=== PATIENT | male | born 1950 | race African-American/Black ===

== ENCOUNTER → 2017-12-24 06:36 | Outpatient (CLI) | payer OTHER, MEDICARE, SELFPAY ==
--- NOTE | 2017-12-24 16:43 | STRESSREP_ITS ---
Stress Test Report Pharmacologic myocardial perfusion stress test. 67-year-old man with a history of coronary artery disease status post coronary bypass surgery 2012. Stress protocol: Resting EKG demonstrates normal sinus rhythm with rate of 62 bpm. Resting blood pressure is 150/100 mmHg. 0.4 mg regadenoson was infused per usual protocol followed by rapid intravenous saline flush injection. Continuous EKG monitoring was performed. The maximum heart rate attained was 115 bpm which was 76% maximum predicted heart rate maximum workload attained was 1 metabolic equivalent. Patient maintained sinus rhythm throughout the recording with occasional premature ventricular complexes. The resting blood pressure is 150/ 100 mmHg with a final blood pressure 140/80 mmHg. There were no ST or T-wave changes noted suggest abnormal flow reserve. Myocardial perfusion protocol. 11.7 mCi of technetium 99m sestamibi was injected at rest. 0.4 mg regadenoson was infused per usual protocol peak infusion 33.6 mCi technetium 99 sestamibi was injected stress images were obtained. Stress and rest images were reconstructed and compared in the short axis vertical long horizontal long axis. Gated images were also obtained. Perfusion SPECT analysis. Review of the stress images demonstrate a medium sized defect noted in the mid anterior wall. Sting images demonstrate near complete reversibility noted in the same area suggesting evidence of mid anterior ischemia. The rest of the mijares appear to be well perfused. Gated SPECT analysis. Gated ejection fraction is noted to be 43% with mid anterior and apical hypokinesis present. Conclusion: Abnormal pharmacologic myocardial perfusion stress test with evidence of mid anterior ischemia in a medium-sized zone. Mild ischemic cardiomyopathy present.
== END ==
PROVIDERS: Visit Provider Internal Medicine Cardiovascular Disease
DX: I25.10 Atherosclerotic heart disease of native coronary artery without angina pectoris (principal); I10 Essential (primary) hypertension
CPT/HCPCS: 78452; 93017; A9500; A4216; J2785

== ENCOUNTER → 2019-08-20 12:49 | Outpatient (CLI) | payer MEDICARE, SELFPAY ==
[2019-07-24 11:10] VITALS: BMI 27.8
[2019-08-18 15:41] VITALS: BMI 27.8
--- NOTE | 2019-08-20 12:54 | ECHOCS_ITS ---
Reason For Study: CAD/ASHD Procedure This was a 2D Doppler, Color Flow transthoracic echocardiogram. The study was technically difficult. Exam performed in department. Left Ventricle Normal LV size. Sigmoid septum. Segmental dysfunction with preserved ejection fraction (see wall motion). The estimated ejection fraction is 55 %. No evidence for diastolic dysfunction. Infero- Basal: Hypokinetic. Basal inferoseptal: Hypokinetic. Mid-Inferior: Hypokinetic. Mid-inferoseptal : Hypokinetic. Mid-anteroseptal : Hypokinetic. Inferior [place] : Hypokinetic. Septal [place] : Hypokinetic. Right Ventricle Normal RV size. Normal systolic function. Atria Borderline to mildly enlarged left atrium. Normal right atrium. No doppler evidence for ASD. Mitral Valve There is no mitral annular calcification. Normal mitral valve. Trivial mitral valve insufficiency. Tricuspid Valve Normal tricuspid valve. Trivial tricuspid valve insufficiency. Right ventricular systolic pressure estimated to be 25 mmHg. Aortic Valve Trisinus/trileaflet aortic valve. Mild focal aortic valve thickening. Pulmonic Valve The pulmonic valve is not well visualized. Trivial pulmonic valve insufficiency. Great Vessels Normal sized aortic root. Pericardium/Pleural No pericardial effusion. Medication 22 gauge I.V. with prn adaptor inserted into right arm. Diluted definity 3ml given slow IV push to enhance endocardial definition. MMode/2D Measurements & Calculations LVIDd: 4.7 cm IVSd: 0.95 cm Ao root diam: 2.9 cm LVIDs: 3.1 cm LVPWd: 0.95 cm RVDd: 3.3 cm FS: 33.4 % LAV(MOD-bp): 30.0 ml LVAd ap4: 23.2 cm2 SV(MOD-sp4): 38.8 ml LAV(MOD-bp) Indexed: 16.4 ml/m2 EDV(MOD-sp4): 60.5 ml LAV(MOD-sp2): 31.7 ml EDV(sp4-el): 60.8 ml LAV(MOD-sp4): 25.5 ml LVAs ap4: 12.5 cm2 ESV(MOD-sp4): 21.7 ml ESV(sp4-el): 21.4 ml EF(MOD-sp4): 64.2 % EF(sp4-el): 64.8 % SV(sp4-el): 39.4 ml LA A4 area: 12.1 cm2 LA dimension(2D): 4.1 cm RA A4 area: 13.5 cm2 Time Measurements MV dec time: 0.25 sec Doppler Measurements & Calculations MV E max dal[place]: 75.8 cm/sec Lat Peak E' [place]: 10.7 cm/sec Med Peak E' [place]: 5.8 cm/sec MV A max [place]: 94.5 cm/sec E/E' lat: 7.1 E/E' med: 13.0 MV E/A: 0.80 Ao V2 max: 141.6 cm/sec LV V1 max: 72.3 cm/sec PA V2 max: 129.6 cm/sec Ao max P.0 mmHg LV V1 max P.1 mmHg TR max dal[place]: 234.0 cm/sec TR max P.9 mmHg Interpretation Summary The study was technically difficult. Segmental dysfunction with preserved ejection fraction (see wall motion). The estimated ejection fraction is 55 %. Sigmoid septum. Borderline to mildly enlarged left atrium. Trivial mitral valve insufficiency. Trivial tricuspid valve insufficiency. Mild focal aortic valve thickening. Trivial pulmonic valve insufficiency. Right ventricular systolic pressure estimated to be 25 mmHg. No evidence for diastolic dysfunction. Ordering Physician: Yon Decker Referring Physician: BERTHA RODRIGUEZ Performed By: Pepper Reeves RDCS
== END ==
PROVIDERS: Family Provider Internal Medicine; PCP Internal Medicine; Referring Provider Internal Medicine Cardiovascular Disease; Visit Provider Internal Medicine Cardiovascular Disease
DX: I25.5 Ischemic cardiomyopathy (principal)
CPT/HCPCS: 93306; Q9957; A4216; C8929

== ENCOUNTER → 2020-01-02 06:06 | Outpatient (CLI) | payer MEDICARE, SELFPAY ==
[2019-11-12 16:35] VITALS: BMI 27.8
[2020-01-02 07:17] LABS: Absolute Lymphocyte Count 3.68 X10^3/uL (0.83-4.51); Absolute Neutrophil Count 2.8 X10^3/uL (2.0-7.7); Basophil# 0.07 X10^3/uL; Basophil% 0.9 % (0-1); Eosinophil# 0.38 X10^3/uL; Eosinophils% 4.9 % (0-5); Hematocrit 45.4 % (40-54); Hemoglobin 14.1 g/dL (13.0-16.5); Lymphocyte # 3.68 X10^3/ul (4.0); Lymphocyte % 47.4 % (19-41); Mean Corp Hgb Conc 31.1 g/dL (32-36); Mean Corpuscular Hgb 24.9 pg (27.0-32.0); Mean Corpuscular Volume 80.1 fL (80-94); Mean Platelet Vol. 12.5 fl (6.2-12.0); Monocyte% 10.3 % (0-10); NRBC Flagged by Analyzer 0 % (0-5); Neutrophil # 2.82 X10^3/uL (2.7-7.7); Neutrophil % 36.2 % (47-70); Platelet Count 197 K/mm3 (150-450); RBC Distribution Width CV 14.6 % (11.6-14.6); Red Blood Count 5.67 M/mm3 (4.6-6.2); White Blood Count 7.8 K/mm3 (4.4-11.0)
[2020-01-02 07:44] LABS: Microalbumin:Creatinine Ratio 158.9 mg/g CRE (<30 mg/g CRE)
[2020-01-02 07:45] LABS: ALB/GLOB Ratio 0.9 RATIO (0.9-2.4); AST(SGOT) 22 U/L (15-37); Alanine Aminotransfer ALT/SGPT 31 U/L (16-61); Albumin, Serum 3.3 g/dL (3.2-5.0); Alkaline Phosphatase 79 U/L (45-117); Anion Gap 6 (5-15); BUN 14 mg/dL (7-18); Calcium,Total 8.7 mg/dL (8.5-10.1); Chloride 109 mmol/L (98-107); Cholesterol 168 mg/dL (200); Creatinine, Serum 0.87 mg/dL (0.70-1.30); EST Glomerular Filtration Rate 91 mL/min (>60); Est Glom Filt Rate - Afr Amer 110 mL/min (>60); Globulin 3.7 g/dL (2.2-4.2); Glucose 109 mg/dL (74-106); High Density Lipoprotein 49 mg/dL; Potassium 3.9 mmol/L (3.5-5.1); Sodium Level 141 mmol/L (136-145); Triglycerides 147 mg/dL; Very Low Density Lipoprotein 29 mg/dL (5-40)
== END ==
PROVIDERS: PCP Internal Medicine; Referring Provider Internal Medicine; Visit Provider Internal Medicine
DX: I25.5 Ischemic cardiomyopathy (principal); E11.9 Type 2 diabetes mellitus without complications
CPT/HCPCS: 36415; 80053; 80061; 82043; 82570; 85025

== ENCOUNTER → 2020-01-23 | Outpatient (CLI) | payer MEDICARE, SELFPAY ==
[2019-11-12 16:35] VITALS: BMI 27.8
[2020-01-23 15:54] LABS: Anion Gap 3 (5-15); BUN 14 mg/dL (7-18); BUN/Creat Ratio 15.3 RATIO (10-20); Calcium,Total 9.1 mg/dL (8.5-10.1); Chloride 108 mmol/L (98-107); Creatinine, Serum 0.92 mg/dL (0.70-1.30); EST Glomerular Filtration Rate 87 mL/min (>60); Est Glom Filt Rate - Afr Amer 105 mL/min (>60); Glucose 102 mg/dL (74-106); Sodium Level 142 mmol/L (136-145)
== END | disposition home or self-care (01) ==
LOC: LABSPEC 15:20
PROVIDERS: PCP Internal Medicine; Referring Provider Internal Medicine; Visit Provider Internal Medicine
DX: E11.9 Type 2 diabetes mellitus without complications (principal); I10 Essential (primary) hypertension
CPT/HCPCS: 80048

== ENCOUNTER → 2020-03-18 14:57 | Outpatient (CLI) | payer MEDICARE, SELFPAY ==
[2020-03-18 14:39] VITALS: BMI 27.8
[2020-03-18 15:51] LABS: Bacteria 0 SEEN /hpf (None Seen); Mucous, Urine 0 SEEN /hpf (<or=2+); Red Blood Cells-Urine 0 SEEN /hpf (0-5); Squamous Epithelial Cells - UA 0 SEEN /hpf (0-5); White Blood Cells 0 SEEN /hpf (0-5)
[2020-03-18 16:48] LABS: Anion Gap 6 (5-15); BUN 20 mg/dL (7-18); BUN/Creat Ratio 21.8 RATIO (10-20); Calcium,Total 8.9 mg/dL (8.5-10.1); Chloride 106 mmol/L (98-107); Creatinine, Serum 0.92 mg/dL (0.70-1.30); EST Glomerular Filtration Rate 86 mL/min (>60); Est Glom Filt Rate - Afr Amer 104 mL/min (>60); Glucose 102 mg/dL (74-106); Potassium 4.1 mmol/L (3.5-5.1); Sodium Level 139 mmol/L (136-145)
[2020-03-18 16:52] LABS: Color, Urine Yellow (Yellow); Glucose, Dipstick Normal (Normal); Ketone-Dipstick Negative (Negative); Leukocyte Esterase-Dipstick Negative /ul (Negative); Nitrite-Dipstick Negative (Negative); Occult Blood-Urine 10 /ul (Negative); Protein-Dipstick 30 mg/dl (Negative); Urine Bilirubin Dipstick Negative (Negative); Urine Clarity Clear (Clear); Urine Urobilinogen Normal (Normal)
== END ==
PROVIDERS: PCP Internal Medicine; Referring Provider Internal Medicine; Visit Provider Internal Medicine
DX: R60.0 Localized edema (principal)
CPT/HCPCS: 36415; 80048; 81001

== ENCOUNTER 2021-01-07 16:35 | Outpatient (RCR) | payer MEDICARE, SELFPAY ==
[2021-01-07] MEDS: COVID-19 VACC, MRNA(PFIZER)/PF 30 MCG/0.3 ML SYRINGE IM (17:25)
[2021-01-10 16:31] VITALS: BMI 28.4
[2021-01-28] MEDS: COVID-19 VACC, MRNA(PFIZER)/PF 30 MCG/0.3 ML SYRINGE IM (11:02)
== END 2021-01-07 23:59 ==
LOC: IMMUN 16:35
PROVIDERS: PCP Internal Medicine; Referring Provider Family Medicine; Visit Provider Family Medicine
DX: Z23 Encounter for immunization (principal)
CPT/HCPCS: 0001A; 0002A; 91300

== ENCOUNTER → 2023-04-13 | Outpatient (CLI) | payer MEDICARE, SELFPAY | END | disposition home or self-care (01) | LOC: SL 20:12 | PROVIDERS: PCP Family Medicine; Referring Provider Nurse Practitioner Family; Visit Provider Nurse Practitioner Family | DX: G47.10 Hypersomnia, unspecified (principal) | CPT/HCPCS: 95810 ==

== ENCOUNTER → 2023-06-01 | Outpatient (CLI) | payer MEDICARE, SELFPAY | END | disposition home or self-care (01) | LOC: SL 20:14 | PROVIDERS: PCP Family Medicine; Referring Provider Nurse Practitioner Acute Care; Visit Provider Nurse Practitioner Acute Care | DX: G47.33 Obstructive sleep apnea (adult) (pediatric) (principal) | CPT/HCPCS: 95811 ==

== ENCOUNTER → 2023-08-02 | Outpatient (CLI) | payer MEDICARE, MEDICAID, SELFPAY | END | disposition home or self-care (01) | LOC: SL 13:51 | PROVIDERS: PCP Family Medicine; Visit Provider Nurse Practitioner Acute Care | DX: G47.33 Obstructive sleep apnea (adult) (pediatric) (principal); Z99.89 Dependence on other enabling machines and devices ==

== ENCOUNTER → 2025-07-06 | Outpatient (CLI) | payer MEDICARE, MEDICAID, SELFPAY ==
--- OUTSIDE RECORDS SUMMARY | 2025-07-06 06:33 | XMS RPT_ITS | CCD ---
Author Organization [facility] CliniSypr Care Team Providers Care Health Information Managers Name Role Phone MYLES SANONNETH Unavailable Unavailable FAB MARCUS Unavailable Unavailable UMESH NGUYEN Unavailable Unavailable FAB, MARCUS Unavailable Unavailable FAB, MARCUS Unavailable Unavailable UMESH NGUYEN Unavailable Unavailable A, Hvi Clinical Cardiology Unavailable Diego Sanchez MD Primary Care Provider [facility], [place] Unavailable A, [facility] Clinical Cardiology Unavailable Diego Sanchez MD Primary Care Provider [facility], [place]eti Unavailable A, [facility] Clinical Cardiology Unavailable Diego Sanchez MD Primary Care Provider [facility], [place]eti Unavailable Dr. Diego Patricio Primary Care Provider Dr. Diego Patricio Referring Provider Nara VALENTINE, JELENA Manning Attending Provider [facility], [place] Unavailable Diego Patricio MD Primary Care Provider Diego Patricio MD Primary Care Provider [facility], [place] Unavailable Eron PROJECT DRILLING ENGINEER.PRAVIN Mary Unavailable Kelly Walton PA-C Unavailable Mary Littlejohn APRN.CNP Unavailable Kelly Walton PA-C Unavailable Dr. Diego Patricio MD Primary Care Provider [phone] Dr. Diego Patricio MD Referring Provider Roof C++ PROFESSOR-C, Bakari Post Attending Provider DIEGO PATRICIO Attending Unavailable SHENG, DIEGO A Primary Care Unavailable GILBERT GARZA Attending Unavailable KELLY WALTON Referring Unavailable SHENG, DIEGO A Primary Care Unavailable SHENG, DIEGO A Primary Care Unavailable SHENG, DIEGO A Primary Care Unavailable SHENG, DIEGO A Attending Unavailable SHENG, DIEGO A Primary Care Unavailable SHENG, DIEGO A Referring Unavailable SHENG, DIEGO A Primary Care Unavailable KELLY WALTON Attending Unavailable SHENG, DIEGO A Primary Care Unavailable CHERI RICHEY Attending Unavailable KELLY WALTON Referring Unavailable SHENG, DIEGO A Primary Care Unavailable PODLOGARAKILAH Attending Unavailable SHENG, DIEGO A Primary Care Unavailable PODLOGARAKILAH Referring Unavailable SHENG, DIEGO A Primary Care Unavailable KELLY WALTON Attending Unavailable SHENG, DIEGO A Primary Care Unavailable SHENG, DIEGO A Referring Unavailable SHENG, DIEGO A Primary Care Unavailable KELLY WALTON Attending Unavailable SHENG, DIEGO A Primary Care Unavailable KELLY WALTON Referring Unavailable SHENG, DIEGO A Primary Care Unavailable Velma C++ PROFESSOR, Bakari Post Attending Unavailable Sheng, Diego Primary Care Unavailable Bakari Carreon NP Referring Unavailable Diego Patricio Referring Unavailable Sheng, Diego Primary Care Unavailable Velma C++ PROFESSOR, Bakari Post Attending Unavailable Allergies Allergy Classification Reported Allergen(s) Allergy Type Date of Onset Reaction(s) Facility Acetaminophen (2 sources) Acetaminophen Drug Allergy 9 Other: See Comments, Mental Status Change [facility] Acetaminophen / oxyCODONE (2 sources) Acetaminophen / oxyCODONE Drug Allergy 3 Mental Status Change [facility] Angiotensin Converting Enzyme (WHITNEY) Inhibitors (2 sources) Lisinopril Drug Allergy 3 Rash [facility] Work Phone: Opioid Agonists (2 sources) oxyCODONE Drug Allergy 1 Other: See Comments [facility] (20 sources) acetaminophen / oxyCODONE; Translations: [OXYCODONE-ACETAM INOPHEN] Drug Allergy 3 Mental Status Change [facility] (20 sources) lisinopril; Translations: [LISINOPRIL] Drug Allergy 3 Rash [facility] Rep[facility] (20 sources) oxyCODONE; Translations: [OXYCODONE] Drug Allergy 1 Other: See Comments [facility] Work Phone: (20 sources) Acetaminophen; Translations: [ACETAMINOPHEN] Drug Allergy 9 Other: See Comments, Mental Status Change [facility] (1 source) oxyCODONE Drug Allergy 5 [facility] Repository Medications Current Medications Medication Drug Class(es) Dates Sig (Normalized) Sig (Original) [id number] 200 actuat albuterol 0.09 mg/actuat metered dose inhaler (17 sources) beta2-Adrenergic Agonist Start: 11-27-2024 take 2 puff(s) by inhalation every six hours as needed for wheezing albuterol HFA (PROVENTIL HFA) 90 mcg/actuation inhaler Inhale 2 Puffs as instructed every 6 hours as needed for wheezing/shortne ss of breath. 1 Each 5 11/27/2024 Active amLODIPine 5 mg oral tablet (20 sources) Dihydropyridine Calcium Channel Rama Start: 09-02-2021 End: 04-25-2024 take 1 mg by mouth once daily Amlodipine 5 mg tablet Active mg PO DAILY December 11, 2023 1:00am Comment on above: Take 1 tablet by candelaria th once daily. aspirin 81 mg delayed release oral tablet (20 sources) Platelet Aggregation Inhibitor, Nonsteroidal Anti-inflammatory Drug Start: 06-03-2025 Aspirin (Adult Low Dose Aspirin) 81 mg tablet,delayed release (DR/EC) Active 81 mg PO TWICE A DAY June 03, 2025 11:11am alternates 1-2 tabs every other week Start: 07-24-2019 End: 06-03-2025 Aspirin (Adult Low Dose Aspi rin) 81 mg tablet,delayed release (DR/EC) Discontinued 81 mg PO DAILY July 24, 2019 11:10am June 03, 2025 11:13am alternates 1-2 tabs every other week Start: 07-04-2019 End: 07-24-2019 Aspirin (Adult Low Dose Aspi rin) 81 mg tablet,delayed release (DR/EC) Discontinued 162 mg PO DAILY July 04, 2019 12:00am July 24, 2019 11:12am Start: 11-21-2012 take 2 tablets by mo [facility] once daily aspirin 81 mg chewable tablet Take 2 tablets by mouth once daily. 0 11/21/2012 Active Comment on above: Take 2 tablets by mo [facility] once daily. atorvastatin 40 mg oral tablet (20 sources) HMG-CoA Reductase Inhibitor Start: 9 End: 5 take 1 tablet by mouth once daily at bedtime atorvastatin (LIPITOR) 40 mg tablet Indications: Hyperlipidemia, unspecified hyperlipidemia type Take 1 tablet by mouth daily at bedtime. 90 tablet 3 11/07/2024 Active Comment on above: Take 1 tablet by [facility] daily at bedtime. Blood Glucose Control, High (TRUE METRIX LEVEL 3) (20 sources) Start: 1 Blood Glucose Control, High (TRUE METRIX LEVEL 3) Use as directed to set up machine 1 Each 1 03/17/2021 Active Comment on above: Use as directed to s et up machine Blood Glucose Control, Low (TRUE METRIX LEVEL 1) (20 sources) Start: 1 Blood Glucose Control, Low (TRUE METRIX LEVEL 1) Use as directed to set up machine 1 Each 1 03/17/2021 Active Comment on above: Use as directed to s et up machine Blood Glucose Control, Normal (TRUE METRIX LEVEL 2) soln (20 sources) Start: 1 Blood Glucose Control, Normal (TRUE METRIX LEVEL 2) soln Use as directed to set up machine 1 Each 1 03/17/2021 Active Comment on above: Use as directed to s et up machine Blood Pressure Test Kit-Large (20 sources) Start: 1 Blood Pressure Test Kit-Large Indications: Essential hypertension , Ischemic cardiomyopathy , Coronary artery disease due to lipid rich plaque Check BP once a day or as needed. Dx: I10, I25.5 and I25.10 1 Each 03/07/2021 Active Start: 03-07-2021 Blood Pressure Test Kit-Large Indications: Essential hypertension , Ischemic cardiomyopathy , Coronary artery disease due to lipid rich plaque Check BP once a day or as needed. Dx: I10, I25.5 and I25.10 1 Each 0 03/07/2021 Active Comment on above: Check BP once a day or as needed. Dx: I10, I25.5 and I25.10 Blood-Glucose Meter (20 sources) Start: 02-03-2025 Blood-Glucose Meter Test blood sugar once a day DX E11. Insulin: No 1 each 02/03/2025 Active Start: 02-15-2021 End: 02-03-2025 Blood-Glucose Meter Indicati ons: Essential hypertension Test blood sugar once a day DX Insulin: No 1 Each 02/15/2021 02/03/2025 Discontinued Start: 02-15-2021 Blood-Glucose Meter Indications: Essential hypertension Test blood sugar once a day DX Insulin: No 1 Each 02/15/2021 Active Start: 02-15-2021 Blood-Glucose Meter Indications: Essential hypertension Test blood sugar once a day DX Insulin: No 1 Each 0 02/15/2021 Active Comment on above: Test blood sugar onc e a day DX Insulin: No Blood-Glucose Meter (TRUE METRIX GLUCOSE METER) (20 sources) Start: 03-17-2021 Blood-Glucose Meter (TRUE METRIX GLUCOSE METER) Use to check blood sugar once a day. Dx: E11., no insulin 1 Each 1 03/17/2021 Active Comment on above: Use to check blood s ugar once a day. Dx: E11.29, no insulin Blood-Glucose Meter monitoring kit (1 source) Start: 08-28-2022 End: 08-29-2022 Blood-Glucose Meter monitoring kit Indications: Type 2 diabetes mellitus with other circulatory complication, without long-term current use of insulin ([facility]) Glucose Meter of Choice - Kit - Dx: Type 2 DM - Controlled E11.9 Check Blood Sugar Once a day 1 Each 0 08/28/2022 08/29/2022 Active Comment on above: Glucose Meter of Cho ice - Kit - Dx: Type 2 DM - Controlled E11.9 Check Blood Sugar Once a day 120 actuat budesonide 0.16 mg/actuat / formoterol fumarate 0.0045 mg/actuat metered dose inhaler (18 sources) Corticosteroid, beta2-Adrenergic Agonist Start: 06-03-2025 Budesonide-Formoterol (Symbicort) 160-4.5 mcg/actuation HFA aerosol inhaler Active 2 NMA INHALATION daily as needed June 03, 2025 12:00am Start: 03-30-2025 take 2 puff(s) by in halation twice daily budesonide-formoterol (SYMBICORT) 160-4.5 mcg/actuation inhaler Inhale 2 puffs as instructed two times a day. 1 each 03/30/2025 Active Start: 02-03-2025 End: 03-30-2025 take 2 puff(s) by inhalation twice daily budesonide-formoterol (SYMBICORT) 160-4.5 mcg/actuation inhaler Inhale 2 puffs as instructed two times a day. 1 each 02/03/2025 03/30/2025 Discontinued Start: 02-03-2025 take 2 puff(s) by in halation twice daily budesonide-formoterol (SYMBICORT) 160-4.5 mcg/actuation inhaler Inhale 2 puffs as instructed two times a day. 1 each 02/03/2025 Active carbamide peroxide 65 mg/ml otic solution (4 sources) Start: 05-12-2025 take 4-5 drop(s) auricular (otic) route every hour as needed carbamide peroxide (DEBROX) 6.5 % otic solution Use 4-5 drops in the ears every hour as needed. 15 mL 05/12/2025 Active carvedilol 25 mg oral tablet (20 sources) alpha-Adrenergic Rama, beta-Adrenergic Rama Start: 04-03-2019 End: 05-05-2025 take 1 tablet by mouth twice daily at mealtime carvedilol (COREG) 25 mg tablet Indications: Heart failure, acute systolic (HCC) Take 1 tablet by mouth two times a day with meals. 180 tablet 3 05/05/2025 Active Comment on above: Take 1 tablet by candelaria th twice daily with meals. Take 1 tablet by candelaria th two times a day with meals. clotrimazole 10 mg/ml topical cream (4 sources) Azole Antifungal Start: 06-16-2024 End: 06-30-2024 clotrimazole (LOTRIMIN) 1 % cream Indications: Tinea cruris Apply to affected area two times a day for 14 days. 113 g 06/16/2024 06/30/2024 Active 24 hr dilTIAZem hydrochloride 120 mg extended release oral capsule (20 sources) Calcium Channel Rama Start: 10-17-2024 take 1 capsule by mouth once daily dilTIAZem CD (CARDIZEM CD) 120 mg 24 hr capsule Indications: Essential hypertension Take 1 capsule by mouth once daily. 90 capsule 3 10/17/2024 Active Start: 04-25-2024 End: 09-22-2024 take 1 capsule by mouth once daily dilTIAZem CD (CARDIZEM CD) 120 mg 24 hr capsule Take 1 capsule by mouth once daily. 30 capsule 5 09/22/2024 Active doxycycline monohydrate 100 mg oral tablet (3 sources) Tetracycline-class Drug Start: 08-04-2024 End: 08-14-2024 take 1 tablet by mouth twice daily doxycycline monohydrate 100 mg tablet Indications: Cutaneous abscess of back excluding buttocks Take 1 tablet by mouth two times a day for 10 days. 20 tablet 08/04/2024 08/14/2024 Active Start: 01-02-2023 End: 01-09-2023 take 1 tablet by mouth twice daily doxycycline monohydrate 100 mg tablet Indications: Lower resp. tract infection Take 1 tablet by mouth twice daily for 7 days. 14 tablet 0 01/02/2023 01/09/2023 Active Comment on above: Take 1 tablet by candelaria th twice daily for 7 days. fluconazole 200 mg oral tablet (5 sources) Azole Antifungal Start: End: 4 take 1 tablet by mouth every week fluconazole (DIFLUCAN) 200 mg tablet Indications: Tinea cruris Take 1 tablet by mouth one time a week for 28 days. 4 tablet 06/16/2024 07/14/2024 Active ibuprofen 600 mg oral tablet (1 source) Nonsteroidal Anti-inflammatory Drug Start: 4 take 1 mg by mouth every eight hours as needed Ibuprofen 600 mg tablet Active mg PO Q8H as needed December 11, 2023 1:00am isopropyl alcohol 0.7 ml/ml medicated pad (20 sources) Start: 1 alcohol swabs Apply 1 application to affected area once daily. 1 Box 3 03/17/2021 Active Comment on above: Apply 1 application to affected area once daily. losartan potassium 100 mg oral tablet (20 sources) Angiotensin 2 Receptor Rama Start: End: take 1 tablet by mouth once daily losartan (COZAAR) 100 mg tablet Indications: Essential hypertension Take 1 tablet by mouth once daily. 90 tablet 3 10/17/2024 Active Start: 01-13-2021 End: 04-01-2021 take 1 tablet by mouth once daily Losartan 50 mg tablet Discontinued 50 mg PO DAILY 90 February 03, 2021 12:00pm April 01, 2021 8:31am Start: 01-02-2020 End: 01-13-2021 take 1 tablet by mouth once daily Losartan 25 mg tablet Discontinued 25 mg PO DAILY 90 November 08, 2020 6:40pm January 13, 2021 3:44pm Comment on above: Take 1 tablet by candelaria th once daily. metFORMIN hydrochloride 500 mg oral tablet (20 sources) Biguanide Start: 4 take 1 tablet by mouth once daily at breakfast metFORMIN (GLUCOPHAGE) 500 mg tablet Indications: Type 2 diabetes mellitus with other circulatory complication, without long-term current use of insulin (HCC) Take 1 tablet by mouth daily with breakfast. 90 tablet 3 10/17/2024 Active Start: 03-31-2021 End: 09-22-2024 take 1 tablet by mouth once daily at breakfast metFORMIN (GLUCOPHAGE) 500 mg tablet Indications: Type 2 diabetes mellitus with other circulatory complication, without long-term current use of insulin (HCC) Take 1 tablet by mouth daily with breakfast. 90 tablet 3 10/17/2024 Active Comment on above: Take 1 tablet by candelaria th daily with breakfast. nitroglycerin 0.4 mg sublingual tablet (20 sources) Nitrate Vasodilator Start: 10-03-2021 End: 08-09-2022 nitroglycerin sublingual (NITROQUICK) 0.4 mg SL tablet Dissolve 1 tablet under the tongue as needed. for chest pain,every 5 min x3 25 tablet 1 08/09/2022 Active Comment on above: Dissolve 1 tablet un nata the tongue as needed. for chest pain,every 5 min x3 Completed/Discontinued Medications Medication Drug Class(es) Dates Sig (Normalized) Sig (Original) amoxicillin 875 mg / clavulanate 125 mg oral tablet (1 source) Penicillin-class Antibacterial Start: 12-11-2023 End: 12-31-2023 Amoxicillin-Pot Clavulanate 875-125 mg tablet Discontinued 1 {tbl} PO TWICE A DAY 10 December 11, 2023 1:00am December 31, 2023 2:53pm diclofenac sodium 0.01 mg/mg topical gel (2 sources) Nonsteroidal Anti-inflammatory Drug Start: 07-04-2019 End: 07-24-2019 apply 1 g topically four times daily as needed Diclofenac Sodium (Voltaren) 1 % gel Discontinued 1 g TOPICAL .QID as needed July 04, 2019 12:00am July 24, 2019 11:11am diphenhydrAMINE hydrochloride 25 mg oral tablet (20 sources) Histamine-1 Receptor Antagonist Start: 06-27-2024 End: 06-18-2025 take 1 tablet by mouth every six hours as needed diphenhydrAMINE (BENADRYL ALLERGY) 25 mg tablet Take 1 tablet by mouth every 6 hours as needed. 30 tablet 06/27/2024 06/18/2025 Discontinued (Course of therapy completed) fluticasone propionate 0.05 mg/actuat metered dose nasal spray (20 sources) Corticosteroid Start: 10-20-2022 End: 05-12-2025 take 2 spray(s) by mouth once daily fluticasone (FLONASE) 50 mcg/actuation nasal spray Indications: Nasal congestion Use 2 Sprays in each nostril once daily. Rinse mouth after use. 1 Each 5 04/25/2024 05/12/2025 Discontinued Start: 07-04-2019 End: 07-24-2019 Fluticasone Propionate (Benjamin rgy Relief (Fluticasone)) 50 mcg/actuation spray,suspension Discontinued 2 NMA INTRANASAL DAILY July 04, 2019 12:00am July 24, 2019 11:12am Start: 07-04-2019 End: 07-24-2019 Fluticasone Propionate (Benjamin rgy Relief (Fluticasone)) 50 mcg/actuation spray,suspension Discontinued 2 SPRAY INTRANASAL DAILY July 04, 2019 12:00am July 24, 2019 11:12am Comment on above: Use 2 Sprays in each nostril once daily. Rinse mouth after use. furosemide 20 mg oral tablet (20 sources) Loop Diuretic Start: 03-18-2024 End: 11-11-2024 take 1 tablet by mouth every other day furosemide (LASIX) 20 mg tablet Take 1 tablet by mouth every other day. 45 tablet 1 03/18/2024 11/11/2024 Discontinued (Discontinued by Patient) Start: 03-18-2020 End: 09-29-2020 take 1 tablet by mouth every other day Furosemide (Lasix) 20 mg tablet Discontinued 20 mg PO every other day 7 March 18, 2020 12:00am September 29, 2020 12:18pm 12 hr guaiFENesin 1200 mg extended release oral tablet (2 sources) Start: 08-18-2020 End: 04-04-2023 take 1 tablet by mouth twice daily as needed for congestion, then take 1 tablet by mouth every twelve hours as needed for congestion Guaifenesin (Mucinex) 1,200 mg tablet extended release 12hr Discontinued 1200 mg PO TWICE A DAY as needed for congestion 90 August 18, 2020 12:00am April 04, 2023 9:03am hydrocortisone 25 mg/ml topical cream (2 sources) Corticosteroid Start: 08-18-2019 End: 11-12-2019 Hydrocortisone 2.5 % cream with perineal applicator Discontinued 1 NMA RC 2 to 4 times per day 30 August 18, 2019 12:00am November 12, 2019 5:33pm ketoconazole 20 mg/ml topical cream (5 sources) Azole Antifungal Start: 06-03-2024 End: 06-16-2024 ketoconazole (NIZORAL) 2 % cream Apply to affected area once daily. Continue to use until 1 week after clinical resolution 60 g 06/03/2024 06/16/2024 Discontinued (Course of therapy completed) latanoprost 0.05 mg/ml ophthalmic solution (1 source) Prostaglandin Analog Start: 12-11-2023 End: 06-03-2025 Latanoprost 0.005 % drops Discontinued NMA OPHTHALMIC DAILY December 11, 2023 1:00am June 03, 2025 11:12am oxymetazoline hydrochloride 0.5 mg/ml nasal spray (2 sources) Start: 12-15-2020 End: 12-18-2020 Oxymetazoline (Afrin (Oxymetazoline)) 0.05 % mist Discontinued 2 NMA INTRANASAL Q12H as needed for nasal congestion 15 3 0 December 15, 2020 1:00am December 17, 2020 1:00am December 18, 2020 1:03am Use for 3 days only predniSONE 20 mg oral tablet (8 sources) Start: 03-30-2025 End: 04-13-2025 take 2 tablets by mouth once daily predniSONE (DELTASONE) 20 mg tablet Indications: SOB (shortness of breath) Take 2 tablets by mouth once daily. 10 tablet 03/30/2025 04/13/2025 Discontinued Start: 02-05-2024 End: 02-10-2024 take 3 tablets by mouth once daily predniSONE (DELTASONE) 10 mg tablet Take 3 tablets by mouth once daily for 5 days. 15 tablet 0 02/05/2024 02/10/2024 Active Start: 12-11-2023 End: 12-31-2023 take 3 tablets by mouth once daily at mealtime Prednisone 20 mg tablet Discontinued 60 mg PO daily 15 0 December 11, 2023 1:00am December 31, 2023 2:53pm administer with food or milk Start: 01-02-2023 End: 01-07-2023 take 2 tablets by mouth once daily predniSONE (DELTASONE) 20 mg tablet Indications: Acute cough , Wheezing Take 2 tablets by mouth once daily for 5 days. 10 tablet 0 01/02/2023 01/07/2023 Active Comment on above: Take 2 tablets by mo uth once daily for 5 days. Take 3 tablets by mo ut[facility] once daily for 5 days. tiotropium 0.018 mg inhalation powder (2 sources) Anticholinergic Start: 11-27-19 End: 02-04-20 take 1 capsule by inhalation once daily tiotropium (SPIRIVA WITH HANDIHALER) 18 mcg inhalation capsule Inhale 1 capsule as instructed once daily. 1 capsule 5 11/27/2024 02/03/2025 Discontinued Problems Active Problems Problem Classification Problem Date Documented Date Episodic/Chronic Administrative/social admission (20 sources) Advance directive discussed with patient; Translations: [Other specified counseling] Onset: 02-23-2023 Episodic Chronic obstructive pulmonary disease and bronchiectasis (20 sources) Chronic bronchitis; Translations: [Unspecified chronic bronchitis] Onset: 11-14-2024 11-14-2024 Chronic Congestive heart failure; nonhypertensive (20 sources) Chronic systolic heart failure; Translations: [Chronic systolic (congestive) heart failure] Onset: 11-13-2012 Chronic Coronary atherosclerosis and other heart disease (20 sources) Atherosclerotic heart disease of [place] coronary artery without angina pectoris; Translations: [Coronary atherosclerosis] Onset: 11-06-2012 Chronic Comment on above: CABG x5- KAY to LAD ,SVG to PDA, SVG to DX, SVG to OM1, SVG to OM2 11/13/12; Coronary atherosclerosis and other heart disease (1 source) Presence of aortocoronary bypass graft; Translations: [Presence of aortocoronary bypass graft] Onset: 07-01-2025 Episodic Diabetes mellitus with complications (20 sources) Type 2 diabetes mellitus; Translations: [Type 2 diabetes mellitus with other circulatory complications] Onset: 02-03-2021 Chronic Diabetes mellitus without complication (4 sources) Type 2 diabetes mellitus without complication; Translations: [Type 2 diabetes mellitus without complications] Chronic Disorders of lipid metabolism (20 sources) Mixed hyperlipidemia; Translations: [Mixed hyperlipidemia] Onset: 11-18-2012 Chronic Essential hypertension (20 sources) Essential hypertension; Translations: [Essential (primary) hypertension] Onset: 02-10-2021 Chronic Fluid and electrolyte disorders (20 sources) Hypervolemia; Translations: [Fluid overload, unspecified] Onset: 11-14-2012 Resolved: 11-18-2012 05-12-2025 Episodic Mycoses (3 sources) Onychomycosis; Translations: [Tinea unguium] 07-06-2023 Episodic Other aftercare (20 sources) Patient encounter status; Translations: [Other fci (current) drug therapy] Onset: 02-03-2021 02-03-2021 Episodic Other connective tissue disease (1 source) Pain of toe of left foot; Translations: [Pain in left toe(s)] 07-06-2023 Episodic Other connective tissue disease (1 source) Pain of toe of right foot; Translations: [Pain in right toe(s)] 07-06-2023 Episodic Other ear and sense organ disorders (3 sources) Impacted cerumen of bilateral ears; Translations: [Impacted cerumen, bilateral] Episodic Other ear and sense organ disorders (1 source) Impacted cerumen, bilateral; Translations: [Bilateral impacted cerumen] Onset: 06-18-2025 Episodic Other inflammatory condition of skin (1 source) Pruritus, unspecified; Translations: [Unspecified pruritic disorder] 06-27-2024 Episodic Other lower respiratory disease (1 source) Cough; Translations: [Acute cough] Episodic Other lower respiratory disease (1 source) Lower respiratory tract infection; Translations: [Unspecified acute lower respiratory infection] Episodic Other lower respiratory disease (8 sources) Wheezing; Translations: [Wheezing] Episodic Other lower respiratory disease (2 sources) Dyspnea; Translations: [Shortness of breath] 03-30-2025 Episodic Other lower respiratory disease (1 source) Shortness of breath; Translations: [SOB (shortness of breath)] Onset: 03-30-2025 Episodic Other nervous system disorders (4 sources) Entrapment of left ulnar nerve; Translations: [Lesion of ulnar nerve, left upper limb] 02-03-2025 Chronic Other nervous system disorders (1 source) Lesion of ulnar nerve, left upper limb; Translations: [Ulnar nerve compression, left] Onset: 02-23-2025 Chronic Other nervous system disorders (3 sources) Numbness of hand; Translations: [Anesthesia of skin] 02-03-2025 Episodic Other nutritional; endocrine; and metabolic disorders (20 sources) Body mass index 25-29 - overweight; Translations: [Overweight] Onset: 08-08-2017 Episodic Other skin disorders (3 sources) Foot callus; Translations: [Corns and callosities] Onset: 06-18-2025 07-06-2023 Episodic Other skin disorders (1 source) Eruption; Translations: [Rash and other nonspecific skin eruption] 06-27-2024 Episodic Other skin disorders (1 source) Corns and callosities; Translations: [Foot callus] Onset: 06-18-2025 Episodic Other upper respiratory disease (20 sources) Allergic rhinitis; Translations: [Allergic rhinitis, unspecified] Onset: 02-01-2021 Chronic Other upper respiratory disease (4 sources) Nasal congestion; Translations: [Nasal congestion] Episodic Residual codes; unclassified (20 sources) Obstructive sleep apnea syndrome; Translations: [Obstructive sleep apnea (adult) (pediatric)] Onset: 12-12-2023 05-01-2023 Chronic Comment on above: AHI 28.4 Residual codes; unclassified (2 sources) Obstructive sleep apnea (adult) (pediatric); Translations: [Obstructive sleep apnea (adult)(pediatric)] Onset: 11-11-2024 3 Chronic Residual codes; unclassified (20 sources) Bilateral lower limb edema; Translations: [Localized edema] Onset: 03-18-2024 03-18-2024 Episodic Screening and history of mental health and substance abuse codes (20 sources) Ex-smoker; Translations: [Personal history of nicotine dependence] Onset: 02-03-2021 02-07-2021 Episodic Skin and subcutaneous tissue infections (1 source) Abscess of back, except buttock; Translations: [Cutaneous abscess of back [any part, except buttock]] 08-04-2024 Episodic Unclassified (1 source) Unknown / UNK(Unknown) Onset: 12-28-2017 Past or Other Problems Problem Classification Problem Date Documented Da te Episodic/Chronic Diabetes mellitus without complication (20 sources) Metabolic stress hyperglycemia; Translations: [Hyperglycemia, unspecified] Onset: 11-13-2012 Resolved: 08-12-2018 10-17-2021 Episodic Genitourinary symptoms and ill-defined conditions (20 sources) Proteinuria; Translations: [Other proteinuria] Onset: 02-04-2021 Resolved: 04-25-2024 02-04-2021 Episodic Immunizations and screening for infectious disease (4 sources) Vaccination needed; Translations: [Encounter for immunization] Onset: 11-11-2024 Episodic Other aftercare (1 source) Other manager intermediate (current) drug therapy; Translations: [Medication management] Onset: 02-03-2021 Episodic Other circulatory disease (20 sources) H/O: atrial fibrillation; Translations: [Personal history of other diseases of the circulatory system] Onset: 11-16-2012 02-03-2021 Episodic Other circulatory disease (20 sources) Low blood pressure; Translations: [Hypotension, unspecified] Onset: 11-13-2012 Resolved: 11-15-2012 Episodic Other lower respiratory disease (1 source) Wheezing; Translations: [Wheezing] Onset: 11-11-2024 Episodic Other male genital disorders (20 sources) Disorder of prostate; Translations: [Disorder of prostate, unspecified] Onset: 02-03-2021 02-03-2021 Episodic Other nervous system disorders (1 source) Anesthesia of skin; Translations: [Hand numbness] Onset: 02-23-2025 Episodic Other nutritional; endocrine; and metabolic disorders (1 source) Overweight; Translations: [Overweight (BMI 25.0-29.9)] Onset: 02-03-2021 Episodic Other screening for suspected conditions (not mental disorders or infectious disease) (20 sources) Raised prostate specific antigen; Translations: [Elevated prostate specific antigen [PSA]] Onset: 04-02-2023 04-02-2023 Episodic Residual codes; unclassified (20 sources) Edema; Translations: [Edema, unspecified] Onset: 12-09-2012 Resolved: 06-18-2025 Episodic Residual codes; unclassified (1 source) Localized edema; Translations: [Bilateral leg edema] Onset: 03-18-2024 Episodic Residual codes; unclassified (1 source) Edema, unspecified; Translations: [Edema, unspecified type] Onset: 02-01-2021 Episodic Results Test Name Value Interpretation Reference Range Facility [facility] 06-25-2025 CNCO Letter Text Normal [facility] CNOVon 06-18-2025 CNOV Office Visit (FAMPWS ) JESSICAAURELIANO TREJO ([id number]) 1950 M Date Time Provider Department 06/18/25 9:20 AM DIEGO PATRICIOSHELLY During your visit today, we recorded the following information about you: Pulse Respiration Blood pressure Weight 52/minute 18/minute 104/62 75.1 kg Height 1.632 m Diego Patricio MD 06/18/2025 8:50 PM Signed Aureliano Dang is a 75 year old male here for a Medicare wellness visit. Medicare Health Risk Assessment General Health Very good Exercise: Minutes/Day 10 min Exercise: Days/Week 7 days Alcohol: Daily Use Never Alcohol: Drinks/Day Patient does not drink Alcohol: 6 or more drinks Never Feel off balance Yes Concerns: Teeth/Dentures No Concerns: Sexual function No Troubled by feelings None of the above Frequency: Eating healthy diet More than half the days ADLs requiring help None of the above Safety precautions in home/vehicle No (Rugs in home. Following all other safety precautions.) Smoke, vape, chews tobacco No Difficulty hearing Yes Difficulty seeing No Current Providers Specialists: I have reviewed specialist-related care of the patient in the medical record. Medical/Family history review Reviewed and updated problem list, medical/surgical/family/soc ial history, medications, and allergies. Opioid use review Opioid Medications (last 90 days) No data to display Anxiety/Depression screening PHQ-2 Score: 0 (Lower risk for depression) BILLIE-2 Score: 0 (Lower risk for anxiety) Recommendation: no further intervention at this time Cognitive screening Mini Cog Score: 5 Cognitive screening reviewed and No further action needed (score 3-5). Mini-Cog Patient asked to remember the following three words: Banana, [place] and Chair Visuospatial/Executive Functioning: Clock drawin/2 (Normal clock with all number in correct sequence and position, hands are correct = 2 points, inability or refusal to draw a clock = 0) Three word recall: 3/3 Total score: 5/5 (Total score = word recall score + clock draw score) Functional Observation Was the patient's Timed Up AND Go test unsteady or >= 12 seconds? No Advance Care Planning Surrogate decision maker and/or advance care plan documented Measurements BP 104/62 (BP Site: Right Arm, BP Position: Sitting, BP Cuff Size: Regular Adult) Pulse (!) 52 Resp 18 Ht 163.2 cm (5' 4.25") Wt 75.1 kg (165 lb 9.6 oz) BMI 28.20 kg/m? Vision Screening: Follows with optometry/ophthalmology Assessment/Plan Medicare annual wellness visit, subsequent (Z00.00) - Counseled on healthy diet and regular exercise - Fall avoidance information provided - Personalized prevention plan provided See below Chief Complaint Patient presents with: Medicare Wellness Exam HPI Aureliano Dang is a 75 year old male who presents here today for a routine follow up. Patient with hx of diabetes, CAD, CHF, ischemic cardiomyopathy, MADELIN, COPD, hyperlipidemia, ex smoker, overweight, a.fib after an [place] that resolved as well as those as below. Aureliano reports significant improvement in dyspnea since starting Symbicort, prescribed by a nurse practitioner. He denies the need for albuterol use and is not experiencing nocturnal dyspnea. He has a history of multiple consultations with pulmonologists and otolaryngologists, including allergy testing and various treatments, which provided only temporary relief. He discontinued pulmonary follow-up due to discomfort with sleep studies and CPAP therapy, citing a phobia of the equipment. He also reports a history of using Vicks VapoRub intranasally, which led to epistaxis, but he has since discontinued this practice. Aureliano reports a history of pruritus auris, for which he was prescribed ear drops by a nurse practitioner. He now reports decreased hearing, suspecting cerumen impaction. He denies any recent fevers, cephalalgia, hemoptysis, or production of colored sputum. He also denies any recent changes in vision or hearing, cervical lymphadenopathy, or palpitations. He reports chronic lower extremity edema, which has improved over time and is managed with compression socks. He denies any recent changes in heat or cold tolerance, easy bruising, or bleeding. Aureliano reports polyuria, including nocturia, but denies dysuria, hematochezia, hematuria, or heartburn. He also denies any recent nausea, emesis, or diarrhea. He reports symptms possibly related to a new-onset bilateral ulnar neuropathy, which he manages with cushioning but is not interested in further diagnostic studies at this time. He denies any arthralgia or myalgia. Aureliano reports occasional orthostatic dizziness when rising quickly from a seated position, but denies syncope, seizures, or tremors. He denies any symptoms of hypoglycemia. He reports no recent changes in his medication regimen. Past medical history, appointments, medi (more content not included)... Normal [facility] Cardiology Visit Reporton Cardiology Visit Report [facility] [place] [address] OFFICE VISIT Date of Service: 06/03/25 MR#: [id number] Acct: [id number] Name: AURELIANO DANG Rep #: [id number] : 1950 Provider: JELENA pelayo Age/Sex: 75/M Location: [facility] Status: Signed HPI HPI History of Present Illness Details: This is a 75-year-old male who presents today for outpatient cardiovascular follow-up based upon his history of CAD, CABG, ischemic mediated cardiomyopathy, and hyperlipidemia. He underwent sleep study in March 2023 that showed moderate to severe obstructive sleep apnea. He has since been followed with pulmonology team. He denies chest, arm, jaw, or neck discomfort. He denies palpitations. He states mild, bilateral lower extremity edema. He denies claudication. He denies shortness of breath with activity, shortness of breath at rest, orthopnea, or PND. He denies chronic cough. He denies significant, sudden weight gain. He denies current lightheadedness, dizziness, near-syncope, or syncope. He denies blood in urine, blood in stool, or epistaxis. He denies fever with chills. He denies myalgia. He denies fatigue. His exercise level has remained stable. He uses his treadmill twice a day. He has been increasing his speed and duration. Intake Vital Signs 06/03/24 10:34 06/03/25 11:17 Height 5 ft 5 in 5 ft 5 in Weight: 169 lb 164 lb BMI 28.1 27.3 BP 127/72 H 110/64 Blood Pressure Location Lt brachial Lt brachial Position Sitting Sitting Respiration 16 16 Pulse 53 L 56 L Pulse Source Monitor NIBP Intake Visit Reasons: 1 Y FU Frame Stylist Required: No Is patient in pain?: No Allergies lisinopril Allergy (Severe, Verified 06/03/25 11:08) Rash oxycodone (From Percocet) Adverse Reaction (Severe, Verified 06/03/25 11:08) Hallucination Medications ???Medication ???Instructions ???Recorded ???Confirmed ???Type metformin 500 mg tablet 500 mg PO DAILY 03/31/21 06/03/25 History losartan 100 mg tablet 100 mg PO DAILY 04/01/21 06/03/25 History carvedilol 25 mg tablet 25 mg PO BID #180 tabs 04/21/22 Rx atorvastatin 40 mg tablet 40 mg PO QHS #90 tabs 09/06/22 Rx amlodipine 5 mg tablet mg PO DAILY 12/11/23 06/03/25 Hist ory ibuprofen 600 mg tablet mg PO Q8H PRN 12/11/23 06/03/25 Hi story aspirin 81 mg tablet,delayed 81 mg PO BID 06/03/25 06/03/25 His tory release (Adult Low Dose Aspirin) budesonide-formoterol HFA 160 2 puff inhalation QDAY PRN 5 06/03/25 History mcg-4.5 mcg/actuation aerosol inhaler (Symbicort) Ejection fraction %: 46 Have you fallen in the past year?: No PFSH Medical History Hx of fracture Ischemic cardiomyopathy Type 2 diabetes mellitus Pure hypercholesterolemia Essential hypertension Atherosclerotic heart disease of [place] coronary artery without angina pectoris History of non-ST elevation myocardial infarction (NSTEMI) Surgical History H/O tooth extraction History of bilateral cataract extraction History of coronary artery bypass surgery ( 11/13/12) Family History Mother Hypertension Social History Smoking Status: Former smoker quit date: 10/22/89 alcohol intake: never substance use type: does not use caffeine: No what type of physical activity do you participate in: walking frequency: 1-2 times per week ROS Const Const: Negative for fatigue or weakness Eyes Eyes: Negative for change in vision ENT ENT: Negative for dizziness or balance problems Cardio Chest Pain: No Palpitations: No Edema: Bilateral (Mild) Muscle aches with walking: None Resp Respiratory: Negative for SOB with activity, SOB at rest or SOB orthopnea SOB lying down GI GI: Negative nausea or heartburn : Negative for hematuria or frequent nighttime urination/ nocturia Musc Musc: Negative for balance problems Skin Skin: Negative non-healing lesions or rash Neuro Neuro: Positive for lightheadedness (Fell due to lightheadedness 4 years ago. None since); Negative for dizziness, near syncope, syncope or weakness Endo Endo: Negative for fatigue Allergy Allergy/Immunology: Negative for rash Cardiology Exam Const Appearance: cooperative, healthy appearing, comfortable and no acute distress Nutritional Appearance: well nourished and overweight Orientation: alert, awake and oriented x3 Head Head: normal to inspection Ears: hearing grossly normal bilaterally Nose: external nose normal Face and Sinus: face symmetric Mouth: moist mucous membranes Eyes General: appearance normal, both eyes and all related structures Eyelids: eyelids no (more content not included)... Normal [facility] CNOVon 05-12-2025 CNOV Office Visit (FAMPWS ) AURELIANO DANG ([id number]) 1950 M Date Time Provider Department 05/12/25 8:40 AM KELLY WALTON FAMPWS During your visit today, we recorded the following information about you: Temperature Pulse Respiration Blood pressure 97 degrees 64/minute 18/minute 96/66 Weight 75.8 kg Kelly Walton PA-C 05/12/2025 10:28 AM Signed Chief Complaint No chief complaint on file. HPI Aureliano Dang is a 75 year old male who presents here today for Office visit. Patient was scheduled for wellness exam however was late for visit and wanted to discuss COPD treatment and ear concerns COPD: - Symbicort providing significant relief. - Previously used Vicks VapoRub intranasally, which caused nasal irritation and epistaxis. - Denies chest pain or neck swelling. Ear Itching: - Persistent pruritus in both ears. - Attempts to alleviate with matchsticks; denies using ear drops. Diabetes Mellitus: - Recent A1c: 6.7%. - Previous A1c values: 6.9%, 6.3%, 6.8%. Lifestyle: - Former smoker; denies current tobacco use. Past medical history, appointments, medications, allergies reviewed. Previous Medical History PAST MEDICAL HISTORY Diagnosis Date Allergic rhinitis 02/01/2021 Bilateral leg edema 03/18/2024 Calculus of kidney 03/08/2010 Chronic obstructive pulmonary disease (HCC) 02/03/2025 Chronic systolic CHF (congestive heart failure) (HCC) 11/13/2012 Preop EF 27+/-5%. NSTEMI mod LV mild RV required epinephrine infusion intraop. Post op EF 30+/-5%. - Pulmonary congestion and B effusions on CXR--improving. Lasix 40mg po daily, continue coreg, ACEI Coronary artery disease due to lipid rich plaque 08/08/[address] Decker: 5 vessel CABG 2012 Edema 12/09/2012 Elevated PSA 04/02/2023 Essential hypertension 02/10/2021 Ex-smoker 02/03/2021 Smoked 1/4 pck for about 45 yrs quit 2014 Ex-smoker 02/03/2021 Smoked 1/4 pck for about 45 yrs quit 2014, US 01/2021 Neg for AAA History of atrial fibrillation 11/16/2012 Secondary to [place] but resolved. Sees: Dr. Decker: New onset AF RVR 11/16. Converted to NSR after 30 mins w/ BB/Mg++. 11/18-11/21 Remains in NSR, continue coreg. History of non-ST elevation myocardial infarction (NSTEMI) 11/06/2012 Preop NSTEMI by his history and EKG findings. Mildly Elevated Troponin T. ECHO LVEF 27%. - On ASA/BB/statin and ACEI. ECHO showed improved EF 39%, no pericardial effusion. Ischemic cardiomyopathy 02/10/2021 Seeing Cardio Lung nodule 11/21/[address] scan on 11/09/2012 showed 3-mm noncalcified at the base of the lateral right lower lobe segment (slice 73). Repeat CT 2013 showed no nodules. Medicare annual wellness visit, subsequent 02/07/2022 Medicare Part B: Last done: 02/07/2022 Mixed hyperlipidemia 11/18/2012 Preop lipids: Tri-86, chol-219, HDL-52, LDL-150. Lipitor 40mg started, consider increase to 80mg d/t NSTEMI--can be increased after discharge to assure pt is tolerating dose (d/w Dr. Beasley). Pt to follow up w/ local MD for repeat cholesterol levels in 6 weeks. MADELIN (obstructive sleep apnea) 12/12/2023 Sees [facility] (Sant[facility]/Estefan[facility]) Other proteinuria 02/04/2021 diabetes related. 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 Previous Surgical History PAST SURGICAL HISTORY Procedure Laterality Date CABG (5) VENOUS GRAFTS AND ARTERIAL GRAFT(S) 11/13/2012 [facility] COLONOSCOPY FLX DX W/COLLJ SPEC WHEN PFRMD 10/24/2013 Colonoscopy,repeat 10 yrs ESOPHAGOGASTRODUODENOSCOPY TRANSORAL DIAGNOSTIC 10/24/2013 EGD REMV CATARACT EXTRACAP,INSERT LENS one 03/2022 and the other 04/2022 Family History FAMILY HISTORY Problem Relation Age of Onset Hypertension Mother Stroke Mother Patient Allergies ALLERGIES Allergen Reactions Acetaminophen Other: See Comments, Mental Status Change Lisinopril Rash Oxycodone Other: See Comments hallucination Percocet [Oxycodone* Mental Status Change Hallucination Current Medications Current Outpatient Medications on File Prior to Visit Medication Sig carvedilol (COREG) 25 mg tablet Take 1 tablet by mouth two times a day with meals. budesonide-formoterol (SYMBICORT) 160-4.5 mcg/actuation inhaler Inhale 2 puffs as instructed two times a day. Lancets Test blood sugar(s) one times daily. Dx: Other DM Code E11.29 Insulin: No blood sugar diagnostic (BLOOD GLUCOSE TEST) test strip Test blood sugar(s) one times daily. Dx: Other DM Code E11.29 Insulin: No Blood-Glucose Meter Test blood sugar once a day DX E11.29 Insulin: No albuterol HFA (PROVENTIL HFA) 90 mcg/actuation inhaler Inhale 2 Puffs as instructed every 6 hours as needed for wheezing/shortness of breath. atorvastatin (LIPITOR) 40 mg tablet Take 1 tablet by mouth daily at bedtime. dilTIAZem (more content not included)... Normal [facility] POTASSIUMOrdered By: Akilah pitts on 05-12-2025 Interpretation and review of laboratory results Normal [facility] Potassium [Moles/Vol] 4.7 mmol/L 3.7 - 5.1 mmol/L [facility] POTASSIUMon 05-12-2025 Potassium [Moles/Vol] 4.7 mmol/L Normal 3.7-5.1 [facility] Comment on above: Order Comment: Speci men Type: BLOOD SPECIMENOrdering Facility: [facility] Address: [address] [place] [address] Performed By: #### K 1 ####[facility] [id number] [place] [address] [place] ALBUMIN/CREATININE RATIO, UR INEon 05-01-2025 Albumin DL <= 20 mg/L (U) [Mass/Vol] 303.7 mg/L Normal [facility] Comment on above: Order Comment: Speci men Type: URINE SPECIMEN Ordering Facility: [facility] Address: [address] [place] [address] Performed By: #### U ACR #### [facility] CLIA [id number] [address] [place] [address] [place] Albumin/Creatinine (U) [Mass ratio] 129 mg/g High <30 [facility] Comment on above: Order Comment: Speci men Type: URINE SPECIMEN Ordering Facility: [facility] Address: [address] [place] [address] Result Comment: Adul t Male and Female Nephrotic Criteria: <30 mg/g is considered normal to mildly increased 30-300 mg/g is considered moderately increased >300 mg/g is considered severely increased KDIGO. (2013). KDIGO 2012 Clinical Practice Guideline for the Evaluation and Management of Chronic Kidney Disease. Official Journal of the International Society of Nephrology, 3(1), 1-150. Performed By: #### U ACR #### [facility] CLIA [id number] [address] [place] [address] [place] Creatinine (U) [Mass/Vol] 235.9 mg/dL Normal 20.0-300.0 [facility] Comment on above: Order Comment: Speci men Type: URINE SPECIMEN Ordering Facility: [facility] Address: [address] [place] [address] Performed By: #### U ACR #### [facility] CLIA [id number] [address] [place] [address] [place] CBC W Auto Differential pane l (Bld)on 05-01-2025 Basophils (Bld) [#/Vol] 0.07 10*3/uL Normal <0.11 [facility] Comment on above: Order Comment: Speci men Type: BLOOD SPECIMEN Ordering Facility: [facility] Address: [address] [place] [address] Performed By: #### 5 7021-8 #### [facility] CLIA [id number] [address] [place] [address] [place] Basophils/100 WBC (Bld) 0.9 % Normal [facility] Comment on above: Order Comment: Speci men Type: BLOOD SPECIMEN Ordering Facility: [facility] Address: [address] [place] [address] Performed By: #### 5 7021-8 #### [facility] CLIA [id number] [address] [place] [address] [place] Differential cell count method Nom (Bld) Auto Normal [facility] Comment on above: Order Comment: Speci men Type: BLOOD SPECIMEN [facility]ing [facility]: [facility] Address: [address] [place] [address] Performed By: #### 5 7021-8 #### [facility] CLIA [id number] [address] [place] [address] [place] Eosinophils (Bld) [#/Vol] 0.32 10*3/uL Normal <0.46 [facility] Comment on above: Order Comment: Speci men Type: BLOOD SPECIMEN Ordering Facility: [facility] Address: [address] [place] [address] Performed By: #### 5 7021-8 #### [facility] CLIA [id number] [address] [place] [address] [place] Eosinophils/100 WBC (Bld) 4.0 % Normal [facility] Comment on above: Order Comment: Speci men Type: BLOOD SPECIMEN [facility] Address: [address] [place] [address] Performed By: #### 5 7021-8 #### [facility] CLIA [id number] [address] [place] [address] [place] Erythrocyte distribution width (RBC) [Ratio] 16.0 % High 11.5-15.0 [facility] Comment on above: Order Comment: Speci men Type: BLOOD SPECIMEN [facility]ing [facility]: [facility] Address: [address] [place] [address] Performed By: #### 5 7021-8 #### [facility] CLIA [id number] [address] [place] [address] [place] Hematocrit (Bld) [Volume fraction] 43.9 % Normal 39.0-51.0 [facility] Comment on above: Order Comment: Speci men Type: BLOOD SPECIMEN Ordering Facility: [facility] Address: [address] [place] [address] Performed By: #### 5 7021-8 #### [facility] CLIA [id number] [address] [place] [address] [place] Hemoglobin (Bld) [Mass/Vol] 13.4 g/dL Normal 13.0-17.0 [facility] Comment on above: Order Comment: Speci men Type: BLOOD SPECIMEN Ordering Facility: [facility] Address: [address] [place] [address] Performed By: #### 5 7021-8 #### [facility] CLIA [id number] [address] [place] [address] [place] Immature granulocytes (Bld) [#/Vol] 10*3/uL Normal <0.10 [facility] Comment on above: Order Comment: Speci men Type: BLOOD SPECIMEN Ordering Facility: [facility] Address: [address] [place] [address] Performed By: #### 5 7021-8 #### [facility] CLIA [id number] [address] [place] [address] [place] Immature granulocytes/100 WBC (Bld) 0.3 % Normal [facility] Comment on above: Order Comment: Speci men Type: BLOOD SPECIMEN Ordering Facility: [facility] Address: [address] [place] [address] Performed By: #### 5 7021-8 #### [facility] CLIA [id number] [address] [place] [address] [place] Lymphocytes (Bld) [#/Vol] 2.12 10*3/uL Normal 1.00-4.00 [facility] Comment on above: Order Comment: Speci men Type: BLOOD SPECIMEN [facility] Address: [address] [place] [address] Performed By: #### 5 7021-8 #### [facility] CLIA [id number] [address] [place] [address] [place] Lymphocytes/100 WBC (Bld) 26.7 % Normal [facility] Comment on above: Order Comment: Speci men Type: BLOOD SPECIMEN Ordering Facility: [facility] Address: [address] [place] [address] Performed By: #### 5 7021-8 #### [facility] CLIA [id number] [address] [place] [address] [place] MCH (RBC) [Entitic mass] 24.6 pg Low 26.0-34.0 [facility] Comment on above: Order Comment: Speci men Type: BLOOD SPECIMEN Ordering Facility: [facility] Address: [address] [place] [address] Performed By: #### 5 7021-8 #### [facility] CLIA [id number] [address] [place] [address] [place] MCHC (RBC) [Mass/Vol] 30.5 g/dL Normal 30.5-36.0 [facility] Comment on above: Order Comment: Speci men Type: BLOOD SPECIMEN Ordering Facility: [facility] Address: [address] [place] [address] Performed By: #### 5 7021-8 #### [facility] CLIA [id number] [address] [place] [address] [place] MCV (RBC) [Entitic vol] 80.6 fL Normal 80.0-100.0 [facility] Comment on above: Order Comment: Speci men Type: BLOOD SPECIMEN Ordering Facility: [facility] Address: [address] [place] [address] Performed By: #### 5 7021-8 #### [facility] CLIA [id number] [address] [place] [address] [place] Monocytes (Bld) [#/Vol] 0.91 10*3/uL High <0.87 [facility] Comment on above: Order Comment: Speci men Type: BLOOD SPECIMEN Ordering Facility: [facility] Address: [address] [place] [address] Performed By: #### 5 7021-8 #### [facility] CLIA [id number] [address] [place] [address] [place] Monocytes/100 WBC (Bld) 11.4 % Normal [facility] Comment on above: Order Comment: Speci men Type: BLOOD SPECIMEN Ordering Facility: [facility] Address: [address] [place] [address] Performed By: #### 5 7021-8 #### [facility] CLIA [id number] [address] [place] [address] [place] Neutrophils (Bld) [#/Vol] 4.51 10*3/uL Normal 1.45-7.50 [facility] Comment on above: Order Comment: Speci men Type: BLOOD SPECIMEN Ordering Facility: [facility] Address: [address] [place] [address] Performed By: #### 5 7021-8 #### [facility] CLIA [id number] [address] [place] [address] [place] Neutrophils/100 WBC (Bld) 56.7 % Normal [facility] Comment on above: Order Comment: Speci men Type: BLOOD SPECIMEN Ordering Facility: [facility] Address: [address] [place] [address] Performed By: #### 5 7021-8 #### [facility] CLIA [id number] [address] [place] [address] [place] Nucleated RBC (Bld) [#/Vol] 10*3/uL Normal <0.01 [facility] Comment on above: Order Comment: Speci men Type: BLOOD SPECIMEN Ordering Facility: [facility] Address: [address] [place] [address] Performed By: #### 5 7021-8 #### [facility] CLIA [id number] [address] [place] [address] [place] Nucleated RBC/100 WBC (Bld) [Ratio] 0.0 /100 WBC Normal [facility] Comment on above: Order Comment: Speci men Type: BLOOD SPECIMEN Ordering Facility: [facility] Address: [address] [place] [address] Performed By: #### 5 7021-8 #### [facility] CLIA [id number] [address] [place] [address] [place] Platelet mean volume (Bld) [Entitic vol] 14.0 fL High 9.0-12.7 [facility] Comment on above: Order Comment: Speci men Type: BLOOD SPECIMEN Ordering Facility: [facility] Address: [address] [place] [address] Performed By: #### 5 7021-8 #### [facility] CLIA [id number] [address] [place] [address] [place] Platelets (Bld) [#/Vol] 200 10*3/uL Normal 150-400 [facility] Comment on above: Order Comment: Speci men Type: BLOOD SPECIMEN Ordering Facility: [facility] Address: [address] [place] [address] Performed By: #### 5 7021-8 #### [facility] CLIA [id number] [address] [place] [address] [place] RBC (Bld) [#/Vol] 5.45 10*6/uL Normal 4.20-6.00 [facility] Comment on above: Order Comment: Speci men Type: BLOOD SPECIMEN Ordering Facility: [facility] Address: [address] [place] [address] Performed By: #### 5 7021-8 #### [facility] CLIA [id number] [address] [place] [address] [place] WBC (Bld) [#/Vol] 7.95 10*3/uL Normal 3.70-11.00 [facility] Comment on above: Order Comment: Speci men Type: BLOOD SPECIMEN Ordering Facility: [facility] Address: [address] [place] [address] Performed By: #### 5 7021-8 #### [facility] CLIA [id number] [address] [place] [address] [place] Comprehensive metabolic 2000 panelon 05-01-2025 Albumin [Mass/Vol] 3.9 g/dL Normal 3.9-4.9 [facility] Comment on above: Order Comment: Speci men Type: BLOOD SPECIMENOrdering Facility: [facility] Address: [address] [place] [address] Performed By: #### 1 0886-0, 61892-5, LIPNF ####[facility] [id number] [place] [address] [place] ALP [Catalytic activity/Vol] 81 U/L Normal 38-113 [facility] Comment on above: Order Comment: Speci men Type: BLOOD SPECIMENOrdering Facility: [facility] Address: [address] [place] [address] Performed By: #### 1 0886-0, 70583-6, LIPNF ####[facility] [id number] [place] [id number] [place] ALT [Catalytic activity/Vol] 15 U/L Normal 10-54 [facility] Comment on above: Order Comment: Speci men Type: BLOOD SPECIMENOrdering Facility: [facility] Address: [address] [place] [address] Performed By: #### 1 0886-0, 38383-8, LIPNF ####[facility] [id number] [place] [id number] [place] Anion gap [Moles/Vol] 11 mmol/L Normal 8-15 [facility] Comment on above: Order Comment: Speci men Type: BLOOD SPECIMENOrdering Facility: [facility] Address: [address] [place] [address] Performed By: #### 1 0886-0, 96202-3, LIPNF ####[facility] [id number] [place] [address] [place] AST [Catalytic activity/Vol] 17 U/L Normal 14-40 [facility] Comment on above: Order Comment: Speci men Type: BLOOD SPECIMENOrdering Facility: [facility] Address: [address] [place] [address] Performed By: #### 1 0886-0, 37590-1, LIPNF ####[facility] [id number] [place] [address] [place] Bilirubin [Mass/Vol] 0.4 mg/dL Normal 0.2-1.3 [facility] Comment on above: Order Comment: Speci men Type: BLOOD SPECIMENOrdering Facility: [facility] Address: [address] [place] [address] Performed By: #### 1 0886-0, 38639-5, LIPNF ####[facility] [id number] [place] [address] [place] Calcium [Mass/Vol] 10.0 mg/dL Normal 8.5-10.2 [facility] Comment on above: Order Comment: Speci men Type: BLOOD SPECIMENOrdering Facility: [facility] Address: [address] [place] [address] Performed By: #### 1 0886-0, 53664-6, LIPNF ####[facility] [id number] [place] [address] [place] Chloride [Moles/Vol] 107 mmol/L Normal 98-107 [facility] Comment on above: Order Comment: Speci men Type: BLOOD SPECIMENOrdering Facility: [facility] Address: [address] [place] [address] Performed By: #### 1 0886-0, 26496-7, LIPNF ####[facility] [id number] [place] [address] [place] CO2 [Moles/Vol] 25 mmol/L Normal 22-30 [facility] Comment on above: Order Comment: Speci men Type: BLOOD SPECIMENOrdering Facility: [facility] Address: [address] [place] [address] Performed By: #### 1 0886-0, 99736-7, LIPNF ####[facility] [id number] [place] [address] [place] Creatinine [Mass/Vol] 1.16 mg/dL Normal 0.73-1.22 [facility] Comment on above: Order Comment: Speci men Type: BLOOD SPECIMENOrdering Facility: [facility] Address: [address] [place] [address] Performed By: #### 1 0886-0, 17734-3, LIPNF ####[facility] [id number] [place] [address] [place] Creatinine and Glomerular filtration rate.predicted panel (S/P/Bld) 65 mL/min/1.73m??? Normal >=60 [facility] Comment on above: Order Comment: Speci men Type: BLOOD SPECIMENOrdering Facility: [facility] Address: [address] [place] [address] Result Comment: Carrie mated Glomerular Filtration Rate (eGFR) is calculated using the 2020 CKD-EPI creatinine equation. This equation utilizes serum creatinine, sex, and age as parameters. The creatinine assay has traceable calibration to isotope dilution-mass spectrometry. Refer to KDIGO guidelines for clinical interpretation. In patients with unstable renal function, e.g. those with acute kidney injury, the eGFR may not accurately reflect actual GFR. Performed By: #### 1 0886-0, 20554-0, LIPNF ####[facility] [id number] [place] [address] [place] Glucose [Mass/Vol] 101 mg/dL High 74-99 [facility] Comment on above: Order Comment: La Nena trivedi Type: BLOOD SPECIMENOrdering Facility: [facility] Address: [address] [place] [address] Result Comment: The [place] Diabetes Association (ADA) provides guidance for cutoff values for fasting glucose and random glucose. The ADA defines fasting as no caloric intake for at least 8 hours. Fasting plasma glucose results between 100 to 125 mg/dL indicate increased risk for diabetes (prediabetes). Fasting plasma glucose results greater than or equal to 126 mg/dL meet the criteria for diagnosis of diabetes. In the absence of unequivocal hyperglycemia, results should be confirmed by repeat testing. In a patient with classic symptoms of hyperglycemia or hyperglycemic crisis, random plasma glucose results greater than or equal to 200 mg/dL meet the criteria for diagnosis of diabetes. Reference: Standards of Medical Care in Diabetes 2016, [place] Diabetes Association. Diabetes Care. 2016.39(Suppl 1). Performed By: #### 1 0886-0, 26121-0, LIPNF ####[facility] [id number] [place] [address] [place] Potassium [Moles/Vol] 5.2 mmol/L High 3.7-5.1 [facility] Comment on above: Order Comment: La Nena trivedi Type: BLOOD SPECIMENOrdering Facility: [facility] Address: [address] [place] [address] Performed By: #### 1 0886-0, 99490-8, LIPNF ####[facility]IA [id number] [address] [address] [place] Protein [Mass/Vol] 7.0 g/dL Normal 6.3-8.0 [facility] Comment on above: Order Comment: Speci men Type: BLOOD SPECIMENOrdering Facility: [facility] Address: [address] [place] [address] Performed By: #### 1 0886-0, 15542-4, LIPNF ####[facility]IA [id number] [place] [id number] [place] Sodium [Moles/Vol] 143 mmol/L Normal 136-144 [facility] Comment on above: Order Comment: Speci men Type: BLOOD SPECIMENOrdering Facility: [facility] Address: [address] [place] [address] Performed By: #### 1 0886-0, 61000-8, LIPNF ####[id number] [place] [address] [place] Urea nitrogen [Mass/Vol] 18 mg/dL Normal 9-24 [facility] Comment on above: Order Comment: Speci men Type: BLOOD SPECIMENOrdering Facility: [facility] Address: [address] [place] [address] Performed By: #### 1 0886-0, 80642-2, LIPNF ####[facility] [id number] [place] [id number] [place] Free PSA [Mass/Vol]on 2024 Free PSA/Total PSA [Mass fraction] 31 % Normal [facility] Comment on above: Order Comment: Speci men Type: BLOOD SPECIMENOrdering Facility: [facility] Address: [address] [place] [address] Result Comment: Tota l and free PSA test methodology used is the Electrochemiluminescence Immunoassay by [employer]. Total or free PSA values by differing methodologies cannot be interchanged. The below table lists the probability of finding prostate cancer upon needle biopsy, for men 50 years or older and total PSA concentrations from 4.0-10.0 ng/mL. Results should be interpreted within the broader clinical context. Free PSA(%) 50-59 years 60-69 years >69 years <11 49.2% 57.5% 64.5% 11-18 26.9% 33.9% 40.8% 19-25 18.3% 23.9% 29.7% >25 9.1% 12.2% 15.8% Performed By: #### 1 0886-0, 76688-2, LIPNF ####[facility] [id number] [address] [address] [place] Prostate specific Ag [Mass/Vol] 2.52 ng/mL Normal <2.60 [facility] Comment on above: Order Comment: Speci men Type: BLOOD SPECIMENOrdering Facility: [facility] Address: [address] [place] [address] Result Comment: Tota l PSA test methodology used is the Electrochemiluminescence Immunoassay by [employer]. Total PSA values by differing methodologies cannot be interchanged. Performed By: #### 1 0886-0, 43191-9, LIPNF ####[facility]IA [id number] [address] [place] HbA1c (Bld)on 05-01-2025 Average glucose Estimated from glycated hemoglobin (Bld) [Mass/Vol] 146 mg/dL Normal [facility] Comment on above: Order Comment: Speci men Type: BLOOD SPECIMENOrdering Facility: [facility] Address: [address] [place] [address] Result Comment: eAG: (Estimated average glucose) is a calculated value from HgbA1c and is technology sales representative of the average blood glucose level in the last 2-3 month period. Performed By: #### 5 5454-3 ####[facility] [id number] [place] [address] [place] HbA1c (Bld) [Mass fraction] 6.7 % High 4.3-5.6 [facility] Comment on above: Order Comment: Speci men Type: BLOOD SPECIMENOrdering Facility: [facility] Address: [address] [place] [address] Result Comment: Amer ican Diabetes Association guidelines indicate that patients with HgbA1c in the range 5.7-6.4% are at increased risk for development of diabetes, and intervention by lifestyle modification may be beneficial. HgbA1c greater or equal to 6.5% is considered diagnostic of diabetes. Performed By: #### 5 5454-3 ####[facility]CLIA [id number] [address] OF [place] LIPID PANEL, NONFASTINGon Cholesterol [Mass/Vol] 144 mg/dL Normal <200 [facility] Comment on above: Order Comment: Minniecaro trivedi Type: BLOOD SPECIMENOrdering Facility: [facility] Address: [address] [place] [address] Result Comment: <200 mg/dL, Desirable 200-239 mg/dL, Borderline high >239 mg/dL, High Performed By: #### 1 0886-0, 06599-6, LIPNF ####[facility]CLIA [id number] [address] [place] HDL CHOLESTEROL, NF 51 mg/dL Normal >39 [facility] Comment on above: Order Comment: La Nena trivedi Type: BLOOD SPECIMENOrdering Facility: [facility] Address: [address] [place] [address] Result Comment: 40-5 9 mg/dL, Acceptable >59 mg/dL, High: Negative risk factor for coronary heart disease <40 mg/dL, Low: Positive risk factor for coronary heart disease Performed By: #### 1 0886-0, 71022-8, LIPNF ####[facility]CLIA [id number] [address] OF [place] LDL CHOLESTEROL CALCULATED, NF 79 mg/dL Normal <100 [facility] Comment on above: Order Comment: Speci men Type: BLOOD SPECIMENOrdering Facility: [facility] Address: [address] [place], [place] [address] Result Comment: <100 mg/dL, Optimal 100-129 mg/dL, Near optimal/above optimal 130-159 mg/dL, Borderline high 160-189 mg/dL, High >189 mg/dL, Very high Secondary prevention optimal LDL Cholesterol levels are recommended to be <70 mg/dL LDL cholesterol is calculated using the Rushing-NIH equation. Performed By: #### 1 0886-0, 95911-2, LIPNF ####[facility]CLIA [id number] [address] [place] LDL/HDL RATIO, NF 1.55 mg/dL Normal <2.54 [facility] Comment on above: Order Comment: La Nena trivedi Type: BLOOD SPECIMENOrdering Facility: [facility] Address: [address] [place] [address] Result Comment: Refe rence: 1. National Cholesterol Education Program ATP III Guideline At-A-Glance Quick Desk Reference: National Heart, Lung, and Blood Wilson. National Institutes of Health. 2001: NIH Publication No. 01-3305. 2. An International Atherosclerosis Society position paper: global recommendations for the management of dyslipidemia: executive summary, Atherosclerosis. 2014: 232(2):410-413. Performed By: #### 1 0886-0, 02856-1, LIPNF ####[facility]CLIA [id number] [address] [place] NON HDL CHOL, NF 93 mg/dL Normal <130 [facility] Comment on above: Order Comment: La Nena trivedi Type: BLOOD SPECIMENOrdering Facility: [facility] Address: [address] [place] [address] Result Comment: <130 mg/dL, Optimal 130-159 mg/dL, Near optimal/above optimal 160-189 mg/dL, Borderline high 190-219 mg/dL, High >219 mg/dL, Very high Secondary prevention optimal non HDL Cholesterol levels are recommended to be <100 mg/dL Performed By: #### 1 0886-0, 93715-1, LIPNF ####[facility]CLIA [id number] [place] [address] [place] T CHOL/HDL RATIO NF 2.82 mg/dL Normal <5.10 [facility] Comment on above: Order Comment: Speci men Type: BLOOD SPECIMENOrdering Facility: [facility] Address: [address] [place] [address] Performed By: #### 1 0886-0, 82457-2, LIPNF ####[facility]CLIA [id number] [place] [address] [place] TRIGLYCERIDES, NF 70 mg/dL Normal <150 [facility] Comment on above: Order Comment: Speci men Type: BLOOD SPECIMENOrdering Facility: [facility] Address: [address] [place] [address] Result Comment: <150 mg/dL, Normal 150-199 mg/dL, Borderline high 200-499 mg/dL, High >499 mg/dL, Very high Performed By: #### 1 0886-0, 12194-0, LIPNF ####[facility]CLIA [id number] [place] [address] [place] VLDL CHOLESTEROL, NF 11 mg/dL Normal <30 [facility] Comment on above: Order Comment: Speci men Type: BLOOD SPECIMENOrdering Facility: [facility] Address: [address] [place] [address] Performed By: #### 1 0886-0, 59293-4, LIPNF ####[facility]CLIA [id number] [place] [address] [place] Urinalysis complete panel (U )on 05-01-2025 Bacteria LM.HPF (Urine sed) [#/Area] Negative Normal Negative [facility] Comment on above: Order Comment: Speci men Type: URINE SPECIMENOrdering Facility: [facility] Address: [address] [place] [address] Performed By: #### 2 4356-8 ####[facility]CLIA [id number] [address] [place] [address] [place] Bilirubin Ql (U) Negative Normal Negative [facility] Comment on above: Order Comment: Speci men Type: URINE SPECIMENOrdering Facility: [facility] Address: [address] [place] [address] Performed By: #### 2 4356-8 ####[facility]CLIA [id number] [address] [place] [address] [place] Clarity (Unsp spec) Clear Normal Clear [facility] Comment on above: Order Comment: Speci men Type: URINE SPECIMENOrdering Facility: [facility] Address: [address] [place] [address] Performed By: #### 2 4356-8 ####[facility] LABCLIA [id number] [place] [id number] [place] [facility] Color (U) Yellow Normal Yellow [facility] Comment on above: Order Comment: Speci men Type: URINE SPECIMENOrdering Facility: [facility] Address: [address] [place] [address] Performed By: #### 2 4356-8 ####[facility]CLIA [id number] [address] [place] [address] [place] Epithelial cells LM.HPF (Urine sed) [#/Area] None Seen Normal [facility] Comment on above: Order Comment: Speci men Type: URINE SPECIMENOrdering Facility: [facility] Address: [address] [place] [address] Performed By: #### 2 4356-8 ####[facility]CLIA [id number] [place] [id number] [place] Glucose Test strip (U) [Mass/Vol] Negative Normal Negative [facility] Comment on above: Order Comment: Speci men Type: URINE SPECIMENOrdering Facility: [facility] Address: [address] [place] [address] Performed By: #### 2 4356-8 ####[facility]CLIA [id number] [address] [place] [address] [place] Hemoglobin Ql (U) Negative Normal Negative [facility] Comment on above: Order Comment: Speci men Type: URINE SPECIMENOrdering Facility: [facility] Address: [address] [place] [address] Performed By: #### 2 4356-8 ####[facility]CLIA [id number] [address], [facility] [place] Hyaline casts (Urine sed) [#/Area] 1-3 /LPF Abnormal 0 /LPF [facility] Comment on above: Order Comment: Speci men Type: URINE SPECIMENOrdering Facility: [facility] Address: [address] [place] [address] Performed By: #### 2 4356-8 ####[facility]CLIA [id number] [address], [place] [address] [place] Ketones Ql (U) Trace Abnormal Negative [facility] Comment on above: Order Comment: Speci men Type: URINE SPECIMENOrdering Facility: [facility] Address: [address] [place] [address] Performed By: #### 2 4356-8 ####[facility]CLIA [id number] [address], [place] [address] [place] Leukocyte esterase Test strip Ql (U) Negative Normal Negative [facility] Comment on above: Order Comment: Speci men Type: URINE SPECIMENOrdering Facility: [facility] Address: [address] [place] [address] Performed By: #### 2 4356-8 ####[facility]CLIA [id number] [address], [facility] [place] Nitrite Ql (U) Negative Normal Negative [facility] Comment on above: Order Comment: Speci men Type: URINE SPECIMENOrdering Facility: [facility] Address: [address] [place] [address] Performed By: #### 2 4356-8 ####[facility]CLIA [id number] [place] [address] [place] pH (U) 5.5 [pH] Normal <8.5 [facility] Comment on above: Order Comment: Speci men Type: URINE SPECIMENOrdering Facility: [facility] Address: [address] [place] [address] Performed By: #### 2 4356-8 ####[facility] [facility] [id number] [place] [address] [place] Protein (U) [Mass/Vol] 2+ Abnormal Negative [facility] Comment on above: Order Comment: Speci men Type: URINE SPECIMENOrdering Facility: [facility] Address: [address] [place] [address] Performed By: #### 2 4356-8 ####[facility] [id number] [place] [address] [place] RBC LM.HPF (Urine sed) [#/Area] 0-2 /HPF Normal 0-2 /HPF [facility] Comment on above: Order Comment: Speci men Type: URINE SPECIMENOrdering Facility: [facility] Address: [address] [place] [address] Performed By: #### 2 4356-8 ####[facility] [id number] [place] [id number] [place] Specific gravity (U) [Rel density] 1.020 Normal 1.005-1.030 [facility] Comment on above: Order Comment: Speci men Type: URINE SPECIMENOrdering Facility: [facility] Address: [address] [place] [address] Performed By: #### 2 4356-8 ####[facility] [id number] [place] [id number] [place] Urobilinogen Ql (U) 1.0 EU/dL Normal 0.2-1.0 EU/dL [facility] Comment on above: Order Comment: Speci men Type: URINE SPECIMENOrdering Facility: [facility] Address: [address] [place] [address] Performed By: #### 2 4356-8 ####[facility] [id number] [place] [address] [place] WBC LM.HPF (Urine sed) [#/Area] 0-5 /HPF Normal 0-5 /HPF [facility] Comment on above: Order Comment: Speci men Type: URINE SPECIMENOrdering Facility: [facility] Address: [address] [place] [address] Performed By: #### 2 4356-8 ####[facility] [id number] [address] [place] 04-29-20[facility] AURELIANO DANG ([id number]) 1950 M Date Time Provider Department 04/29/25 KELLY WALTON [facility] During your visit today, we recorded the following information about you: Kelly Walton PA-C 04/29/2025 2:36 PM Signed Please find out why he wants the ingredients to Breo? Breo and symbicort is in same class of medication. Symbicort is brand name for the combo of Budesonide-formoterol Breo is brand name for combo of the generic fluticasone-vilanterol. I'm not sure why he is asking for the ingredient list and therefore don't know how to better answer this question. I won't be able to spend a lot of time on this during his medicare wellness as we do a comprehensive exam/review and any acute concerns should be scheduled separately. I would be happy to have him see Pulmonology to discuss these meds in more detail if he has questions more advanced than my knowledge base. Thanks, CATIE Amin Sherill A, LPN 04/30/2025 9:17 AM Signed Spoke with pt and reviewed Kelly's message. Pt states "it's like when you eat a hamburger with sauce on it, it's good something you like but if you add pepper it wouldn't be good" he advises that the Symbicort suited his body chemistry and worked well for him. He wasn't sure about the Breo. He advises that it helps to know that the medications are in the same class of medications. Pt advises that this answers his question enough. Does not want pulm consult. Advised pt that if Breo doesn't work as well for him he can always switch back but this may cost him more. Pt verbalizes understanding. Advised pt if he changes his mind about pulm consult to contact office. Pt advises again that all of his questions have been answered. LEANNE Sheldon Rayanne, PA-C 04/30/2025 11:10 AM Signed Noted. Kelly Walton PA-C Allergies As of Date: 04/29/2025 Noted Allergy Reaction ACETAMINOPHEN 07/24/2019 14 - Other: See Comments 1 - Mental Status Change LISINOPRIL 06/24/2013 2 - Rash OXYCODONE 02/10/2021 14 - Other: See Comments Comments: hallucination PERCOCET (OXYCODONE-ACETAMINOPHEN) 1 - Mental Status Change Comments: Hallucination Date Reviewed: 04/13/2025 Reviewed by: Erika Chacon LPN - Fully Assessed Prescriptions as of 04/30/2025 - budesonide-formoterol (SYMBICORT) 160-4.5 mcg/actuation inhaler Inhale 2 puffs as instructed two times a day. - Lancets Test blood sugar(s) one times daily. Dx: Other DM Code E11.29 Insulin: No - blood sugar diagnostic (BLOOD GLUCOSE TEST) test strip Test blood sugar(s) one times daily. Dx: Other DM Code E11.29 Insulin: No - Blood-Glucose Meter Test blood sugar once a day DX E11.29 Insulin: No - albuterol HFA (PROVENTIL HFA) 90 mcg/actuation inhaler Inhale 2 Puffs as instructed every 6 hours as needed for wheezing/shortness of breath. - atorvastatin (LIPITOR) 40 mg tablet Take 1 tablet by mouth daily at bedtime. - dilTIAZem CD (CARDIZEM CD) 120 mg 24 hr capsule Take 1 capsule by mouth once daily. - losartan (COZAAR) 100 mg tablet Take 1 tablet by mouth once daily. - metFORMIN (GLUCOPHAGE) 500 mg tablet Take 1 tablet by mouth daily with breakfast. - diphenhydrAMINE (BENADRYL ALLERGY) 25 mg tablet Take 1 tablet by mouth every 6 hours as needed. - fluticasone (FLONASE) 50 mcg/actuation nasal spray Use 2 Sprays in each nostril once daily. Rinse mouth after use. - carvedilol (COREG) 25 mg tablet Take 1 tablet by mouth two times a day with meals. - nitroglycerin sublingual (NITROQUICK) 0.4 mg SL tablet Dissolve 1 tablet under the tongue as needed. for chest pain,every 5 min x3 - Blood-Glucose Meter (TRUE METRIX GLUCOSE METER) Use to check blood sugar once a day. Dx: E11.29, no insulin - Blood Glucose Control, Low (TRUE METRIX LEVEL 1) Use as directed to set up machine - Blood Glucose Control, Normal (TRUE METRIX LEVEL 2) soln Use as directed to set up machine - Blood Glucose Control, High (TRUE METRIX LEVEL 3) Use as directed to set up machine - alcohol swabs Apply 1 application to affected area once daily. - Blood Pressure Test Kit-Large Check BP once a day or as needed. Dx: I10, I25.5 and I25.10 - aspirin 81 mg chewable tablet Take 2 tablets by mouth once daily. Problem List As Of Date 04/29/2025 Noted Resolved History of non-ST elevation myocardial infarcti*11/06/2012 Chronic systolic CHF (congestive heart failure)*11/13/2012 Hypotension [I95.9] 11/13/2012 11/15/2012 Stress hyperglycemia [R73.9] 11/13/2012 08/12/2018 Fluid overload [E87.70] 11/14/2012 11/18/2012 History of atrial fibrillation [Z86.79] 11/16/2012 Mixed hyperlipidemia [E78.2] 11/18/2012 Edema [R60.9] 12/09/2012 Coronary artery disease due to lipid rich plaqu*08/08/2017 Overweight (BMI 25.0-29.9) [E66.3] 08/08/2017 Allergic rhinitis [J30.9] 02/01/2021 Type 2 diabet (more content not included)... Normal [facility] CNOVon 04-13-2025 CNOV Office Visit (FAMPWS ) JESSICAGENET TREJOY ([id number]) 1950 M Date Time Provider Department 04/13/25 8:00 AM [facility] During your visit today, we recorded the following information about you: Temperature Pulse Respiration Blood pressure 98.1 degrees 68/minute 16/minute 110/70 Weight 74.8 kg Kelly Walton PA-C 04/13/2025 10:05 AM Signed Chief Complaint Patient presents with: Follow Up: Breathing issues HPI Aurelinao Dang is a 75 year old male who presents here today for Above Complaints.. COPD: - Recent exacerbation; treated with prednisone and Symbicort. - Previously used albuterol inhaler with minimal relief. - Reports improvement in dyspnea with Symbicort. - Experiencing financial difficulty affording Symbicort; cost is $200 per inhaler. - Insurance requires meeting a $5,000 deductible before full coverage. - Denies current wheezing; previously noted significant wheezing bilaterally. - History of sinus issues; denies previous dyspnea before COPD exacerbation. Past medical history, appointments, medications, allergies reviewed. Previous Medical History PAST MEDICAL HISTORY Diagnosis Date Allergic rhinitis 02/01/2021 Bilateral leg edema 03/18/2024 Calculus of kidney 03/08/2010 Chronic obstructive pulmonary disease (HCC) 02/03/2025 Chronic systolic CHF (congestive heart failure) (HCC) 11/13/2012 Preop EF 27+/-5%. NSTEMI mod LV mild RV required epinephrine infusion intraop. Post op EF 30+/-5%. - Pulmonary congestion and B effusions on CXR--improving. Lasix 40mg po daily, continue coreg, ACEI Coronary artery disease due to lipid rich plaque 08/08/[address] Decker: 5 vessel CABG 2012 Edema 12/09/2012 Elevated PSA 04/02/2023 Essential hypertension 02/10/2021 Ex-smoker 02/03/2021 Smoked 1/4 pck for about 45 yrs quit 2014 Ex-smoker 02/03/2021 Smoked 1/4 pck for about 45 yrs quit 2014, US 01/2021 Neg for AAA History of atrial fibrillation 11/16/2012 Secondary to [place] but resolved. Sees: Dr. Decker: New onset AF RVR 11/16. Converted to NSR after 30 mins w/ BB/Mg++. 11/18-11/21 Remains in NSR, continue coreg. History of non-ST elevation myocardial infarction (NSTEMI) 11/06/2012 Preop NSTEMI by his history and EKG findings. Mildly Elevated Troponin T. ECHO LVEF 27%. - On ASA/BB/statin and ACEI. ECHO showed improved EF 39%, no pericardial effusion. Ischemic cardiomyopathy 02/10/2021 Seeing Cardio Lung nodule 11/21/[address] scan on 11/09/2012 showed 3-mm noncalcified at the base of the lateral right lower lobe segment (slice 73). Repeat CT 2013 showed no nodules. Medicare annual wellness visit, subsequent 02/07/2022 Medicare Part B: Last done: 02/07/2022 Mixed hyperlipidemia 11/18/2012 Preop lipids: Tri-86, chol-219, HDL-52, LDL-150. Lipitor 40mg started, consider increase to 80mg d/t NSTEMI--can be increased after discharge to assure pt is tolerating dose (d/w Dr. Beasley). Pt to follow up w/ local MD for repeat cholesterol levels in 6 weeks. MADELIN (obstructive sleep apnea) 12/12/2023 Sees [facility] (Santino/Estefanía) Other proteinuria 02/04/2021 diabetes related. 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 Previous Surgical History PAST SURGICAL HISTORY Procedure Laterality Date CABG (5) VENOUS GRAFTS AND ARTERIAL GRAFT(S) 11/13/2012 [facility] COLONOSCOPY FLX DX W/COLLJ SPEC WHEN PFRMD 10/24/2013 Colonoscopy,repeat 10 yrs ESOPHAGOGASTRODUODENOSCOPY TRANSORAL DIAGNOSTIC 10/24/2013 EGD REMV CATARACT EXTRACAP,INSERT LENS one 03/2022 and the other 04/2022 Family History FAMILY HISTORY Problem Relation Age of Onset Hypertension Mother Stroke Mother Patient Allergies ALLERGIES Allergen Reactions Acetaminophen Other: See Comments, Mental Status Change Lisinopril Rash Oxycodone Other: See Comments hallucination Percocet [Oxycodone* Mental Status Change Hallucination Current Medications Current Outpatient Medications on File Prior to Visit Medication Sig budesonide-formoterol (SYMBICORT) 160-4.5 mcg/actuation inhaler Inhale 2 puffs as instructed two times a day. Lancets Test blood sugar(s) one times daily. Dx: Other DM Code E11.29 Insulin: No blood sugar diagnostic (BLOOD GLUCOSE TEST) test strip Test blood sugar(s) one times daily. Dx: Other DM Code E11.29 Insulin: No Blood-Glucose Meter Test blood sugar once a day DX E11.29 Insulin: No albuterol HFA (PROVENTIL HFA) 90 mcg/actuation inhaler Inhale 2 Puffs as instructed every 6 hours as needed for wheezing/shortness of breath. atorvastatin (LIPITOR) 40 mg tablet Take 1 tablet by mouth daily at bedtime. dilTIAZem CD (CARDIZEM CD) 120 mg 24 hr capsule Take 1 capsule by mouth once daily. losartan (COZAAR) 100 mg tablet Take 1 tablet by mo (more content not included)... Normal [facility] German 04-13-2025 TRA Telephone ([place]) AURELIANO DANG ([id number]) 1950 M Date Time Provider Department 04/13/25 MIRANDA CLAY During your visit today, we recorded the following information about you: Chelseyalex Miranda, BALL WARPER TENDER 04/13/2025 12:14 PM Signed Symbicort inhaler does not have a patient assistance program available. Is there an alternative inhaler you would like SW to look at for assistance? ChelseywhitneyMiranda ku, BALL WARPER TENDER 04/14/2025 11:10 AM Signed Breo and Advair are both inhalers that are through [employer] There is an out of pocket spend out at pharmacy of $600 and income guideline to meet. Sw can work on reaching out to patient to discuss [employer] PAP info. Chelseyalex Miranda, BALL WARPER TENDER 04/14/2025 3:24 PM Signed Advair is no longer available through [employer] PAP. Sw just spoke with company and this inhaler has been removed from their assistance. Okay for Breo? It is still on the [employer] assistance program. SalmaRoyer manleyin, BALL WARPER TENDER 04/14/2025 3:52 PM Signed Sw left message for patient to call Sw back to see what patient learned from insurance per symbicort cost issue. SAMAN Mendoza noted patient was checking with insurance on this. Sw also verifying with SAMAN Mendoza that Breo would be good alternative. SAMAN Mendoza mentioned she preferred Advair, but after checking with [employer] it is no longer available on their program. Sw will be out of the office tomorrow, 04/15, but will return on , 04/16 and will hopefully speak with patient at that time. Miranda Clay, BALL WARPER TENDER 04/16/2025 1:48 PM Signed Sw spoke with patient and he reports that he has to go and mushroom picker his spouse at 2pm. Will give SW call at 2:30 to discuss inhaler patient assistance. Miranda Clay, BALL WARPER TENDER 04/16/2025 3:31 PM Addendum Patient and Sw spoke and set up office visit for 04/27/25 to discuss inhaler patient assistance options. Allergies As of Date: 04/13/2025 Noted Allergy Reaction ACETAMINOPHEN 07/24/2019 14 - Other: See Comments 1 - Mental Status Change LISINOPRIL 06/24/2013 2 - Rash OXYCODONE 02/10/2021 14 - Other: See Comments Comments: hallucination PERCOCET (OXYCODONE-ACETAMINOPHEN) 1 - Mental Status Change Comments: Hallucination Date Reviewed: 04/13/2025 Reviewed by: Erika Chacon LPN - Fully Assessed Prescriptions as of 04/16/2025 - budesonide-formoterol (SYMBICORT) 160-4.5 mcg/actuation inhaler Inhale 2 puffs as instructed two times a day. - Lancets Test blood sugar(s) one times daily. Dx: Other DM Code E11.29 Insulin: No - blood sugar diagnostic (BLOOD GLUCOSE TEST) test strip Test blood sugar(s) one times daily. Dx: Other DM Code E11.29 Insulin: No - Blood-Glucose Meter Test blood sugar once a day DX E11.29 Insulin: No - albuterol HFA (PROVENTIL HFA) 90 mcg/actuation inhaler Inhale 2 Puffs as instructed every 6 hours as needed for wheezing/shortness of breath. - atorvastatin (LIPITOR) 40 mg tablet Take 1 tablet by mouth daily at bedtime. - dilTIAZem CD (CARDIZEM CD) 120 mg 24 hr capsule Take 1 capsule by mouth once daily. - losartan (COZAAR) 100 mg tablet Take 1 tablet by mouth once daily. - metFORMIN (GLUCOPHAGE) 500 mg tablet Take 1 tablet by mouth daily with breakfast. - diphenhydrAMINE (BENADRYL ALLERGY) 25 mg tablet Take 1 tablet by mouth every 6 hours as needed. - fluticasone (FLONASE) 50 mcg/actuation nasal spray Use 2 Sprays in each nostril once daily. Rinse mouth after use. - carvedilol (COREG) 25 mg tablet Take 1 tablet by mouth two times a day with meals. - nitroglycerin sublingual (NITROQUICK) 0.4 mg SL tablet Dissolve 1 tablet under the tongue as needed. for chest pain,every 5 min x3 - Blood-Glucose Meter (TRUE METRIX GLUCOSE METER) Use to check blood sugar once a day. Dx: E11.29, no insulin - Blood Glucose Control, Low (TRUE METRIX LEVEL 1) Use as directed to set up machine - Blood Glucose Control, Normal (TRUE METRIX LEVEL 2) soln Use as directed to set up machine - Blood Glucose Control, High (TRUE METRIX LEVEL 3) Use as directed to set up machine - alcohol swabs Apply 1 application to affected area once daily. - Blood Pressure Test Kit-Large Check BP once a day or as needed. Dx: I10, I25.5 and I25.10 - aspirin 81 mg chewable tablet Take 2 tablets by mouth once daily. Problem List As Of Date 04/13/2025 Noted Resolved History of non-ST elevation myocardial infarcti*11/06/2012 Chronic systolic CHF (congestive heart failure)*11/13/2012 Hypotension [I95.9] 11/13/2012 11/15/2012 Stress hyperglycemia [R73.9] 11/13/2012 08/12/2018 Fluid overload [E87.70] 11/14/2012 11/18/2012 History of atrial fibrillation [Z86.79] 11/16/2012 Mixed hyperlipidemia [E78.2] 11/18/2012 Edema [R60.9] 12/09/2012 Coronary artery disease due to lipid rich plaqu*08/08/2017 Overweight (BMI 25.0-29.9) [E66.3] 08/08/2017 Allergic rhinitis [J30.9] 02/01/2021 Type 2 diabetes mellitus with circulatory disor*02/03/2021 Ex-smoker [ (more content not included)... Normal [facility] CNOVon 03-30-2025 CNOV Office Visit (FAMPWS ) AURELIANO DANG ([id number]) 1950 M Date Time Provider Department 03/30/25 10:40 AM AKIALH ADAN During your visit today, we recorded the following information about you: Temperature Pulse Respiration Blood pressure 96.5 degrees 58/minute 18/minute 122/68 Weight 75.2 kg Antionette AAMIR Isbell.PRAVIN 03/30/2025 11:18 AM Signed 03/30/2025 Patient presents with: Recheck: Continues with breathing issues, wheezing. Not improving after tx. Recording using ambient [employer] software for draft documentation of the visit was discussed with the patient/authorized technology sales representative; all questions welcomed and answered. Patient/authorized technology sales representative agreed to proceed SUBJECTIVE: This is a 75 year old that is here today for Above Complaints.. Asthma: - Worsening dyspnea, wheezing, and cough. - Using albuterol inhaler Q6H with minimal relief; symptoms return within 1-2 hours. - Unable to afford Symbicort inhaler due to cost. - Cough productive of thick mucus at times - Denies fevers or chills. - Reports fatigue and difficulty sleeping due to noisy breathing. - Denies current tobacco use. - History of open heart surgery. PAST MEDICAL HISTORY Diagnosis Date Allergic rhinitis 02/01/2021 Bilateral leg edema 03/18/2024 Calculus of kidney 03/08/2010 Chronic obstructive pulmonary disease (HCC) 02/03/2025 Chronic systolic CHF (congestive heart failure) (HCC) 11/13/2012 Preop EF 27+/-5%. NSTEMI mod LV mild RV required epinephrine infusion intraop. Post op EF 30+/-5%. - Pulmonary congestion and B effusions on CXR--improving. Lasix 40mg po daily, continue coreg, ACEI Coronary artery disease due to lipid rich plaque 08/08/[address] Decker: 5 vessel CABG 2012 Edema 12/09/2012 Elevated PSA 04/02/2023 Essential hypertension 02/10/2021 Ex-smoker 02/03/2021 Smoked 1/4 pck for about 45 yrs quit 2014 Ex-smoker 02/03/2021 Smoked 1/4 pck for about 45 yrs quit 2014, US 01/2021 Neg for AAA History of atrial fibrillation 11/16/2012 Secondary to [place] but resolved. Sees: Dr. Decker: New onset AF RVR 11/16. Converted to NSR after 30 mins w/ BB/Mg++. 11/18-11/21 Remains in NSR, continue coreg. History of non-ST elevation myocardial infarction (NSTEMI) 11/06/2012 Preop NSTEMI by his history and EKG findings. Mildly Elevated Troponin T. ECHO LVEF 27%. - On ASA/BB/statin and ACEI. ECHO showed improved EF 39%, no pericardial effusion. Ischemic cardiomyopathy 02/10/2021 Seeing Cardio Lung nodule 11/21/[address] scan on 11/09/2012 showed 3-mm noncalcified at the base of the lateral right lower lobe segment (slice 73). Repeat CT 2013 showed no nodules. Medicare annual wellness visit, subsequent 02/07/2022 Medicare Part B: Last done: 02/07/2022 Mixed hyperlipidemia 11/18/2012 Preop lipids: Tri-86, chol-219, HDL-52, LDL-150. Lipitor 40mg started, consider increase to 80mg d/t NSTEMI--can be increased after discharge to assure pt is tolerating dose (d/w Dr. Beasley). Pt to follow up w/ local MD for repeat cholesterol levels in 6 weeks. MADELIN (obstructive sleep apnea) 12/12/2023 Sees [facility] (Santino/Estefanía) Other proteinuria 02/04/2021 diabetes related. 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 Lancets Test blood sugar(s) one times daily. Dx: Other DM Code E11.29 Insulin: No blood sugar diagnostic (BLOOD GLUCOSE TEST) test strip Test blood sugar(s) one times daily. Dx: Other DM Code E11.29 Insulin: No Blood-Glucose Meter Test blood sugar once a day DX E11.29 Insulin: No budesonide-formoterol (SYMBICORT) 160-4.5 mcg/actuation inhaler Inhale 2 puffs as instructed two times a day. albuterol HFA (PROVENTIL HFA) 90 mcg/actuation inhaler Inhale 2 Puffs as instructed every 6 hours as needed for wheezing/shortness of breath. atorvastatin (LIPITOR) 40 mg tablet Take 1 tablet by mouth daily at bedtime. dilTIAZem CD (CARDIZEM CD) 120 mg 24 hr capsule Take 1 capsule by mouth once daily. losartan (COZAAR) 100 mg tablet Take 1 tablet by mouth once daily. metFORMIN (GLUCOPHAGE) 500 mg tablet Take 1 tablet by mouth daily with breakfast. diphenhydrAMINE (BENADRYL ALLERGY) 25 mg tablet Take 1 tablet by mouth every 6 hours as needed. fluticasone (FLONASE) 50 mcg/actuation nasal spray Use 2 Sprays in each nostril once daily. Rinse mouth after use. carvedilol (COREG) 25 mg tablet Take 1 tablet by mouth two times a day with meals. nitroglycerin sublingual (NITROQUICK) 0.4 mg SL tablet Dissolve 1 tablet under the tongue as needed. for omer (more content not included)... Normal [facility] XR CHEST 2V FRONTAL/LATon XR CHEST 2V FRONTAL/LAT * * *Final Report* * * DATE OF EXAM: Mar 30 2025 11:33AM [id number] - XR CHEST 2V FRONTAL/LAT / PROCEDURE REASON: SOB (shortness of breath) * * * * Physician Interpretation * * * * EXAMINATION: CHEST RADIOGRAPH (2 VIEW FRONTAL and LATERAL) CLINICAL HISTORY: SOB (shortness of breath) MQ: XC2_6 EXAM DATE/TIME: 03/30/2025 11:33 AM COMPARISON: Chest x-ray dated 03/18/2024 RESULT: Lines, tubes, and devices: None. Lungs and pleura: No consolidation. No lung mass. No pleural effusion. No pneumothorax. Cardiomediastinal silhouette: Stable cardiomediastinal silhouette with postsurgical changes from median sternotomy Bones and soft tissues: Degenerative changes. Stable mild anterior wedge compression deformity of a midthoracic vertebral body. IMPRESSION: No acute radiographic abnormality. Emergency Room Registered Nurse: STEVO Transcribe Date/Time: Mar 30 2025 11:39A Dictated by : DERIAN AMADOR MD This examination was interpreted and the report reviewed and electronically signed by: DERIAN AMADOR MD on Mar 30 2025 11:40AM EST [id number] Normal [facility] XR Chest PA and Lateralon IMPRESSION: No acute radiographic abnormality. Emergency Room Registered Nurse: PSCSavannah Transcribe Date/Time: Mar 30 2025 11:39A Dictated by : DERIAN AMADOR MD This examination was interpreted and the report reviewed and electronically signed by: DERIAN AMADOR MD on Mar 30 2025 11:40AM [facility] DIVISION OF RADIOLOGY * * *Final Report* * * DATE OF EXAM: Mar 30 2025 11:33AM [id number] - XR CHEST 2V FRONTAL/LAT / PROCEDURE REASON: SOB (shortness of breath) * * * * Physician Interpretation * * * * EXAMINATION: CHEST RADIOGRAPH (2 VIEW FRONTAL & LATERAL) CLINICAL HISTORY: SOB (shortness of breath) MQ: XC2_6 EXAM DATE/TIME: 03/30/2025 11:33 AM COMPARISON: Chest x-ray dated 03/18/2024 RESULT: Lines, tubes, and devices: None. Lungs and pleura: No consolidation. No lung mass. No pleural effusion. No pneumothorax. Cardiomediastinal silhouette: Stable cardiomediastinal silhouette with postsurgical changes from median sternotomy Bones and soft tissues: Degenerative changes. Stable mild anterior wedge compression deformity of a midthoracic vertebral body. DIVISION OF RADIOLOGY Provider, [facility] - 03/30/2025 * * *Final Report* * * DATE OF EXAM: Mar 30 2025 11:33AM [id number] - XR CHEST 2V FRONTAL/LAT / PROCEDURE REASON: SOB (shortness of breath) * * * * Physician Interpretation * * * * EXAMINATION: CHEST RADIOGRAPH (2 VIEW FRONTAL & LATERAL) CLINICAL HISTORY: SOB (shortness of breath) MQ: XC2_6 EXAM DATE/TIME: 03/30/2025 11:33 AM COMPARISON: Chest x-ray dated 03/18/2024 RESULT: Lines, tubes, and devices: None. Lungs and pleura: No consolidation. No lung mass. No pleural effusion. No pneumothorax. Cardiomediastinal silhouette: Stable cardiomediastinal silhouette with postsurgical changes from median sternotomy Bones and soft tissues: Degenerative changes. Stable mild anterior wedge compression deformity of a midthoracic vertebral body. IMPRESSION IMPRESSION: No acute radiographic abnormality. Emergency Room Registered Nurse: STEVO Transcribe Date/Time: Mar 30 2025 11:39A Dictated by : DERIAN AMADOR MD This examination was interpreted and the report reviewed and electronically signed by: DERIAN AMADOR MD on Mar 30 2025 11:40AM EST [facility] Radiology Study observation (narrative) [facility] XR Chest PA and LateralOrder ed By: [facility] Provider on 03-30-2025 [facility] CNOVon 02-23-2025 CNOV Office Visit (ORTHWS ) AURELIANO DANG ([id number]) 1950 M Date Time Provider Department 02/23/25 2:30 PM CHERI RICHEY During your visit today, we recorded the following information about you: Qing Cho MA 02/23/2025 3:45 PM Signed Patient presents with: Left Hand - Numbness: Referred by Kelly Walton AMB [facility] INTAKE FLOWSHEET DATA Risk Screening Do you have concerns about personal safety or safety in the home?: No Pain Pain Location: Hand-Left Description: Numbness Duration Amount of Time: 3 Duration Units: Months Frequency: Intermittent Intervention/Comfort measure: (none) Patient here for evaluation numbness left hand. States he is having numbness in his left 5th finger and at times in his 4th finger. 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 Patient is right hand dominant. He is retired. Cheri Richey PA-C 02/23/2025 3:45 PM Signed Cheri Richey PA-C Department of Orthopaedics Orthopaedics [address] [facility] [address] Dept: [phone] Dept February 23, 2025 CHIEF COMPLAINT: Numbness of the Left Hand (Referred by Kelly Walton) Left Fifth Digit Numbness: - Numbness in the left fifth digit x3 months. - No known trauma or injury preceding onset. - Numbness is intermittent, with certain positions exacerbating symptoms. - Reports a different sensation in the fifth digit compared to the index finger. - Experiences mild pain when the digit is squeezed or touched for an extended period. - Frequently rests the arm on the table, which sometimes causes "shock and pain." - Denies nocturnal symptoms. Open Heart Surgery: - Underwent open heart surgery in 2012. - Post-surgery, was advised to stop working and has been homebound since. ASSESSMENT: R20.0 Hand numbness G56.22 Ulnar nerve compression, left PLAN: 1. Hand numbness (R20.0) 2. 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 - Provided an elbow pad to reduce pressure on the ulnar nerve; advised to avoid leaning on the elbow. - If symptoms persist, will order an ultrasound of the elbow to assess for nerve entrapment. US completed at [facility]? will check if symptoms do not improve with elbow pad. - Discussed potential for surgical intervention if conservative measures fail. Will continue to monitor patient for Hand numbness Ulnar nerve compression, left, patient to schedule visit as per follow up discussed. Mr. Aureliano Dang was advised as to contrast therapies and/or to take analgesics/anti-inflammator ies as needed and all contraindications were reviewed. OBJECTIVE: Mr. Aureliano Dang is a pleasant 75 year old in no apparent distress. Gen:There were no vitals taken for this visit. nl development, obese, no deformities ENT: Normocephalic, normal hearing, moist mucosa CV: Pulses:Radial= 2+ and symmetric, capillary refill < 2 secs, no peripheral edema/varicosities Skin: no rash, bruising or lesions. Good turgor. Psych: cooperative and appropriate, alert and oriented x 3, good mood and affect. Musculoskeletal: Left hand with subjective numbness in the ulnar 2 digits. Positive Tinel's over the left elbow at the cubital tunnel. No subluxation of the ulnar nerve noted with flexion or extension of the left elbow. Intrinsic weakness noted on exam but no intrinsic atrophy. Sensation is intact in the radial 3 digits. Imaging: Deferred today Supporting Subjective Information Below: Past Surgical History: PAST SURGICAL HISTORY Procedure Laterality Date CABG (5) VENOUS GRAFTS AND ARTERIAL GRAFT(S) 11/13/2012 [facility] COLONOSCOPY FLX DX W/COLLJ SPEC WHEN PFRMD 10/24/2013 Colonoscopy,repeat 10 yrs ESOPHAGOGASTRODUODENOSCOPY TRANSORAL DIAGNOSTIC 10/24/2013 EGD REMV CATARACT EXTRACAP,INSERT LENS one 03/2022 and the other 04/2022 Medications: Current Outpatient Medications Medication Sig budesonide-formoterol (SYMBICORT) 160-4.5 mcg/actuation inhaler Inhale 2 puffs as instructed two times a day. albuterol HFA (PROVENTIL HFA) 90 mcg/actuation inhaler Inhale 2 Puffs as instructed every 6 hours as needed for wheezing/shortness of breath. atorvastatin (LIPITOR) 40 mg tablet Take 1 tablet by mouth daily at bedtime. dilTIAZem CD (CARDIZEM CD) 120 mg 24 hr capsule Take 1 capsule by mouth once daily. losartan (COZAAR) 100 mg tablet Take 1 tablet by mouth once daily. metFORMIN (GLUCOPHAGE) 500 mg tablet Take 1 tablet by mouth daily with breakfast. diphenhydrAMINE (BENADRYL ALLERGY) 25 mg tablet Take 1 tablet by mouth every 6 hours as needed. fluticasone (FLONASE) 50 mcg/actuation nasal spray Use 2 Sprays in each nostril once daily. Rinse mouth after use. carvedilol (COREG) 25 mg tablet Take 1 tablet by mouth two mehul (more content not included)... Normal [facility] CNOVon 02-03-2025 CNOV Office Visit (FAMPWS ) AURELIANO DANG ([id number]) 1950 M Date Time Provider Department 02/03/25 8:40 AM [facility] During your visit today, we recorded the following information about you: Temperature Pulse Respiration Blood pressure 97.5 degrees 57/minute 16/minute 118/76 Weight 75.3 kg Kelly Walton PA-C 02/03/2025 9:48 AM Signed Chief Complaint Patient presents with: Follow Up HPI Aureliano Dang is a 75 year old male who presents here today for follow up on COPD and inhaler. COPD: - Diagnosed with moderate COPD following a lung function test in October. - Initially prescribed Spiriva, but unable to afford due to cost ($336). - Currently using albuterol inhaler, purchased for $10.50 at [employer]. - Uses albuterol multiple times daily, reporting significant improvement in breathing. - Experiences labored breathing approximately every 6 hours, prompting albuterol use. - Albuterol use has improved ability to lie down and sleep without feeling congested or wheezing. - Has not contacted insurance to discuss inhaler coverage. Left Hand Numbness: - New onset numbness in the left hand, specifically in the pinky and ring fingers. - Numbness is constant and began this year. - Reports numbness is more bothersome than previous numbness experienced in the foot. - Numbness affects ability to hold objects and drive safely. Past medical history, appointments, medications, allergies reviewed. Previous Medical History PAST MEDICAL HISTORY Diagnosis Date Allergic rhinitis 02/01/2021 Bilateral leg edema 03/18/2024 Calculus of kidney 03/08/2010 Chronic obstructive pulmonary disease (HCC) 02/03/2025 Chronic systolic CHF (congestive heart failure) (HCC) 11/13/2012 Preop EF 27+/-5%. NSTEMI mod LV mild RV required epinephrine infusion intraop. Post op EF 30+/-5%. - Pulmonary congestion and B effusions on CXR--improving. Lasix 40mg po daily, continue coreg, ACEI Coronary artery disease due to lipid rich plaque 08/08/[address] Decker: 5 vessel CABG 2012 Edema 12/09/2012 Elevated PSA 04/02/2023 Essential hypertension 02/10/2021 Ex-smoker 02/03/2021 Smoked 1/4 pck for about 45 yrs quit 2014 Ex-smoker 02/03/2021 Smoked 1/4 pck for about 45 yrs quit 2014, US 01/2021 Neg for AAA History of atrial fibrillation 11/16/2012 Secondary to OH but resolved. Sees: Dr. Decker: New onset AF RVR 11/16. Converted to NSR after 30 mins w/ BB/Mg++. 11/18-11/21 Remains in NSR, continue coreg. History of non-ST elevation myocardial infarction (NSTEMI) 11/06/2012 Preop NSTEMI by his history and EKG findings. Mildly Elevated Troponin T. ECHO LVEF 27%. - On ASA/BB/statin and ACEI. ECHO showed improved EF 39%, no pericardial effusion. Ischemic cardiomyopathy 02/10/2021 Seeing Cardio Lung nodule 11/21/[address] scan on 11/09/2012 showed 3-mm noncalcified at the base of the lateral right lower lobe segment (slice 73). Repeat CT 2013 showed no nodules. Medicare annual wellness visit, subsequent 02/07/2022 Medicare Part B: Last done: 02/07/2022 Mixed hyperlipidemia 11/18/2012 Preop lipids: Tri-86, chol-219, HDL-52, LDL-150. Lipitor 40mg started, consider increase to 80mg d/t NSTEMI--can be increased after discharge to assure pt is tolerating dose (d/w Dr. Beasley). Pt to follow up w/ local MD for repeat cholesterol levels in 6 weeks. MADELIN (obstructive sleep apnea) 12/12/2023 Sees [facility] (Santino/Estefanía) Other proteinuria 02/04/2021 diabetes related. 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 Previous Surgical History PAST SURGICAL HISTORY Procedure Laterality Date CABG (5) VENOUS GRAFTS AND ARTERIAL GRAFT(S) 11/13/2012 [facility] main COLONOSCOPY FLX DX W/COLLJ SPEC WHEN PFRMD 10/24/2013 Colonoscopy,repeat 10 yrs ESOPHAGOGASTRODUODENOSCOPY TRANSORAL DIAGNOSTIC 10/24/2013 EGD REMV CATARACT EXTRACAP,INSERT LENS one 03/2022 and the other 04/2022 Family History FAMILY HISTORY Problem Relation Age of Onset Hypertension Mother Stroke Mother Patient Allergies ALLERGIES Allergen Reactions Acetaminophen Other: See Comments, Mental Status Change Lisinopril Rash Oxycodone Other: See Comments hallucination Percocet [Oxycodone* Mental Status Change Hallucination Current Medications Current Outpatient Medications on File Prior to Visit Medication Sig albuterol HFA (PROVENTIL HFA) 90 mcg/actuation inhaler Inhale 2 Puffs as instructed every 6 hours as needed for wheezing/shortness of breath. tiotropium (SPIRIVA WITH HANDIHALER) 18 mcg inhalation capsule Inhale 1 capsule as instructed once daily. atorvastatin (LIPITOR) 40 mg tablet Take 1 tablet by mouth daily at bedtime. dilTIAZem CD (CARDIZEM CD) 120 mg 24 hr capsule Take 1 caps (more content not included)... Normal [facility] 11-14-2024 [facility] AURELIANO DANG ([id number]) 1950 M Date Time Provider Department 11/14/24 KELLY WALTON [facility] During your visit today, we recorded the following information about you: Kelly Walton PA-C 11/14/2024 10:52 AM Signed Let patient know that his lung function test shows moderate COPD. Is he willing to try inhaler? If yes, I will send one in that he would use daily and an albuterol that he would use as needed. Then have a 2 month follow up to see how they are doing. If any issues at pharmacy with getting the prescription, please let us know. Sometimes insurance has a specific one that they cover and I don't have that information. CATIE Amin Amanda, KARLENE 11/14/2024 11:02 AM Signed Called and left a voicemail for the Patient to call back and ask for a nurse to receive the providers message. KARLENE Flanagan Sherill A, LPN 11/18/2024 9:58 AM Signed Left additional message for pt to contact office. LEANNE Sheldon Sherill A, LPN 11/19/2024 2:25 PM Signed Sent pt a letter to call back and speak with a Triage Nurse for results and instructions. LEANNE Sheldon Amanda, RN 11/27/2024 10:53 AM Signed Pt called and is notified of providers results and instructions. Pt voices understanding and would like to have provider send medication in to [facility] for him. KARLENE Flanagan Rayanne, PA-C 11/27/2024 11:12 AM Signed Needs 2 month f/u The following approved medication requests have been transmitted electronically. Requested Prescriptions Signed Prescriptions Disp Refills albuterol HFA (PROVENTIL HFA) 90 mcg/actuation inhaler 1 Each 5 Sig: Inhale 2 Puffs as instructed every 6 hours as needed for wheezing/shortness of breath. Authorizing Provider: KELLY WALTON tiotropium (SPIRIVA WITH HANDIHALER) 18 mcg inhalation capsule 1 capsule 5 Sig: Inhale 1 capsule as instructed once daily. Authorizing Provider: KELLY WALTON PA-C. Erika Chacon LPN 11/27/2024 11:54 AM Signed Left message for pt to contact office. Needs to schedule a 2 month f/u. LEANNE Sheldon Stephanie, RN 11/28/2024 10:46 AM Signed Patient calls back and schedules an appointment for 01/26/2025. 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 Patient reports that he has been unable to work and he cannot afford $300 for inhalers. KARLENE Varela Rayanne, PA-C 11/28/2024 10:54 AM Signed Is he willing to contact insurance to see which ones are covered under his plan. He should be able to get the albuterol inhaler. It's the spirivia that is likely too expensive. Recommend he go back to pharmacy and see how much just the albuterol inhaler is. This is one that he can at least use as needed for symptom relief. ACTIE Amin Amanda, RN 11/28/2024 11:09 AM Signed Pt called and is notified of providers message and instructions. Pt voices understanding and will try to get a hold of the insurance company. Jewell Carrasco RN Allergies As of Date: 11/14/2024 Noted Allergy Reaction ACETAMINOPHEN 07/24/2019 14 - Other: See Comments 1 - Mental Status Change LISINOPRIL 06/24/2013 2 - Rash OXYCODONE 02/10/2021 14 - Other: See Comments Comments: hallucination PERCOCET (OXYCODONE-ACETAMINOPHEN) 1 - Mental Status Change Comments: Hallucination Date Reviewed: 11/11/2024 Reviewed by: Diego Patricio MD - Fully Assessed Reason for Visit: Results [95] Order(s):albuterol HFA (PROVENTIL HFA) 90 mcg/actuation inhalerInhale 2 Puffs as instructed every 6 hours as needed for wheezing/shortness of breath.Disp: 1 EachRfl: 5 tiotropium (SPIRIVA WITH HANDIHALER) 18 mcg inhalation capsuleInhale 1 capsule as instructed once daily.Disp: 1 capsuleRfl: 5 Prescriptions as of 12/12/2024 - albuterol HFA (PROVENTIL HFA) 90 mcg/actuation inhaler Inhale 2 Puffs as instructed every 6 hours as needed for wheezing/shortness of breath. - tiotropium (SPIRIVA WITH HANDIHALER) 18 mcg inhalation capsule Inhale 1 capsule as instructed once daily. - atorvastatin (LIPITOR) 40 mg tablet Take 1 tablet by mouth daily at bedtime. - dilTIAZem CD (CARDIZEM CD) 120 mg 24 hr capsule Take 1 capsule by mouth once daily. - losartan (COZAAR) 100 mg tablet Take 1 tablet by mouth once daily. - metFORMIN (GLUCOPHAGE) 500 mg tablet Take 1 tablet by mouth daily with breakfast. - diphenhydrAMINE (BENADRYL ALLERGY) 25 mg tablet Take 1 tablet by mouth every 6 hours as needed. - fluticasone (FLONASE) 50 mcg/actuation nasal spray Use 2 Sprays in each nostril once daily. Rinse mouth after use. - carvedilol (COREG) 25 mg tablet Take 1 tablet by mouth two times a day with meals. - nitroglycerin sublingual (NITROQUICK) 0.4 mg SL tablet Dissolv (more content not included)... Normal [facility] SPIROMETRY - BASELINE AND PO ST DILATORon 11-13-2024 FEF25% POST (L/S) 3.18 L/S [facility] FEF25% PRE (L/S) 2.00 [facility] ZYP46-41% LLN (L/S) 0.82 L/S [facility] OXU38-31% POST (L/S) 0.72 L/S [facility] RWH14-15% PRE (L/S) 0.46 L/S [facility] RMH54-66% PREDICTED (L/S) 1.85 L/S [facility] FEF75% LLN (L/S) 0.21 [facility] FEF75% POST (L/S) 0.24 L/S [facility] FEF75% PRE (L/S0 0.14 L[facility] FEF75% PREDICTED (L/S) 0.53 L/S [facility] FEF75% ULN (L/S) 1.24 L[facility] FET POST (S) 16.02 S [facility] FET PRE (S) 10.71 S [facility] FEV1 LLN (L) 1.69 L [facility] FEV1 PRE (L) 1.20 L [facility] FEV1 PREDICTED (L) 2.34 L [facility] FEV1 ULN (L) 2.94 L [facility] FEV1/FVC LLN (%) 63 % [facility] FEV1/FVC POST (%) 56 % [facility] FEV1/FVC PRE (%) 61 % [facility] FEV1/FVC PREDICTED (%) 77 % [facility] FEV1_POST (L) 1.34 L [facility] FVC LLN (L) 2.28 L [facility] FVC POST (L) 2.36 L [facility] FVC PRE (L) 1.96 L [facility] FVC PREDICTED (L) 3.08 L [facility] FVC ULN (L) 3.90 L [facility] PEF POST (L/S) 4.46 L/S [facility] PEF PRE (L/S) 4.36 L/S [facility] [address] [place] [address] Test Date: 2024-11-13 Pat Name: AURELIANO DANG Department: Room: Gender: M [employer]: : 1950 Requested By: Order Number: [id number] Reading MD: Karen De MD Interpretive Statements Medications and Allergies were reviewed for possible drug interactions per policy. No contraindications or sensitivities were noted. Meds taken: no inhaled respiratory medications taken before testing. Current ATS/ERS acceptability and repeatability standards for spirometry met. Start of test and EOFE criteria met. 4 puffs Albuterol (360 mcg) delivered by MDI via holding chamber. HR pre = 58/min, HR post = 59/min. IMPRESSION: Spirometry indicates moderate obstruction. Positive bronchodilator response. The reduced FVC could indicate restriction, recommend lung volumes for definitive determination. Electronically Signed On 11-13-2024 15:31:38 EST by Karen De MD ID: [id number] Name: AURELIANO DANG Race: [place] Ht: 64.37 in Wt: 169.00 lbs Age: 74 Gender: Male : 1950 Dx: Wheezing Smoking Hx: Non-smoker Doctor: DIEGO PATRICIO Test Date: 11/13/2024 Site: Tech: [facility] PRE-BRONCH POST-BRONCH Pre LLN Pred ULN %Pred Post %Pred %Chg SPIROMETRY FVC (L) 1.96 2.28 3.08 3.90 63 2.36 76 12 FEV1 (L) 1.20 1.69 2.34 2.94 51 1.34 57 5 FEV1/FVC 0.61 0.63 0.77 0.89 79 0.57 73 -7 PEF L/s (L/sec) 4.36 4.46 2 FEF50 (L/sec) 0.71 0.71 2.83 4.96 25 1.03 36 44 FIF50 (L/sec) 3.21 2.52 -21 FEF50/FIF50 0.22 90-100 0.41 83 FIVC (L) 2.05 2.25 9 ZTU10-75 (L/sec) 0.46 0.82 1.85 3.29 24 0.72 39 56 Time (sec) 10.71 16.02 49 FET PEF (sec) 0.09 0.07 -19 GRABIEL (L) 0.06 0.08 40 Vol Extrap % (%) 3 3 16 Comments: Medications and Allergies were reviewed for possible drug interactions per policy. No contraindications or sensitivities were noted. Meds taken: no inhaled respiratory medications taken before testing. Current ATS/ERS acceptability and repeatability standards for spirometry met. Start of test and EOFE criteria met. 4 puffs Albuterol (360 mcg) delivered by MDI via holding chamber. HR pre = 58/min, HR post = 59/min. PULMONARY FUNCTION LAB [facility] CNOVon 11-11-2024 CNOV Office Visit (FAMPWS ) AURELIANO DANG ([id number]) 1950 M Date Time Provider Department 11/11/24 1:00 PM [facility] During your visit today, we recorded the following information about you: Pulse Respiration Blood pressure Weight 72/minute 18/minute 134/80 77.1 kg Diego Patricio MD 11/11/2024 8:17 PM Signed Chief Complaint Patient presents with: F/U 6 months HPI Aureliano Dang is a 74 year old male who presents here today for Chronic Medical Conditions. and Medicare Annual Visit. Patient with hx of diabetes, CAD, CHF, hyperlipidemia, ex smoker, overweight, a.fib after an [place] that resolved as well as those as below. Component Ref Range AND Units 7 mo ago (03/18/24) 1 yr ago (09/06/23) 1 yr ago (01/29/23) 2 yr ago (08/04/22) 3 yr ago (08/05/21) 3 yr ago (02/03/21) 5 yr ago (12/28/18) Hemoglobin A1C 4.3 - 5.6 % 6.4 High 6.4 High CM 6.8 High CM 6.3 High CM 6.4 High CM 6.9 High CM 6.[address] Tapia - nephrology Patient sees Gilbert Garza - Urology Patient sees Cardiology last visit 09/2023 Patient was seeing Pulm (Dr. Nick De) last visit 12/2023. Stopped wearing the CPAP due to making him feel like he was suffocating. . Hey discussed inspire with him and he was to get back to them and h never did. Patient stopped taking the lasix after his script ran out in May 2024 and just didn't refill it. He has not had any swelling issues since then. Patient does limit the salt in his diet. Patient stopped eating as much junk food snacks over a year ago. Past medical history, appointments, medications, allergies reviewed. Previous Medical History PAST MEDICAL HISTORY Diagnosis Date Allergic rhinitis 02/01/2021 Calculus of kidney 03/08/2010 Chronic systolic CHF (congestive heart failure) (HCC) 11/13/2012 Preop EF 27+/-5%. NSTEMI mod LV mild RV required epinephrine infusion intraop. Post op EF 30+/-5%. - Pulmonary congestion and B effusions on CXR--improving. Lasix 40mg po daily, continue coreg, ACEI Coronary artery disease due to lipid rich plaque 08/08/[address] Decker: 5 vessel CABG 2012 Edema 12/09/2012 Elevated PSA 04/02/2023 Essential hypertension 02/10/2021 Ex-smoker 02/03/2021 Smoked 1/4 pck for about 45 yrs quit 2014 Ex-smoker 02/03/2021 Smoked 1/4 pck for about 45 yrs quit 2014, US 01/2021 Neg for AAA History of atrial fibrillation 11/16/2012 Secondary to [place] but resolved. Sees: Dr. Decker: New onset AF RVR 11/16. Converted to NSR after 30 mins w/ BB/Mg++. 11/18-11/21 Remains in NSR, continue coreg. History of non-ST elevation myocardial infarction (NSTEMI) 11/06/2012 Preop NSTEMI by his history and EKG findings. Mildly Elevated Troponin T. ECHO LVEF 27%. - On ASA/BB/statin and ACEI. ECHO showed improved EF 39%, no pericardial effusion. Ischemic cardiomyopathy 02/10/2021 Seeing Cardio Lung nodule 11/21/[address] scan on 11/09/2012 showed 3-mm noncalcified at the base of the lateral right lower lobe segment (slice 73). Repeat CT 2013 showed no nodules. Medicare annual wellness visit, subsequent 02/07/2022 Medicare Part B: Last done: 02/07/2022 Mixed hyperlipidemia 11/18/2012 Preop lipids: Tri-86, chol-219, HDL-52, LDL-150. Lipitor 40mg started, consider increase to 80mg d/t NSTEMI--can be increased after discharge to assure pt is tolerating dose (d/w Dr. Beasley). Pt to follow up w/ local MD for repeat cholesterol levels in 6 weeks. MADELIN (obstructive sleep apnea) 12/12/2023 Sees [facility] (Santino/Estefanía) Other proteinuria 02/04/2021 diabetes related. 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) 02/03/2021 Previous Surgical History PAST SURGICAL HISTORY Procedure Laterality Date CABG (5) VENOUS GRAFTS AND ARTERIAL GRAFT(S) 11/13/2012 [facility] main COLONOSCOPY FLX DX W/COLLJ SPEC WHEN PFRMD 10/24/2013 Colonoscopy,repeat 10 yrs ESOPHAGOGASTRODUODENOSCOPY TRANSORAL DIAGNOSTIC 10/24/2013 EGD REMV CATARACT EXTRACAP,INSERT LENS one 03/2022 and the other 04/2022 Family History FAMILY HISTORY Problem Relation Age of Onset Hypertension Mother Stroke Mother Patient Allergies ALLERGIES Allergen Reactions Acetaminophen Other: See Comments, Mental Status Change Lisinopril Rash Oxycodone Other: See Comments hallucination Percocet [Oxycodone* Mental Status Change Hallucination Current Medications Current Outpatient Medications on File Prior to Visit Medication Sig atorvastatin (LIPITOR) 40 mg tablet Take 1 tablet by mouth daily at bedtime. dilTIAZem CD (CARDIZEM CD) 120 mg 24 hr capsule Take 1 capsule by mouth once daily. losartan (COZAAR) 100 mg tablet Take 1 tablet by mouth once daily. metFORMIN (GLUCOPHAGE) 500 mg tablet Take 1 tablet by mouth daily with breakfast. (more content not included)... Normal [facility] Bacteria Wnd Culton 08-04-20 24 Bacteria identified Cx Nom (Wound) CULTURE, WOUND: No growth GRAM STAIN: No organisms seen Few Polymorphonuclear leukocytes Normal [facility] Comment on above: Performed By: #### 6 462-6 ####[facility] [place] [id number] [address] OF [facility] CNOVon 08-04-2024 CNOV Office Visit (UCWSTR ) ROSEANNAURELIANO MORALES ([id number]) 1950 M Date Time Provider Department 08/04/24 9:30 AM VICENTA SNEED WS During your visit today, we recorded the following information about you: Temperature Pulse Respiration Blood pressure 97.5 degrees 64/minute 16/minute 122/74 Weight 76.9 kg Vicenta Sneed APRN.TYPING BOOKKEEPER 08/04/2024 10:08 AM Addendum ASSESSMENT/PLAN: 1. Cutaneous abscess of back excluding buttocks - ICD9: 682.2, ICD10: L02.212 - Begin treatment with doxycycline - No lymphangetic streaking, this was defined for patient to watch for and to seek medical care immediately if appears - DOXYCYCLINE MONOHYDRATE 100 MG TABLET After universal precaution procedure done, skin was cleansed with saline and povidine. 1.5 cc of 1% lidocaine was injected near the area of maximal fluctuance and small incision made with 11 blade scalpel. A small amount of purulent drainage was expressed. Culture swab obtained. A dry sterile dressing was applied. Patient tolerated procedure well. - Follow-up with your PCP in 3-5 days if symptoms have not improved or sooner if symptoms worsen - Discussed red flags and need for immediate medical evaluation if any occur. - Discussed supportive care treatment with fluids, rest and analgesia. - Discussed expected course of illness Vicenta Sneed APRN.CNP ABSCESS (BOIL): You have a skin abscess, or boil. Boils usually develop when Staph bacteria get into the small glands or hair follicles in the skin and form a pus pocket. After an abscess is properly drained, it will most often heal without any problems. You should not squeeze an abscess or boil to drain it; this can cause the infection to spread to other areas under the skin. Boils are contagious, so you should dispose of soiled bandages carefully and not share your towel or wash cloth with others. A boil is lanced to start the draining. Soak the area in warm water for 20-30 minutes 3-4 times daily to help the healing. Oral antibiotics may be needed if the infection is severe or if it seems to be spreading. Please call your doctor if you have increased pain or swelling, chills or fever, red streaks going up the arm or leg, or continued pus drainage after 3-4 days. Vicenta Sneed APRN.TYPING BOOKKEEPER 08/04/2024 11:14 AM Signed Subjective Aureliano Dang is a 74 year old male who presents with an abscess on the left shoulder x 2 days. Abscess Pertinent negatives include no abdominal pain, chills, fever, nausea or vomiting. Patient states he has an abscess on his left shoulder that was first noticed two days ago. Patient states he has not been able see the abscess himself, but states his has seen it and touched it. There has been a small amount of drainage from the area. Patient reports pain to the area. He denies any fever, nausea, vomiting, diarrhea or abdominal pain. No other concerns at this time. Review of Systems Constitutional: Negative for chills, fever and malaise/fatigue. HENT: Negative. Eyes: Negative. Respiratory: Negative. Cardiovascular: Negative. Gastrointestinal: Negative for abdominal pain, diarrhea, nausea and vomiting. Genitourinary: Negative. Musculoskeletal: Negative. Neurological: Negative. Psychiatric/Behavioral: Negative. PAST MEDICAL HISTORY Diagnosis Date Allergic rhinitis 02/01/2021 Calculus of kidney 03/08/2010 Chronic systolic CHF (congestive heart failure) (HCC) 11/13/2012 Preop EF 27+/-5%. NSTEMI mod LV mild RV required epinephrine infusion intraop. Post op EF 30+/-5%. - Pulmonary congestion and B effusions on CXR--improving. Lasix 40mg po daily, continue coreg, ACEI Coronary artery disease due to lipid rich plaque 08/08/[address] Decker: 5 vessel CABG 2012 Edema 12/09/2012 Elevated PSA 04/02/2023 Essential hypertension 02/10/2021 Ex-smoker 02/03/2021 Smoked 1/4 pck for about 45 yrs quit 2014 Ex-smoker 02/03/2021 Smoked 1/4 pck for about 45 yrs quit 2014, US 01/2021 Neg for AAA History of atrial fibrillation 11/16/2012 Secondary to [place] but resolved. Sees: Dr. Decker: New onset AF RVR 11/16. Converted to NSR after 30 mins w/ BB/Mg++. 11/18-11/21 Remains in NSR, continue coreg. History of non-ST elevation myocardial infarction (NSTEMI) 11/06/2012 Preop NSTEMI by his history and EKG findings. Mildly Elevated Troponin T. ECHO LVEF 27%. - On ASA/BB/statin and ACEI. ECHO showed improved EF 39%, no pericardial effusion. Ischemic cardiomyopathy 02/10/2021 Seeing Cardio Lung nodule 11/21/[address] scan on 11/09/2012 showed 3-mm noncalcified at the base of the lateral right lower lobe segment (slice 73). Repeat CT 2013 showed no nodules. Medicare annual wellness visit, subsequent 02/07/2022 Medicare Part B: Last done: 02/07/2022 Mixed hyperlipidemia 11/18/2012 Preop lipids: Tri-86, chol-219, HDL-52, LDL-150. Lipitor 40 (more content not included)... Normal [facility] Basic metabolic 2000 panelon 07-08-2024 Anion gap [Moles/Vol] 12 mmol/L Normal 8-15 [facility] Comment on above: Order Comment: Speci men Type: BLOOD SPECIMENOrdering Facility: [facility] [place] Address: [address] [place], [place] [id number] Performed By: #### 2 4321-2, 4498-2, 4485-9, 2885-2 ####[facility] LABCLIA [id number] [place] [address] [place] Calcium [Mass/Vol] 9.6 mg/dL Normal 8.5-10.2 [facility] Comment on above: Order Comment: Speci men Type: BLOOD SPECIMENOrdering Facility: Address: [address] [place] [address] Performed By: #### 2 4321-2, 4498-2, 4485-9, 2885-2 ####[facility] LABCLIA [id number] [place] [id number] [place] Chloride [Moles/Vol] 103 mmol/L Normal 98-107 [facility] Comment on above: Order Comment: Speci men Type: BLOOD SPECIMENOrdering Facility: Address: [address] [place] [address] Performed By: #### 2 4321-2, 4498-2, 4485-9, 2885-2 ####[facility] LABIA [id number] [place] [address] [place] CO2 [Moles/Vol] 25 mmol/L Normal 22-30 [facility] Comment on above: Order Comment: Speci men Type: BLOOD SPECIMENOrdering Facility: Address: [address] [place] [address] Performed By: #### 2 4321-2, 4498-2, 4485-9, 2885-2 ####[facility] LABIA [id number] [place] [address] [place] Creatinine [Mass/Vol] 1.08 mg/dL Normal 0.73-1.22 [facility] Comment on above: Order Comment: Speci men Type: BLOOD SPECIMENOrdering Facility: Address: [address] [place] [address] Performed By: #### 2 4321-2, 4498-2, 4485-9, 2885-2 ####[facility] LABIA [id number] [place] [id number] [place] Creatinine and Glomerular filtration rate.predicted panel (S/P/Bld) 71 mL/min/1.73m??? Normal >=60 [facility] Comment on above: Order Comment: Speci men Type: BLOOD SPECIMENOrdering Facility: [address] Address: [address] [place] [address] Result Comment: Carrie mated Glomerular Filtration Rate (eGFR) is calculated using the 2020 CKD-EPI creatinine equation. This equation utilizes serum creatinine, sex, and age as parameters. The creatinine assay has traceable calibration to isotope dilution-mass spectrometry. Refer to KDIGO guidelines for clinical interpretation. In patients with unstable renal function, e.g. those with acute kidney injury, the eGFR may not accurately reflect actual GFR. Performed By: #### 2 4321-2, 4498-2, 4485-9, 2885-2 ####[facility] LABCLIA [id number] [address] [address] [place] Glucose [Mass/Vol] 111 mg/dL High 74-99 [facility] Comment on above: Order Comment: Speci men Type: BLOOD SPECIMENOrdering Facility: [address] Address: [address] [place] [address] Result Comment: The [place] Diabetes Association (ADA) provides guidance for cutoff values for fasting glucose and random glucose. The ADA defines fasting as no caloric intake for at least 8 hours. Fasting plasma glucose results between 100 to 125 mg/dL indicate increased risk for diabetes (prediabetes). Fasting plasma glucose results greater than or equal to 126 mg/dL meet the criteria for diagnosis of diabetes. In the absence of unequivocal hyperglycemia, results should be confirmed by repeat testing. In a patient with classic symptoms of hyperglycemia or hyperglycemic crisis, random plasma glucose results greater than or equal to 200 mg/dL meet the criteria for diagnosis of diabetes. Reference: Standards of Medical Care in Diabetes 2016, [place] Diabetes Association. Diabetes Care. 2016.39(Suppl 1). Performed By: #### 2 4321-2, 4498-2, 4485-9, 2885-2 ####[facility] LABIA [id number] [address] [address] [place] Potassium [Moles/Vol] 4.2 mmol/L Normal 3.7-5.1 [facility] Comment on above: Order Comment: Speci men Type: BLOOD SPECIMENOrdering Facility: [address] Address: [address] [place] [address] Performed By: #### 2 4321-2, 4498-2, 4485-9, 2885-2 ####[facility] LABCLIA [id number] [place] [id number] [place] Sodium [Moles/Vol] 140 mmol/L Normal 136-144 [facility] Comment on above: Order Comment: Speci men Type: BLOOD SPECIMENOrdering Facility: [place] Address: [address] [place] [address] Performed By: #### 2 4321-2, 4498-2, 4485-9, 2885-2 ####[facility] LABIA [id number] [place] [address] [place] Urea nitrogen [Mass/Vol] 23 mg/dL Normal 9-24 [facility] Comment on above: Order Comment: Speci men Type: BLOOD SPECIMENOrdering Facility: [facility] Address: [address] [place] [address] Performed By: #### 2 4321-2, 4498-2, 4485-9, 2885-2 ####[facility] LABIA [id number] [place] [id number] [place] C3 SerPl-mCncon 07-08-2024 Complement C3 [Mass/Vol] 159 mg/dL Normal 86-166 [facility] Comment on above: Order Comment: Speci men Type: BLOOD SPECIMENOrdering Facility: o[facility] Address: [address] [place] [address] Performed By: #### 2 4321-2, 4498-2, 4485-9, 2885-2 ####[facility] LABIA [id number] [place] [id number] [place] C4 SerPl-mCncon 07-08-2024 Complement C4 [Mass/Vol] 25 mg/dL Normal 13-46 [facility] Comment on above: Order Comment: Speci men Type: BLOOD SPECIMENOrdering Facility: Address: [address] [place] [address] Performed By: #### 2 4321-2, 4498-2, 4485-9, 2885-2 ####[facility] LABCLIA [id number] [place] [address] [place] DNA ANTIBODY DS BLDon 2023 DNA ANTIBODY 8 IU/mL Normal <=200 [facility] Comment on above: Order Comment: Speci men Type: BLOOD SPECIMENOrdering Facility: [address] Address: [address] [place] [address] Result Comment: Nega tive: <200 IU/mL Equivocal: 201-300 IU/mL Moderate Positive: 301-800 IU/mL Strong Positive: >801 IU/mL Performed By: #### D NAAB ####[facility] LABCLIA [id number] [place] [address] [place] DNA ANTIBODY QUALITATIVE INTERPRETATION Negative Normal Negative [facility] Comment on above: Order Comment: Speci men Type: BLOOD SPECIMENOrdering Facility: [address] Address: [address] [place] [address] Performed By: #### D NAAB ####[facility] LABCLIA [id number] [place] [address] [place] Nuclear Ab IA Ql (S)on 07-08 SAMREEN SCR QUAL Negative Normal Negative [facility] Comment on above: Order Comment: Speci men Type: BLOOD SPECIMEN Ordering Facility: [facility] Address: [address] [place] [address] Result Comment: The qualitative antinuclear antibody screen test performed using the following antigens: dsDNA, Chromatin, Ribosomal P, SS-A 60, SS-A 52, SS-B, Sm, SmRNP, CAPTAIN'S ASSISTANT A, CAPTAIN'S ASSISTANT 68, Scl-70, Leeanna-1, and Centromere B. Methodology: Multiplex flow immunoassay. Performed By: #### 5 7021-8 #### [facility] CLIA [id number] [address] [place] [address] [place] PROTEIN ELECTROPHORESIS SERU M (P)on 07-08-2024 Albumin [Mass/Vol] 4.21 g/dL Normal 3.43-5.41 [facility] Comment on above: Order Comment: Speci men Type: BLOOD SPECIMENOrdering Facility: o[facility] Address: [address] [place] [address] Performed By: #### L [id number] ####[facility] LABCLIA [id number] [place] [address] [place] Alpha 1 globulin Elph [Mass/Vol] 0.24 g/dL Normal 0.18-0.43 [facility] Comment on above: Order Comment: Speci men Type: BLOOD SPECIMENOrdering Facility: Address: [address] [place] [address] Performed By: #### L [id number] ####[facility] LABCLIA [id number] [place] [address] [place] Alpha 2 globulin Elph [Mass/Vol] 0.80 g/dL Normal 0.42-0.98 [facility] Comment on above: Order Comment: Speci men Type: BLOOD SPECIMENOrdering Facility: Address: [address] [place] [address] Performed By: #### L [id number] ####[facility] LABCLIA [id number] [place] [id number] [place] Beta globulin Elph [Mass/Vol] 0.95 g/dL Normal 0.61-1.17 [facility] Comment on above: Order Comment: Speci men Type: BLOOD SPECIMENOrdering Facility: Address: [facility] [place] [address] Performed By: #### L [id number] ####[facility] LABCLIA [id number] [place] [id number] [place] Gamma globulin Elph [Mass/Vol] 0.89 g/dL Normal 0.53-1.51 [facility] Comment on above: Order Comment: Speci men Type: BLOOD SPECIMENOrdering Facility: Address: [address] [place] [address] Performed By: #### L [id number] ####[facility] LABCLIA [id number] [address] [place] M-PROTEIN LOCATION Normal [facility] Comment on above: Order Comment: Speci men Type: BLOOD SPECIMENOrdering Facility: Address: [address] [place] [address] Result Comment: Not Applicable. Performed By: #### L [id number] ####[facility] LABIA [id number] [address] [place] Protein Fractions [Interp] No definitive M protein is identified on protein electrophoresis. Normal No definitive M protein is identified on protein electrophores is. [facility] Comment on above: Order Comment: Speci men Type: BLOOD SPECIMENOrdering Facility: Address: [address] [place] [address] Performed By: #### L [id number] ####[facility] LABIA [id number] [address] [place] Protein.monoclonal Elph [Mass/Vol] 0.00 g/dL Normal <=0.00 [facility] Comment on above: Order Comment: Speci men Type: BLOOD SPECIMENOrdering Facility: Address: [address] [place] [address] Performed By: #### L [id number] ####[facility] LABIA [id number] [address] [place] SPE STAFF REVIEW Reviewed by Dr. Iker Alvarez MD Normal [facility] Comment on above: Order Comment: Speci men Type: BLOOD SPECIMENOrdering Facility: Address: [address] [place] [address] Performed By: #### L [id number] ####[facility] LABIA [id number] [id number] [address] [place] Prot SerPl-mCncon 07-08-2024 Protein [Mass/Vol] 7.1 g/dL Normal 6.3-8.0 [facility] Comment on above: Order Comment: Speci men Type: BLOOD SPECIMENOrdering Facility: Address: [facility] [place] [id number] Performed By: #### 2 4321-2, 4498-2, 4485-9, 2885-2 ####[facility] LABCLIA [id number] [address] [place] URINALYSIS, DIPSTICK ONLYon 07-08-2024 Bilirubin Ql (U) Negative Normal Negative [facility] Comment on above: Order Comment: Speci men Type: URINE SPECIMENOrdering Facility: Address: [facility] [place] [address] Performed By: #### U A ####[facility] LABCLIA [id number] [place] [address] [place] Clarity (Unsp spec) Clear Normal Clear [facility] Comment on above: Order Comment: Speci men Type: URINE SPECIMENOrdering Facility: oster Address: [address] [place] [id number] Performed By: #### U A ####[facility] LABCLIA [id number] [place] [address] [place] Color (U) Yellow Normal Yellow [facility] Comment on above: Order Comment: Speci men Type: URINE SPECIMENOrdering Facility: Address: [address] [place] [address] Performed By: #### U A ####[facility] LABCLIA [id number] [place] [address] [place] Glucose Test strip (U) [Mass/Vol] Negative Normal Negative [facility] Comment on above: Order Comment: Speci men Type: URINE SPECIMENOrdering Facility: Address: [facility] [place] [id number] Performed By: #### U A ####[facility] LABCLIA [id number] [place] [address] [place] Hemoglobin Ql (U) Negative Normal Negative [facility] Comment on above: Order Comment: Speci men Type: URINE SPECIMENOrdering Facility: Address: [address] [place] [id number] Performed By: #### U A ####[facility] LABCLIA [id number] [place] [address] [place] Ketones Ql (U) Negative Normal Negative [facility] Comment on above: Order Comment: Speci men Type: URINE SPECIMENOrdering Facility: Address: [address] [place] [id number] Performed By: #### U A ####[facility] LABCLIA [id number] [place] [address] [place] Leukocyte esterase Test strip Ql (U) Negative Normal Negative [facility] Comment on above: Order Comment: Speci men Type: URINE SPECIMENOrdering Facility: Address: [address] [place] [address] Performed By: #### U A ####[facility] LABCLIA [id number] [place] [address] [place] Nitrite Ql (U) Negative Normal Negative [facility] Comment on above: Order Comment: Speci men Type: URINE SPECIMENOrdering Facility: Address: [address] [place] [id number] Performed By: #### U A ####[facility] LABCLIA [id number] [place] [address] [place] pH (U) 5.0 [pH] Normal <8.5 [facility] Comment on above: Order Comment: Speci men Type: URINE SPECIMENOrdering Facility: Address: [address] [place] [id number] Performed By: #### U A ####[facility] LABCLIA [id number] [place] [id number] [place] Protein (U) [Mass/Vol] Negative Normal Negative [facility] Comment on above: Order Comment: Speci men Type: URINE SPECIMENOrdering Facility: [address] Address: [address] [place] [address] Performed By: #### U A ####[facility] LABIA [id number] [address] [place] Specific gravity (U) [Rel density] 1.010 Normal 1.005-1.030 [facility] Comment on above: Order Comment: Speci men Type: URINE SPECIMENOrdering Facility: [facility] [place] Address: [address] [place] [address] Performed By: #### U A ####[facility] LABIA [id number] [address] [place] Urobilinogen Ql (U) 0.2 EU/dL Normal 0.2-1.0 EU/dL Cl [facility] Comment on above: Order Comment: Speci men Type: URINE SPECIMENOrdering Facility: [address] Address: [address] [place] [address] Performed By: #### U A ####[facility] LABIA [id number] [address] OF [facility] CNOVon 07-01-2024 CNOV Office Visit (UROLWS ) AURELIANO DANG ([id number]) 1950 M Date Time Provider Department 07/01/24 3:00 PM GILBERT GARZA During your visit today, we recorded the following information about you: Temperature Pulse Respiration Blood pressure 98.7 degrees 60/minute 16/minute 124/74 Weight Height 77.1 kg 1.651 m Rachel Crouch LPN 07/01/2024 7:06 PM Signed Verified name and date of . CC Post Void Residual HPI: Aureliano Dang is a 74 year old male. The patient is here now for an appointment with JOYCE Diaz MT, PA-COV. Procedure: Explained procedure to patient and verbalizes understanding. Performed a PVR. Patient urinated and instructed to empty bladder as much as possible just prior to having PVR done using bladder ultrasound scanner. Results of scan: 0 mL The patient tolerated the procedure well. Plan: Appointment with Gilbert Guzman PA-C 07/01/2024 7:06 PM Signed [facility] NEW PATIENT CLINIC NOTE SERVICE DATE: July 01, 2024 NAME: Aureliano Dang CHIEF COMPLAINT: Hematuria HISTORY OF PRESENT ILLNESS: Aureliano Dang is a 74 year old male an new patient here for Hematuria The patient reports no gross but blood positive on UA only, he did have a Renal US that showed renal cysts that benign and not likely to cause blood in urine And found to have a Prostate measures 4.2 x 4.3 x 5.2 cm corresponding to a volume of 49 mL, enlarged. Which is a likely cause for his UA positive for blood He also had a smoking history and has stopped smoking for years. We discussed that if he sees gross blood he will need a full hematuria work-up Recommend continue follow up for BPH LUTS: DYSURIA: no URGENCY: No FREQUENCY:6 per day NOCTURIA: 0 per night STRAINING TO VOID: No EMPTIES COMPLETELY: Yes UTI: No GROSS HEMATURIA: no UA DIPSTICK POSITIVE ONLY: yes LABS: PSA (ng/mL) Date Value 03/18/2024 2.41 09/06/2023 2.35 03/31/2023 2.98 02/03/2021 1.88 Creatinine Date Value Ref Range Status 03/18/2024 0.89 0.73 - 1.22 mg/dL Final 02/04/2024 0.90 0.73 - 1.22 mg/dL Final 2023 0.93 0.73 - 1.22 mg/dL Final MEDICATIONS: diphenhydrAMINE (BENADRYL ALLERGY) 25 mg tablet Take 1 tablet by mouth every 6 hours as needed. fluconazole (DIFLUCAN) 200 mg tablet Take 1 tablet by mouth one time a week for 28 days. dilTIAZem CD (CARDIZEM CD) 120 mg 24 hr capsule Take 1 capsule by mouth once daily. fluticasone (FLONASE) 50 mcg/actuation nasal spray Use 2 Sprays in each nostril once daily. Rinse mouth after use. losartan (COZAAR) 100 mg tablet Take 1 tablet by mouth once daily. carvedilol (COREG) 25 mg tablet Take 1 tablet by mouth two times a day with meals. metFORMIN (GLUCOPHAGE) 500 mg tablet Take 1 tablet by mouth daily with breakfast. furosemide (LASIX) 20 mg tablet Take 1 tablet by mouth every other day. atorvastatin (LIPITOR) 40 mg tablet Take 1 tablet by mouth daily at bedtime. nitroglycerin sublingual (NITROQUICK) 0.4 mg SL tablet Dissolve 1 tablet under the tongue as needed. for chest pain,every 5 min x3 blood sugar diagnostic (BLOOD GLUCOSE TEST) test strip Test blood sugar(s) one times daily. Dx: Other DM Code E11.29 Insulin: No Blood-Glucose Meter (TRUE METRIX GLUCOSE METER) Use to check blood sugar once a day. Dx: E11.29, no insulin Blood Glucose Control, Low (TRUE METRIX LEVEL 1) Use as directed to set up machine Blood Glucose Control, Normal (TRUE METRIX LEVEL 2) soln Use as directed to set up machine Blood Glucose Control, High (TRUE METRIX LEVEL 3) Use as directed to set up machine alcohol swabs Apply 1 application to affected area once daily. Blood Pressure Test Kit-Large Check BP once a day or as needed. Dx: I10, I25.5 and I25.10 Lancets lancets Test blood sugar(s) one times daily. Dx: Other DM Code E11.29 Insulin: No Blood-Glucose Meter Test blood sugar once a day DX E11.29 Insulin: No aspirin 81 mg chewable tablet Take 2 tablets by mouth once daily. PAST MEDICAL HISTORY: PAST MEDICAL HISTORY 02/01/2021: Allergic rhinitis 03/08/2010: Calculus of kidney 11/13/2012: Chronic systolic CHF (congestive heart failure) (HCC) Comment: Preop EF 27+/-5%. NSTEMI mod LV mild RV required epinephrine infusion intraop. Post op EF 30+/-5%. - Pulmonary congestion and B effusions on CXR--improving. Lasix 40mg po daily, continue coreg, ACEI 08/08/2017: Coronary artery disease due to lipid rich plaque Comment: Seeing Dr. Decker: 5 vessel CABG 201212/09/2012: Edema 04/02/2023: Elevated PSA 02/10/2021: Essential hypertension 02/03/2021: Ex-smoker Comment: Smoked 1/4 pck for about 45 yrs quit 201402/03/2021: Ex-smoker Comment: Smoked 1/4 pck for about 45 yrs quit 2014, [place] 01/2021 Neg for AAA 11/16/2012: History of atrial fibrillation Comment: Se (more content not included)... Normal [facility] UA DIP, URINE (POC)on 2023 BILIRUBIN UA (POCT) Negative Negative [facility] CLARITY UA (POCT) Slightly Cloudy Cl [facility] COLOR UA (POCT) Yellow [facility] GLUCOSE UA (POCT) Negative Negative mg/dL [facility] Hemoglobin Ql (U) Trace-intact Abnormal Negative [facility] Interpretation and review of laboratory results Abnormal [facility] KETONE UA (POCT) Negative Negative mg/dL [facility] LEUKOCYTES UA (POCT) Negative Negative [facility] NITRITE UA (POCT) Negative Negative [facility] PH UA (POCT) 6.0 4.5 - 8.0 [facility] Protein Ql (U) 100 mg/dL Abnormal Negative [facility] SPECIFIC GRAVITY UA (POCT) 1.025 1.005 - 1.030 [facility] UROBILINOGEN UA (POCT) 0.2 Normal E.U./dL [facility] Location:[facility], [address], [place], [address] [facility] POINT OF CARE [facility] German 06-30-2024 PRAVINN Telephone (UROLAG) JESSICAAURELIANO TREJO ([id number]) 1950 M Date Time Provider Department 06/30/24 DIEGO PATRICIO During your visit today, we recorded the following information about you: Allergies As of Date: 06/30/2024 Noted Allergy Reaction ACETAMINOPHEN 07/24/2019 14 - Other: See Comments 1 - Mental Status Change LISINOPRIL 06/24/2013 2 - Rash OXYCODONE 02/10/2021 14 - Other: See Comments Comments: hallucination PERCOCET (OXYCODONE-ACETAMINOPHEN) 1 - Mental Status Change Comments: Hallucination Date Reviewed: 06/27/2024 Reviewed by: Erika Chacon LPN - Fully Assessed Prescriptions as of 06/30/2024 - diphenhydrAMINE (BENADRYL ALLERGY) 25 mg tablet Take 1 tablet by mouth every 6 hours as needed. - fluconazole (DIFLUCAN) 200 mg tablet Take 1 tablet by mouth one time a week for 28 days. - clotrimazole (LOTRIMIN) 1 % cream Apply to affected area two times a day for 14 days. - dilTIAZem CD (CARDIZEM CD) 120 mg 24 hr capsule Take 1 capsule by mouth once daily. - fluticasone (FLONASE) 50 mcg/actuation nasal spray Use 2 Sprays in each nostril once daily. Rinse mouth after use. - losartan (COZAAR) 100 mg tablet Take 1 tablet by mouth once daily. - carvedilol (COREG) 25 mg tablet Take 1 tablet by mouth two times a day with meals. - metFORMIN (GLUCOPHAGE) 500 mg tablet Take 1 tablet by mouth daily with breakfast. - furosemide (LASIX) 20 mg tablet Take 1 tablet by mouth every other day. - atorvastatin (LIPITOR) 40 mg tablet Take 1 tablet by mouth daily at bedtime. - nitroglycerin sublingual (NITROQUICK) 0.4 mg SL tablet Dissolve 1 tablet under the tongue as needed. for chest pain,every 5 min x3 - blood sugar diagnostic (BLOOD GLUCOSE TEST) test strip Test blood sugar(s) one times daily. Dx: Other DM Code E11.29 Insulin: No - Blood-Glucose Meter (TRUE METRIX GLUCOSE METER) Use to check blood sugar once a day. Dx: E11.29, no insulin - Blood Glucose Control, Low (TRUE METRIX LEVEL 1) Use as directed to set up machine - Blood Glucose Control, Normal (TRUE METRIX LEVEL 2) soln Use as directed to set up machine - Blood Glucose Control, High (TRUE METRIX LEVEL 3) Use as directed to set up machine - alcohol swabs Apply 1 application to affected area once daily. - Blood Pressure Test Kit-Large Check BP once a day or as needed. Dx: I10, I25.5 and I25.10 - Lancets lancets Test blood sugar(s) one times daily. Dx: Other DM Code E11.29 Insulin: No - Blood-Glucose Meter Test blood sugar once a day DX E11.29 Insulin: No - aspirin 81 mg chewable tablet Take 2 tablets by mouth once daily. 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*02/03/2021 Ex-smoker [Z87.891] 02/03/2021 Prostate disorder [N42.9] 02/03/2021 Medication management [Z79.899] 02/03/2021 Other proteinuria [R80.8] 02/04/2021 Ischemic cardiomyopathy [I25.5] 02/10/2021 Essential hypertension [I10] 02/10/2021 Medicare annual wellness visit, subsequent [Z00*02/07/2022 Proteinuria due to type 2 diabetes mellitus (HC*02/07/2022 Advance directive discussed with patient [Z71.8*02/23/2023 Elevated PSA [R97.20] 04/02/2023 MADELIN (obstructive sleep apnea) [G47.33] 12/12/2023 Bilateral leg edema [R60.0] 03/18/2024 Proteinuria [R80.9] 04/16/2024 04/25/2024 Microscopic hematuria [R31.29] 04/16/2024 Encounter Status:Closed by ANTWON VELEZ on 06/30/24 Normal [facility] Comprehensive metabolic 2000 panelon 03-19-2024 Albumin [Mass/Vol] 4.2 g/dL 3.9 - 4.9 g/dL [facility] ALP [Catalytic activity/Vol] 82 U/L 38 - 113 U/L [facility] ALT [Catalytic activity/Vol] 13 U/L 10 - 54 U/L [facility] Anion gap [Moles/Vol] 14 mmol/L 9 - 18 mmol/L [facility] AST [Catalytic activity/Vol] 17 U/L 14 - 40 U/L [facility] Bilirubin [Mass/Vol] 0.8 mg/dL 0.2 - 1.3 mg/dL [facility] Calcium [Mass/Vol] 9.6 mg/dL 8.5 - 10. 2 mg/dL [facility] Chloride [Moles/Vol] 103 mmol/L 97 - 105 mmol/L [facility] CO2 [Moles/Vol] 24 mmol/L 22 - 30 mmol/L [facility] Creatinine [Mass/Vol] 0.89 mg/dL 0.73 - 1.22 mg/dL [facility] GFR/1.73 sq M.predicted among non-blacks MDRD (S/P/Bld) [Vol rate/Area] 89 mL/min/{1.73_m2} - PINF [facility] Comment on above: Estimated Glomerular Filtration Rate (eGFR) is calculated using the 2020 CKD-EPI creatinine equation. This equation utilizes serum creatinine, sex, and age as parameters. The creatinine assay has traceable calibration to isotope dilution-mass spectrometry. Refer to KDIGO guidelines for clinical interpretation. In patients with unstable renal function, e.g. those with acute kidney injury, the eGFR may not accurately reflect actual GFR. Glucose [Mass/Vol] 96 mg/dL 74 - 99 mg/dL [facility] Comment on above: The [place] Diabete s Association (ADA) provides guidance for cutoff values for fasting glucose and random glucose. The ADA defines fasting as no caloric intake for at least 8 hours. Fasting plasma glucose results between 100 to 125 mg/dL indicate increased risk for diabetes (prediabetes). Fasting plasma glucose results greater than or equal to 126 mg/dL meet the criteria for diagnosis of diabetes. In the absence of unequivocal hyperglycemia, results should be confirmed by repeat testing. In a patient with classic symptoms of hyperglycemia or hyperglycemic crisis, random plasma glucose results greater than or equal to 200 mg/dL meet the criteria for diagnosis of diabetes. Reference: Standards of Medical Care in Diabetes 2016, [place] Diabetes Association. Diabetes Care. 2016.39(Suppl 1). Potassium [Moles/Vol] 4.4 mmol/L 3.7 - 5.1 mmol/L [facility] Protein [Mass/Vol] 7.0 g/dL 6.3 - 8.0 g/dL [facility] Sodium [Moles/Vol] 141 mmol/L 136 - 144 mmol/L [facility] Urea nitrogen [Mass/Vol] 11 mg/dL 9 - 24 mg/dL [facility] Free PSA [Mass/Vol]on 2023 Free PSA/Total PSA [Mass fraction] 22 % [facility] Comment on above: Total and free PSA t est methodology used is the Electrochemiluminescence Immunoassay by [employer]. Total or free PSA values by differing methodologies cannot be interchanged. The below table lists the probability of finding prostate cancer upon needle biopsy, for men 50 years or older and total PSA concentrations from 4.0-10.0 ng/mL. Results should be interpreted within the broader clinical context. Free PSA(%) 50-59 years 60-69 years >69 years <11 49.2% 57.5% 64.5% 11-18 26.9% 33.9% 40.8% 19-25 18.3% 23.9% 29.7% >25 9.1% 12.2% 15.8% Prostate specific Ag [Mass/Vol] 2.41 ng/mL NINF - 2.60 ng/mL [facility] Comment on above: Total PSA test metho dology used is the Electrochemiluminescence Immunoassay by [employer]. Total PSA values by differing methodologies cannot be interchanged. [facility] LIPID PANEL, NONFASTINGon Cholesterol [Mass/Vol] 159 mg/dL NINF - 200 mg/dL [facility] Comment on above: <200 mg/dL, Desirabl e 200-239 mg/dL, Borderline high >239 mg/dL, High HDL Cholesterol, Nonfasting 46 mg/dL 39 - PINF mg/dL [facility] Comment on above: 40-59 mg/dL, Accepta ble >59 mg/dL, High: Negative risk factor for coronary heart disease <40 mg/dL, Low: Positive risk factor for coronary heart disease LDL Cholesterol, Nonfasting 94 mg/dL NINF - 100 mg/dL [facility] Comment on above: <100 mg/dL, Optimal 100-129 mg/dL, Near optimal/above optimal 130-159 mg/dL, Borderline high 160-189 mg/dL, High >189 mg/dL, Very high Secondary prevention optimal LDL Cholesterol levels are recommended to be < 70 mg/dL LDL/HDL Ratio, Nonfasting 2.04 mg/dL NINF - 2.54 mg/dL [facility] Comment on above: Reference: 1. National Cholesterol Education Program ATP III Guideline At-A-Glance Quick Desk Reference: National Heart, Lung, and Blood Wilson. National Institutes of Health. 2001: NIH Publication No. 01-3305. 2. An International Atherosclerosis Society position paper: global recommendations for the management of dyslipidemia: executive summary, Atherosclerosis. 2014: 232(2):410-413. Non HDL Cholesterol, Nonfasting 113 mg/dL NINF - 130 mg/dL [facility] Comment on above: <130 mg/dL, Optimal 130-159 mg/dL, Near optimal/above optimal 160-189 mg/dL, Borderline high 190-219 mg/dL, High >219 mg/dL, Very high Secondary prevention optimal non HDL Cholesterol levels are recommended to be <100 mg/dL Total Chol/HDL Ratio, Nonfasting 3.46 mg/dL NINF - 5.10 mg/dL [facility] Triglycerides, Nonfasting 97 mg/dL NINF - 150 mg/dL [facility] Comment on above: <150 mg/dL, Normal 150-199 mg/dL, Borderline high 200-499 mg/dL, High >499 mg/dL, Very high VLDL Cholesterol, Nonfasting 19 mg/dL NINF - 30 mg/dL [facility] NT PRO BNPon 03-19-2024 Natriuretic peptide.B prohormone N-Terminal [Mass/Vol] 402 pg/mL NINF - 450 pg/mL [facility] Natriuretic peptide.B prohor anabel N-Terminal [Mass/Vol]on 03-19-2024 Interpretation and review of laboratory results Normal [facility] No Panel Informationon 03-19 Interpretation and review of laboratory results Normal [facility] XR Chest PA and Lateralon IMPRESSION: Blunting of the costophrenic angles. No developing abnormality Emergency Room Registered Nurse: PSCB Transcribe Date/Time: Mar 19 2024 3:14P Dictated by : TAVON LINDQUIST MD This examination was interpreted and the report reviewed and electronically signed by: TAVON LINDQUIST MD on Mar 19 2024 3:32PM [facility] DIVISION OF RADIOLOGY * * *Final Report* * * DATE OF EXAM: Mar 18 2024 12:16PM WOX [id number] - XR CHEST 2V FRONTAL/LAT / PROCEDURE REASON: multiple diagnoses * * * * Physician Interpretation * * * * EXAMINATION: CHEST RADIOGRAPH (2 VIEW FRONTAL & LATERAL) CLINICAL HISTORY: Chronic systolic CHF (congestive heart failure) (HCC) Wheezing MQ: XC2_6 EXAM DATE/TIME: 03/18/2024 12:16 PM COMPARISON: 02/04/2024 RESULT: Lines, tubes, and devices: Mediastinal wires are in place Lungs and pleura: No consolidation. No lung mass. Blunting of the costophrenic angles. No pneumothorax. Cardiomediastinal silhouette: Normal cardiomediastinal silhouette. Bones and soft tissues: Degenerative change and osteophytosis. Mild stable wedging of mid thoracic vertebra. DIVISION OF RADIOLOGY Provider, [facility] - 03/19/2024 * * *Final Report* * * DATE OF EXAM: Mar 18 2024 12:16PM WOX [id number] - XR CHEST 2V FRONTAL/LAT / PROCEDURE REASON: multiple diagnoses * * * * Physician Interpretation * * * * EXAMINATION: CHEST RADIOGRAPH (2 VIEW FRONTAL & LATERAL) CLINICAL HISTORY: Chronic systolic CHF (congestive heart failure) (HCC) Wheezing MQ: XC2_6 EXAM DATE/TIME: 03/18/2024 12:16 PM COMPARISON: 02/04/2024 RESULT: Lines, tubes, and devices: Mediastinal wires are in place Lungs and pleura: No consolidation. No lung mass. Blunting of the costophrenic angles. No pneumothorax. Cardiomediastinal silhouette: Normal cardiomediastinal silhouette. Bones and soft tissues: Degenerative change and osteophytosis. Mild stable wedging of mid thoracic vertebra. IMPRESSION IMPRESSION: Blunting of the costophrenic angles. No developing abnormality Emergency Room Registered Nurse: PSCB Transcribe Date/Time: Mar 19 2024 3:14P Dictated by : TAVON LINDQUIST MD This examination was interpreted and the report reviewed and electronically signed by: TAVON LINDQUIST MD on Mar 19 2024 3:32PM EST [facility] XR Chest PA and LateralOrder ed By: Ccf Provider on 03-19-2024 [facility] ALBUMIN/CREATININE RATIO, UR INEon 03-18-2024 Albumin DL <= 20 mg/L (U) [Mass/Vol] 585.6 mg/L [facility] Albumin/Creatinine (U) [Mass ratio] 459 mg/g High NINF - 30 mg/g [facility] Comment on above: Adult Male and Femal e Nephrotic Criteria: <30 mg/g is considered normal to mildly increased 30-300 mg/g is considered moderately increased >300 mg/g is considered severely increased KDIGO. (2013). KDIGO 2012 Clinical Practice Guideline for the Evaluation and Management of Chronic Kidney Disease. Official Journal of the International Society of Nephrology, 3(1), 1-150. Creatinine (U) [Mass/Vol] 127.6 mg/dL 20.0 - 300.0 mg/dL [facility] Interpretation and review of laboratory results Abnormal [facility] CBC W Auto Differential pane l (Bld)on 03-18-2024 Basophils (Bld) [#/Vol] 0.08 10*3/uL [facility] Basophils/100 WBC (Bld) 1.0 % [facility] Differential cell count method Nom (Bld) Auto [facility] Eosinophils (Bld) [#/Vol] 0.92 10*3/uL [facility] Eosinophils/100 WBC (Bld) 11.2 % [facility] Erythrocyte distribution width (RBC) [Ratio] 15.5 % High 11.5 - 15.0 % [facility] Hematocrit (Bld) [Volume fraction] 44.9 % 39.0 - 51.0 % [facility] Hemoglobin (Bld) [Mass/Vol] 13.9 g/dL 13.0 - 17.0 g/dL [facility] Immature granulocytes (Bld) [#/Vol] [facility] Immature granulocytes/100 WBC (Bld) 0.2 % [facility] Interpretation and review of laboratory results Abnormal [facility] Lymphocytes (Bld) [#/Vol] 2.20 10*3/uL [facility] Lymphocytes/100 WBC (Bld) 26.7 % [facility] MCH (RBC) [Entitic mass] 25.0 pg Low 26.0 - 34.0 pg [facility] MCHC (RBC) [Mass/Vol] 31.0 g/dL 30.5 - 36.0 g/dL [facility] MCV (RBC) [Entitic vol] 80.9 fL 80.0 - 100.0 fL [facility] Monocytes (Bld) [#/Vol] 0.65 10*3/uL [facility] Monocytes/100 WBC (Bld) 7.9 % [facility] Neutrophils (Bld) [#/Vol] 4.37 10*3/uL [facility] Neutrophils/100 WBC (Bld) 53.0 % [facility] Nucleated RBC (Bld) [#/Vol] [facility] Nucleated RBC/100 WBC (Bld) [Ratio] 0.0 % /100 WBC [facility] Platelet mean volume (Bld) [Entitic vol] 12.4 fL 9.0 - 12.7 fL [facility] Platelets (Bld) [#/Vol] 236 10*3/uL [facility] RBC (Bld) [#/Vol] 5.55 10*6/uL 4.20 - 6.0 0 m/uL [facility] WBC (Bld) [#/Vol] 8.24 10*3/uL [facility] Urinalysis complete panel (U )on 03-18-2024 Bacteria LM.HPF (Urine sed) [#/Area] Negative Negative /HPF [facility] Bilirubin Ql (U) Negative Negative [facility] Clarity (Unsp spec) Clear Clear [facility] Color (U) Yellow Yellow [facility] Epithelial cells LM.HPF (Urine sed) [#/Area] None Seen /HPF [facility] Glucose Test strip (U) [Mass/Vol] Negative Negative [facility] Hemoglobin Ql (U) Negative Negative [facility] Hyaline casts (Urine sed) [#/Area] 1-3 /LPF Abnormal 0 /LPF [facility] Interpretation and review of laboratory results Abnormal [facility] Ketones Ql (U) Negative Negative [facility] Leukocyte esterase Test strip Ql (U) Negative Negative [facility] Nitrite Ql (U) Negative Negative [facility] pH (U) 5.5 [pH] NINF - 8.5 [facility] Protein (U) [Mass/Vol] 2+ Abnormal Negative [facility] RBC LM.HPF (Urine sed) [#/Area] 3-5 /HPF Abnormal 0-2 /HPF [facility] Specific gravity (U) [Rel density] 1.018 1.005 - 1.030 [facility] Urobilinogen Ql (U) 0.2 EU/dL 0.2-1.0 EU/dL [facility] WBC LM.HPF (Urine sed) [#/Area] 0-5 /HPF 0-5 /HPF [facility] This test was jannie potter and its performance characteristics determined by [facility] Pathology and Laboratory Medicine [place] (-PLMI). It has not been cleared or approved by the FDA. -[facility] is regulated under CLIA as qualified to perform high-complexity testing. This test is used for clinical purposes. It should not be regarded as investigational or for research. [facility] XR Chest PA and Lateralon Radiology Study observation (narrative) [facility] COVID NAAT, UPPER RESPIRATOR Y, ROUTINEon 02-05-2024 SARS-CoV-2 (COVID-19) RNA JANA+probe Ql (Resp) Not detected See comment [facility] CBC W Auto Differential pane l (Bld)on 02-04-2024 Basophils (Bld) [#/Vol] 0.09 10*3/uL <0.11 k/uL [facility] Basophils/100 WBC (Bld) 1.0 % [facility] Differential cell count method Nom (Bld) Auto [facility] Eosinophils (Bld) [#/Vol] 0.84 10*3/uL High <0.46 k/uL [facility] Eosinophils/100 WBC (Bld) 9.5 % [facility] Erythrocyte distribution width (RBC) [Ratio] 16.0 % High 11.5 - 15.0 % [facility] Hematocrit (Bld) [Volume fraction] 42.4 % 39.0 - 51.0 % [facility] Hemoglobin (Bld) [Mass/Vol] 13.2 g/dL 13.0 - 17.0 g/dL [facility] Immature granulocytes (Bld) [#/Vol] <0.10 k/uL [facility] Immature granulocytes/100 WBC (Bld) 0.2 % [facility] Lymphocytes (Bld) [#/Vol] 2.83 10*3/uL 1.00 - 4.00 k/uL [facility] Lymphocytes/100 WBC (Bld) 32.2 % [facility] MCH (RBC) [Entitic mass] 24.7 pg Low 26.0 - 34.0 pg [facility] MCHC (RBC) [Mass/Vol] 31.1 g/dL 30.5 - 36.0 g/dL [facility] MCV (RBC) [Entitic vol] 79.3 fL Low 80.0 - 100.0 fL [facility] Monocytes (Bld) [#/Vol] 0.94 10*3/uL High <0.87 k/uL [facility] Monocytes/100 WBC (Bld) 10.7 % [facility] Neutrophils (Bld) [#/Vol] 4.08 10*3/uL 1.45 - 7.50 k/uL [facility] Neutrophils/100 WBC (Bld) 46.4 % [facility] Nucleated RBC (Bld) [#/Vol] <0.01 k/uL [facility] Nucleated RBC/100 WBC (Bld) [Ratio] 0.0 /100 WBC [facility] Platelet mean volume (Bld) [Entitic vol] 11.9 fL 9.0 - 12.7 fL [facility] Platelets (Bld) [#/Vol] 220 10*3/uL 150 - 400 k/uL [facility] RBC (Bld) [#/Vol] 5.35 10*6/uL 4.20 - 6.0 0 m/uL [facility] WBC (Bld) [#/Vol] 8.80 10*3/uL 3.70 - 11. 00 k/uL [facility] XR Chest PA and Lateralon IMPRESSION: No acute radiographic abnormality. Emergency Room Registered Nurse: STEVO Transcribe Date/Time: Feb 04 2024 12:52P Dictated by : DERIAN AMADOR MD This examination was interpreted and the report reviewed and electronically signed by: DERIAN AMADRO MD on Feb 04 2024 12:52PM [facility] DIVISION OF RADIOLOGY * * *Final Report* * * DATE OF EXAM: Feb 04 2024 12:52PM WOX [id number] - XR CHEST 2V FRONTAL/LAT / PROCEDURE REASON: Wheezing * * * * Physician Interpretation * * * * EXAMINATION: CHEST RADIOGRAPH (2 VIEW FRONTAL & LATERAL) CLINICAL HISTORY: Wheezing MQ: XC2_6 EXAM DATE/TIME: 02/04/2024 12:52 PM COMPARISON: Chest x-ray dated January 02, 2023 RESULT: Lines, tubes, and devices: None. Lungs and pleura: No consolidation. No lung mass. No pleural effusion. No pneumothorax. Cardiomediastinal silhouette: Stable cardiomediastinal silhouette with postsurgical changes from median sternotomy. Bones and soft tissues: Degenerative changes are present within the thoracic spine. Stable mild loss of height of a midthoracic vertebral body. DIVISION OF RADIOLOGY Provider, [facility] - 02/04/2024 * * *Final Report* * * DATE OF EXAM: Feb 04 2024 12:52PM WOX 5291 - XR CHEST 2V FRONTAL/LAT / PROCEDURE REASON: Wheezing * * * * Physician Interpretation * * * * EXAMINATION: CHEST RADIOGRAPH (2 VIEW FRONTAL & LATERAL) CLINICAL HISTORY: Wheezing MQ: XC2_6 EXAM DATE/TIME: 02/04/2024 12:52 PM COMPARISON: Chest x-ray dated January 02, 2023 RESULT: Lines, tubes, and devices: None. Lungs and pleura: No consolidation. No lung mass. No pleural effusion. No pneumothorax. Cardiomediastinal silhouette: Stable cardiomediastinal silhouette with postsurgical changes from median sternotomy. Bones and soft tissues: Degenerative changes are present within the thoracic spine. Stable mild loss of height of a midthoracic vertebral body. IMPRESSION IMPRESSION: No acute radiographic abnormality. Emergency Room [facility] Transcribe Date/Time: Feb 04 2024 12:52P Dictated by : DERIAN AMADOR MD This examination was interpreted and the report reviewed and electronically signed by: DERIAN AMADOR MD on Feb 04 2024 12:52PM EST [facility] Radiology Study observation (narrative) [facility] XR Chest PA and LateralOrder ed By: [facility] Provider on 02-04-2024 [facility] XR CHEST 2V FRONTAL/LATon [facility] XR Chest PA and Lateralon IMPRESSION: No active disease in the chest. Stable exam. Emergency Room Registered Nurse: STEVO Transcribe Date/Time: Jan 02 2023 12:58P Dictated by : YE VILLAFANA MD This examination was interpreted and the report reviewed and electronically signed by: YE VILLAFANA MD on Jan 02 2023 1:09PM [facility] DIVISION OF RADIOLOGY * * *Final Report* * * DATE OF EXAM: Jan 02 2023 12:55PM WOX 5291 - XR CHEST 2V FRONTAL/LAT / PROCEDURE REASON: Acute cough * * * * Physician Interpretation * * * * CHEST X-RAY CLINICAL HISTORY: Acute cough TECHNIQUE: Upright frontal and lateral views. COMPARISON: 04/08/2019 RESULT: Heart/mediastinum: Median sternotomy wires and post CABG changes. No cardiac shadow enlargement. Lungs/pleura: Minimal fibrotic stranding in left midlung field. No new opacities or pleural effusion. Bones/soft tissues: Unremarkable. Lines/tubes/devices: None visualized. DIVISION OF RADIOLOGY Provider, [facility] - 01/02/2023 * * *Final Report* * * DATE OF EXAM: Jan 02 2023 12:55PM WOX 5291 - XR CHEST 2V FRONTAL/LAT / PROCEDURE REASON: Acute cough * * * * Physician Interpretation * * * * CHEST X-RAY CLINICAL HISTORY: Acute cough TECHNIQUE: Upright frontal and lateral views. COMPARISON: 04/08/2019 RESULT: Heart/mediastinum: Median sternotomy wires and post CABG changes. No cardiac shadow enlargement. Lungs/pleura: Minimal fibrotic stranding in left midlung field. No new opacities or pleural effusion. Bones/soft tissues: Unremarkable. Lines/tubes/devices: None visualized. IMPRESSION IMPRESSION: No active disease in the chest. Stable exam. Emergency Room Registered Nurse: STEVO Transcribe Date/Time: Jan 02 2023 12:58P Dictated by : YE VILLAFANA MD This examination was interpreted and the report reviewed and electronically signed by: YE VILLAFANA MD on Jan 02 2023 1:09PM EST [facility] Radiology Study observation (narrative) [facility] XR Chest PA and LateralOrder ed By: [facility] Provider on 01-02-2023 [facility] STRESS TEST EXERCISEon 05-08 STRESS TEST EXERCISE NAME : AURELIANO DANG PID : [id number] : 1950 Gender : Male Race : ORD : [id number] Procedure Date : May 08 2019 12:53:35 Edit Date : May 12 2019 09:08:59 Protocol Name : MODBRUCE Time In Exercise Phase : 00:11:31 Max. Systolic BP : 182 mmHg Max Diastolic BP : 86 mmHg Max Heart Rate : 118 BPM Max Predicted Heart Rate : 149 BPM Recovery ECG Response (OLD) : Reason For Termination : Shortness of breath Test Reason : CHF Location :[facility] Overread By : ALEXANDRA REYES D.O. Edited By : Aan Marquez Referred By : IRMA ROBERSON Acquired by : Ana Marquez [facility] 05-07-2019 [facility] Telephone ([facility]) AURELIANO DANG ([id number]) 1950 M Date Time Provider Department 05/07/19 ELIZABETH VIEIRA (RN) [facility] During your visit today, we recorded the following information about you: Elizabeth Vieira RN, RN 05/07/2019 2:43 PM Signed Left message regarding reminder for stress test tomorrow and given instructions. Allergies As of Date: 05/07/2019 Noted Allergy Reaction LISINOPRIL 06/24/2013 2 - Rash PERCOCET (OXYCODONE-ACETAMINOPHEN) 1 - Mental Status Change Comments: Hallucination Date Reviewed: 04/08/2019 Reviewed by: Aline Hurst) VEENA Philippe - Fully Assessed Reason for Visit: Reminder Call [[id number]] Prescriptions as of 05/07/2019 Sig: ATORVASTATIN 40 MG TABLET Take 1 tablet by mouth daily * FUROSEMIDE 20 MG TABLET Take 1 tablet by mouth once d* PERFLUTREN LIPID MICROSPHERES* Inject 1.3 mL intravenously a* ALBUTEROL SULFATE HFA 90 MCG/* Inhale 2 Puffs as instructed * OMEPRAZOLE 20 MG CAPSULE,MARTIN* Take 1 capsule by mouth daily* CARVEDILOL 25 MG TABLET Take 1 tablet by mouth twice * LOSARTAN 25 MG TABLET Take 1 tablet by mouth once d* NITROGLYCERIN 0.4 MG SUBLINGU* Dissolve 1 tablet under the t* ASPIRIN 81 MG CHEWABLE TABLET Take 2 tablets by mouth once * Problem List As Of Date 05/07/2019 Noted Resolved Microscopic Hematuria [R31.29] INVALID FOR* Calculus of Kidney [N20.0] INVALID FOR* Non-ST elevation myocardial infarction (NSTEMI)*INVALID FOR* More... SUMMARY [V999.95] INVALID FOR* More... Dysphagia [R13.10] INVALID FOR* More... CAD: 11/13/2012 CABG x 5 [I25.10] INVALID FOR* More... History of acute anterior wall [place] [I25.2] INVALID FOR* Preop testing [Z01.818] INVALID FOR* More... Heart failure, acute systolic [I50.21] INVALID FOR* More... Hypotension [I95.9] INVALID FOR*11/15/2012 More... Stress hyperglycemia [R73.9] INVALID FOR*08/12/2018 More... Atelectasis-Pleural effusion [J98.11] INVALID FOR* More... Other acute postoperative pain [G89.18] INVALID FOR* More... Fluid overload [E87.70] INVALID FOR*11/18/2012 More... More... Atrial fibrillation with RVR [I48.91] INVALID FOR* More... Hyperlipidemia [E78.5] INVALID FOR* More... Leukocytosis [D72.829] INVALID FOR* More... Lung nodule [R91.1] INVALID FOR* More... Edema [R60.9] INVALID FOR* Iron (Fe) deficiency anemia [D50.9] INVALID FOR* Controlled type 2 diabetes mellitus without com*INVALID FOR* Coronary artery disease due to lipid rich plaqu*INVALID FOR* Overweight (BMI 25.0-29.9) [E66.3] INVALID FOR* Encounter Status:Closed by ELIZABETH VIEIRA on 05/07/19 [facility] 04-22-2019 [facility] Telephone ([facility]) AURELIANO DANG ([id number]) 1950 M Date Time Provider Department 04/22/19 ELIZABETH VIEIRA (RN) [facility] During your visit today, we recorded the following information about you: Elizabeth Vieira RN, RN 04/22/2019 2:10 PM Signed Spoke with patient regarding reminder for stress test tomorrow and given instructions. Allergies As of Date: 04/22/2019 Noted Allergy Reaction LISINOPRIL 06/24/2013 2 - Rash PERCOCET (OXYCODONE-ACETAMINOPHEN) 1 - Mental Status Change Comments: Hallucination Date Reviewed: 04/08/2019 Reviewed by: Aline Hurst) VEENA Philippe - Fully Assessed Reason for Visit: Reminder Call [[id number]] Prescriptions as of 04/22/2019 Sig: FUROSEMIDE 20 MG TABLET Take 1 tablet by mouth once d* PERFLUTREN LIPID MICROSPHERES* Inject 1.3 mL intravenously a* ALBUTEROL SULFATE HFA 90 MCG/* Inhale 2 Puffs as instructed * OMEPRAZOLE 20 MG CAPSULE,MARTIN* Take 1 capsule by mouth daily* CARVEDILOL 25 MG TABLET Take 1 tablet by mouth twice * LOSARTAN 25 MG TABLET Take 1 tablet by mouth once d* ATORVASTATIN 40 MG TABLET Take 1 tablet by mouth daily * NITROGLYCERIN 0.4 MG SUBLINGU* Dissolve 1 tablet under the t* ASPIRIN 81 MG CHEWABLE TABLET Take 2 tablets by mouth once * Problem List As Of Date 04/22/2019 Noted Resolved Microscopic Hematuria [R31.29] INVALID FOR* Calculus of Kidney [N20.0] INVALID FOR* Non-ST elevation myocardial infarction (NSTEMI)*INVALID FOR* More... SUMMARY [V999.95] INVALID FOR* More... Dysphagia [R13.10] INVALID FOR* More... CAD: 11/13/2012 CABG x 5 [I25.10] INVALID FOR* More... History of acute anterior wall OH [I25.2] INVALID FOR* Preop testing [Z01.818] INVALID FOR* More... Heart failure, acute systolic [I50.21] INVALID FOR* More... Hypotension [I95.9] INVALID FOR*11/15/2012 More... Stress hyperglycemia [R73.9] INVALID FOR*08/12/2018 More... Atelectasis-Pleural effusion [J98.11] INVALID FOR* More... Other acute postoperative pain [G89.18] INVALID FOR* More... Fluid overload [E87.70] INVALID FOR*11/18/2012 More... More... Atrial fibrillation with RVR [I48.91] INVALID FOR* More... Hyperlipidemia [E78.5] INVALID FOR* More... Leukocytosis [D72.829] INVALID FOR* More... Lung nodule [R91.1] INVALID FOR* More... Edema [R60.9] INVALID FOR* Iron (Fe) deficiency anemia [D50.9] INVALID FOR* Controlled type 2 diabetes mellitus without com*INVALID FOR* Coronary artery disease due to lipid rich plaqu*INVALID FOR* Overweight (BMI 25.0-29.9) [E66.3] INVALID FOR* Encounter Status:Closed by ELIZABETH VIEIRA on 04/22/19 [facility] Vital Signs Date Time Vital Sign Value Performing Clinician Facility 06-18-2025 09:33-0400 Body height 163.2 cm Diego Patricio MD Work Phone: [facility] 06-18-2025 09:33-0400 Body mass index (BMI) [Ratio] 28.2 kg/m2 Diego Patricio MD Work Phone: [facility] 06-18-2025 09:33-0400 Body weight 75.12 kg Diego Patricio MD Work Phone: [facility] 06-18-2025 09:33-0400 Diastolic blood pressure 62 mm[Hg] Diego Patricio MD Work Phone: [facility] 06-18-2025 09:33-0400 Heart rate 52 /min Diego Patricio MD Work Phone: [facility] 06-18-2025 09:33-0400 Respiratory rate 18 /min Diego Patricio MD Work Phone: [facility] 06-18-2025 09:33-0400 Systolic blood pressure 104 mm[Hg] Diego Patricio MD Work Phone: [facility] 06-03-2025 11:17-0400 Body height 165.[address] Diego Patricio MD Work Phone: [facility] 06-03-2025 11:17-0400 Body mass index (BMI) [Ratio] 27.3 kg/m2 Dr. Diego Patricio MD Work Phone: [facility] 06-03-2025 11:17-0400 Body weight 74.[address] Diego Patricio MD Work Phone: [facility] 06-03-2025 11:17-0400 Diastolic blood pressure 64 mm[Hg] Dr. Diego Patricio MD Work Phone: [facility] 06-03-2025 11:17-0400 Heart rate 56 /min Dr. Diego Patricio MD Work Phone: [facility] 06-03-2025 11:17-0400 Respiratory rate 16 /min Dr. Diego Patricio MD Work Phone: [facility] 06-03-2025 11:17-0400 Systolic blood pressure 110 mm[Hg] Dr. Diego Patricio MD Work Phone: [facility] 05-12-2025 08:59-0400 Body mass index (BMI) [Ratio] 28.34 kg/m2 Kelly Walton PA-C Work Phone: [facility] 05-12-2025 08:59-0400 Body temperature 97 [degF] Kelly Walton PA-C Work Phone: [facility] 05-12-2025 08:59-0400 Body weight 75.75 kg Kelly Walton PA-C Work Phone: [facility] 05-12-2025 08:59-0400 Diastolic blood pressure 66 mm[Hg] Kelly Walton PA-C Work Phone: [facility] 05-12-2025 08:59-0400 Heart rate 64 /min Kelly Walton PA-C Work Phone: [facility] 05-12-2025 08:59-0400 Respiratory rate 18 /min Kelly Walton PA-C Work Phone: [facility] 05-12-2025 08:59-0400 SaO2% (BldA) [Mass fraction] 98 % Kelly Walotn PA-C Work Phone: [facility] 05-12-2025 08:59-0400 Systolic blood pressure 96 mm[Hg] Kelly Walton PA-C Work Phone: [facility] 04-13-2025 07:59-0400 Body mass index (BMI) [Ratio] 28 kg/m2 Kelly Walton PA-C Work Phone: [facility] 04-13-2025 07:59-0400 Body temperature 98.1 [degF] Kelly Walton PA-C Work Phone: [facility] 04-13-2025 07:59-0400 Body weight 74.84 kg Kelly Walton PA-C Work Phone: [facility] 06-23-2025 07:59-0400 Diastolic blood pressure 70 mm[Hg] Kelly Walton PA-C Work Phone: [facility] 04-13-2025 07:59-0400 Heart rate 68 /min Kelly Walton PA-C Work Phone: [facility] 04-13-2025 07:59-0400 Respiratory rate 16 /min Kelly Walton PA-C Work Phone: [facility] 04-13-2025 07:59-0400 SaO2% (BldA) [Mass fraction] 96 % Kelly Walton PA-C Work Phone: [facility] 04-13-2025 07:59-0400 Systolic blood pressure 110 mm[Hg] Kelly Walton PA-C Work Phone: [facility] 03-30-2025 10:46-0400 Body mass index (BMI) [Ratio] 28.13 kg/m2 Akilah Podlogar PROJECT DRILLING ENGINEER.TYPING BOOKKEEPER Work Phone: [facility] 03-30-2025 10:46-0400 Body temperature 96.49 [degF] Akilah Podlogar PROJECT DRILLING ENGINEER.TYPING BOOKKEEPER Work Phone: [facility] 03-30-2025 10:46-0400 Body weight 75.21 kg Akilah Podlogar PROJECT DRILLING ENGINEER.TYPING BOOKKEEPER Work Phone: [facility] 03-30-2025 10:46-0400 Diastolic blood pressure 68 mm[Hg] Akilah Podlogar PROJECT DRILLING ENGINEER.TYPING BOOKKEEPER Work Phone: [facility] 03-30-2025 10:46-0400 Heart rate 58 /min Akilah Podlogar PROJECT DRILLING ENGINEER.TYPING BOOKKEEPER Work Phone: [facility] 03-30-2025 10:46-0400 Respiratory rate 18 /min Akilah Podlogar PROJECT DRILLING ENGINEER.TYPING BOOKKEEPER Work Phone: [facility] 03-30-2025 10:46-0400 SaO2% (BldA) [Mass fraction] 96 % Akilah Podlogar PROJECT DRILLING ENGINEER.TYPING BOOKKEEPER Work Phone: [facility] 03-30-2025 10:46-0400 Systolic blood pressure 122 mm[Hg] Akilah Adan APRN.TYPING BOOKKEEPER Work Phone: [facility] 02-03-2025 08:54-0400 Body mass index (BMI) [Ratio] 28.17 kg/m2 Kelly Walton PA-C Work Phone: [facility] 02-03-2025 08:54-0400 Body temperature 97.5 [degF] Kelly Walton PA-C Work Phone: [facility] 02-03-2025 08:54-0400 Body weight 75.3 kg Kelly Walton PA-C Work Phone: [facility] 02-03-2025 08:54-0400 Diastolic blood pressure 76 mm[Hg] Kelly Walton PA-C Work Phone: [facility] 02-03-2025 08:54-0400 Heart rate 57 /min Kelly Walton PA-C Work Phone: [facility] 02-03-2025 08:54-0400 Respiratory rate 16 /min Kelly Walton PA-C Work Phone: [facility] 02-03-2025 08:54-0400 SaO2% (BldA) [Mass fraction] 98 % Kelly Wlaton PA-C Work Phone: [facility] 02-03-2025 08:54-0400 Systolic blood pressure 118 mm[Hg] Kelly DAVISON-C Work Phone: [facility] 11-13-2024 12:54-0500 Body height 163.5 cm Pulm Wstr Work Phone: [facility] 11-13-2024 12:54-0500 Body mass index (BMI) [Ratio] 28.68 kg/m2 Pulm Wstr Work Phone: [facility] 11-13-2024 12:54-0500 Body weight 76.66 kg Pulm Wstr Work Phone: [facility] 11-13-2024 12:54-0500 Heart rate 58 /min Pulm Wstr Work Phone: [facility] 11-13-2024 12:54-0500 Respiratory rate 12 /min Pulm Wstr Work Phone: [facility] 11-13-2024 12:54-0500 SaO2% (BldA) [Mass fraction] 100 % Pulm Wstr Work Phone: [facility] 11-11-2024 13:38-0500 Diastolic blood pressure 80 mm[Hg] Diego Patricio MD Work Phone: [facility] 11-11-2024 13:38-0500 Systolic blood pressure 134 mm[Hg] Diego Patricio MD Work Phone: [facility] 11-11-2024 13:04-0500 Body mass index (BMI) [Ratio] 28.29 kg/m2 Diego Patricio MD Work Phone: [facility] 11-11-2024 13:04-0500 Body weight 77.11 kg Diego Patricio MD Work Phone: [facility] 11-11-2024 13:04-0500 Heart rate 72 /min Diego Patricio MD Work Phone: [facility] 11-11-2024 13:04-0500 Respiratory rate 18 /min Diego Patricio MD Work Phone: [facility] 08-04-2024 09:28-0400 Body mass index (BMI) [Ratio] 28.21 kg/m2 Vicenta Sneed APRN.TYPING BOOKKEEPER Work Phone: [facility] 08-04-2024 09:28-0400 Body temperature 97.5 [degF] Vicenta Sneed APRN.TYPING BOOKKEEPER Work Phone: [facility] 08-04-2024 09:28-0400 Body weight 76.9 kg Vicenta Sneed APRN.TYPING BOOKKEEPER Work Phone: [facility] 08-04-2024 09:28-0400 Diastolic blood pressure 74 mm[Hg] Vicenta Praisler-Wood PROJECT DRILLING ENGINEER.TYPING BOOKKEEPER Work Phone: [facility] 08-04-2024 09:28-0400 Heart rate 64 /min Vicenta Praisler-Wood PROJECT DRILLING ENGINEER.TYPING BOOKKEEPER Work Phone: [facility] 08-04-2024 09:28-0400 Respiratory rate 16 /min Vicenta Praisler-Wood PROJECT DRILLING ENGINEER.TYPING BOOKKEEPER Work Phone: [facility] 08-04-2024 09:28-0400 SaO2% (BldA) [Mass fraction] 98 % Vicenta Praisler-Wood PROJECT DRILLING ENGINEER.TYPING BOOKKEEPER Work Phone: [facility] 08-04-2024 09:28-0400 Systolic blood pressure 122 mm[Hg] Vicenta Praisler-Wood PROJECT DRILLING ENGINEER.TYPING BOOKKEEPER Work Phone: [facility] 07-01-2024 14:58-0400 Body height 165.1 cm Gilbert Garza PA-C Work Phone: [facility] 07-01-2024 14:58-0400 Body mass index (BMI) [Ratio] 28.29 kg/m2 Gilbert Garza PA-C Work Phone: [facility] 07-01-2024 14:58-0400 Body temperature 98.71 [degF] Gilbert Garza PA-C Work Phone: [facility] 07-01-2024 14:58-0400 Body weight 77.11 kg Gilbert Garza PA-C Work Phone: [facility] 07-01-2024 14:58-0400 Diastolic blood pressure 74 mm[Hg] Gilbert Garza PA-C Work Phone: [facility] 07-01-2024 14:58-0400 Heart rate 60 /min Gilbert Garza PA-C Work Phone: [facility] 07-01-2024 14:58-0400 Respiratory rate 16 /min Gilbert Garza PA-C Work Phone: [facility] 07-01-2024 14:58-0400 SaO2% (BldA) [Mass fraction] 98 % Gilbert Garza PA-C Work Phone: [facility] 07-01-2024 14:58-0400 Systolic blood pressure 124 mm[Hg] Gilbert Sylvia PA-C Work Phone: [facility] 06-27-2024 06:52-0400 Body mass index (BMI) [Ratio] 27.7 kg/m2 Kelly Walton PA-C Work Phone: [facility] 06-27-2024 06:52-0400 Body temperature 97 [degF] Kelly Walton PA-C Work Phone: [facility] 06-27-2024 06:52-0400 Body weight 76.66 kg Kelly Walton PA-C Work Phone: [facility] 06-27-2024 06:52-0400 Diastolic blood pressure 76 mm[Hg] Kelly Walton PA-C Work Phone: [facility] 06-27-2024 06:52-0400 Heart rate 61 /min Kelly Walton PA-C Work Phone: [facility] 06-27-2024 06:52-0400 Respiratory rate 16 /min Kelly Walton PA-C Work Phone: [facility] 06-27-2024 06:52-0400 SaO2% (BldA) [Mass fraction] 96 % Kelly Walton PA-C Work Phone: [facility] 06-27-2024 06:52-0400 Systolic blood pressure 136 mm[Hg] Kelly Walton PA-C Work Phone: [facility] 06-16-2024 12:44-0400 Body mass index (BMI) [Ratio] 28.07 kg/m2 Contreras Hutchinson APRN.TYPING BOOKKEEPER Work Phone: [facility] 06-16-2024 12:44-0400 Body weight 77.7 kg Contreras Hutchinson APRN.CNP Work Phone: [facility] 06-16-2024 12:44-0400 Diastolic blood pressure 67 mm[Hg] Contreras Jasper PROJECT DRILLING ENGINEER.TYPING BOOKKEEPER Work Phone: [facility] 06-16-2024 12:44-0400 Heart rate 56 /min Contreras Jasper PROJECT DRILLING ENGINEER.TYPING BOOKKEEPER Work Phone: [facility] 06-16-2024 12:44-0400 Respiratory rate 16 /min Contreras Jasper PROJECT DRILLING ENGINEER.TYPING BOOKKEEPER Work Phone: [facility] 06-16-2024 12:44-0400 SaO2% (BldA) [Mass fraction] 100 % Contreras Jasper PROJECT DRILLING ENGINEER.TYPING BOOKKEEPER Work Phone: [facility] 06-16-2024 12:44-0400 Systolic blood pressure 111 mm[Hg] Contreras Jasper PROJECT DRILLING ENGINEER.TYPING BOOKKEEPER Work Phone: [facility] 06-03-2024 06:59-0400 Body mass index (BMI) [Ratio] 27.71 kg/m2 Kelly Walton PA-C Work Phone: [facility] 06-03-2024 06:59-0400 Body temperature 97.59 [degF] Kelly Walton PA-C Work Phone: [facility] 06-03-2024 06:59-0400 Body weight 76.7 kg Kelly Walton PA-C Work Phone: [facility] 06-03-2024 06:59-0400 Diastolic blood pressure 71 mm[Hg] Kelly Walton PA-C Work Phone: [facility] 06-03-2024 06:59-0400 Heart rate 56 /min Kelly Walton PA-C Work Phone: [facility] 06-03-2024 06:59-0400 Respiratory rate 16 /min Kelly Walton PA-C Work Phone: [facility] 06-03-2024 06:59-0400 SaO2% (BldA) [Mass fraction] 98 % Kelly Walton PA-C Work Phone: [facility] 06-03-2024 06:59-0400 Systolic blood pressure 125 mm[Hg] Kelly Walton PA-C Work Phone: [facility] 04-25-2024 08:09-0400 Body height 166.4 cm Kelly Walton PA-C Work Phone: [facility] 04-25-2024 08:09-0400 Body mass index (BMI) [Ratio] 27.53 kg/m2 Kelly Walton PA-C Work Phone: [facility] 04-25-2024 08:09-0400 Body temperature 97.39 [degF] Kelly Walton PA-C Work Phone: [facility] 04-25-2024 08:090400 Body weight 76.2 kg Kelly Walton PA-C Work Phone: [facility] 04-25-2024 08:09-0400 Diastolic blood pressure 64 mm[Hg] Kelly Walton PA-C Work Phone: [facility] 04-25-2024 08:09-0400 Heart rate 60 /min Kelly Walton PA-C Work Phone: [facility] 04-25-2024 08:09-0400 Respiratory rate 18 /min Kelly Walton PA-C Work Phone: [facility] 04-25-2024 08:09-0400 Systolic blood pressure 128 mm[Hg] Kelly Walton PA-C Work Phone: [facility] 03-18-2024 11:10-0400 Diastolic blood pressure 64 mm[Hg] Diego Patricio MD Work Phone: [facility] 03-18-2024 11:10-0400 Systolic blood pressure 118 mm[Hg] Diego Patricio MD Work Phone: [facility] 03-18-2024 10:43-0400 Body mass index (BMI) [Ratio] 28.33 kg/m2 Diego Patricio MD Work Phone: [facility] 03-18-2024 10:43-0400 Body weight 76.2 kg Diego Patricio MD Work Phone: [facility] 03-18-2024 10:43-0400 Heart rate 62 /min Diego Patricio MD Work Phone: [facility] 03-18-2024 10:43-0400 Respiratory rate 14 /min Diego Patricio MD Work Phone: [facility] 02-04-2024 12:19-0400 Body temperature 97.3 [degF] Ten Luevano MD Work Phone: [facility] 02-04-2024 12:19-0400 Body weight 77.9 kg Ten Luevano MD Work Phone: [facility] 02-04-2024 12:19-0400 Diastolic blood pressure 84 mm[Hg] Ten Luevano MD Work Phone: [facility] 02-04-2024 12:19-0400 Heart rate 64 /min Ten Luevano MD Work Phone: [facility] 02-04-2024 12:19-0400 Respiratory rate 16 /min Ten Luevano MD Work Phone: [facility] 02-04-2024 12:19-0400 SaO2% (BldA) [Mass fraction] 97 % Ten Luevano MD Work Phone: [facility] 02-04-2024 12:19-0400 Systolic blood pressure 144 mm[Hg] Ten Luevano MD Work Phone: [facility] 09-06-2023 10:30-0500 Body weight 77.11 kg Mary Littlejohn APRN.TYPING BOOKKEEPER Work Phone: [facility] 09-06-2023 10:30-0500 Diastolic blood pressure 62 mm[Hg] Mary Littlejohn APRN.TYPING BOOKKEEPER Work Phone: [facility] 09-06-2023 10:30-0500 Heart rate 62 /min Mary Littlejohn APRN.TYPING BOOKKEEPER Work Phone: [facility] 09-06-2023 10:30-0500 Respiratory rate 14 /min Mary Littlejohn APRN.TYPING BOOKKEEPER Work Phone: [facility] 09-06-2023 10:30-0500 Systolic blood pressure 118 mm[Hg] Mary Littlejohn APRN.TYPING BOOKKEEPER Work Phone: [facility] 05-01-2023 08:18-0400 Body height 165.[address] Diego Patricio Work Phone: [facility] 05-01-2023 08:18-0400 Body mass index (BMI) [Ratio] 27.8 kg/m2 Dr. Diego Patricio Work Phone: [facility] 05-01-2023 08:18-0400 Body temperature 97.4 [degF] Dr. Diego Patricio Work Phone: [facility] 05-01-2023 08:18-0400 Body weight 75.[address] Diego Patricio Work Phone: [facility] 05-01-2023 08:18-0400 Diastolic blood pressure 68 mm[Hg] Dr. Diego Patricio Work Phone: [facility] 05-01-2023 08:18-0400 Heart rate 60 /min Dr. Diego Patricio Work Phone: [facility] 05-01-2023 08:18-0400 Respiratory rate 17 /min Dr. Diego Patricio Work Phone: [facility] 05-01-2023 08:18-0400 SaO2% (BldA) [Mass fraction] 97 % Dr. Diego Patricio Work Phone: [facility] 05-01-2023 08:18-0400 Systolic blood pressure 132 mm[Hg] Dr. Diego Patricio Work Phone: [facility] 02-23-2023 09:00-0400 Body height 164 cm Kelly Walton PA-C Work Phone: [facility] 02-23-2023 09:00-0400 Body temperature 97.5 [degF] Kelly Walton PA-C Work Phone: [facility] 02-23-2023 09:00-0400 Body weight 79.38 kg Kellyyoselyn Walton PA-C Work Phone: [facility] 02-23-2023 09:00-0400 Diastolic blood pressure 70 mm[Hg] Kelly Walton PA-C Work Phone: [facility] 02-23-2023 09:00-0400 Heart rate 64 /min Kelly Walton PA-C Work Phone: [facility] 02-23-2023 09:00-0400 Respiratory rate 18 /min Kelly Walton PA-C Work Phone: [facility] 02-23-2023 09:00-0400 Systolic blood pressure 100 mm[Hg] Kelly Walton PA-C Work Phone: [facility] 01-02-2023 12:15-0400 Body temperature 98.2 [degF] Trevon Foss PROJECT DRILLING ENGINEER.TYPING BOOKKEEPER Work Phone: [facility] 01-02-2023 12:15-0400 Body weight 80.29 kg Trevon Foss PROJECT DRILLING ENGINEER.TYPING BOOKKEEPER Work Phone: [facility] 01-02-2023 12:15-0400 Diastolic blood pressure 76 mm[Hg] Trevon Foss PROJECT DRILLING ENGINEER.TYPING BOOKKEEPER Work Phone: [facility] 01-02-2023 12:15-0400 Heart rate 96 /min Trevon Pipo PROJECT DRILLING ENGINEER.TYPING BOOKKEEPER Work Phone: [facility] 01-02-2023 12:15-0400 Respiratory rate 16 /min Trevon Pipo PROJECT DRILLING ENGINEER.TYPING BOOKKEEPER Work Phone: [facility] 01-02-2023 12:15-0400 SaO2% (BldA) [Mass fraction] 97 % Trevon Pipo PROJECT DRILLING ENGINEER.TYPING BOOKKEEPER Work Phone: [facility] 01-02-2023 12:15-0400 Systolic blood pressure 124 mm[Hg] Trevon Pipo PROJECT DRILLING ENGINEER.TYPING BOOKKEEPER Work Phone: [facility] 10-20-2022 14:16-0500 Body temperature 97.9 [degF] Ten Luevano MD Work Phone: [facility] 10-20-2022 14:16-0500 Body weight 78.11 kg Ten Luevano MD Work Phone: [facility] 10-20-2022 14:16-0500 Diastolic blood pressure 70 mm[Hg] Ten Luevano MD Work Phone: [facility] 10-20-2022 14:16-0500 Heart rate 65 /min Ten Luevano MD Work Phone: [facility] 10-20-2022 14:16-0500 Respiratory rate 18 /min Ten Luevano MD Work Phone: [facility] 10-20-2022 14:16-0500 SaO2% (BldA) [Mass fraction] 98 % Ten Luevano MD Work Phone: [facility] 10-20-2022 14:16-0500 Systolic blood pressure 124 mm[Hg] Ten Luevano MD Work Phone: [facility] 08-09-2022 09:15-0400 Body weight 77.56 kg Diego Particio MD Work Phone: [facility] 08-09-2022 09:15-0400 Diastolic blood pressure 76 mm[Hg] Diego Patricio MD Work Phone: [facility] 08-09-2022 09:15-0400 Heart rate 64 /min Diego Patricio MD Work Phone: [facility] 08-09-2022 09:15-0400 Respiratory rate 16 /min Diego Patricio MD Work Phone: [facility] 08-09-2022 09:15-0400 Systolic blood pressure 122 mm[Hg] Diego Patricio MD Work Phone: [facility] 02-07-2022 09:03-0400 Body height 163.8 cm Diego Patricio MD Work Phone: [facility] 02-07-2022 09:[id number] Body weight 76.2 kg Diego Patricio MD Work Phone: [facility] 02-07-2022 09:03-0400 Diastolic blood pressure 68 mm[Hg] Diego Patricio MD Work Phone: [facility] 02-07-2022 09:03-0400 Heart rate 60 /min Diego Patricio MD Work Phone: [facility] 02-07-2022 09:03-0400 Respiratory rate 16 /min Diego Patricio MD Work Phone: [facility] 02-07-2022 09:03-0400 Systolic blood pressure 108 mm[Hg] Diego Patricio MD Work Phone: [facility] Encounters Encounter Date Encounter Type Care Provider Facility Start: 07-06-2025 ambulatory Bakari Carreon NP Facility :[facility] Start: 06-18-2025 End: 06-18-2025 Patient encounter procedure Diego Patricio MD Work Phone: [facility] [place] Comment on above: Medicare annual well ness visit, subsequent (Primary Dx); Type 2 diabetes mellitus with other circulatory complication, without long-term current use of insulin (HCC); 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); Essential hypertension; Mixed hyperlipidemia; Coronary artery disease due to lipid rich plaque; Chronic systolic CHF (congestive heart failure) (HCC); Ischemic cardiomyopathy; Bilateral leg edema; Overweight (BMI 25.0-29.9); Elevated PSA; Chronic obstructive pulmonary disease, unspecified COPD type (HCC); Chronic bronchitis, unspecified chronic bronchitis type (HCC); Foot callus; Bilateral impacted cerumen; Advance directive discussed with patient; Encounter for screening examination for other mental health and behavioral disorders; Screening for depression Start: 06-18-2025 End: 06-18-2025 ambulatory DIEGO PATRICIO Facility:[facility] Start: 06-03-2025 End: 06-03-2025 Chart abstracting Diego Patricio MD Work Phone: [facility] [place] Comment on above: Abstract (Cardiology OV note) Start: 06-03-2025 End: 06-03-2025 Patient encounter procedure Bakari BOWLES -[facility] Work Phone: Start: 06-03-2025 End: 06-03-[address] Diego Patricio MD Work Phone: -[facility] Start: 05-12-2025 End: 05-12-2025 Follow-up encounter Kelly Walton PA-C Work Phone: [facility] [place] Start: 05-12-2025 End: 05-12-2025 ambulatory KELLY WALTON Facility:[facility] Start: 05-12-2025 End: 05-12-2025 Patient encounter procedure Kelly Walton PA-C Work Phone: [facility] [place] Comment on above: Chronic obstructive pulmonary disease, unspecified COPD type (HCC) (Primary Dx); Bilateral impacted cerumen; Hyperkalemia; Type 2 diabetes mellitus with other circulatory complication, without long-term current use of insulin (HCC); Chronic systolic CHF (congestive heart failure) (HCC) Start: 05-05-2025 End: 05-05-2025 Refill Diego Patricio MD Work Phone: [facility] [place] Comment on above: Refill Request Start: 05-01-2025 End: 05-01-2025 ambulatory DIEGO PATRICIO Facility:[facility] Start: 04-29-2025 End: 04-30-2025 Telephone encounter Kelly Walton PA-C Work Phone: [facility] [place] Start: 04-27-2025 End: 04-30-2025 Social Work Miranda PEÑA Navigation Start: 04-13-2025 End: 04-16-2025 Telephone encounter Miranda PEÑA Navigation Start: 04-13-2025 End: 04-13-2025 Office outpatient visit 15 minutes Kelly Walton PA-C Work Phone: [facility] [place] Comment on above: Chronic bronchitis, unspecified chronic bronchitis type (HCC) (Primary Dx); Chronic obstructive pulmonary disease, unspecified COPD type (HCC) Start: 04-13-2025 End: 04-13-2025 ambulatory KELLY WALTON Facility:[facility] Start: 03-30-2025 End: 03-31-2025 Follow-up encounter Audrey Browning LPN [facility] [place] Comment on above: Results Start: 03-30-2025 End: 03-30-2025 Subsequent hospital visit by physician Obdulia [facility] [place] Work Phone: Radiology Comment on above: SOB (shortness of br eath) [R06.02] Start: 03-30-2025 End: 03-30-2025 ambulatory AKILAH PODLOGAR Facility:[facility] Start: 03-30-2025 End: 03-30-2025 Patient encounter procedure Akilah Podlogdameon PROJECT DRILLING ENGINEER.PRAVIN Work Phone: [facility] [place] Comment on above: Chronic obstructive pulmonary disease, unspecified COPD type (HCC) (Primary Dx); SOB (shortness of breath); Wheezing Start: 02-23-2025 End: 02-23-2025 Patient encounter procedure Cheri Richey PA-C Work Phone: Orthopaedics Comment on above: Hand numbness; Ulnar nerve compression, left Start: 02-23-2025 End: 02-23-2025 ambulatory CHERI RICHEY Facility:[facility] Start: 02-05-2025 End: 02-05-2025 Refill Diego Patricio MD Work Phone: [address] [place] [address] Comment on above: Refill Request Start: 02-04-2025 End: 02-05-2025 Refill Kelly Walton PA-C Work Phone: [facility] [place] Comment on above: Refill Request Start: 02-03-2025 End: 02-03-2025 ambulatory KELLY WALTON Facility:[facility] Start: 02-03-2025 End: 02-03-2025 Office outpatient visit 25 minutes Kelly Walton PA-C Work Phone: [facility] [place] Comment on above: Chronic obstructive pulmonary disease, unspecified COPD type (HCC) (Primary Dx); Hand numbness; Ulnar nerve compression, left Start: 11-14-2024 End: 11-14-2024 Chart abstracting Diego Patricio MD Work Phone: [facility] [place] Comment on above: Outside Ophthalmolog y Start: 11-14-2024 End: 12-12-2024 Telephone encounter Kelly Walton PA-C Work Phone: [facility] [place] Comment on above: Results Start: 11-13-2024 End: 11-13-2024 ambulatory Pulm Lab [facility] Comment on above: Spirometry Start: 11-13-2024 End: 11-13-2024 Patient encounter procedure Pulm Lab [facility] Work Phone: [facility] Start: 11-11-2024 End: 11-11-2024 Patient encounter procedure Diego Patricio MD Work Phone: [facility] [place] Comment on above: Type 2 diabetes [place] it[place] with other circulatory complication, without long-term current use of insulin (HCC) (Primary Dx); 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) (HCC); Essential hypertension; Mixed hyperlipidemia; Edema, unspecified type; Coronary artery disease due to lipid rich plaque; Chronic systolic CHF (congestive heart failure) (HCC); Ischemic cardiomyopathy; MADELIN (obstructive sleep apnea); Overweight (BMI 25.0-29.9); Elevated PSA; Wheezing; Ex-smoker; Encounter for immunization; Medication management; Advance directive discussed with patient Start: 11-11-2024 End: 11-11-2024 ambulatory DIEGO PATRICIO Facility:[facility] Start: 11-06-2024 End: 11-07-2024 Refill Diego Patricio MD Work Phone: [facility] [place] Comment on above: Refill Request Start: 10-17-2024 End: 10-17-2024 Refill Diego Patricio MD Work Phone: [facility] [place] Comment on above: Refill Request Start: 09-22-2024 End: 10-17-2024 Refill Diego Patricio MD Work Phone: [facility] [place] Comment on above: Refill Request Start: 08-04-2024 End: 08-04-2024 ambulatory DIEGO PATRICIO Facility:[facility] Start: 08-04-2024 End: 08-04-2024 Patient encounter procedure Vicenta Sneed APRN.TYPING BOOKKEEPER Work Phone: [facility] Comment on above: Cutaneous abscess of back excluding buttocks (Primary Dx) Start: 07-08-2024 End: 07-08-2024 ambulatory DIEGO PATRICIO Facility:[facility] Start: 07-01-2024 End: 07-01-2024 ambulatory GILBERT GARZA Facility:[facility] Start: 07-01-2024 End: 07-01-2024 Patient encounter procedure Gilbert Garza PA-C Work Phone: Urology Comment on above: Hematuria, unspecifi ed type (Primary Dx); Screening for genitourinary condition Start: 06-30-2024 End: 06-30-2024 Telephone encounter Diego Patricio MD Work Phone: Urology Start: 06-27-2024 End: 06-27-2024 Patient encounter procedure Kelly Walton PA-C Work Phone: [facility] [place] Comment on above: Microscopic hematuri a (Primary Dx); Pruritus; Rash Start: 06-23-2024 End: 06-24-2024 Telephone encounter Diego Patricio MD Work Phone: [facility] [place] Comment on above: Results Start: 06-16-2024 End: 06-16-2024 Office outpatient visit 15 minutes Contreras Hutchinson APRN.TYPING BOOKKEEPER Work Phone: [facility] [place] Comment on above: Tinea cruris (Primar y Dx) Start: 06-13-2024 End: 06-13-2024 Telephone encounter Kelly Walton PA-C Work Phone: [facility] [place] Comment on above: Derm Problem Start: 06-12-2024 End: 06-12-2024 Subsequent hospital visit by physician [facility] Work Phone: Radiology Comment on above: Microscopic hematuri a [R31.29] Start: 06-06-2024 End: 06-09-2024 Telephone encounter Kelly Walton PA-C Work Phone: [facility] [place] Comment on above: Results Start: 06-03-2024 End: 06-03-2024 Patient encounter procedure Kelly Walton PA-C Work Phone: [facility] [place] Comment on above: Essential hypertensi on (Primary Dx); Tinea cruris Start: 05-26-2024 Telephone encounter Laureen Leonard MA [facility] [place] Start: 04-25-2024 Telephone encounter Laureen Leonard MA Family [facility] [place] Comment on above: Orders Start: 04-25-2024 End: 04-25-2024 Patient encounter procedure Kelly Walton PA-C Work Phone: [facility] [place] Comment on above: Medicare annual [facility], subsequent (Primary Dx); Advance directive discussed with patient; Mixed hyperlipidemia; Ischemic cardiomyopathy; History of non-ST elevation myocardial infarction (NSTEMI); History of atrial fibrillation; Essential hypertension; Coronary artery disease due to lipid rich plaque; Chronic systolic CHF (congestive heart failure) ([facility]); Type 2 diabetes mellitus with other circulatory complication, without long-term current use of insulin (HCC); Ex-smoker; MADELIN (obstructive sleep apnea); 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) ([facility]); Bilateral leg edema; Prostate disorder; Nasal congestion; Other proteinuria Start: 04-16-2024 Telephone encounter Diego Patricio MD Work Phone: [facility] [place] Comment on above: Results Start: 04-07-2024 Telephone encounter Mary martinez APRN.TYPING BOOKKEEPER Work Phone: [facility] [place] Comment on above: Results Start: 03-31-2024 Refill Diego hernández MD Work Phone: [facility] [place] Comment on above: Refill Request Start: 03-20-2024 Telephone encounter Diego Patricio MD Work Phone: [facility] [place] Comment on above: Results Start: 03-18-2024 End: 03-18-2024 Subsequent hospital visit by physician Xr [facility] [place] Work Phone: Radiology Comment on above: Chronic systolic CHF (congestive heart failure) (HCC) [I50.22] Start: 03-18-2024 End: 03-18-2024 Patient encounter procedure Diego Patricio MD Work Phone: [facility] Comment on above: Type 2 diabetes [place] with other circulatory complication, without long-term current use of insulin (HCC) (Primary Dx); 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) (HCC); Essential hypertension; Mixed hyperlipidemia; Edema, unspecified type; Chronic systolic CHF (congestive heart failure) ([facility]); Coronary artery disease due to lipid rich plaque; Ischemic cardiomyopathy; Overweight (BMI 25.0-29.9); Medication management; Advance directive discussed with patient; Elevated PSA; Wheezing; Bilateral leg edema Start: 03-16-2024 Refill Mary julien APRN.TYPING BOOKKEEPER Work Phone: [facility] Comment on above: Refill Request Start: 02-18-2024 Refill Kellyanaya Wood on PA-C Work Phone: [facility] Comment on above: Refill Request Start: 02-05-2024 Telephone encounter Diego du APRN.CNP Work Phone: [facility] Comment on above: Results Start: 02-04-2024 End: 02-04-2024 Subsequent hospital visit by physician Xr [facility] [place] Work Phone: Radiology Comment on above: Wheezing [R06.2] Start: 02-04-2024 End: 02-04-2024 Patient encounter procedure Ten Luevano MD Work Phone: [facility] Comment on above: Wheezing (Primary Dx ); Chronic systolic CHF (congestive heart failure) (HCC) Start: 01-08-2024 ambulatory Aleida Heller [facility] Comment on above: Population Health Na vigation Outreach ([employer] care gaps) Start: 12-12-2023 Chart abstracting Diego iglesias MD Work Phone: [facility] Comment on above: Outside Pulmonary Start: 09-07-2023 Telephone encounter Mary martinez APRN.TYPING BOOKKEEPER Work Phone: [facility] Comment on above: Results Start: 09-06-2023 End: 09-06-2023 Patient encounter procedure Mary Littlejohn APRN.TYPING BOOKKEEPER Work Phone: [facility] Comment on above: Essential hypertensi on (Primary Dx); Hyperlipidemia, unspecified hyperlipidemia type; Controlled type 2 diabetes mellitus without complication, without long-term current use of insulin (HCC); Heart failure, acute systolic (HCC) Start: 09-04-2023 Chart abstracting Diego iglesias MD Work Phone: [facility] Comment on above: outside pulm Outside ER Start: 09-03-2023 Refill Diego hernández MD Work Phone: [facility] Comment on above: Refill Request Start: 08-02-2023 End: 08-02-[address] Diego Patricio Work Phone: [facility] Work Phone: Start: 08-02-2023 End: 08-02-[address] Diego Patricio Work Phone: [facility] Work Phone: Start: 07-06-2023 End: 07-06-2023 Patient encounter procedure Truong Moctezuma Work Phone: Podiatry Comment on above: Onychomycosis (Prima ry Dx); Pain in toe of left foot; Pain in toe of right foot; Other diabetic neurological complication associated with type 2 diabetes mellitus (HCC); Callus of foot Start: 06-01-2023 End: 06-01-[address] Diego Patricio Work Phone: [facility] Work Phone: Start: 05-01-2023 End: 05-01-[address] Diego Patricio Work Phone: [facility] [place] Work Phone: Start: 04-13-2023 End: 04-13-[address] Diego Patricio Work Phone: [facility] Work Phone: Start: 03-15-2023 ambulatory Josi Garcia [facility] Comment on above: Allied Health Visit (Medication adherence outreach) Start: 02-23-2023 End: 02-23-2023 Patient encounter procedure Kelly aWlton PA-C Work Phone: [facility] Comment on above: Medicare annual well ness visit, subsequent (Primary Dx); Advance directive discussed with patient; Controlled type 2 diabetes mellitus without complication, without long-term current use of insulin (HCC); Type 2 diabetes mellitus with other circulatory complication, without long-term current use of insulin (HCC); Essential hypertension; Mixed hyperlipidemia; Hyperlipidemia, unspecified hyperlipidemia type; Heart failure, acute systolic (HCC); Coronary artery disease due to lipid rich plaque; Proteinuria due to type 2 diabetes mellitus ([facility]); Allergic rhinitis, unspecified seasonality, unspecified trigger; Chronic systolic CHF (congestive heart failure) ([facility]); Prostate disorder Start: 02-20-2023 Refill Diego hernández MD Work Phone: [facility] Comment on above: Refill Request Start: 01-31-2023 Telephone encounter Diego Patricio MD Work Phone: [facility] Comment on above: Orders Start: 2023 Telephone encounter Mellissa Montero [address] Comment on above: Letter Start: 01-03-2023 Telephone encounter Trevon chen APRN.TYPING BOOKKEEPER Work Phone: [facility] Comment on above: Results Start: 01-02-2023 End: 01-02-2023 Subsequent hospital visit by physician Obdulia [facility] Work Phone: Radiology Comment on above: Acute cough [R05.1] Start: 01-02-2023 End: 01-02-2023 Patient encounter procedure Trevon Foss APRN.TYPING BOOKKEEPER Work Phone: [facility] Comment on above: Lower resp. tract in fection (Primary Dx); Acute cough; Wheezing Start: 10-20-2022 End: 10-20-2022 Patient encounter procedure Ten Luevano MD Work Phone: [facility] Comment on above: Nasal congestion (Pr imary Dx) Start: 09-04-2022 Refill Mellissa Montero [facility] 4C [facility] tit[facility] Comment on above: Refill Request Start: 08-28-2022 Refill Diego hernández MD Work Phone: [facility] [place] Comment on above: Refill Request Start: 08-09-2022 End: 08-09-2022 Patient encounter procedure Diego Patricio MD Work Phone: [facility] [place] Comment on above: Type 2 diabetes [place] with other circulatory complication, without long-term current use of insulin (HCC) (Primary Dx); 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); Essential hypertension; Mixed hyperlipidemia; Coronary artery disease due to lipid rich plaque; Ischemic cardiomyopathy; Edema, unspecified type; Overweight (BMI 25.0-29.9); Encounter for immunization; Prostate disorder; Medication management Start: 05-08-2022 Telephone encounter Laureen Leonard MA [facility] [place] Comment on above: Question Start: 04-20-2022 Refill Diego hernández MD [facility] Phone: [facility] Comment on above: Refill Request Start: 02-07-2022 End: 02-07-2022 Patient encounter procedure Diego Patricio MD Work Phone: [facility] [place] Comment on above: Medicare annual [facility], subsequent (Primary Dx); Type 2 diabetes mellitus with other circulatory complication, without long-term current use of insulin (HCC); Essential hypertension; Edema, unspecified type; Mixed hyperlipidemia; Coronary artery disease due to lipid rich plaque; Chronic systolic CHF (congestive heart failure) (HCC); Ischemic cardiomyopathy; Allergic rhinitis, unspecified seasonality, unspecified trigger; 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); Bilateral impacted cerumen; Overweight (BMI 25.0-29.9); Need for vaccination; Advance directive discussed with patient Start: 12-28-2017 End: 12-28-2017 Ambulatory [facility] Facility:[facility] Start: 12-05-2017 End: 12-05-2017 [facility] Facility:[facility] Procedures Date Procedure Procedure Detail Performing Clinician Start: 06-18-2025 Adult depression screening assessment Diego Patricio MD Work Phone: Start: 03-30-2025 Radiologic exam ches t 2 views Akilah Adan PROJECT DRILLING ENGINEER.TYPING BOOKKEEPER Work Phone: Start: 11-13-2024 Brncdilat rspse spmt ry pre&post-brncdilat admn Diego Patricio MD Work Phone: Start: 07-01-2024 Urnls dip stick/tabl et rgnt auto w/o microscopy Gilbert Garza PA-C Work Phone: Start: 04-25-2024 Adult depression screening assessment Kelly Walton PA-C Work Phone: Start: 03-18-2024 Radiologic exam ches t 2 views Diego Patricio MD Work Phone: Start: 02-04-2024 Sars-cov-2 detection by dna/rna Ten Luevano MD Work Phone: Start: 02-04-2024 Radiologic exam ches t 2 views Ten Luevano MD Work Phone: Start: 01-02-2023 Radiologic exam ches t 2 views Trevon Foss APRN.TYPING BOOKKEEPER Work Phone: Start: 08-09-2022 [employer] COVI D-19 BIVALENT BOOSTER VACCINE, AGE 12+ YR Diego Patricio MD Work Phone: Start: 10-24-2013 Colonoscopy Diego iglesias MD Work Phone: Start: 10-22-2012 History of coronary artery bypass grafting History of coronary artery bypass surgery Bakari Carreon C++ PROFESSOR-C Comment on above: CABG x5- KAY to LAD ,SVG to PDA, SVG to DX, SVG to OM1, SVG to OM2 11/13/12 Plan of Treatment Date Care Activity Detail Author Start: 06-18-2026 Annual PCP Team Chronic Disease Visit Annual PCP Team Chronic Disease Visit [facility] Start: 06-18-2026 Anxiety Screening Anxiety Screening [facility] Start: 06-18-2026 Depression Screening Depression Screening [facility] Start: 06-18-2026 Diabetic foot examination Diabetic Foot Exam [facility] Start: 06-18-2026 RSV Vaccine (1 - 1-dose 75+ series) RSV Vaccine (1 - 1-dose 75+ series) [facility] Comment on above: Postponed from 01/28/2023 (Insurance Cov erage) Start: 06-18-2026 Shingrix Vaccine (2 of 3) Shingrix Vaccine (2 of 3) [facility] Comment on above: Postponed from 07/24/2016 (Insurance Cov erage) Start: 06-18-2026 Urine microalbumin profile DTaP,Tdap,Td Vaccine (2 - Td or Tdap) [facility] Comment on above: Postponed from 09/16/2023 (Insurance Cov erage) Start: 05-12-2026 Annual PCP Team Chronic Disease Visit Annual PCP Team Chronic Disease Visit [facility] Start: 05-01-2026 Hepatitis B screening Urine Albumin:Creatinine Ratio [facility] Start: 05-01-2026 Hepatitis B surface antibody level LDL Cholesterol [facility] Start: 04-13-2026 Annual PCP Team Chronic Disease Visit Annual PCP Team Chronic Disease Visit [facility] Start: 03-30-2026 Annual PCP Team Chronic Disease Visit Annual PCP Team Chronic Disease Visit [facility] Start: 03-30-2026 BP Controlled (<130/80) BP Controlled (<130/80) [facility] Start: 02-03-2026 Annual PCP Team Chronic Disease Visit Annual PCP Team Chronic Disease Visit [facility] Start: 02-03-2026 BP Controlled (<130/80) BP Controlled (<130/80) [facility] Start: 12-21-2025 End: 12-21-2025 Patient encounter procedure 12/21/2025 10:40 AM EST Office Visit [facility] [place] [address] [place], [place] [phone] Mary Littlejohn APRN.[facility] [address] [place] [address] 6 mo f/u [facility] [place] Comment on above: 6 mo f/u Start: 12-11-2025 End: 03-12-2026 Hemoglobin A1c in Blood HEMOGLOBIN A1C Lab Routine Type 2 diabetes mellitus with other circulatory complication, without long-term current use of insulin (HCC) Expected: 12/11/2025, Expires: 03/12/2026 [facility] Comment on above: Expected: 12/11/2025, Expires: Start: 12-11-2025 End: 03-12-2026 LIPID PANEL, NONFASTING LIPID PANEL, NONFASTING Lab Routine Type 2 diabetes mellitus with other circulatory complication, without long-term current use of insulin (HCC) Essential hypertension Mixed hyperlipidemia Coronary artery disease due to lipid rich plaque Expected: 12/11/2025, Expires: 03/12/2026 [facility] Comment on above: Expected: 12/11/2025, Expires: Start: 11-13-2025 Glaucoma screening Dilated Retinal Exam [facility] Start: 11-11-2025 Annual PCP Team Chronic Disease Visit Annual PCP Team Chronic Disease Visit [facility] Start: 11-01-2025 Hemoglobin A1c measurement HbA1C [facility] Start: 08-04-2025 BP Controlled (<130/80) BP Controlled (<130/80) [facility] Start: 07-01-2025 BP Controlled (<130/80) BP Controlled (<130/80) [facility] Start: 06-27-2025 Annual PCP Team Chronic Disease Visit Annual PCP Team Chronic Disease Visit [facility] Start: 06-25-2025 End: 06-25-2025 Patient encounter procedure 06/25/2025 3:20 PM EDT Office Visit [facility] [place] [address] [place] [address] Diego Patricio MD [address] [place] [id number] 1 week f/u ear lavage/drop use Family [facility] Comment on above: 1 week f/u ear lavage/drop use Start: 06-22-2025 Influenza vaccination Influenza Vaccine (#1) [facility] Start: 06-18-2025 End: 06-18-2025 Patient encounter procedure 06/18/2025 9:20 AM EDT Office Visit [facility] [place] [address] [place] [address] Diego Patricio MD [address] [facility] [place] [address] Medicare Wellness [facility] [place] Comment on above: Medicare Wellness Start: 06-16-2025 Annual PCP Team Chronic Disease Visit Annual PCP Team Chronic Disease Visit [facility] Start: 06-16-2025 BP Controlled (<130/80) BP Controlled (<130/80) [facility] Start: 06-03-2025 Annual PCP Team Chronic Disease Visit Annual PCP Team Chronic Disease Visit [facility] Start: 06-03-2025 BP Controlled (<130/80) BP Controlled (<130/80) [facility] Start: 05-12-2025 End: 05-12-2025 Patient encounter procedure 05/12/2025 8:40 AM EDT Office Visit [facility] [place] [address] [place] [address] Kelly Walton PA-C [address] [place], [place] [id number] Medicare wellness [facility] [place] Comment on above: Medicare wellness Start: 05-01-2025 End: 07-31-2025 CBC W Auto Differential panel - Blood COMPLETE BLOOD COUNT AND DIFFERENTIAL Lab Routine Type 2 diabetes mellitus with other circulatory complication, 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) (HCC) Expected: 05/01/2025, Expires: 07/31/2025 [facility] Comment on above: Expected: 05/01/2025, Expires: Start: 05-01-2025 End: 07-31-2025 Comprehensive metabolic 2000 panel - Serum or Plasma COMPREHENSIVE METABOLIC PANEL Lab Routine Type 2 diabetes mellitus with other circulatory complication, 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) (HCC) Essential hypertension Mixed hyperlipidemia Expected: 05/01/2025, Expires: 07/31/2025 [facility] Comment on above: Expected: 05/01/2025, Expires: Start: 05-01-2025 End: 07-31-2025 Hemoglobin A1c in Blood HEMOGLOBIN A1C Lab Routine Type 2 diabetes mellitus with other circulatory complication, 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) (HCC) Expected: 05/01/2025, Expires: 07/31/2025 [facility] Comment on above: Expected: 05/01/2025, Expires: Start: 05-01-2025 End: 07-31-2025 LIPID PANEL, NONFASTING LIPID PANEL, NONFASTING Lab Routine Type 2 diabetes mellitus with other circulatory complication, 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) (HCC) Essential hypertension Mixed hyperlipidemia Coronary artery disease due to lipid rich plaque Expected: 05/01/2025, Expires: 07/31/2025 [facility] Comment on above: Expected: 05/01/2025, Expires: Start: 05-01-2025 End: 07-31-2025 Microalbumin/Creatinine [Mass Ratio] in Urine ALBUMIN/CREATININE RATIO, URINE Lab Routine Type 2 diabetes mellitus with other circulatory complication, 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) (HCC) Expected: 05/01/2025, Expires: 07/31/2025 [facility] Comment on above: Expected: 05/01/2025, Expires: Start: 05-01-2025 End: 07-31-2025 Prostate Specific Ag Free [Mass/volume] in Serum or Plasma PROSTATE SPECIFIC ANTIGEN, FREE Lab Routine Elevated PSA Expected: 05/01/2025, Expires: 07/31/2025 [facility] Comment on above: Expected: 05/01/2025, Expires: Start: 05-01-2025 End: 07-31-2025 Urinalysis complete panel - Urine URINALYSIS, WITH MICROSCOPIC Lab Routine Type 2 diabetes mellitus with other circulatory complication, 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) (HCC) Essential hypertension Mixed hyperlipidemia Expected: 05/01/2025, Expires: 07/31/2025 [facility] Comment on above: Expected: 05/01/2025, Expires: Start: 05-01-2025 End: 05-01-2025 ambulatory 05/01/2025 9:30 AM EDT Results Only [facility] [address] [place] [address] [facility] Comment on above: labs Start: 04-25-2025 Annual PCP Team Chronic Disease Visit Annual PCP Team Chronic Disease Visit [facility] Start: 04-25-2025 Anxiety Screening Anxiety Screening [facility] Start: 04-25-2025 BP Controlled (<130/80) BP Controlled (<130/80) [facility] Start: 04-25-2025 Depression Screening Depression Screening [facility] Start: 04-25-2025 Diabetic foot examination Diabetic Foot Exam [facility] Start: 04-13-2025 End: 04-13-2025 Patient encounter procedure 04/13/2025 8:00 AM EDT Office Visit [facility] [place] [address] [facility] [address] Kelly Walton PA-C [address] [facility] [place] [address] follow up; breathing issues and dizziness discussion [facility] [place] Comment on above: follow up; breathing issues and dizzines s discussion Start: 03-18-2025 Annual PCP Team Chronic Disease Visit Annual PCP Team Chronic Disease Visit [facility] Start: 03-18-2025 BP Controlled (<130/80) BP Controlled (<130/80) [facility] Start: 03-18-2025 Hepatitis B screening Urine Albumin:Creatinine Ratio [facility] Start: 03-18-2025 Hepatitis B surface antibody level LDL Cholesterol [facility] Start: 03-18-2025 RSV Vaccine (1 - 1-dose 60+ series) RSV Vaccine (1 - 1-dose 60+ series) [facility] Comment on above: Postponed from 2008 (Insurance Cov erage) Start: 03-18-2025 RSV Vaccine (1 - 1-dose 75+ series) RSV Vaccine (1 - 1-dose 75+ series) [facility] Comment on above: Postponed from 01/28/2023 (Insurance Cov erage) Start: 03-18-2025 Shingrix Vaccine (2 of 3) Shingrix Vaccine (2 of 3) [facility] Comment on above: Postponed from 07/24/2016 (Insurance Cov erage) Start: 03-18-2025 Urine microalbumin profile DTaP,Tdap,Td Vaccine (2 - Td or Tdap) [facility] Comment on above: Postponed from 09/16/2023 (Insurance Cov erage) Start: 02-24-2025 End: 02-24-2025 Patient encounter procedure 02/24/2025 9:00 AM EDT Office Visit Orthopaedics [address] [id number] Ayad Kim MD [address] [place], [place] [phone] Hand numbness [R20.0]; Ulnar nerve compression, left [G56.22] Orthopaedics Comment on above: Hand numbness [R20.0]; Ulnar nerve compr ession, left [G56.22] Start: 01-26-2025 End: 01-26-2025 Patient encounter procedure 01/26/2025 1:40 PM EDT Office Visit [facility] [place] [address] [place] [address] Kelly Walton PA-C [address] [place] [address] 2 Month Follow up [facility] [place] Comment on above: 2 Month Follow up Start: 11-22-2024 Glaucoma screening Dilated Retinal Exam [facility] Comment on above: Postponed from 02/25/2022 (Currently Salma eduled) Start: 11-13-2024 End: 11-13-2024 ambulatory 11/13/2024 12:30 PM EST Procedure PULM LAB [facility] [address] [place] [address] Wstr, Pulm Lab [facility] [address] [place] [address] Wheezing [R06.2]; Ex-smoker [Z87.891] PULM LAB [facility] Comment on above: Wheezing [R06.2]; Ex-smoker [Z87.891] Start: 10-28-2024 End: 10-28-2024 Patient encounter procedure 10/28/2024 10:20 AM EST Office Visit [facility] [address] [place] [place], [place] [phone] Diego Patricio MD [address] [place], [place] [phone] 6 month follow up [facility] [place] Comment on above: 6 month follow up Start: 10-26-2024 End: 01-25-2025 Basic metabolic 2000 panel - Serum or Plasma BASIC METABOLIC PANEL Lab Routine Type 2 diabetes mellitus with other circulatory complication, without long-term current use of insulin (HCC) Expected: 10/26/2024, Expires: 01/25/2025 [facility] Comment on above: Expected: 10/26/2024, Expires: Start: 10-26-2024 End: 01-25-2025 Hemoglobin A1c in Blood HEMOGLOBIN A1C Lab Routine Type 2 diabetes mellitus with other circulatory complication, without long-term current use of insulin (HCC) Expected: 10/26/2024, Expires: 01/25/2025 [facility] Comment on above: Expected: 10/26/2024, Expires: Start: 10-26-2024 End: 01-25-2025 LIPID PANEL, NONFASTING LIPID PANEL, NONFASTING Lab Routine Mixed hyperlipidemia Expected: 10/26/2024, Expires: 01/25/2025 [facility] Comment on above: Expected: 10/26/2024, Expires: Start: 10-26-2024 End: 01-25-2025 Microalbumin/Creatinine [Mass Ratio] in Urine ALBUMIN/CREATININE RATIO, URINE Lab Routine Type 2 diabetes mellitus with other circulatory complication, 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) (HCC) Expected: 10/26/2024, Expires: 01/25/2025 [facility] Comment on above: Expected: 10/26/2024, Expires: Start: 10-26-2024 End: 01-25-2025 Prostate Specific Ag Free [Mass/volume] in Serum or Plasma PROSTATE SPECIFIC ANTIGEN, FREE Lab Routine Prostate disorder Expected: 10/26/2024, Expires: 01/25/2025 [facility] Work Phone: Comment on above: Expected: 10/26/2024, Expires: Start: 10-22-2024 Advance Directive Discussion Advance Directive Discussion [facility] Start: 10-22-2024 Medicare Advantage Annual Wellness Visit Medicare Advantage Annual Wellness Visit [facility] Start: 09-18-2024 Hemoglobin A1c measurement HbA1C [facility] Start: 09-06-2024 Annual PCP Team Chronic Disease Visit Annual PCP Team Chronic Disease Visit [facility] Start: 09-06-2024 BP Controlled (<130/80) BP Controlled (<130/80) [facility] Start: 09-06-2024 Covid-19 Vaccine () Covid-19 Vaccine () [facility] Comment on above: Postponed from 06/22/2023 (Declined at t his time) Start: 09-06-2024 Hepatitis B screening Urine Albumin:Creatinine Ratio [facility] Start: 09-06-2024 Hepatitis B surface antibody level LDL Cholesterol [facility] Start: 07-01-2024 End: 07-01-2024 Patient encounter procedure 07/01/2024 3:00 PM EDT Office Visit Urology [address] [place] [address] Gilbert Garza PA-C [address] [place] [address] Microscopic hematuria Urology Comment on above: Microscopic hematuria Start: 06-27-2024 End: 06-27-2024 Patient encounter procedure [facility] [place] Comment on above: 3 week f/u rash 3 week f/u rash/disc uss referral to Urology Start: 06-22-2024 Covid-19 Vaccine () Covid-19 Vaccine () [facility] Start: 06-22-2024 Covid-19 Vaccine ( season) Covid-19 Vaccine () [facility] Start: 06-22-2024 Influenza vaccination [facility] Start: 06-16-2024 End: 06-16-2024 Patient encounter procedure 06/16/2024 12:40 PM EDT Office Visit [facility] [place] [address] [place] [address] Contreras Hutchinson APRN.TYPING BOOKKEEPER [address] [facility] [address] recheck rash see TE 06/13 [facility] [place] Comment on above: recheck rash see TE 06/13 Start: 06-12-2024 End: 06-12-2024 Patient encounter procedure 06/12/2024 8:30 AM EDT Appointment Radiology [address] [place] [address] Microscopic hematuria [R31.29] Radiology Comment on above: Microscopic hematuria [R31.29] Start: 05-23-2024 End: 05-23-2024 Patient encounter procedure 05/23/2024 9:40 AM EDT Office Visit [facility] [place] [address] [facility] [address] Kelly Walton PA-C [address] [facility] [address] 4 week follow up [facility] [place] Comment on above: 4 week follow up Start: 05-22-2024 Glaucoma screening Dilated Retinal Exam [facility] Comment on above: Postponed from 02/25/2022 ([facility] Start: 05-05-2024 End: 05-05-2024 Patient encounter procedure 05/05/2024 10:00 AM EDT Appointment Radiology [address] [place] [address] Microscopic hematuria [R31.29] Radiology Comment on above: Microscopic hematuria [R31.29] Start: 04-25-2024 End: 04-25-2024 Patient encounter procedure 04/25/2024 8:20 AM EDT Office Visit [facility] [place] [address] [place] [address] Kelly Walton PA-C [address] [place], [place] [id number] medicare wellness [facility] [place] Comment on above: medicare wellness Start: 04-20-2024 Influenza vaccination Influenza Vaccine (#1) [facility] Comment on above: Postponed from 06/22/2023 (Declined at t his time) Start: 04-18-2024 End: 07-18-2024 Urinalysis complete panel - Urine URINALYSIS, WITH MICROSCOPIC Lab Routine Microscopic hematuria Other proteinuria Expected: 04/18/2024, Expires: 07/18/2024 [facility] Work Phone: Comment on above: Expected: 04/18/2024, Expires: Start: 04-04-2024 End: 04-04-2024 Patient encounter procedure Cardiology Comment on above: Chronic systolic CHF (congestive heart f ailure) ([facility]) [I50.22]; Coronary artery disease due to lipid rich plaque [I25.10, I25.83]; Ischemic cardiomyopathy [I25.5] Bilateral leg edema [R60.0] Start: 03-18-2024 End: 06-17-2024 Hemoglobin A1c in Blood [facility] Work Phone: Comment on above: Expected: 03/18/2024, Expires: Start: 03-11-2024 End: 03-11-2024 Patient encounter procedure 03/11/2024 9:00 AM EDT Office Visit [facility] [address] [place] [address] Diego Patricio MD [address] [place], [place] [id number] 6 month follow up [facility] Comment on above: 6 month follow up Start: 03-06-2024 Hemoglobin A1c measurement HbA1C [facility] Start: 03-06-2024 Hemoglobin A1c/Hemoglobin.total in Blood HbA1C [facility] Start: 02-24-2024 3 comp foot exam completed DIABETIC FOOT EXAM [facility] Start: 02-24-2024 ANNUAL PCP TEAM CHRONIC DISEASE VISIT ANNUAL PCP TEAM CHRONIC DISEASE VISIT [facility] Start: 02-24-2024 BP CONTROLLED (<130/80) BP CONTROLLED (<130/80) [facility] Start: 02-24-2024 Diabetic foot examination Diabetic Foot Exam [facility] Start: 02-04-2024 End: 05-05-2024 Comprehensive metabolic 2000 panel - Serum or Plasma [facility] Work Phone: Comment on above: Expected: 02/04/2024, Expires: 4 Start: 02-04-2024 End: 05-05-2024 Natriuretic peptide.B prohormone N-Terminal [Mass/volume] in Serum or Plasma [facility] Work Phone: Comment on above: Expected: 02/04/2024, Expires: 4 Start: 01-30-2024 Hepatitis B screening URINE ALBUMIN:CREATININE RATIO [facility] Start: 01-30-2024 Hepatitis B surface antibody level LDL CHOLESTEROL [facility] Start: 01-03-2024 BP CONTROLLED (<130/80) BP CONTROLLED (<130/80) [facility] Start: 10-24-2023 Colonoscopy COLONOSCOPY [facility] Start: 10-24-2023 COLORECTAL CANCER SCREENING COLORECTAL CANCER SCREENING [facility] Start: 10-24-2023 Screening for malignant neoplasm of colon [facility] Start: 10-22-2023 Advance Directive Discussion Advance Directive Discussion [facility] Start: 10-22-2023 Behavioral Health Screening Behavioral Health Screening [facility] Start: 10-22-2023 Depression Assessment Depression Assessment [facility] Start: 10-20-2023 BP CONTROLLED (<130/80) BP CONTROLLED (<130/80) [facility] Start: 09-16-2023 Urine microalbumin profile [facility] Start: 08-20-2023 End: 10-20-2023 ALBUMIN/CREAT RATIO RND UR ALBUMIN/CREAT RATIO RND UR Lab Routine Type 2 diabetes mellitus with other circulatory complication, 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) Expected: 08/20/2023, Expires: 10/20/2023 [facility] Work Phone: Comment on above: Expected: 08/20/2023, Expires: 3 Start: 08-20-2023 End: 10-20-2023 Hemoglobin A1c in Blood HGB A1C Lab Routine Type 2 diabetes mellitus with other circulatory complication, without long-term current use of insulin (HCC) Expected: 08/20/2023, Expires: 10/20/2023 [facility] Work Phone: Comment on above: Expected: 08/20/2023, Expires: 3 Start: 08-20-2023 End: 10-20-2023 LIPID PANEL, NONFASTING LIPID PANEL, NONFASTING Lab Routine Hyperlipidemia, unspecified hyperlipidemia type Expected: 08/20/2023, Expires: 10/20/2023 [facility] Work Phone: Comment on above: Expected: 08/20/2023, Expires: 3 Start: 08-09-2023 ANNUAL PCP TEAM CHRONIC DISEASE VISIT ANNUAL PCP TEAM CHRONIC DISEASE VISIT [facility] Start: 08-09-2023 BP CONTROLLED (<130/80) BP CONTROLLED (<130/80) [facility] Start: 08-09-2023 Hepatitis B screening URINE ALBUMIN:CREATININE RATIO [facility] Start: 08-04-2023 Hepatitis B surface antibody level LDL CHOLESTEROL [facility] Start: 07-31-2023 Hemoglobin A1c/Hemoglobin.total in Blood HBA1C [facility] Start: 06-22-2023 Covid-19 Vaccine () Covid-19 Vaccine () [facility] Start: 06-22-2023 Influenza vaccination [facility] Start: 03-26-2023 End: 05-26-2023 Prostate Specific Ag Free [Mass/volume] in Serum or Plasma PSA FREE Lab Routine Prostate disorder Expected: 03/26/2023, Expires: 05/26/2023 [facility] Work Phone: Comment on above: Expected: 03/26/2023, Expires: 3 Start: 02-07-2023 3 comp foot exam completed DIABETIC FOOT EXAM [facility] Start: 02-07-2023 ANNUAL PCP TEAM CHRONIC DISEASE VISIT ANNUAL PCP TEAM CHRONIC DISEASE VISIT [facility] Start: 02-07-2023 BP CONTROLLED (<130/80) [facility]OLLED (<130/80) [facility] Start: 02-07-2023 SHINGRIX VACCINE (2 of 3) SHINGRIX VACCINE (2 of 3) [facility] Comment on above: Postponed from 07/24/2016 (Insurance Cov erage) Start: 02-02-2023 Hemoglobin A1c/Hemoglobin.total in Blood HBA1C [facility] Start: 01-28-2023 RSV Vaccine (1 - 1-dose 75+ series) RSV Vaccine (1 - 1-dose 75+ series) [facility] Start: 01-26-2023 End: 03-28-2023 ALBUMIN/CREAT RATIO RND UR ALBUMIN/CREAT RATIO RND UR Lab Routine Type 2 diabetes mellitus with other circulatory complication, without long-term current use of insulin (HCC) Expected: 01/26/2023, Expires: 03/28/2023 [facility] Work Phone: Comment on above: Expected: 01/26/2023, Expires: 3 Start: 01-26-2023 End: 03-28-2023 CBC W Auto Differential panel - Blood CBC + DIFF Lab Routine Type 2 diabetes mellitus with other circulatory complication, without long-term current use of insulin (HCC) Medication management Expected: 01/26/2023, Expires: 03/28/2023 [facility] Work Phone: Comment on above: Expected: 01/26/2023, Expires: 3 Start: 01-26-2023 End: 03-28-2023 Comprehensive metabolic 2000 panel - Serum or Plasma COMP METABOLIC PANEL Lab Routine Type 2 diabetes mellitus with other circulatory complication, without long-term current use of insulin (HCC) Essential hypertension Mixed hyperlipidemia Coronary artery disease due to lipid rich plaque Expected: 01/26/2023, Expires: 03/28/2023 [facility] Work Phone: Comment on above: Expected: 01/26/2023, Expires: 3 Start: 01-26-2023 End: 03-28-2023 Hemoglobin A1c in Blood HGB A1C Lab Routine Type 2 diabetes mellitus with other circulatory complication, without long-term current use of insulin (HCC) Expected: 01/26/2023, Expires: 03/28/2023 [facility] Work Phone: Comment on above: Expected: 01/26/2023, Expires: 3 Start: 01-26-2023 End: 03-28-2023 LIPID PANEL, NONFASTING LIPID PANEL, NONFASTING Lab Routine Type 2 diabetes mellitus with other circulatory complication, without long-term current use of insulin (HCC) Essential hypertension Mixed hyperlipidemia Coronary artery disease due to lipid rich plaque Expected: 01/26/2023, Expires: 03/28/2023 [facility] Work Phone: Comment on above: Expected: 01/26/2023, Expires: 3 Start: 01-26-2023 End: 03-28-2023 Prostate specific Ag [Mass/volume] in Serum or Plasma PSA/PROSTSPECAG DIAG Lab Routine Prostate disorder Expected: 01/26/2023, Expires: 03/28/2023 [facility] Work Phone: Comment on above: Expected: 01/26/2023, Expires: 3 Start: 01-26-2023 End: 03-28-2023 Urinalysis complete panel - Urine URINALYSIS, WITH MICROSCOPIC Lab Routine Type 2 diabetes mellitus with other circulatory complication, 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) Essential hypertension Mixed hyperlipidemia Expected: 01/26/2023, Expires: 03/28/2023 [facility] Work Phone: Comment on above: Expected: 01/26/2023, Expires: 3 Start: 12-10-2022 Covid-19 Vaccine (5 - Pfizer series) Covid-19 Vaccine (5 - Pfizer series) [facility] Start: 10-22-2022 ADVANCE DIRECTIVE DISCUSSION ADVANCE DIRECTIVE DISCUSSION [facility] Start: 10-22-2022 DEPRESSION ASSESSMENT DEPRESSION ASSESSMENT [facility] Start: 08-09-2022 End: 10-09-2022 ALBUMIN/CREAT RATIO RND UR [facility] Work Phone: Comment on above: Expected: 08/09/2022, Expires: 2 Start: 08-05-2022 Hepatitis B screening URINE ALBUMIN:CREATININE RATIO [facility] Start: 07-28-2022 End: 09-27-2022 Hemoglobin A1c/Hemoglobin.total in Blood HGB A1C Lab Routine Type 2 diabetes mellitus with other circulatory complication, without long-term current use of insulin (HCC) Expected: 07/28/2022, Expires: 09/27/2022 [facility] Work Phone: Comment on above: Expected: 07/28/2022, Expires: 2 Start: 07-28-2022 End: 09-27-2022 LIPID PANEL, NONFASTING LIPID PANEL, NONFASTING Lab Routine Type 2 diabetes mellitus with other circulatory complication, without long-term current use of insulin (HCC) Essential hypertension Mixed hyperlipidemia Coronary artery disease due to lipid rich plaque Expected: 07/28/2022, Expires: 09/27/2022 [facility] Work Phone: Comment on above: Expected: 07/28/2022, Expires: 2 Start: 06-22-2022 Influenza vaccination INFLUENZA (#1) [facility] Start: 02-25-2022 Glaucoma screening Dilated Retinal Exam [facility] Start: 02-25-2022 Hepatitis C antibody, confirmatory test DILATED RETINAL EXAM [facility] Start: 02-03-2022 Hemoglobin A1c/Hemoglobin.total in Blood HBA1C [facility] Start: 02-03-2022 Hepatitis B surface antibody level LDL CHOLESTEROL [facility] Start: 12-06-2021 COVID-19 VACCINE (4 - Booster for Pfizer series) COVID-19 VACCINE (4 - Booster for Pfizer series) [facility] Start: 07-24-2016 SHINGRIX VACCINE (2 of 3) SHINGRIX VACCINE (2 of 3) [facility] Start: 10-23-2013 PNEUMOVAX AGE 65 AND OVER WITH 5YR LOOKBACK (#1) PNEUMOVAX AGE 65 AND OVER WITH 5YR LOOKBACK (#1) [facility] Start: 2008 Hepatitis B Vaccine (1 of 3 - Risk 3-dose series) Hepatitis B Vaccine (1 of 3 - Risk 3-dose series) [facility] Start: 2008 RSV Vaccine (1 - 1-dose 60+ series) RSV Vaccine (1 - 1-dose 60+ series) [facility] Start: 01-28-1993 COLOGUARD (FIT-DNA) COLOGUARD (FIT-DNA) [facility] Start: 01-28-[address] COLONOGRAPHY [facility] Start: 01-28-1993 FECAL OCCULT BLOOD FECAL OCCULT BLOOD [facility] Start: 01-28-1993 Screening for malignant neoplasm of colon [facility] Start: 01-28-1993 SIGMOIDOSCOPY SIGMOIDOSCOPY [facility] Start: 01-28-1966 BP Controlled (<130/80) BP Controlled (<130/80) [facility] Bacteria identified in Wound by Culture ABSCESS AND WOUND CULTURE WITH GRAM STAIN Microbiology Routine Cutaneous abscess of back excluding buttocks Ordered: 08/04/2024 [facility] Work Phone: Comment on above: Ordered: 08/04/2024 End: 03-18-2025 Echocardiography ECHO Cardiology Routine Chronic systolic CHF (congestive heart failure) (HCC) Coronary artery disease due to lipid rich plaque Ischemic cardiomyopathy 1 Occurrences starting 03/18/2024 until 03/18/2025 [facility] Comment on above: 1 Occurrences starting 03/18/2024 until 03/18/2025 POST VOID RESIDUAL POST VOID RES IDUAL Procedures Routine Hematuria, unspecified type Screening for genitourinary condition Ordered: 07/01/2024 [facility] Work Phone: Comment on above: Ordered: 07/01/2024 Protein [Mass/time] in 24 hour Urine PROTEIN, 24 HOUR URINE Lab Routine Proteinuria, unspecified type Ordered: 04/16/2024 [facility] Work Phone: Comment on above: Ordered: 04/16/2024 Protein [Mass/time] in 24 hour Urine PROTEIN, 24 HOUR URINE Lab Routine Type 2 diabetes mellitus with other circulatory complication, without long-term current use of insulin (HCC) Other proteinuria Ordered: 04/25/2024 [facility] Comment on above: Ordered: 04/25/2024 Radionuclide imaging of perfusion of myocardium under exercise stress [facility] Removal impacted cer umen irrigation/lvg unilat AMBULATORY EAR LAVAGE/IRRIGATION Procedures Routine Bilateral impacted cerumen Ordered: 06/18/2025 [facility] Work Phone: Comment on above: Ordered: 06/18/2025 SARS-CoV-2 (COVID-19 ) RNA [Presence] in Respiratory specimen by JANA with probe detection 2019 CORONAVIRUS Microbiology Routine Lower resp. tract infection 01/02/2023 2:03 PM EDT [facility] Work Phone: End: 12-11-2025 SPIROMETRY - BASELINE AND POST DILATOR SPIROMETRY - BASELINE AND POST DILATOR PFT Routine Wheezing Ex-smoker 1 Occurrences starting 11/11/2024 until 12/11/2025 [facility] Work Phone: Comment on above: 1 Occurrences starting 11/11/2024 until 12/11/2025 End: 05-16-2025 US Kidney - bilateral and Urinary bladder US KIDNEY/BLADDER Radiology Routine Microscopic hematuria 1 Occurrences starting 04/16/2024 until 05/16/2025 [facility] Comment on above: 1 Occurrences starting 04/16/2024 until 05/16/2025 US Kidney - bilatera l and Urinary bladder US KIDNEY/BLADDER Radiology Routine Microscopic hematuria 06/12/2024 8:59 AM EDT [facility] Work Phone: End: 03-18-2025 US Lower extremity veins - bilateral US LEG VEIN DVT [facility] Routine Bilateral leg edema 1 Occurrences starting 03/18/2024 until 03/18/2025 [facility] Comment on above: 1 Occurrences starting 03/18/2024 until 03/18/2025 End: 03-25-2026 US Upper extremity - left US ELBOW LEFT Radiology Routine Ulnar nerve compression, left 1 Occurrences starting 02/23/2025 until 03/25/2026 [facility] Work Phone: Comment on above: 1 Occurrences starting 02/23/2025 until 03/25/2026 End: 04-17-2025 XR Chest PA and Lateral XR CHEST 2V FRONTAL/LAT Radiology Routine Chronic systolic CHF (congestive heart failure) (HCC) Wheezing 1 Occurrences starting 03/18/2024 until 04/17/2025 [facility] Comment on above: 1 Occurrences starting 03/18/2024 until 04/17/2025 XR Chest PA and Lateral XR CHEST 2V FRONTAL/LAT Radiology Routine Chronic systolic CHF (congestive heart failure) (HCC) Wheezing 03/18/2024 12:16 PM EDT [facility] Immunizations Immunization Date Immunization Notes Care Provider Fa rashad 11-11-2024 influenza, high dose seasonal, preservative-free Diego Patricio MD Work Phone: [facility] 11-11-2024 influenza virus vacc ine, unspecified formulation Miranda Obed [employer] [facility] 08-11-2022 influenza, high-dose , quadrivalent vaccine (FLUZONE HIGH DOSE QUADRIVALENT) Diego Patricio MD Work Phone: [facility] Work Phone: 08-11-2022 influenza virus vacc ine, unspecified formulation Truong Jose Elias Work Phone: [facility] 08-09-2022 COVID-19 booster vaccine, age 12+ yr, bivalent (PFIZER-BIONTECH) Diego Patricio MD Work Phone: [facility] 02-07-2022 pneumococcal polysaccharide vaccine, 23 valent Diego Patricio MD Work Phone: [facility] 08-27-2021 influenza, high-dose , quadrivalent vaccine (FLUZONE HIGH DOSE QUADRIVALENT) Diego Patricio MD Work Phone: [facility] 08-05-2021 COVID-19 vaccine, ag e 12+ yr (PFIZER-BIONTECH - PURPLE TOP) Diego Patricio MD Work Phone: [facility] 01-28-2021 Covid (Pfizer) Dr. Diego weaver Work Phone: [facility] 01-07-2021 Covid (Pfizer) Dr. Diego weaver Work Phone: [facility] 12-24-2018 pneumococcal conjuga te vaccine, 13 valent Diego Patricio MD Work Phone: [facility] 08-19-2018 influenza, high dose seasonal, preservative-free Diego Patricio MD Work Phone: [facility] Work Phone: 05-29-2016 influenza, high dose seasonal, preservative-free Diego Patricio MD Work Phone: [facility] Work Phone: 05-29-[address] Diego Patricio Work Phone: [facility] 05-29-2016 zoster vaccine, live Diego Patricio MD Work Phone: [facility] Work Phone: 09-16-2013 tetanus toxoid, redu mona diphtheria toxoid, and acellular pertussis vaccine, adsorbed Diego Patricio MD Work Phone: [facility] Work Phone: 10-23-2008 pneumococcal polysaccharide vaccine, 23 valent Diego Patricio MD Work Phone: [facility] Work Phone: Payers Date Payer Category Payer Self-pay [id number] 2025 [facility] [id number] 2024 Medicare (Managed Care) [id number] 2024 Self-pay [id number] 2024 Private Health Insurance [id number] 2021 Medicare UHC MEDICARE UHC DUAL COMPLETE HMO SNP [id number] 2021-[facility] [phone] [address] [place] [id number] Medicare [id number] 2021 Medicare [id number] 2021 Medicaid MEDICAID [facility] MEDICAID [id number] 2021-Present [phone] [address] [place] [address] Medicaid [id number] 2021 Medicaid [id number] 2012 Unknown [facility] *DO NOT USE* [id number] Medicaid [id number] Medicare [id number] Medicare [id number] Medicare [id number] Private Health Insurance [id number] Private Health Insurance [facility] [id number] Unknown [facility] MCRDUAL COMPLETE [id number] Unknown [id number] Unknown [id number] Social History Date Type Detail Facility Start: 03-08-2016 End: 06-16-2024 Tobacco smoking status ILIS Ex-smoker [facility] Work Phone: Start: 10-22-1967 End: 10-22-2014 History of tobacco use Current smoker [facility] Work Phone: Start: 10-22-1967 End: 10-22-2014 History of tobacco use Cigarette Smoker [facility] Work Phone: Start: 03-08-2016 End: 03-11-2024 Cigarettes smoked current (pack per day) - Reported 0.25 [facility] Work Phone: Start: 03-08-2016 End: 06-16-2024 Tobacco use and exposure Smokeless tobacco non-user [facility] Work Phone: Start: 02-07-2022 End: 03-18-2024 Alcohol intake Current non-drinker of alcohol (finding) [facility] Start: 1950 Sex Assigned At Not on file [facility] Start: 01-28-2022 End: 08-04-2022 Exposure to SARS-CoV-2 (event) Not sure [facility] Start: 08-09-2022 Tobacco Comment 4-5 cigarettes per d ay [facility] Start: 07-06-2023 End: 03-11-2024 Tobacco use panel [facility] Work Phone: Start: 09-22-2012 Adult Depression Screening Assessment 0 [facility] Work Phone: Start: 05-01-2023 Tobacco smoking stat [facility] Unknown if ever smoked [facility] Start: 03-31-2021 Rare [facility] Start: 03-31-2021 None [facility] Start: 07-21-2013 W [facility] Start: 03-31-2021 Non-smoker [facility] Start: 1950 Sex Assigned At Male W [facility] How often to you hav e a drink containing alcohol? Never [facility] Start: 07-01-2024 End: 06-18-2025 Alcoholic beverage intake Ex-drinker (finding) [facility] Medical Equipment Procedure Code Equipment Code Equipment Origin al Text Equipment Identifier Dates Sargents Ptfe 1.2 Cm X 10 Cm - [id number] Start: 11-13-2012 Test blood sugar(s) one times daily. Dx: Other DM Code E11.29 Insulin: No [id number], [id number], [id number], [id number] Start: 03-07-2021 End: 02-04-2025 Comment on above: Test blood sugar(s) one times daily. Dx: Other DM Code E11.29 Insulin: No Functional Status Date Assessment Result Facility 06-18-2025 Total score [AUDIT-C] 0 06/18/20 9:26 AM EDT Madyson Pan MA [facility] 02-03-2015 Are you deaf, or do you have serious difficulty hearing No 02/03/2015 4:11 PM EDT Ijeoma Bonner LPN [facility] 02-03-2015 Are you blind, or do you have serious difficulty seeing, even when wearing glasses No 02/03/2015 4:11 PM EDT Ijeoma Bonner LPN [facility] 02-03-2015 Do you have serious difficulty walking or climbing stairs No 02/03/2015 4:11 PM EDT Ijeoma Bonner LPN [facility] 02-03-2015 Do you have difficul ty dressing or bathing No 02/03/2015 4:11 PM EDT Ijeoma Bonner LPN [facility] 02-03-2015 Because of a physica l, mental, or emotional condition, do you have difficulty doing errands alone such as visiting a physician's office or shopping No 02/03/2015 4:11 PM EDT Ijeoma Bonner LPN [facility] Mental Status Date Assessment Result Facility 02-03-2015 Because of a physica l, mental, or emotional condition, do you have serious difficulty concentrating, remembering, or making decisions No 02/03/2015 4:11 PM EDT Ijeoma Bonner LPN [facility] Clinical Notes 10-22-2012 to 06-18-2025 Patient InstructionsDiego Patricio MD - 06/18/2025 9:20 AM Madyson Brothers MA - 06/03/2025 2:46 PM EDTTelephone Encounter - Erika Chacon LPN - 05/12/2025 12:29 PM EDTPatient Instructions Note Date & Type Note Facility 06-18-2025 Instructions Diego Patricio MD - 06/18/2025 9:51 AM EDT Consider getting the shingrix vaccine for the prevention of shingles from a local pharmacy along with the RSV vaccine and a Tdap to update your tetanus. 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 Please get labs done on or after 12/11/2025 prior to your next visit. We discussed your breathing issues: - Continue using Symbicort as prescribed, as it has been helping you breathe more easily. No changes to your medications were made today. - You have not needed your rescue inhaler (Albuterol) and are not waking up at night short of breath, which is a good sign. We will continue monitoring your symptoms. - If your breathing worsens or you feel the Symbicort is no longer effective, we may consider referring you to a lung specialist in the future. We discussed your ear and hearing concerns: - You mentioned decreased hearing and a history of ear itching. Drops previously prescribed have helped with the itching. - During today s visit, we identified wax buildup in one ear. This will be cleaned out before you leave today. - Continue avoiding inserting anything into your ears, such as Q-tips, as previously advised. We discussed your dizziness: - Your occasional dizziness when standing up quickly may be related to your blood pressure, which is on the lower end. This is not concerning at this time, but please take your time when standing up to avoid dizziness. - Let us know if the dizziness becomes more frequent or severe. We discussed your numbness in both hands: - The numbness may be related to irritation of the ulnar nerve. Avoid leaning on your elbows, as this may help reduce symptoms. - You declined further testing (nerve study) at this time but can let us know if you change your mind or if the symptoms worsen. We reviewed your recent lab results: - Your blood sugar control is good, with an A1c of 6.7%. - Your kidney function, liver tests, cholesterol levels, and prostate test were all normal. - Your urine test showed a decrease in protein levels, which is a positive finding. We discussed vaccines: - Consider getting the following vaccines: Shingrix (shingles), RSV, and an updated tetanus shot. These are covered by Medicare if administered at a pharmacy. This information is included in your after-visit instructions. Follow-up: - Your next appointment is scheduled for 6 months from now. Please contact us sooner if you experience any new or worsening symptoms. Let us know if you have any questions or concerns before your next visit. documented in this encounter [facility] 06-18-2025 History of Present illness Narrative Images from the original note were not included. Aureliano Dang is a 75 year old male here for a Medicare wellness visit. Medicare Health Risk Assessment General Health Very good Exercise: Minutes/Day 10 min Exercise: Days/Week 7 days Alcohol: Daily Use Never Alcohol: Drinks/Day Patient does not drink Alcohol: 6 or more drinks Never Feel off balance Yes Concerns: Teeth/Dentures No Concerns: Sexual function No Troubled by feelings None of the above Frequency: Eating healthy diet More than half the days ADLs requiring help None of the above Safety precautions in home/vehicle No (Rugs in home. Following all other safety precautions.) Smoke, vape, chews tobacco No Difficulty hearing Yes Difficulty seeing No Current Providers Specialists: I have reviewed specialist-related care of the patient in the medical record. Medical/Family history review Reviewed and updated problem list, medical/surgical/family/social history, medications, and allergies. Opioid use review Opioid Medications (last 90 days) No data to display Anxiety/Depression screening PHQ-2 Score: 0 (Lower risk for depression) BILLIE-2 Score: 0 (Lower risk for anxiety) Recommendation: no further intervention at this time Cognitive screening Mini Cog Score: 5 Cognitive screening reviewed and No further action needed (score 3-5). Mini-Cog Patient asked to remember the following three words: Banana, [place] and Chair Visuospatial/Executive Functioning: Clock drawin/2 (Normal clock with all number in correct sequence and position, hands are correct = 2 points, inability or refusal to draw a clock = 0) Three word recall: 3/3 Total score: 5/5 (Total score = word recall score + clock draw score) Functional Observation Was the patient's Timed Up & Go test unsteady or >= 12 seconds? No Advance Care Planning Surrogate decision maker and/or advance care plan documented Measurements BP 104/62 (BP Site: Right Arm, BP Position: Sitting, BP Cuff Size: Regular Adult) Pulse (!) 52 Resp 18 Ht 163.2 cm (5' 4.25") Wt 75.1 kg (165 lb 9.6 oz) BMI 28.20 kg/m Vision Screening: Follows with optometry/ophthalmology Assessment/Plan Medicare annual wellness visit, subsequent (Z00.00) - Counseled on healthy diet and regular exercise - Fall avoidance information provided - Personalized prevention plan provided See below Chief Complaint Patient presents with: Medicare Wellness Exam HPI Aureliano Dang is a 75 year old male who presents here today for a routine follow up. Patient with hx of diabetes, CAD, CHF, ischemic cardiomyopathy, MADELIN, COPD, hyperlipidemia, ex smoker, overweight, a.fib after an OH that resolved as well as those as below. Aureliano reports significant improvement in dyspnea since starting Symbicort, prescribed by a nurse practitioner. He denies the need for albuterol use and is not experiencing nocturnal dyspnea. He has a history of multiple consultations with pulmonologists and otolaryngologists, including allergy testing and various treatments, which provided only temporary relief. He discontinued pulmonary follow-up due to discomfort with sleep studies and CPAP therapy, citing a phobia of the equipment. He also reports a history of using Vicks VapoRub intranasally, which led to epistaxis, but he has since discontinued this practice. Aureliano reports a history of pruritus auris, for which he was prescribed ear drops by a nurse practitioner. He now reports decreased hearing, suspecting cerumen impaction. He denies any recent fevers, cephalalgia, hemoptysis, or production of colored sputum. He also denies any recent changes in vision or hearing, cervical lymphadenopathy, or palpitations. He reports chronic lower extremity edema, which has improved over time and is managed with compression socks. He denies any recent changes in heat or cold tolerance, easy bruising, or bleeding. Aureliano reports polyuria, including nocturia, but denies dysuria, hematochezia, hematuria, or heartburn. He also denies any recent nausea, emesis, or diarrhea. He reports symptms possibly related to a new-onset bilateral ulnar neuropathy, which he manages with cushioning but is not interested in further diagnostic studies at this time. He denies any arthralgia or myalgia. Aureliano reports occasional orthostatic dizziness when rising quickly from a seated position, but denies syncope, seizures, or tremors. He denies any symptoms of hypoglycemia. He reports no recent changes in his medication regimen. Past medical history, appointments, medications, allergies reviewed. Previous Medical History PAST MEDICAL HISTORY Diagnosis Date Allergic rhinitis 02/01/2021 Bilateral leg edema 03/18/2024 Calculus of kidney 03/08/2010 Chronic bronchitis ([facility]) 11/14/2024 Moderate obstruction with possible restriction. PFT 10/2024 Chronic obstructive pulmonary disease ([facility]) 02/03/2025 Chronic systolic CHF (congestive heart failure) ([facility]) 11/13/2012 Preop EF 27+/-5%. NSTEMI mod LV mild RV required epinephrine infusion intraop. Post op EF 30+/-5%. - Pulmonary congestion and B effusions on CXR--improving. Lasix 40mg po daily, continue coreg, ACEI Coronary artery disease due to lipid rich plaque 08/08/[address] Decker: 5 vessel CABG 2012 Edema 12/09/2012 Elevated PSA 04/02/2023 Essential hypertension 02/10/2021 Ex-smoker 02/03/2021 Smoked 1/4 pck for about 45 yrs quit 2014 Ex-smoker 02/03/2021 Smoked 1/4 pck for about 45 yrs quit 2014, US 01/2021 Neg for AAA Foot callus 06/18/2025 History of atrial fibrillation 11/16/2012 Secondary to OH but resolved. Sees: Dr. Decker: New onset AF RVR 11/16. Converted to NSR after 30 mins w/ BB/Mg++. 11/18-11/21 Remains in NSR, continue coreg. History of non-ST elevation myocardial infarction (NSTEMI) 11/06/2012 Preop NSTEMI by his history and EKG findings. Mildly Elevated Troponin T. ECHO LVEF 27%. - On ASA/BB/statin and ACEI. ECHO showed improved EF 39%, no pericardial effusion. Ischemic cardiomyopathy 02/10/2021 Seeing Cardio Lung nodule 11/21/[address] scan on 11/09/2012 showed 3-mm noncalcified at the base of the lateral right lower lobe segment (slice 73). Repeat CT 2013 showed no nodules. Medicare annual wellness visit, subsequent 02/07/2022 Medicare Part B: Last done: 02/07/2022 Mixed hyperlipidemia 11/18/2012 Preop lipids: Tri-86, chol-219, HDL-52, LDL-150. Lipitor 40mg started, consider increase to 80mg d/t NSTEMI--can be increased after discharge to assure pt is tolerating dose (d/w Dr. Beasley). Pt to follow up w/ local MD for repeat cholesterol levels in 6 weeks. MADELIN (obstructive sleep apnea) 12/12/2023 Sees [facility] ([facility]efan[facility]) Other proteinuria 02/04/2021 diabetes related. 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 Previous Surgical History PAST SURGICAL HISTORY Procedure Laterality Date CABG (5) VENOUS GRAFTS & ARTERIAL GRAFT(S) 11/13/2012 [facility] COLONOSCOPY FLX DX W/COLLJ SPEC WHEN PFRMD 10/24/2013 Colonoscopy,repeat 10 yrs ESOPHAGOGASTRODUODENOSCOPY TRANSORAL DIAGNOSTIC 10/24/2013 EGD REMV CATARACT EXTRACAP,INSERT LENS one 03/2022 and the other 04/2022 Family History FAMILY HISTORY Problem Relation Age of Onset Hypertension Mother Stroke Mother Patient Allergies ALLERGIES Allergen Reactions Acetaminophen Other: See Comments, Mental Status Change Lisinopril Rash Oxycodone Other: See Comments hallucination Percocet [Oxycodone* Mental Status Change Hallucination Current Medications Current Outpatient Medications on File Prior to Visit Medication Sig carbamide peroxide (DEBROX) 6.5 % otic solution Use 4-5 drops in the ears every hour as needed. carvedilol (COREG) 25 mg tablet Take 1 tablet by mouth two times a day with meals. budesonide-formoterol (SYMBICORT) 160-4.5 mcg/actuation inhaler Inhale 2 puffs as instructed two times a day. Lancets Test blood sugar(s) one times daily. Dx: Other DM Code E11.29 Insulin: No blood sugar diagnostic (BLOOD GLUCOSE TEST) test strip Test blood sugar(s) one times daily. Dx: Other DM Code E11.29 Insulin: No Blood-Glucose Meter Test blood sugar once a day DX E11.29 Insulin: No albuterol HFA (PROVENTIL HFA) 90 mcg/actuation inhaler Inhale 2 Puffs as instructed every 6 hours as needed for wheezing/shortness of breath. atorvastatin (LIPITOR) 40 mg tablet Take 1 tablet by mouth daily at bedtime. dilTIAZem CD (CARDIZEM CD) 120 mg 24 hr capsule Take 1 capsule by mouth once daily. losartan (COZAAR) 100 mg tablet Take 1 tablet by mouth once daily. metFORMIN (GLUCOPHAGE) 500 mg tablet Take 1 tablet by mouth daily with breakfast. diphenhydrAMINE (BENADRYL ALLERGY) 25 mg tablet Take 1 tablet by mouth every 6 hours as needed. nitroglycerin sublingual (NITROQUICK) 0.4 mg SL tablet Dissolve 1 tablet under the tongue as needed. for chest pain,every 5 min x3 Blood-Glucose Meter (TRUE METRIX GLUCOSE METER) Use to check blood sugar once a day. Dx: E11.29, no insulin Blood Glucose Control, Low (TRUE METRIX LEVEL 1) Use as directed to set up machine Blood Glucose Control, Normal (TRUE METRIX LEVEL 2) soln Use as directed to set up machine Blood Glucose Control, High (TRUE METRIX LEVEL 3) Use as directed to set up machine alcohol swabs Apply 1 application to affected area once daily. Blood Pressure Test Kit-Large Check BP once a day or as needed. Dx: I10, I25.5 and I25.10 aspirin 81 mg chewable tablet Take 2 tablets by mouth once daily. No current facility-administered medications on file prior to visit. Social History SOCIAL HISTORY[1] Review of Symptoms REVIEW OF SYSTEMS GENERAL: No weight loss, malaise or fevers HEENT: Negative for frequent or significant headaches, No changes in hearing or vision, no nose bleeds or other nasal problems NECK: Negative for lumps, goiter, pain and significant neck swelling RESPIRATORY: Negative for cough, hemoptysis, see HPI CARDIOVASCULAR: Negative for chest pain, increased leg swelling, hypertension, CHF or palpitations GI: No nausea, vomiting, or diarrhea, No heartburn or reflux symptoms, and no blood : No history of dysuria, blood. Some nocturia of 2-3 times. No hesitancy. MUSCULOSKELETAL: Negative for joint pain or swelling, back pain or muscle pain SKIN: Negative for lesions, rash, and itching PSYCH: Negative for sleep disturbance, mood disorder and recent psychosocial stressors HEMATOLOGY/LYMPHOLOGY: Negative for prolonged bleeding, bruising easily or swollen nodes ENDOCRINE: Negative for cold or heat intolerance, symptoms of low BS's NEURO: No history of headaches, syncope, paralysis, seizures or tremors SEE HPI EXAM: BP 104/62 (BP Site: Right Arm, BP Position: Sitting, BP Cuff Size: Regular Adult) Pulse (!) 52 Resp 18 Ht 163.2 cm (5' 4.25") Wt 75.1 kg (165 lb 9.6 oz) BMI 28.20 kg/m Last 5 Encounter Wt Readings: Date: Wt: 06/18/2025 75.1 kg (165 lb 9.6 oz) 05/12/2025 75.8 kg (167 lb) 04/13/2025 74.8 kg (165 lb) 03/30/2025 75.2 kg (165 lb 12.8 oz) 02/03/2025 75.3 kg (166 lb) General Appearance: Well appearing, alert, in no acute distress, well-hydrated, well nourished.. Skin: Skin color, texture, turgor normal, no suspicious rashes or lesions. Head: Normocephalic, no masses, lesions, tenderness or abnormalities. Eyes: Anicteric sclera. Pupils are equally round and reactive to light. Extraocular movements are intact. . Ears: External ears normal,canal on left is blocked with wax. Canal on right is partially blocked with wax. After removal of wax with ear pick on the right TM was normal. Nose/Sinuses: Nares normal, septum midline, mucosa normal, no drainage or sinus tenderness. Oropharynx: Lips, mucosa, and tongue normal, teeth and gums normal, oropharynx normal. Neck: Supple, no adenopathy; thyroid symmetric, normal size, no bruits. Lungs: Lungs clear to auscultation. No wheezing, rhonchi, rales.. Heart: RRR without murmur, gallop, or rubs. No ectopy. Abdomen: Normal abdominal exam, Abdomen soft, non-tender. Bowel sounds normal. No masses, organomegaly. Extremities: No deformities, skin discoloration, clubbing or cyanosis. Good capillary refill. Has 1+ pitting edema on the right and stable. Has mild pitting edema on the left. . Musculoskeletal: Muscular strength intact, No joint swelling, deformity, or tenderness. Peripheral Pulses: Normal. Neurologic: Gait normal. Reflexes normal and symmetric. Sensation grossly intact.. Genitalia: Normal, Penis normal. No urethral discharge. Scrotum normal to palpation. No hernia.. Rectal: Normal exam. Prostate slightly enlarged with smooth firm capsule. Diabetic Foot Exam: Feet: Shoes and socks removed, normal distal pulses, sensitive to 10 gm microfilament, vibratory exam within normal limits, calluses noted bilaterally, and nails notable for Hypertrophic Skin: warm and dry Vascular Pulses: Normal SEMMES-VITO MONOFILAMENT TESTING Left Foot Right Foot Dorsal Surface Intact Dorsal Surface Intact Plantar Surface Intact Plantar Surface Intact [facility] Maintenance List Medicare Advantage Annual Wellness Visit due on 10/22/2024 DTaP,Tdap,Td Vaccine(2 - Td or Tdap) due on 06/18/2026 RSV Vaccine(1 - 1-dose 75+ series) due on 06/18/2026 Shingrix Vaccine(2 of 3) due on 06/18/2026 Influenza Vaccine(1) due on 06/22/2025 HbA1C due on 11/01/2025 Dilated Retinal Exam due on 11/13/2025 Urine Albumin:Creatinine Ratio due on 05/01/2026 LDL Cholesterol due on 05/01/2026 Diabetic Foot Exam due on 06/18/2026 Annual PCP Team Chronic Disease Visit due on 06/18/2026 Depression Screening due on 06/18/2026 Anxiety Screening due on 06/18/2026 Advance Directive Discussion Completed Hepatitis C Screening Completed Pneumococcal Vaccine: 50+ Completed Colorectal Cancer Screening Discontinued Data reviewed Latest Ref Rng 03/18/2024 05/01/2025 05/12/2025 WBC 3.70 - 11.00 k/uL 8.24 7.95 RBC 4.20 - 6.00 m/uL 5.55 5.45 Hemoglobin 13.0 - 17.0 g/dL 13.9 13.4 Hematocrit 39.0 - 51.0 % 44.9 43.9 MCV 80.0 - 100.0 fL 80.9 80.6 MCH 26.0 - 34.0 pg 25.0 (L) 24.6 (L) MCHC 30.5 - 36.0 g/dL 31.0 30.5 RDW-CV 11.5 - 15.0 % 15.5 (H) 16.0 (H) Platelet Count 150 - 400 k/uL 236 200 MPV 9.0 - 12.7 fL 12.4 14.0 (H) Neut% % 53.0 56.7 Abs Neut (ANC) 1.45 - 7.50 k/uL 4.37 4.51 Lymph% % 26.7 26.7 Abs Lymph 1.00 - 4.00 k/uL 2.20 2.12 [place]% % 7.9 11.4 Abs [place] <0.87 k/uL 0.65 0.91 (H) Eosin% % 11.2 4.0 Abs Eosin <0.46 k/uL 0.92 (H) 0.32 Baso% % 1.0 0.9 Abs Baso <0.11 k/uL 0.08 0.07 Immature Gran % % 0.2 0.3 IMMATURE GRANS (ABS) <0.10 k/uL <0.03 <0.03 NRBC /100 WBC 0.0 0.0 Absolute nRBC <0.01 k/uL <0.01 <0.01 DTYPE Auto Auto Color Yellow Yellow Yellow Clarity Clear Clear Clear Glucose, Urine Negative Negative Negative Bilirubin, Urine Negative Negative Negative Ketones, Urine Negative Negative Trace ! Specific [place], Ur 1.005 - 1.030 1.018 1.020 Hemoglobin/Blood,Ur Negative Negative Negative pH, Urine <8.5 5.5 5.5 Protein, Urine Negative 2+ ! 2+ ! Urobilinogen 0.2-1.0 EU/dL 0.2 EU/dL 1.0 EU/dL Nitrites Negative Negative Negative Leukest Negative Negative Negative WBC, Urine 0-5 /HPF 0-5 /HPF 0-5 /HPF RBC, Urine 0-2 /HPF 3-5 /HPF ! 0-2 /HPF Bacteria Negative /HPF Negative Negative Epithelial Cells /HPF None Seen None Seen Hyaline Cast 0 /LPF 1-3 /LPF ! 1-3 /LPF ! Protein, Total 6.3 - 8.0 g/dL 7.0 7.0 Albumin 3.9 - 4.9 g/dL 4.2 3.9 Calcium 8.5 - 10.2 mg/dL 9.6 10.0 Bilirubin, Total 0.2 - 1.3 mg/dL 0.8 0.4 Alkaline Phosphatase 38 - 113 U/L 82 81 AST 14 - 40 U/L 17 17 ALT 10 - 54 U/L 13 15 Glucose 74 - 99 mg/dL 96 101 (H) BUN 9 - 24 mg/dL 11 18 Creatinine 0.73 - 1.22 mg/dL 0.89 1.16 Sodium 136 - 144 mmol/L 141 143 Potassium 3.7 - 5.1 mmol/L 4.4 5.2 (H) 4.7 Chloride 98 - 107 mmol/L 103 107 CO2 22 - 30 mmol/L 24 25 Anion Gap 8 - 15 mmol/L 14 11 eGFR >=60 mL/min/1.73m 89 65 Total Cholesterol, Nonfasting <200 mg/dL 159 144 Triglycerides, Nonfasting <150 mg/dL 97 70 HDL Cholesterol, Nonfasting >39 mg/dL 46 51 LDL Cholesterol Calculated, Nonfasting <100 mg/dL 94 79 Non HDL Cholesterol, Nonfasting <130 mg/dL 113 93 VLDL Cholesterol, Nonfasting <30 mg/dL 19 11 Total Chol/HDL Ratio, Nonfasting <5.10 mg/dL 3.46 2.82 LDL/HDL Ratio, Nonfasting <2.54 mg/dL 2.04 1.55 Creatinine, Ur Random (UCRR) 20.0 - 300.0 mg/dL 127.6 235.9 Albumin, Urine Random mg/L 585.6 303.7 Albumin/Creat Ratio <30 mg/g 459 (H) 129 (H) Hemoglobin A1C 4.3 - 5.6 % 6.4 (H) 6.7 (H) Estimated Average Glucose mg/dL 137 146 PSA <2.60 ng/mL 2.41 2.52 PSA, Percent Free % 22 31 Legend: (L) Low (H) High ! Abnormal Ambulatory Ear Lavage Pre-treatment: other None, treatment of Debrox few weeks prior Treatment: Left ear Equipment and Irrigation solution and Volume used: Single use syringe with single use irrigation tip Water Other 75% water volume Return flow appearance: Clear Debris Other small wax chunks Patient tolerated procedure: yes Tympanic membrane assessment: Tympanic membrane assessed by LIP pre and post procedure. With PCP removing additional wax from ear. Assessment and Plan 1. Medicare annual wellness visit, subsequent (Z00.00) Routine Medicare annual wellness visit. - Discussed advance directives. - Recommended Shingrix, RSV, and updated tetanus vaccines; advised to obtain at pharmacy. - pt to work on some weight loss. - Follow-up in 6 months. 2. Type 2 diabetes mellitus with other circulatory complication, without long-term current use of insulin ([facility]) (E11.59) 3. Proteinuria due to type 2 diabetes mellitus ([facility]) (E11.29) A1c 6.7% indicating good glycemic control; urine protein excretion decreased; no symptoms of hypoglycemia. - Continue current diabetes management. - Discussed that continuous glucose monitors are not covered by Medicare unless A1c is uncontrolled or patient is on insulin. 4. Essential hypertension (I10) Blood pressure is on the low end, which may be contributing to occasional dizziness. - Continue current management. 5. Mixed hyperlipidemia (E78.2) Triglycerides 70 mg/dL, HDL 51 mg/dL, LDL 79 mg/dL; all within target range. - Continue current management with lipitor 40 mg daily. 6. Coronary artery disease due to lipid rich plaque (I25.10) - pt clinically stable cont current tx and f/u with Cardio for management. 7. Chronic systolic CHF (congestive heart failure) ([facility]) (I50.22) 8. Ischemic cardiomyopathy (I25.5) Chronic systolic CHF and ischemic cardiomyopathy with improved bilateral leg edema. - Continue current management and follow up with cardiology for management. 9. Bilateral leg edema (R60.0) - stable with use of compression socks. 10. Elevated PSA (R97.20) PSA within normal limits on recent testing. - Continue routine monitoring. 11. Chronic obstructive pulmonary disease, unspecified COPD type ([facility]) (J44.9) 12. Chronic bronchitis, unspecified chronic bronchitis type ([facility]) (J42) COPD and chronic bronchitis well controlled with Symbicort; no nocturnal dyspnea or use of rescue inhaler. - Continue Symbicort. - Discussed potential need for pulmonology referral if symptoms worsen. 13. Bilateral impacted cerumen (H61.23) Impacted cerumen in right ear was removed with the use of a lighted ear pick per provider. pt gave verbal consent and tolerated well.. - Discussed irrigation with wam water. Verbal consent provided. left ear was irrigated with warm water for the removal of wax per nursing. Patient tolerated well. However, very little wax was removed. provider then used ear pick and was able remove about 1/2 of the wax without issue. - pt advised on debrox drops and will return in a week to see if left ear needs further irrigation. 14. Overweight (BMI 25.0-29.9) (E66.3) - pt to work on life syle changes and exercise for weight loss. 15. Foot callus (L84) - pt wearing diabetic shoes and would continue to benefit from wearing this type of foot wear to reduce the risk of caluses getting worse ad leading to ulcer formation. 16. Advance directive discussed with patient (Z71.89) - pt to bring in copies. 17. Encounter for screening examination for other mental health and behavioral disorders (Z13.39) - no clinical concerns 18. Screening for depression (Z13.31) - no clinical concerns F/u in a week to re-eval left ear canal F/u 6 months routine check Lipid and A1c prior. Diego DE LA O I spent a total of 55 minutes on the date of the service which included preparing to see the patient, [id number] patient care, completing clinical documentation, performing a medically appropriate examination, counseling and educating the patient/family/caregiver and ordering medications, tests, or procedures. Recording using [employer] software for draft documentation of the visit was discussed with the patient/authorized technology sales representative; all questions welcomed and answered. Patient/authorized technology sales representative agreed to proceed SENSITIVE EXAMINATION CONSENT: The sensitive examination was discussed with the Patient or Patient's Authorized Fitness Director. As applicable, any other physician, advance practice provider, medical student, or other health professional student that will be observing or involved in the sensitive examination for educational or training purposes was discussed with the Patient or Authorized Fitness Director. The Patient or Authorized Fitness Director has agreed to proceed with the sensitive examination. [1] Social History Tobacco Use Smoking status: Former Current packs/day: 0.00 Average packs/day: 0.3 packs/day for 45.0 years (11.3 ttl pk-yrs) Types: Cigarettes Start date: 1967 Quit date: 2012 Years since quittin.6 Smokeless tobacco: Never Tobacco comments: 4-5 cigarettes per day Vaping Use Vaping status: Never Used Substance Use Topics Alcohol use: Not Currently Drug use: Never documented in this encounter [facility] 06-18-2025 Note HNO ID: [id number] Author: DIEGO PATRICIO MD Service: ? Author Type: Physician Type: Progress Notes Filed: 06/18/2025 20:50 Note Text: Aureliano Dang is a 75 year old male here for a Medicare wellness visit. Medicare Health Risk Assessment General Health Very good Exercise: Minutes/Day 10 min Exercise: Days/Week 7 days Alcohol: Daily Use Never Alcohol: Drinks/Day Patient does not drink Alcohol: 6 or more drinks Never Feel off balance Yes Concerns: Teeth/Dentures No Concerns: Sexual function No Troubled by feelings None of the above Frequency: Eating healthy diet More than half the days ADLs requiring help None of the above Safety precautions in home/vehicle No (Rugs in home. Following all other safety precautions.) Smoke, vape, chews tobacco No Difficulty hearing Yes Difficulty seeing No Current Providers Specialists: I have reviewed specialist-related care of the patient in the medical record. Medical/Family history review Reviewed and updated problem list, medical/surgical/family/social history, medications, and allergies. Opioid use review Opioid Medications (last 90 days) No data to display Anxiety/Depression screening PHQ-2 Score: 0 (Lower risk for depression) BILLIE-2 Score: 0 (Lower risk for anxiety) Recommendation: no further intervention at this time Cognitive screening Mini Cog Score: 5 Cognitive screening reviewed and No further action needed (score 3-5). Mini-Cog Patient asked to remember the following three words: Banana, [place] and Chair Visuospatial/Executive Functioning: Clock drawin/2 (Normal clock with all number in correct sequence and position, hands are correct = 2 points, inability or refusal to draw a clock = 0) Three word recall: 3/3 Total score: 5/5 (Total score = word recall score + clock draw score) Functional Observation Was the patient's Timed Up AND Go test unsteady or >= 12 seconds? No Advance Care Planning Surrogate decision maker and/or advance care plan documented Measurements BP 104/62 (BP Site: Right Arm, BP Position: Sitting, BP Cuff Size: Regular Adult) Pulse (!) 52 Resp 18 Ht 163.2 cm (5' 4.25") Wt 75.1 kg (165 lb 9.6 oz) BMI 28.20 kg/m? Vision Screening: Follows with optometry/ophthalmology Assessment/Plan Medicare annual wellness visit, subsequent (Z00.00) - Counseled on healthy diet and regular exercise - Fall avoidance information provided - Personalized prevention plan provided See below Chief Complaint Patient presents with: Medicare Wellness Exam HPI Aureliano Dang is a 75 year old male who presents here today for a routine follow up. Patient with hx of diabetes, CAD, CHF, ischemic cardiomyopathy, MADELIN, COPD, hyperlipidemia, ex smoker, overweight, a.fib after an OH that resolved as well as those as below. Aureliano reports significant improvement in dyspnea since starting Symbicort, prescribed by a nurse practitioner. He denies the need for albuterol use and is not experiencing nocturnal dyspnea. He has a history of multiple consultations with pulmonologists and otolaryngologists, including allergy testing and various treatments, which provided only temporary relief. He discontinued pulmonary follow-up due to discomfort with sleep studies and CPAP therapy, citing a phobia of the equipment. He also reports a history of using Vicks VapoRub intranasally, which led to epistaxis, but he has since discontinued this practice. Aureliano reports a history of pruritus auris, for which he was prescribed ear drops by a nurse practitioner. He now reports decreased hearing, suspecting cerumen impaction. He denies any recent fevers, cephalalgia, hemoptysis, or production of colored sputum. He also denies any recent changes in vision or hearing, cervical lymphadenopathy, or palpitations. He reports chronic lower extremity edema, which has improved over time and is managed with compression socks. He denies any recent changes in heat or cold tolerance, easy bruising, or bleeding. Aureliano reports polyuria, including nocturia, but denies dysuria, hematochezia, hematuria, or heartburn. He also denies any recent nausea, emesis, or diarrhea. He reports symptms possibly related to a new-onset bilateral ulnar neuropathy, which he manages with cushioning but is not interested in further diagnostic studies at this time. He denies any arthralgia or myalgia. Aureliano reports occasional orthostatic dizziness when rising quickly from a seated position, but denies syncope, seizures, or tremors. He denies any symptoms of hypoglycemia. He reports no recent changes in his medication regimen. Past medical history, appointments, medications, allergies reviewed. Previous Medical History PAST MEDICAL HISTORY Diagnosis Date Allergic rhinitis 02/01/2021 Bilateral leg edema 03/18/2024 Calculus of kidney 03/08/2010 Chronic bronchitis (HCC) 11/14/2024 Moderate obstruction with possible restriction. PFT 10/2024 (more content not included)... [facility] 06-03-2025 Note HNO ID: [id number] Author: MADYSON PAN MA Service: ? Author Type: Snaker Type: Progress Notes Filed: 06/03/2025 14:47 Note Text: Scan on 06/03/2025 11:56 AM by ProviderJessica PA-C: [facility] 06-03-2025 History of Present illness Narrative Scan on 06/03/2025 11:56 AM by ProviderJessica PA-C: [facility] documented in this encounter [facility] 05-12-2025 Telephone encounter Note Pt notified of same. Erika Chacon LPN [facility] 05-12-2025 Miscellaneous Notes Pt notified of same. Erika Chacon LPN Repeat potassium is normal. documented in this encounter [facility] 05-12-2025 Telephone encounter Note Repeat potassium is normal. [facility] 05-12-2025 Note HNO ID: [id number] Author: KELLY WALTON PA-C Service: ? Author Type: Physician Endless Bed Drum Sander Type: Progress Notes Filed: 05/12/2025 10:28 Note Text: Chief Complaint No chief complaint on file. LYNDA Dang is a 75 year old male who presents here today for Office visit. Patient was scheduled for wellness exam however was late for visit and wanted to discuss COPD treatment and ear concerns COPD: - Symbicort providing significant relief. - Previously used Vicks VapoRub intranasally, which caused nasal irritation and epistaxis. - Denies chest pain or neck swelling. Ear Itching: - Persistent pruritus in both ears. - Attempts to alleviate with matchsticks; denies using ear drops. Diabetes Mellitus: - Recent A1c: 6.7%. - Previous A1c values: 6.9%, 6.3%, 6.8%. Lifestyle: - Former smoker; denies current tobacco use. Past medical history, appointments, medications, allergies reviewed. Previous Medical History PAST MEDICAL HISTORY Diagnosis Date Allergic rhinitis 02/01/2021 Bilateral leg edema 03/18/2024 Calculus of kidney 03/08/2010 Chronic obstructive pulmonary disease (HCC) 02/03/2025 Chronic systolic CHF (congestive heart failure) (HCC) 11/13/2012 Preop EF 27+/-5%. NSTEMI mod LV mild RV required epinephrine infusion intraop. Post op EF 30+/-5%. - Pulmonary congestion and B effusions on CXR--improving. Lasix 40mg po daily, continue coreg, ACEI Coronary artery disease due to lipid rich plaque 08/08/[address] Decker: 5 vessel CABG 2012 Edema 12/09/2012 Elevated PSA 04/02/2023 Essential hypertension 02/10/2021 Ex-smoker 02/03/2021 Smoked 1/4 pck for about 45 yrs quit 2014 Ex-smoker 02/03/2021 Smoked 1/4 pck for about 45 yrs quit 2014, US 01/2021 Neg for AAA History of atrial fibrillation 11/16/2012 Secondary to OH but resolved. Sees: Dr. Decker: New onset AF RVR 11/16. Converted to NSR after 30 mins w/ BB/Mg++. 11/18-11/21 Remains in NSR, continue coreg. History of non-ST elevation myocardial infarction (NSTEMI) 11/06/2012 Preop NSTEMI by his history and EKG findings. Mildly Elevated Troponin T. ECHO LVEF 27%. - On ASA/BB/statin and ACEI. ECHO showed improved EF 39%, no pericardial effusion. Ischemic cardiomyopathy 02/10/2021 Seeing Cardio Lung nodule 11/21/[address] scan on 11/09/2012 showed 3-mm noncalcified at the base of the lateral right lower lobe segment (slice 73). Repeat CT 2013 showed no nodules. Medicare annual wellness visit, subsequent 02/07/2022 Medicare Part B: Last done: 02/07/2022 Mixed hyperlipidemia 11/18/2012 Preop lipids: Tri-86, chol-219, HDL-52, LDL-150. Lipitor 40mg started, consider increase to 80mg d/t NSTEMI--can be increased after discharge to assure pt is tolerating dose (d/w Dr. Beasley). Pt to follow up w/ local MD for repeat cholesterol levels in 6 weeks. MADELIN (obstructive sleep apnea) 12/12/2023 Sees [facility] (Sant[facility]an[facility]) Other proteinuria 02/04/2021 diabetes related. 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 Previous Surgical History PAST SURGICAL HISTORY Procedure Laterality Date CABG (5) VENOUS GRAFTS AND ARTERIAL GRAFT(S) 11/13/2012 [facility] COLONOSCOPY FLX DX W/COLLJ SPEC WHEN PFRMD 10/24/2013 Colonoscopy,repeat 10 yrs ESOPHAGOGASTRODUODENOSCOPY TRANSORAL DIAGNOSTIC 10/24/2013 EGD REMV CATARACT EXTRACAP,INSERT LENS one 03/2022 and the other 04/2022 Family History FAMILY HISTORY Problem Relation Age of Onset Hypertension Mother Stroke Mother Patient Allergies ALLERGIES Allergen Reactions Acetaminophen Other: See Comments, Mental Status Change Lisinopril Rash Oxycodone Other: See Comments hallucination Percocet [Oxycodone* Mental Status Change Hallucination Current Medications Current Outpatient Medications on File Prior to Visit Medication Sig carvedilol (COREG) 25 mg tablet Take 1 tablet by mouth two times a day with meals. budesonide-formoterol (SYMBICORT) 160-4.5 mcg/actuation inhaler Inhale 2 puffs as instructed two times a day. Lancets Test blood sugar(s) one times daily. Dx: Other DM Code E11.29 Insulin: No blood sugar diagnostic (BLOOD GLUCOSE TEST) test strip Test blood sugar(s) one times daily. Dx: Other DM Code E11.29 Insulin: No Blood-Glucose Meter Test blood sugar once a day DX E11.29 Insulin: No albuterol HFA (PROVENTIL HFA) 90 mcg/actuation inhaler Inhale 2 Puffs as instructed every 6 hours as needed for wheezing/shortness of breath. atorvastatin (LIPITOR) 40 mg tablet Take 1 tablet by mouth daily at bedtime. dilTIAZem CD (CARDIZEM CD) 120 mg 24 hr capsule Take 1 capsule by mouth once daily. losartan (COZAAR) 100 mg tablet Take 1 tablet by mouth once daily. metFORMIN (GLUCOPHAGE) 500 mg tablet Take 1 tablet by mouth daily with breakfast. diphenhydrAMINE (BENADRYL ALLERGY) 25 mg tablet Take (more content not included)... [facility] 05-12-2025 History of Present illness Narrative Chief Complaint No chief complaint on file. LYNDA Dang is a 75 year old male who presents here today for Office visit. Patient was scheduled for wellness exam however was late for visit and wanted to discuss COPD treatment and ear concerns COPD: - Symbicort providing significant relief. - Previously used Vicks VapoRub intranasally, which caused nasal irritation and epistaxis. - Denies chest pain or neck swelling. Ear Itching: - Persistent pruritus in both ears. - Attempts to alleviate with matchsticks; denies using ear drops. Diabetes Mellitus: - Recent A1c: 6.7%. - Previous A1c values: 6.9%, 6.3%, 6.8%. Lifestyle: - Former smoker; denies current tobacco use. Past medical history, appointments, medications, allergies reviewed. Previous Medical History PAST MEDICAL HISTORY Diagnosis Date Allergic rhinitis 02/01/2021 Bilateral leg edema 03/18/2024 Calculus of kidney 03/08/2010 Chronic obstructive pulmonary disease (HCC) 02/03/2025 Chronic systolic CHF (congestive heart failure) (HCC) 11/13/2012 Preop EF 27+/-5%. NSTEMI mod LV mild RV required epinephrine infusion intraop. Post op EF 30+/-5%. - Pulmonary congestion and B effusions on CXR--improving. Lasix 40mg po daily, continue coreg, ACEI Coronary artery disease due to lipid rich plaque 08/08/[address] Decker: 5 vessel CABG 2012 Edema 12/09/2012 Elevated PSA 04/02/2023 Essential hypertension 02/10/2021 Ex-smoker 02/03/2021 Smoked 1/4 pck for about 45 yrs quit 2014 Ex-smoker 02/03/2021 Smoked 1/4 pck for about 45 yrs quit 2014, US 01/2021 Neg for AAA History of atrial fibrillation 11/16/2012 Secondary to OH but resolved. Sees: Dr. Decker: New onset AF RVR 11/16. Converted to NSR after 30 mins w/ BB/Mg++. 11/18-11/21 Remains in NSR, continue coreg. History of non-ST elevation myocardial infarction (NSTEMI) 11/06/2012 Preop NSTEMI by his history and EKG findings. Mildly Elevated Troponin T. ECHO LVEF 27%. - On ASA/BB/statin and ACEI. ECHO showed improved EF 39%, no pericardial effusion. Ischemic cardiomyopathy 02/10/2021 Seeing Cardio Lung nodule 11/21/[address] scan on 11/09/2012 showed 3-mm noncalcified at the base of the lateral right lower lobe segment (slice 73). Repeat CT 2013 showed no nodules. Medicare annual wellness visit, subsequent 02/07/2022 Medicare Part B: Last done: 02/07/2022 Mixed hyperlipidemia 11/18/2012 Preop lipids: Tri-86, chol-219, HDL-52, LDL-150. Lipitor 40mg started, consider increase to 80mg d/t NSTEMI--can be increased after discharge to assure pt is tolerating dose (d/w Dr. Beasley). Pt to follow up w/ local MD for repeat cholesterol levels in 6 weeks. MADELIN (obstructive sleep apnea) 12/12/2023 Sees [facility] ([facility]) Other proteinuria 02/04/2021 diabetes related. 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 Previous Surgical History PAST SURGICAL HISTORY Procedure Laterality Date CABG (5) VENOUS GRAFTS & ARTERIAL GRAFT(S) 11/13/2012 [facility] COLONOSCOPY FLX DX W/COLLJ SPEC WHEN PFRMD 10/24/2013 Colonoscopy,repeat 10 yrs ESOPHAGOGASTRODUODENOSCOPY TRANSORAL DIAGNOSTIC 10/24/2013 EGD REMV CATARACT EXTRACAP,INSERT LENS one 03/2022 and the other 04/2022 Family History FAMILY HISTORY Problem Relation Age of Onset Hypertension Mother Stroke Mother Patient Allergies ALLERGIES Allergen Reactions Acetaminophen Other: See Comments, Mental Status Change Lisinopril Rash Oxycodone Other: See Comments hallucination Percocet [Oxycodone* Mental Status Change Hallucination Current Medications Current Outpatient Medications on File Prior to Visit Medication Sig carvedilol (COREG) 25 mg tablet Take 1 tablet by mouth two times a day with meals. budesonide-formoterol (SYMBICORT) 160-4.5 mcg/actuation inhaler Inhale 2 puffs as instructed two times a day. Lancets Test blood sugar(s) one times daily. Dx: Other DM Code E11.29 Insulin: No blood sugar diagnostic (BLOOD GLUCOSE TEST) test strip Test blood sugar(s) one times daily. Dx: Other DM Code E11.29 Insulin: No Blood-Glucose Meter Test blood sugar once a day DX E11.29 Insulin: No albuterol HFA (PROVENTIL HFA) 90 mcg/actuation inhaler Inhale 2 Puffs as instructed every 6 hours as needed for wheezing/shortness of breath. atorvastatin (LIPITOR) 40 mg tablet Take 1 tablet by mouth daily at bedtime. dilTIAZem CD (CARDIZEM CD) 120 mg 24 hr capsule Take 1 capsule by mouth once daily. losartan (COZAAR) 100 mg tablet Take 1 tablet by mouth once daily. metFORMIN (GLUCOPHAGE) 500 mg tablet Take 1 tablet by mouth daily with breakfast. diphenhydrAMINE (BENADRYL ALLERGY) 25 mg tablet Take 1 tablet by mouth every 6 hours as needed. fluticasone (FLONASE) 50 mcg/actuation nasal spray Use 2 Sprays in each nostril once daily. Rinse mouth after use. (Patient not taking: Reported on 05/12/2025) nitroglycerin sublingual (NITROQUICK) 0.4 mg SL tablet Dissolve 1 tablet under the tongue as needed. for chest pain,every 5 min x3 Blood-Glucose Meter (TRUE METRIX GLUCOSE METER) Use to check blood sugar once a day. Dx: E11.29, no insulin Blood Glucose Control, Low (TRUE METRIX LEVEL 1) Use as directed to set up machine Blood Glucose Control, Normal (TRUE METRIX LEVEL 2) soln Use as directed to set up machine Blood Glucose Control, High (TRUE METRIX LEVEL 3) Use as directed to set up machine alcohol swabs Apply 1 application to affected area once daily. Blood Pressure Test Kit-Large Check BP once a day or as needed. Dx: I10, I25.5 and I25.10 aspirin 81 mg chewable tablet Take 2 tablets by mouth once daily. No current facility-administered medications on file prior to visit. Social History Social History Tobacco Use Smoking status: Former Current packs/day: 0.00 Average packs/day: 0.3 packs/day for 45.0 years (11.3 ttl pk-yrs) Types: Cigarettes Start date: 1967 Quit date: 2012 Years since quittin.5 Smokeless tobacco: Never Tobacco comments: 4-5 cigarettes per day Vaping Use Vaping status: Never Used Substance Use Topics Alcohol use: Not Currently Drug use: Never Review of Symptoms REVIEW OF SYSTEMS GENERAL: No weight loss, malaise or fevers NECK: Negative for lumps, goiter, pain and significant neck swelling RESPIRATORY: Negative for cough, hemoptysis, wheezing, COPD, dyspnea or shortness of breath CARDIOVASCULAR: Negative for chest pain, leg swelling, CHF or palpitations NEURO: No history of headaches, syncope, paralysis, seizures or tremors SEE HPI EXAM: BP 96/66 (BP Site: Left Arm, BP Position: Sitting, BP Cuff Size: Large Adult) Pulse 64 Temp 36.1 C (97 F) Resp 18 Wt 75.8 kg (167 lb) SpO2 98% BMI 28.34 kg/m General Appearance: Well appearing, alert, in no acute distress, well-hydrated, well nourished.. Neck: Supple, no adenopathy; thyroid symmetric, normal size, no bruits. Lungs: Lungs clear to auscultation. No wheezing, rhonchi, rales.. Heart: RRR without murmur, gallop, or rubs. No ectopy. Ears: bilateral cerumen impaction noted. Health Maintenance List Shingrix Vaccine(2 of 3) due on 07/24/2016 Dilated Retinal Exam due on 02/25/2022 RSV Vaccine(1 - 1-dose 75+ series) Never done DTaP,Tdap,Td Vaccine(2 - Td or Tdap) due on 09/16/2023 Medicare Advantage Annual Wellness Visit due on 10/22/2024 Diabetic Foot Exam due on 04/25/2025 Depression Screening due on 04/25/2025 Anxiety Screening due on 04/25/2025 Influenza Vaccine(1) due on 06/22/2025 HbA1C due on 11/01/2025 Urine Albumin:Creatinine Ratio due on 05/01/2026 LDL Cholesterol due on 05/01/2026 Annual PCP Team Chronic Disease Visit due on 05/12/2026 Advance Directive Discussion Completed Hepatitis C Screening Completed Pneumococcal Vaccine: 50+ Completed Colorectal Cancer Screening Discontinued Covid-19 Vaccine Discontinued Data reviewed Latest Ref Rng 05/01/2025 WBC 3.70 - 11.00 k/uL 7.95 RBC 4.20 - 6.00 m/uL 5.45 Hemoglobin 13.0 - 17.0 g/dL 13.4 Hematocrit 39.0 - 51.0 % 43.9 MCV 80.0 - 100.0 fL 80.6 MCH 26.0 - 34.0 pg 24.6 (L) MCHC 30.5 - 36.0 g/dL 30.5 RDW-CV 11.5 - 15.0 % 16.0 (H) Platelet Count 150 - 400 k/uL 200 MPV 9.0 - 12.7 fL 14.0 (H) Neut% % 56.7 Abs Neut (ANC) 1.45 - 7.50 k/uL 4.51 Lymph% % 26.7 Abs Lymph 1.00 - 4.00 k/uL 2.12 [place]% % 11.4 Abs [place] <0.87 k/uL 0.91 (H) Eosin% % 4.0 Abs Eosin <0.46 k/uL 0.32 Baso% % 0.9 Abs Baso <0.11 k/uL 0.07 Immature Gran % % 0.3 IMMATURE GRANS (ABS) <0.10 k/uL <0.03 NRBC /100 WBC 0.0 Absolute nRBC <0.01 k/uL <0.01 DTYPE Auto Color Yellow Yellow Clarity Clear Clear Glucose, Urine Negative Negative Bilirubin, Urine Negative Negative Ketones, Urine Negative Trace ! Specific [place], Ur 1.005 - 1.030 1.020 Hemoglobin/Blood,Ur Negative Negative pH, Urine <8.5 5.5 Protein, Urine Negative 2+ ! Urobilinogen 0.2-1.0 EU/dL 1.0 EU/dL Nitrites Negative Negative Leukest Negative Negative WBC, Urine 0-5 /HPF 0-5 /HPF RBC, Urine 0-2 /HPF 0-2 /HPF Bacteria Negative /HPF Negative Epithelial Cells /HPF None Seen Hyaline Cast 0 /LPF 1-3 /LPF ! Protein, Total 6.3 - 8.0 g/dL 7.0 Albumin 3.9 - 4.9 g/dL 3.9 Calcium 8.5 - 10.2 mg/dL 10.0 Bilirubin, Total 0.2 - 1.3 mg/dL 0.4 Alkaline Phosphatase 38 - 113 U/L 81 AST 14 - 40 U/L 17 ALT 10 - 54 U/L 15 Glucose 74 - 99 mg/dL 101 (H) BUN 9 - 24 mg/dL 18 Creatinine 0.73 - 1.22 mg/dL 1.16 Sodium 136 - 144 mmol/L 143 Potassium 3.7 - 5.1 mmol/L 5.2 (H) Chloride 98 - 107 mmol/L 107 CO2 22 - 30 mmol/L 25 Anion Gap 8 - 15 mmol/L 11 eGFR >=60 mL/min/1.73m 65 Total Cholesterol, Nonfasting <200 mg/dL 144 Triglycerides, Nonfasting <150 mg/dL 70 HDL Cholesterol, Nonfasting >39 mg/dL 51 LDL Cholesterol Calculated, Nonfasting <100 mg/dL 79 Non HDL Cholesterol, Nonfasting <130 mg/dL 93 VLDL Cholesterol, Nonfasting <30 mg/dL 11 Total Chol/HDL Ratio, Nonfasting <5.10 mg/dL 2.82 LDL/HDL Ratio, Nonfasting <2.54 mg/dL 1.55 Creatinine, Ur Random (UCRR) 20.0 - 300.0 mg/dL 235.9 Albumin, Urine Random mg/L 303.7 Albumin/Creat Ratio <30 mg/g 129 (H) Hemoglobin A1C 4.3 - 5.6 % 6.7 (H) Estimated Average Glucose mg/dL 146 PSA <2.60 ng/mL 2.52 PSA, Percent Free % 31 Legend: (L) Low (H) High ! Abnormal Assessment and Plan 1. Chronic obstructive pulmonary disease, unspecified COPD type ([facility]) (J44.9) - Symptoms well-controlled with Symbicort; no chest pain or dyspnea reported. - Discussed financial concerns regarding Symbicort cost; patient informed that cost is $47/month after this month. suspect due to an out of pocket deductible he has to meet.. - Advised patient to explore Medicare plans with better prescription coverage for next year. - Continue current Symbicort regimen. 2. Bilateral impacted cerumen (H61.23) - Noted dry cerumen on examination. - Recommended [id number] ear drops to soften cerumen; prescription sent to [facility]. - Follow-up in 4 weeks for full wellness exam and re-evaluation of ear canals. 3. Hyperkalemia (E87.5) - Recent labs show potassium slightly elevated by 0.1 point. - Ordered repeat potassium level today to monitor for further elevation. 4. Type 2 diabetes mellitus with other circulatory complication, without long-term current use of insulin ([facility]) (E11.59) - Hemoglobin A1c is 6.7%, slightly higher than last year but still at goal. - Urinalysis shows small amount of proteinuria, improved from last year and consistent with baseline over the past 3 years. - Continue current management; re-evaluate in 4 weeks. 5. Chronic systolic CHF (congestive heart failure) ([facility]) (I50.22) - continue with cardiology. Kelly Walton PA-C Recording using [employer] software for draft documentation of the visit was discussed with the patient/authorized technology sales representative; all questions welcomed and answered. Patient/authorized technology sales representative agreed to proceed documented in this encounter [facility] 05-05-2025 Telephone encounter Note .Prescription Refill Information The patient has been identified by name and date of : Yes Caregiver verified no other encounters exist for this prescription request: No Caregiver confirmed with patient/requestor that no other refills are due, in the near future, with this provider at this time: Yes The last office visit in the department: 04/13/2025 Does the patient have a future office visit with this provider/department: Yes Requested Prescriptions Pending Prescriptions Disp Refills carvedilol (COREG) 25 mg tablet 180 tablet 3 Sig: Take 1 tablet by mouth two times a day with meals. Ayad Irvin May 05, 2025 11:46 AM [facility] 05-05-2025 Miscellaneous Notes .Prescription Refill Information The patient has been identified by name and date of : Yes Caregiver verified no other encounters exist for this prescription request: No Caregiver confirmed with patient/requestor that no other refills are due, in the near future, with this provider at this time: Yes The last office visit in the department: 04/13/2025 Does the patient have a future office visit with this provider/department: Yes Requested Prescriptions Pending Prescriptions Disp Refills carvedilol (COREG) 25 mg tablet 180 tablet 3 Sig: Take 1 tablet by mouth two times a day with meals. Ayad Irvin May 05, 2025 11:46 AM documented in this encounter [facility] 04-30-2025 Telephone encounter Note Noted. Kelly Walton PA-C [facility] [facility] 04-30-2025 Miscellaneous Notes Noted. Kelly Walton PA-C Spoke with pt and reviewed Kelly's message. Pt states "it's like when you eat a hamburger with sauce on it, it's good something you like but if you add pepper it wouldn't be good" he advises that the Symbicort suited his body chemistry and worked well for him. He wasn't sure about the Breo. He advises that it helps to know that the medications are in the same class of medications. Pt advises that this answers his question enough. Does not want pulm consult. Advised pt that if Breo doesn't work as well for him he can always switch back but this may cost him more. Pt verbalizes understanding. Advised pt if he changes his mind about pulm consult to contact office. Pt advises again that all of his questions have been answered. Erika Chacon LPN Please find out why he wants the ingredients to Breo? Breo and symbicort is in same class of medication. Symbicort is brand name for the combo of Budesonide-formoterol Breo is brand name for combo of the generic fluticasone-vilanterol. I'm not sure why he is asking for the ingredient list and therefore don't know how to better answer this question. I won't be able to spend a lot of time on this during his medicare wellness as we do a comprehensive exam/review and any acute concerns should be scheduled separately. I would be happy to have him see Pulmonology to discuss these meds in more detail if he has questions more advanced than my knowledge base. Thanks, Kelly Walton PA-C documented in this encounter [facility] 04-30-2025 Telephone encounter Note Spoke with pt and reviewed Kelly's message. Pt states "it's like when you eat a hamburger with sauce on it, it's good something you like but if you add pepper it wouldn't be good" he advises that the Symbicort suited his body chemistry and worked well for him. He wasn't sure about the Breo. He advises that it helps to know that the medications are in the same class of medications. Pt advises that this answers his question enough. Does not want pulm consult. Advised pt that if Breo doesn't work as well for him he can always switch back but this may cost him more. Pt verbalizes understanding. Advised pt if he changes his mind about pulm consult to contact office. Pt advises again that all of his questions have been answered. Erika Chacon LPN [facility] 04-29-2025 Telephone encounter Note Please find out why he wants the ingredients to Breo? Breo and symbicort is in same class of medication. Symbicort is brand name for the combo of Budesonide-formoterol Breo is brand name for combo of the generic fluticasone-vilanterol. I'm not sure why he is asking for the ingredient list and therefore don't know how to better answer this question. I won't be able to spend a lot of time on this during his medicare wellness as we do a comprehensive exam/review and any acute concerns should be scheduled separately. I would be happy to have him see Pulmonology to discuss these meds in more detail if he has questions more advanced than my knowledge base. Thanks, Kelly Walton PA-C [facility] 04-29-2025 Note HNO ID: [id number] Author: MIRANDA CLAY MSW Service: ? Author Type: Lamp Wirer Type: Progress Notes Filed: 04/30/2025 10:55 Note Text: Patient notes that he checked with pharmacy and has spent out $325 on prescriptions, so has not met the $600 out of pocket on prescriptions for [employer]-Breo. Patient notes that he plans on discussing further with SAMAN Mendoza when in for office visit on 05/12. Patient notes that he would like message passed along to SAMAN Mendoza so that she is able to give him a "detailed outline of what is in Breo, when if for office visit." [facility] 04-29-2025 History of Present illness Narrative Patient notes that he checked with pharmacy and has spent out $325 on prescriptions, so has not met the $600 out of pocket on prescriptions for [employer]-Breo. Patient notes that he plans on discussing further with SAMAN Mendoza when in for office visit on 05/12. Patient notes that he would like message passed along to SAMAN Mendoza so that she is able to give him a detailed outline of what is in Breo, when if for office visit." Sw called patient to discuss below note from SAMAN Mendoza. Sw left message for patient to return Sw call. Let patient know that it's in the same class of symbicort just is a powder form so the device is different. If he prefers to stay with symbicort, that is completely fine, we were just trying to help him find something that might be more affordable for him. Even though these meds are in the same class of medication, he may still find that one works better than the other. So we may try breo and it may not work as well as symbicort. This decision is completely up to him. I can also put in a consult to pulmonology if he would like. Kelly Walton PA-C Patient stopped to see SW in regards to inhaler assistance. Sw noted to patient that SAMAN Mendoza gave option of breo as inhaler alternative to symbicort. Symbicort does not have PAP program. Patient noted that he did like the Symbicort and it worked well for him. Patient asking about ingredients in the breo. Patient noted would like to know what is in breo. Sw noted that she would send note to SAMAN Mendoza to speak with patient further about this. Patient also notes that he is going to check with [facility] pharmacy in regards to how much he has spent out year to date at pharmacy. [employer]-Breo has $600 out of pocket spend out requirement. Could you reach out to patient to review and discuss patient question about breo? documented in this encounter [facility] 04-28-2025 Note HNO ID: [id number] Author: MIRANDA CLAY MSW Service: ? Author Type: Lamp Wirer Type: Progress Notes Filed: 04/30/2025 10:55 Note Text: Sw called patient to discuss below note from SAMAN Mendoza. Sw left message for patient to return Sw call. [facility] 04-27-2025 Note HNO ID: [id number] Author: KELLY WALTON PA-C Service: ? Author Type: Physician Endless Bed Drum Sander Type: Progress Notes Filed: 04/30/2025 10:55 Note Text: Let patient know that it's in the same class of symbicort just is a powder form so the device is different. If he prefers to stay with symbicort, that is completely fine, we were just trying to help him find something that might be more affordable for him. Even though these meds are in the same class of medication, he may still find that one works better than the other. So we may try breo and it may not work as well as symbicort. This decision is completely up to him. I can also put in a consult to pulmonology if he would like. Kelly Walton PA-C [facility] 04-27-2025 Note HNO ID: [id number] Author: MIRANDA CLAY MSW Service: ? Author Type: Lamp Wirer Type: Progress Notes Filed: 04/30/2025 10:55 Note Text: Patient stopped to see SW in regards to inhaler assistance. Sw noted to patient that SAMAN Mendoza gave option of breo as inhaler alternative to symbicort. Symbicort does not have PAP program. Patient noted that he did like the Symbicort and it worked well for him. Patient asking about ingredients in the breo. Patient noted would like to know what is in breo. Sw noted that she would send note to SAMAN Mendoza to speak with patient further about this. Patient also notes that he is going to check with [facility] pharmacy in regards to how much he has spent out year to date at pharmacy. [employer]-Breo has $600 out of pocket spend out requirement. Could you reach out to patient to review and discuss patient question about breo? [facility] 04-16-2025 Telephone encounter Note Patient and Sw spoke and set up office visit for 04/27/25 to discuss inhaler patient assistance options. [facility] 04-16-2025 Miscellaneous Notes Patient and Sw spoke and set up office visit for 04/27/25 to discuss inhaler patient assistance options. Sw spoke with patient and he reports that he has to go and mushroom picker his spouse at 2pm. Will give SW call at 2:30 to discuss inhaler patient assistance. Sw left message for patient to call Sw back to see what patient learned from insurance per symbicort cost issue. SAMAN Mendoza noted patient was checking with insurance on this. Sw also verifying with SAMAN Mendoza that Breo would be good alternative. SAMAN Mendoza mentioned she preferred Advair, but after checking with [employer] it is no longer available on their program. Sw will be out of the office tomorrow, 04/15, but will return on , 04/16 and will hopefully speak with patient at that time. Advair is no longer available through [employer] PAP. Sw just spoke with company and this inhaler has been removed from their assistance. Okay for Breo? It is still on the [employer] assistance program. Breo and Advair are both inhalers that are through [employer] There is an out of pocket spend out at pharmacy of $600 and income guideline to meet. Sw can work on reaching out to patient to discuss [employer] PAP info. Symbicort inhaler does not have a patient assistance program available. Is there an alternative inhaler you would like SW to look at for assistance? documented in this encounter [facility] 04-16-2025 Telephone encounter Note Sw spoke with patient and he reports that he has to go and mushroom picker his spouse at 2pm. Will give SW call at 2:30 to discuss inhaler patient assistance. [facility] 04-14-2025 Telephone encounter Note Sw left message for patient to call Sw back to see what patient learned from insurance per symbicort cost issue. SAMAN Mendoza noted patient was checking with insurance on this. Sw also verifying with SAMAN Mendoza that Breo would be good alternative. SAMAN Mendoza mentioned she preferred Advair, but after checking with [employer] it is no longer available on their program. Sw will be out of the office tomorrow, 04/15, but will return on , 04/16 and will hopefully speak with patient at that time. [facility] 04-14-2025 Telephone encounter Note Advair is no longer available through [employer] PAP. Sw just spoke with company and this inhaler has been removed from their assistance. Okay for Breo? It is still on the [employer] assistance program. [facility] 04-14-2025 Telephone encounter Note Breo and Advair are both inhalers that are through [employer] There is an out of pocket spend out at pharmacy of $600 and income guideline to meet. Sw can work on reaching out to patient to discuss [employer] PAP info. [facility] 04-13-2025 Telephone encounter Note Symbicort inhaler does not have a patient assistance program available. Is there an alternative inhaler you would like SW to look at for assistance? [facility] 04-13-2025 Note HNO ID: [id number] Author: KELLY WALTON PA-C Service: ? Author Type: Physician Endless Bed Drum Sander Type: Progress Notes Filed: 04/13/2025 10:05 Note Text: Chief Complaint Patient presents with: Follow Up: Breathing issues HPI Aureliano Dang is a 75 year old male who presents here today for Above Complaints.. COPD: - Recent exacerbation; treated with prednisone and Symbicort. - Previously used albuterol inhaler with minimal relief. - Reports improvement in dyspnea with Symbicort. - Experiencing financial difficulty affording Symbicort; cost is $200 per inhaler. - Insurance requires meeting a $5,000 deductible before full coverage. - Denies current wheezing; previously noted significant wheezing bilaterally. - History of sinus issues; denies previous dyspnea before COPD exacerbation. Past medical history, appointments, medications, allergies reviewed. Previous Medical History PAST MEDICAL HISTORY Diagnosis Date Allergic rhinitis 02/01/2021 Bilateral leg edema 03/18/2024 Calculus of kidney 03/08/2010 Chronic obstructive pulmonary disease (HCC) 02/03/2025 Chronic systolic CHF (congestive heart failure) (HCC) 11/13/2012 Preop EF 27+/-5%. NSTEMI mod LV mild RV required epinephrine infusion intraop. Post op EF 30+/-5%. - Pulmonary congestion and B effusions on CXR--improving. Lasix 40mg po daily, continue coreg, ACEI Coronary artery disease due to lipid rich plaque 08/08/[address] Decker: 5 vessel CABG 2012 Edema 12/09/2012 Elevated PSA 04/02/2023 Essential hypertension 02/10/2021 Ex-smoker 02/03/2021 Smoked 1/4 pck for about 45 yrs quit 2014 Ex-smoker 02/03/2021 Smoked 1/4 pck for about 45 yrs quit 2014, US 01/2021 Neg for AAA History of atrial fibrillation 11/16/2012 Secondary to [place] but resolved. Sees: Dr. Decker: New onset AF RVR 11/16. Converted to NSR after 30 mins w/ BB/Mg++. 11/18-11/21 Remains in NSR, continue coreg. History of non-ST elevation myocardial infarction (NSTEMI) 11/06/2012 Preop NSTEMI by his history and EKG findings. Mildly Elevated Troponin T. ECHO LVEF 27%. - On ASA/BB/statin and ACEI. ECHO showed improved EF 39%, no pericardial effusion. Ischemic cardiomyopathy 02/10/2021 Seeing Cardio Lung nodule 11/21/[address] scan on 11/09/2012 showed 3-mm noncalcified at the base of the lateral right lower lobe segment (slice 73). Repeat CT 2013 showed no nodules. Medicare annual wellness visit, subsequent 02/07/2022 Medicare Part B: Last done: 02/07/2022 Mixed hyperlipidemia 11/18/2012 Preop lipids: Tri-86, chol-219, HDL-52, LDL-150. Lipitor 40mg started, consider increase to 80mg d/t NSTEMI--can be increased after discharge to assure pt is tolerating dose (d/w Dr. Beasley). Pt to follow up w/ local MD for repeat cholesterol levels in 6 weeks. MADELIN (obstructive sleep apnea) 12/12/2023 Sees [facility] (Santino/Estefan[facility]) Other proteinuria 02/04/2021 diabetes related. 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 Previous Surgical History PAST SURGICAL HISTORY Procedure Laterality Date CABG (5) VENOUS GRAFTS AND ARTERIAL GRAFT(S) 11/13/2012 [facility] COLONOSCOPY FLX DX W/COLLJ SPEC WHEN PFRMD 10/24/2013 Colonoscopy,repeat 10 yrs ESOPHAGOGASTRODUODENOSCOPY TRANSORAL DIAGNOSTIC 10/24/2013 EGD REMV CATARACT EXTRACAP,INSERT LENS one 03/2022 and the other 04/2022 Family History FAMILY HISTORY Problem Relation Age of Onset Hypertension Mother Stroke Mother Patient Allergies ALLERGIES Allergen Reactions Acetaminophen Other: See Comments, Mental Status Change Lisinopril Rash Oxycodone Other: See Comments hallucination Percocet [Oxycodone* Mental Status Change Hallucination Current Medications Current Outpatient Medications on File Prior to Visit Medication Sig budesonide-formoterol (SYMBICORT) 160-4.5 mcg/actuation inhaler Inhale 2 puffs as instructed two times a day. Lancets Test blood sugar(s) one times daily. Dx: Other DM Code E11.29 Insulin: No blood sugar diagnostic (BLOOD GLUCOSE TEST) test strip Test blood sugar(s) one times daily. Dx: Other DM Code E11.29 Insulin: No Blood-Glucose Meter Test blood sugar once a day DX E11.29 Insulin: No albuterol HFA (PROVENTIL HFA) 90 mcg/actuation inhaler Inhale 2 Puffs as instructed every 6 hours as needed for wheezing/shortness of breath. atorvastatin (LIPITOR) 40 mg tablet Take 1 tablet by mouth daily at bedtime. dilTIAZem CD (CARDIZEM CD) 120 mg 24 hr capsule Take 1 capsule by mouth once daily. losartan (COZAAR) 100 mg tablet Take 1 tablet by mouth once daily. metFORMIN (GLUCOPHAGE) 500 mg tablet Take 1 tablet by mouth daily with breakfast. diphenhydrAMINE (BENADRYL ALLERGY) 25 mg tablet Take 1 tablet by mouth every 6 hours as needed. fluticasone (FLONASE) 50 mcg/actuation nasal spray Use 2 Sprays in each nostril once d (more content not included)... [facility] 04-13-2025 History of Present illness Narrative Chief Complaint Patient presents with: Follow Up: Breathing issues HPI Aureliano Dang is a 75 year old male who presents here today for Above Complaints.. COPD: - Recent exacerbation; treated with prednisone and Symbicort. - Previously used albuterol inhaler with minimal relief. - Reports improvement in dyspnea with Symbicort. - Experiencing financial difficulty affording Symbicort; cost is $200 per inhaler. - Insurance requires meeting a $5,000 deductible before full coverage. - Denies current wheezing; previously noted significant wheezing bilaterally. - History of sinus issues; denies previous dyspnea before COPD exacerbation. Past medical history, appointments, medications, allergies reviewed. Previous Medical History PAST MEDICAL HISTORY Diagnosis Date Allergic rhinitis 02/01/2021 Bilateral leg edema 03/18/2024 Calculus of kidney 03/08/2010 Chronic obstructive pulmonary disease (HCC) 02/03/2025 Chronic systolic CHF (congestive heart failure) (HCC) 11/13/2012 Preop EF 27+/-5%. NSTEMI mod LV mild RV required epinephrine infusion intraop. Post op EF 30+/-5%. - Pulmonary congestion and B effusions on CXR--improving. Lasix 40mg po daily, continue coreg, ACEI Coronary artery disease due to lipid rich plaque 08/08/[address] Decker: 5 vessel CABG 2012 Edema 12/09/2012 Elevated PSA 04/02/2023 Essential hypertension 02/10/2021 Ex-smoker 02/03/2021 Smoked 1/4 pck for about 45 yrs quit 2014 Ex-smoker 02/03/2021 Smoked 1/4 pck for about 45 yrs quit 2014, 01/2021 Neg for AAA History of atrial fibrillation 11/16/2012 Secondary to [place] but resolved. Sees: Dr. Decker: New onset AF RVR 11/16. Converted to NSR after 30 mins w/ BB/Mg++. 11/18-11/21 Remains in NSR, continue coreg. History of non-ST elevation myocardial infarction (NSTEMI) 11/06/2012 Preop NSTEMI by his history and EKG findings. Mildly Elevated Troponin T. ECHO LVEF 27%. - On ASA/BB/statin and ACEI. ECHO showed improved EF 39%, no pericardial effusion. Ischemic cardiomyopathy 02/10/2021 Seeing Cardio Lung nodule 11/21/[address] scan on 11/09/2012 showed 3-mm noncalcified at the base of the lateral right lower lobe segment (slice 73). Repeat CT 2013 showed no nodules. Medicare annual wellness visit, subsequent 02/07/2022 Medicare Part B: Last done: 02/07/2022 Mixed hyperlipidemia 11/18/2012 Preop lipids: Tri-86, chol-219, HDL-52, LDL-150. Lipitor 40mg started, consider increase to 80mg d/t NSTEMI--can be increased after discharge to assure pt is tolerating dose (d/w Dr. Beasley). Pt to follow up w/ local MD for repeat cholesterol levels in 6 weeks. MADELIN (obstructive sleep apnea) 12/12/2023 Sees [facility] (S[facility]) Other proteinuria 02/04/2021 diabetes related. 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 Previous Surgical History PAST SURGICAL HISTORY Procedure Laterality Date CABG (5) VENOUS GRAFTS & ARTERIAL GRAFT(S) 11/13/2012 [facility] COLONOSCOPY FLX DX W/COLLJ SPEC WHEN PFRMD 10/24/2013 Colonoscopy,repeat 10 yrs ESOPHAGOGASTRODUODENOSCOPY TRANSORAL DIAGNOSTIC 10/24/2013 EGD REMV CATARACT EXTRACAP,INSERT LENS one 03/2022 and the other 04/2022 Family History FAMILY HISTORY Problem Relation Age of Onset Hypertension Mother Stroke Mother Patient Allergies ALLERGIES Allergen Reactions Acetaminophen Other: See Comments, Mental Status Change Lisinopril Rash Oxycodone Other: See Comments hallucination Percocet [Oxycodone* Mental Status Change Hallucination Current Medications Current Outpatient Medications on File Prior to Visit Medication Sig budesonide-formoterol (SYMBICORT) 160-4.5 mcg/actuation inhaler Inhale 2 puffs as instructed two times a day. Lancets Test blood sugar(s) one times daily. Dx: Other DM Code E11.29 Insulin: No blood sugar diagnostic (BLOOD GLUCOSE TEST) test strip Test blood sugar(s) one times daily. Dx: Other DM Code E11.29 Insulin: No Blood-Glucose Meter Test blood sugar once a day DX E11.29 Insulin: No albuterol HFA (PROVENTIL HFA) 90 mcg/actuation inhaler Inhale 2 Puffs as instructed every 6 hours as needed for wheezing/shortness of breath. atorvastatin (LIPITOR) 40 mg tablet Take 1 tablet by mouth daily at bedtime. dilTIAZem CD (CARDIZEM CD) 120 mg 24 hr capsule Take 1 capsule by mouth once daily. losartan (COZAAR) 100 mg tablet Take 1 tablet by mouth once daily. metFORMIN (GLUCOPHAGE) 500 mg tablet Take 1 tablet by mouth daily with breakfast. diphenhydrAMINE (BENADRYL ALLERGY) 25 mg tablet Take 1 tablet by mouth every 6 hours as needed. fluticasone (FLONASE) 50 mcg/actuation nasal spray Use 2 Sprays in each nostril once daily. Rinse mouth after use. carvedilol (COREG) 25 mg tablet Take 1 tablet by mouth two times a day with meals. nitroglycerin sublingual (NITROQUICK) 0.4 mg SL tablet Dissolve 1 tablet under the tongue as needed. for chest pain,every 5 min x3 Blood-Glucose Meter (TRUE METRIX GLUCOSE METER) Use to check blood sugar once a day. Dx: E11.29, no insulin Blood Glucose Control, Low (TRUE METRIX LEVEL 1) Use as directed to set up machine Blood Glucose Control, Normal (TRUE METRIX LEVEL 2) soln Use as directed to set up machine Blood Glucose Control, High (TRUE METRIX LEVEL 3) Use as directed to set up machine alcohol swabs Apply 1 application to affected area once daily. Blood Pressure Test Kit-Large Check BP once a day or as needed. Dx: I10, I25.5 and I25.10 aspirin 81 mg chewable tablet Take 2 tablets by mouth once daily. No current facility-administered medications on file prior to visit. Social History Social History Tobacco Use Smoking status: Former Current packs/day: 0.00 Average packs/day: 0.3 packs/day for 45.0 years (11.3 ttl pk-yrs) Types: Cigarettes Start date: 1967 Quit date: 2013 Years since quittin.4 Smokeless tobacco: Never Tobacco comments: 4-5 cigarettes per day Vaping Use Vaping status: Never Used Substance Use Topics Alcohol use: Not Currently Drug use: Never Review of Symptoms REVIEW OF SYSTEMS SEE HPI EXAM: BP 110/70 (BP Site: Left Arm, BP Position: Sitting, BP Cuff Size: Large Adult) Pulse 68 Temp 36.7 C (98.1 F) Resp 16 Wt 74.8 kg (165 lb) SpO2 96% BMI 28.00 kg/m General Appearance: Well appearing, alert, in no acute distress, well-hydrated, well nourished.. Lungs: Lungs clear to auscultation. No wheezing, rhonchi, rales.. Heart: RRR without murmur, gallop, or rubs. No ectopy. Health Maintenance List Shingrix Vaccine(2 of 3) due on 07/24/2016 Dilated Retinal Exam due on 02/25/2022 RSV Vaccine(1 - 1-dose 75+ series) Never done DTaP,Tdap,Td Vaccine(2 - Td or Tdap) due on 09/16/2023 HbA1C due on 09/18/2024 Medicare Advantage Annual Wellness Visit due on 10/22/2024 Urine Albumin:Creatinine Ratio due on 03/18/2025 LDL Cholesterol due on 03/18/2025 Diabetic Foot Exam due on 04/25/2025 Depression Screening due on 04/25/2025 Anxiety Screening due on 04/25/2025 Annual PCP Team Chronic Disease Visit due on 04/13/2026 Influenza Vaccine Completed Advance Directive Discussion Completed Hepatitis C Screening Completed Pneumococcal Vaccine: 50+ Completed Colorectal Cancer Screening Discontinued Covid-19 Vaccine Discontinued Data reviewed N/a Assessment and Plan 1. Chronic bronchitis, unspecified chronic bronchitis type (HCC) (J42) 2. Chronic obstructive pulmonary disease, unspecified COPD type (HCC) (J44.9) - Recent exacerbation managed with prednisone and Symbicort; significant improvement noted with resolution of wheezing and rhonchi on auscultation. - Discussed the pharmacological differences between albuterol and Symbicort; emphasized the importance of daily use of Symbicort for long-term management and prevention of exacerbations. - Patient experiencing financial difficulties with Symbicort cost; advised to contact insurance for preferred inhaler options such as Advair or Wixela. - Referral to social media marketer Miranda for potential financial assistance programs from drug manufacturers. - Follow-up scheduled next month for wellness exam. Kelly Walton PA-C Recording using [employer] software for draft documentation of the visit was discussed with the patient/authorized technology sales representative; all questions welcomed and answered. Patient/authorized technology sales representative agreed to proceed documented in this encounter [facility] 03-31-2025 Telephone encounter Note Pt called in and notified of negative CXR results. Pt had questions about using the Symbicort inhaler and the Albuterol inhaler. Explained that he is to use the Symbicort inhaler twice daily regardless of symptoms and if has issues in between uses of that, he is to use the Albuterol inhaler. Pt verbalizes understanding. [facility] 03-31-2025 Miscellaneous Notes Pt called in and notified of negative CXR results. Pt had questions about using the Symbicort inhaler and the Albuterol inhaler. Explained that he is to use the Symbicort inhaler twice daily regardless of symptoms and if has issues in between uses of that, he is to use the Albuterol inhaler. Pt verbalizes understanding. ----- Message from Akilah Adan APRN.CNP sent at 03/30/2025 11:43 AM EDT ----- Chest xray is normal. Akilah Adan APRN.TYPING BOOKKEEPER documented in this encounter [facility] 03-30-2025 Telephone encounter Note ----- Message from Akilah Adan APRN.CNP sent at 03/30/2025 11:43 AM EDT ----- Chest xray is normal. Akilah Adan APRN.TYPING BOOKKEEPER [facility] 03-30-2025 History of Present illness Narrative Radiology Service Progress Note PATIENT NAME: Aureliano Dang DATE OF SERVICE: March 30, 2025 TIME: 11:25 AM PATIENT IDENTITY VERIFICATION COMPLETED USING TWO (2) IDENTIFIERS: Name and Date of confirmed by patient verbally. FALL SCREENING: Has the patient had 2 falls in the last year or 1 fall with injury or currently using an Ambulatory Assistive Device (Walker, Cane, Wheelchair, Crutches, etc.)? No PATIENT GENDER DATA: Assigned male at PATIENT RELEVANT IMPLANT DATA REVIEWED: Not Applicable PATIENT PRESENTS WITH AN IMPLANTABLE OR ATTACHED DOCENT COORDINATOR: No RADIOLOGY DEPARTMENT: General X-ray: Exam(s) Completed: Chest X-Ray PERIPHERAL IV DATA: Not applicable SIGNED BY: Michelle Ayers March 30, 2025 11:25 AM documented in this encounter [facility] 03-30-2025 Note HNO ID: [id number] Author: EVA LÓPEZ Tech Service: ? Author Type: Technologist Type: Progress Notes Filed: 03/30/2025 11:34 Note Text: Radiology Service Progress Note PATIENT NAME: Aureliano Dang DATE OF SERVICE: March 30, 2025 TIME: 11:25 AM PATIENT IDENTITY VERIFICATION COMPLETED USING TWO (2) IDENTIFIERS: Name and Date of confirmed by patient verbally. FALL SCREENING: Has the patient had 2 falls in the last year or 1 fall with injury or currently using an Ambulatory Assistive Device (Walker, Cane, Wheelchair, Crutches, etc.)? No PATIENT GENDER DATA: Assigned male at PATIENT RELEVANT IMPLANT DATA REVIEWED: Not Applicable PATIENT PRESENTS WITH AN IMPLANTABLE OR ATTACHED DOCENT COORDINATOR: No RADIOLOGY DEPARTMENT: General X-ray: Exam(s) Completed: Chest X-Ray PERIPHERAL IV DATA: Not applicable SIGNED BY: Michelle Ayers March 30, 2025 11:25 AM [facility] 03-30-2025 Akilah Blount APRN.CNP - 03/30/2025 11:00 AM EDT - Continue using your albuterol inhaler (short-acting) every 6 hours as needed for wheezing. - Begin prednisone pills: take 2 tablets once daily for 5 days (prescription sent to [facility]). - Start Symbicort inhaler: take 2 puffs twice daily every day; rinse your mouth after each use (prescription sent to [facility]). - Get a chest x-ray today to check your lungs for pneumonia. - Schedule and attend your follow-up appointment next week with MEME Mendoza to reassess your breathing and discuss your dizziness--our team will contact you to set the date. - If your wheezing or shortness of breath worsens or you cannot catch your breath, go to the emergency department. documented in this encounter [facility] 03-30-2025 Note HNO ID: [id number] Author: AKILAH ADAN APRN.PRAVIN Service: ? Author Type: Nurse Practitioner Type: Progress Notes Filed: 03/30/2025 11:18 Note Text: 03/30/2025 Patient presents with: Recheck: Continues with breathing issues, wheezing. Not improving after tx. Recording using [employer] software for draft documentation of the visit was discussed with the patient/authorized technology sales representative; all questions welcomed and answered. Patient/authorized technology sales representative agreed to proceed SUBJECTIVE: This is a 75 year old that is here today for Above Complaints.. Asthma: - Worsening dyspnea, wheezing, and cough. - Using albuterol inhaler Q6H with minimal relief; symptoms return within 1-2 hours. - Unable to afford Symbicort inhaler due to cost. - Cough productive of thick mucus at times - Denies fevers or chills. - Reports fatigue and difficulty sleeping due to noisy breathing. - Denies current tobacco use. - History of open heart surgery. PAST MEDICAL HISTORY Diagnosis Date Allergic rhinitis 02/01/2021 Bilateral leg edema 03/18/2024 Calculus of kidney 03/08/2010 Chronic obstructive pulmonary disease (HCC) 02/03/2025 Chronic systolic CHF (congestive heart failure) (HCC) 11/13/2012 Preop EF 27+/-5%. NSTEMI mod LV mild RV required epinephrine infusion intraop. Post op EF 30+/-5%. - Pulmonary congestion and B effusions on CXR--improving. Lasix 40mg po daily, continue coreg, ACEI Coronary artery disease due to lipid rich plaque 08/08/[address] Decker: 5 vessel CABG 2012 Edema 12/09/2012 Elevated PSA 04/02/2023 Essential hypertension 02/10/2021 Ex-smoker 02/03/2021 Smoked 1/4 pck for about 45 yrs quit 2014 Ex-smoker 02/03/2021 Smoked 1/4 pck for about 45 yrs quit 2014, US 01/2021 Neg for AAA History of atrial fibrillation 11/16/2012 Secondary to [place] but resolved. Sees: Dr. Decker: New onset AF RVR 11/16. Converted to NSR after 30 mins w/ BB/Mg++. 11/18-11/21 Remains in NSR, continue coreg. History of non-ST elevation myocardial infarction (NSTEMI) 11/06/2012 Preop NSTEMI by his history and EKG findings. Mildly Elevated Troponin T. ECHO LVEF 27%. - On ASA/BB/statin and ACEI. ECHO showed improved EF 39%, no pericardial effusion. Ischemic cardiomyopathy 02/10/2021 Seeing Cardio Lung nodule 11/21/[address] scan on 11/09/2012 showed 3-mm noncalcified at the base of the lateral right lower lobe segment (slice 73). Repeat CT 2013 showed no nodules. Medicare annual wellness visit, subsequent 02/07/2022 Medicare Part B: Last done: 02/07/2022 Mixed hyperlipidemia 11/18/2012 Preop lipids: Tri-86, chol-219, HDL-52, LDL-150. Lipitor 40mg started, consider increase to 80mg d/t NSTEMI--can be increased after discharge to assure pt is tolerating dose (d/w Dr. Beasley). Pt to follow up w/ local MD for repeat cholesterol levels in 6 weeks. MADELIN (obstructive sleep apnea) 12/12/2023 Sees [facility] (Santino/Estefan[facility]) Other proteinuria 02/04/2021 diabetes related. 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 Lancets Test blood sugar(s) one times daily. Dx: Other DM Code E11.29 Insulin: No blood sugar diagnostic (BLOOD GLUCOSE TEST) test strip Test blood sugar(s) one times daily. Dx: Other DM Code E11.29 Insulin: No Blood-Glucose Meter Test blood sugar once a day DX E11.29 Insulin: No budesonide-formoterol (SYMBICORT) 160-4.5 mcg/actuation inhaler Inhale 2 puffs as instructed two times a day. albuterol HFA (PROVENTIL HFA) 90 mcg/actuation inhaler Inhale 2 Puffs as instructed every 6 hours as needed for wheezing/shortness of breath. atorvastatin (LIPITOR) 40 mg tablet Take 1 tablet by mouth daily at bedtime. dilTIAZem CD (CARDIZEM CD) 120 mg 24 hr capsule Take 1 capsule by mouth once daily. losartan (COZAAR) 100 mg tablet Take 1 tablet by mouth once daily. metFORMIN (GLUCOPHAGE) 500 mg tablet Take 1 tablet by mouth daily with breakfast. diphenhydrAMINE (BENADRYL ALLERGY) 25 mg tablet Take 1 tablet by mouth every 6 hours as needed. fluticasone (FLONASE) 50 mcg/actuation nasal spray Use 2 Sprays in each nostril once daily. Rinse mouth after use. carvedilol (COREG) 25 mg tablet Take 1 tablet by mouth two times a day with meals. nitroglycerin sublingual (NITROQUICK) 0.4 mg SL tablet Dissolve 1 tablet under the tongue as needed. for chest pain,every 5 min x3 Blood-Glucose Meter (TRUE METRIX GLUCOSE METER) Use to check blood sugar once a day. Dx: E11.29, no insulin Blood Glucose Control, Low (TRUE METRIX LEVEL 1) Use as directed to set up machine Blood Glucose Control, Normal (TRUE METRIX LEVEL 2) soln Use as (more content not included)... [facility] 03-30-2025 History of Present illness Narrative 03/30/2025 Patient presents with: Recheck: Continues with breathing issues, wheezing. Not improving after tx. Recording using [employer] software for draft documentation of the visit was discussed with the patient/authorized technology sales representative; all questions welcomed and answered. Patient/authorized technology sales representative agreed to proceed SUBJECTIVE: This is a 75 year old that is here today for Above Complaints.. Asthma: - Worsening dyspnea, wheezing, and cough. - Using albuterol inhaler Q6H with minimal relief; symptoms return within 1-2 hours. - Unable to afford Symbicort inhaler due to cost. - Cough productive of thick mucus at times - Denies fevers or chills. - Reports fatigue and difficulty sleeping due to noisy breathing. - Denies current tobacco use. - History of open heart surgery. PAST MEDICAL HISTORY Diagnosis Date Allergic rhinitis 02/01/2021 Bilateral leg edema 03/18/2024 Calculus of kidney 03/08/2010 Chronic obstructive pulmonary disease (HCC) 02/03/2025 Chronic systolic CHF (congestive heart failure) (HCC) 11/13/2012 Preop EF 27+/-5%. NSTEMI mod LV mild RV required epinephrine infusion intraop. Post op EF 30+/-5%. - Pulmonary congestion and B effusions on CXR--improving. Lasix 40mg po daily, continue coreg, ACEI Coronary artery disease due to lipid rich plaque 08/08/[address] Decker: 5 vessel CABG 2012 Edema 12/09/2012 Elevated PSA 04/02/2023 Essential hypertension 02/10/2021 Ex-smoker 02/03/2021 Smoked 1/4 pck for about 45 yrs quit 2014 Ex-smoker 02/03/2021 Smoked 1/4 pck for about 45 yrs quit 2014, US 01/2021 Neg for AAA History of atrial fibrillation 11/16/2012 Secondary to [place] but resolved. Sees: Dr. Decker: New onset AF RVR 11/16. Converted to NSR after 30 mins w/ BB/Mg++. 11/18-11/21 Remains in NSR, continue coreg. History of non-ST elevation myocardial infarction (NSTEMI) 11/06/2012 Preop NSTEMI by his history and EKG findings. Mildly Elevated Troponin T. ECHO LVEF 27%. - On ASA/BB/statin and ACEI. ECHO showed improved EF 39%, no pericardial effusion. Ischemic cardiomyopathy 02/10/2021 Seeing Cardio Lung nodule 11/21/[address] scan on 11/09/2012 showed 3-mm noncalcified at the base of the lateral right lower lobe segment (slice 73). Repeat CT 2013 showed no nodules. Medicare annual wellness visit, subsequent 02/07/2022 Medicare Part B: Last done: 02/07/2022 Mixed hyperlipidemia 11/18/2012 Preop lipids: Tri-86, chol-219, HDL-52, LDL-150. Lipitor 40mg started, consider increase to 80mg d/t NSTEMI--can be increased after discharge to assure pt is tolerating dose (d/w Dr. Beasley). Pt to follow up w/ local MD for repeat cholesterol levels in 6 weeks. MADELIN (obstructive sleep apnea) 12/12/2023 Sees [facility] (S[facility]an[facility]) Other proteinuria 02/04/2021 diabetes related. 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 Lancets Test blood sugar(s) one times daily. Dx: Other DM Code E11.29 Insulin: No blood sugar diagnostic (BLOOD GLUCOSE TEST) test strip Test blood sugar(s) one times daily. Dx: Other DM Code E11.29 Insulin: No Blood-Glucose Meter Test blood sugar once a day DX E11.29 Insulin: No budesonide-formoterol (SYMBICORT) 160-4.5 mcg/actuation inhaler Inhale 2 puffs as instructed two times a day. albuterol HFA (PROVENTIL HFA) 90 mcg/actuation inhaler Inhale 2 Puffs as instructed every 6 hours as needed for wheezing/shortness of breath. atorvastatin (LIPITOR) 40 mg tablet Take 1 tablet by mouth daily at bedtime. dilTIAZem CD (CARDIZEM CD) 120 mg 24 hr capsule Take 1 capsule by mouth once daily. losartan (COZAAR) 100 mg tablet Take 1 tablet by mouth once daily. metFORMIN (GLUCOPHAGE) 500 mg tablet Take 1 tablet by mouth daily with breakfast. diphenhydrAMINE (BENADRYL ALLERGY) 25 mg tablet Take 1 tablet by mouth every 6 hours as needed. fluticasone (FLONASE) 50 mcg/actuation nasal spray Use 2 Sprays in each nostril once daily. Rinse mouth after use. carvedilol (COREG) 25 mg tablet Take 1 tablet by mouth two times a day with meals. nitroglycerin sublingual (NITROQUICK) 0.4 mg SL tablet Dissolve 1 tablet under the tongue as needed. for chest pain,every 5 min x3 Blood-Glucose Meter (TRUE METRIX GLUCOSE METER) Use to check blood sugar once a day. Dx: E11.29, no insulin Blood Glucose Control, Low (TRUE METRIX LEVEL 1) Use as directed to set up machine Blood Glucose Control, Normal (TRUE METRIX LEVEL 2) soln Use as directed to set up machine Blood Glucose Control, High (TRUE METRIX LEVEL 3) Use as directed to set up machine alcohol swabs Apply 1 application to affected area once daily. Blood Pressure Test Kit-Large Check BP once a day or as needed. Dx: I10, I25.5 and I25.10 aspirin 81 mg chewable tablet Take 2 tablets by mouth once daily. No current facility-administered medications for this visit. Medications and allergies reviewed by this provider. SOCIAL HISTORY Social History Tobacco Use Smoking status: Former Current packs/day: 0.00 Average packs/day: 0.3 packs/day for 45.0 years (11.3 ttl pk-yrs) Types: Cigarettes Start date: 1967 Quit date: 2012 Years since quittin.4 Smokeless tobacco: Never Tobacco comments: 4-5 cigarettes per day Vaping Use Vaping status: Never Used Substance Use Topics Alcohol use: Not Currently Drug use: Never REVIEW OF SYSTEMS All other reviewed and negative other than HPI. OBJECTIVE: BP 122/68 Pulse (!) 58 Temp (!) 35.8 C (96.5 F) Resp 18 Wt 75.2 kg (165 lb 12.8 oz) SpO2 96% BMI 28.13 kg/m . Vital signs reviewed by this provider. GENERAL: NAD, alert and oriented. SKIN: Unremarkable, no rash or skin lesions to exposed skin LUNGS: Significant wheezing noted bilaterally all verma. Able to speak in full sentences without difficulty HEART: Regular rate and rhythm, no murmurs. No ectopy. EXTREMITIES: Normal, no deformities, no skin discoloration, mild edema noted in the right lower extremity. 1. Chronic obstructive pulmonary disease, unspecified COPD type (HCC) (J44.9) 2. SOB (shortness of breath) (R06.02) 3. Wheezing (R06.2) - Increased wheezing and dyspnea despite regular use of albuterol inhaler every 6 hours. - Auscultation reveals significant wheezing. - Prescribed Symbicort inhaler, 2 puffs BID; instructed to rinse mouth after use. - Initiated prednisone oral tablets, 2 tablets once daily for 5 days. - Ordered chest X-ray to rule out pneumonia; will initiate antibiotic therapy if indicated. - Advised continuation of albuterol inhaler every 6 hours as needed for acute symptoms. - Educated on the importance of using Symbicort daily to manage symptoms and prevent exacerbations. - Discussed potential side effects of prednisone, including increased appetite, mood changes, and insomnia. - Patient to follow up next week with Kelly for re-evaluation of pulmonary status and to address reported dizziness. - Instructed to seek emergency care if experiencing severe dyspnea or inability to breathe. - Prescriptions sent to [facility]. Akilah Adan APRN.PRAVIN Prescription instructions reviewed with patient as applicable. Patient advised if symptoms do not improve or if symptoms worsen sooner, to contact their primary care physician. Potential red flag symptoms discussed with the patient. Reviewed appropriate action plan to take if red flag symptoms occur. Patient agreeable to treatment plan. Medical Decision Making: Problems: Moderate: 1+ chronic illnesses with change Data: Unique test(s) ordered: 1 Risk: Moderate: Drug management Medical Decision Making Level: 4 - Moderate documented in this encounter [facility] 02-23-2025 Note HNO ID: [id number] Author: CHERI RICHEY PA-C Service: ? Author Type: Physician Endless Bed Drum Sander Type: Progress Notes Filed: 02/23/2025 15:45 Note Text: Cheri Richey PA-C Department of Orthopaedics Orthopaedics [address] [facility] [address] Dept: [phone] Dept February 23, 2025 CHIEF COMPLAINT: Numbness of the Left Hand (Referred by Kelly Walton) Left Fifth Digit Numbness: - Numbness in the left fifth digit x3 months. - No known trauma or injury preceding onset. - Numbness is intermittent, with certain positions exacerbating symptoms. - Reports a different sensation in the fifth digit compared to the index finger. - Experiences mild pain when the digit is squeezed or touched for an extended period. - Frequently rests the arm on the table, which sometimes causes "shock and pain." - Denies nocturnal symptoms. Open Heart Surgery: - Underwent open heart surgery in 2012. - Post-surgery, was advised to stop working and has been homebound since. ASSESSMENT: R20.0 Hand numbness G56.22 Ulnar nerve compression, left PLAN: 1. Hand numbness (R20.0) 2. 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 - Provided an elbow pad to reduce pressure on the ulnar nerve; advised to avoid leaning on the elbow. - If symptoms persist, will order an ultrasound of the elbow to assess for nerve entrapment. US completed at [facility]? will check if symptoms do not improve with elbow pad. - Discussed potential for surgical intervention if conservative measures fail. Will continue to monitor patient for Hand numbness Ulnar nerve compression, left, patient to schedule visit as per follow up discussed. Mr. Aureliano Dang was advised as to contrast therapies and/or to take analgesics/anti-inflammatories as needed and all contraindications were reviewed. OBJECTIVE: Mr. Aureliano Dang is a pleasant 75 year old in no apparent distress. Gen:There were no vitals taken for this visit. nl development, obese, no deformities ENT: Normocephalic, normal hearing, moist mucosa CV: Pulses:Radial= 2+ and symmetric, capillary refill < 2 secs, no peripheral edema/varicosities Skin: no rash, bruising or lesions. Good turgor. Psych: cooperative and appropriate, alert and oriented x 3, good mood and affect. Musculoskeletal: Left hand with subjective numbness in the ulnar 2 digits. Positive Tinel's over the left elbow at the cubital tunnel. No subluxation of the ulnar nerve noted with flexion or extension of the left elbow. Intrinsic weakness noted on exam but no intrinsic atrophy. Sensation is intact in the radial 3 digits. Imaging: Deferred today Supporting Subjective Information Below: Past Surgical History: PAST SURGICAL HISTORY Procedure Laterality Date CABG (5) VENOUS GRAFTS AND ARTERIAL GRAFT(S) 11/13/2012 [facility] COLONOSCOPY FLX DX W/COLLJ SPEC WHEN PFRMD 10/24/2013 Colonoscopy,repeat 10 yrs ESOPHAGOGASTRODUODENOSCOPY TRANSORAL DIAGNOSTIC 10/24/2013 EGD REMV CATARACT EXTRACAP,INSERT LENS one 03/2022 and the other 04/2022 Medications: Current Outpatient Medications Medication Sig budesonide-formoterol (SYMBICORT) 160-4.5 mcg/actuation inhaler Inhale 2 puffs as instructed two times a day. albuterol HFA (PROVENTIL HFA) 90 mcg/actuation inhaler Inhale 2 Puffs as instructed every 6 hours as needed for wheezing/shortness of breath. atorvastatin (LIPITOR) 40 mg tablet Take 1 tablet by mouth daily at bedtime. dilTIAZem CD (CARDIZEM CD) 120 mg 24 hr capsule Take 1 capsule by mouth once daily. losartan (COZAAR) 100 mg tablet Take 1 tablet by mouth once daily. metFORMIN (GLUCOPHAGE) 500 mg tablet Take 1 tablet by mouth daily with breakfast. diphenhydrAMINE (BENADRYL ALLERGY) 25 mg tablet Take 1 tablet by mouth every 6 hours as needed. fluticasone (FLONASE) 50 mcg/actuation nasal spray Use 2 Sprays in each nostril once daily. Rinse mouth after use. carvedilol (COREG) 25 mg tablet Take 1 tablet by mouth two times a day with meals. nitroglycerin sublingual (NITROQUICK) 0.4 mg SL tablet Dissolve 1 tablet under the tongue as needed. for chest pain,every 5 min x3 aspirin 81 mg chewable tablet Take 2 tablets by mouth once daily. Lancets Test blood sugar(s) one times daily. Dx: Other DM Code E11.29 Insulin: No blood sugar diagnostic (BLOOD GLUCOSE TEST) test strip Test blood sugar(s) one times daily. Dx: Other DM Code E11.29 Insulin: No Blood-Glucose Meter Test blood sugar once a day DX E11.29 Insulin: No Blood-Glucose Meter (TRUE METRIX GLUCOSE METER) Use to check blood sugar once a day. Dx: E11.29, no insulin Blood Glucose Control, Low (TRUE METRIX LEVEL 1) Use as directed to set up machine Blood Glucose Control, Normal (TRUE METRIX LEVEL 2) soln Use as directed to set up machine Blood Glucose Control, High (TRUE METRIX LEVEL 3) Use as (more content not included)... [facility] 02-23-2025 History of Present illness Narrative Cheri Richey PA-C Department of Orthopaedics Orthopaedics [address] [facility] [address] Dept: [phone] Dept February 23, 2025 CHIEF COMPLAINT: Numbness of the Left Hand (Referred by Kelly Walton) Left Fifth Digit Numbness: - Numbness in the left fifth digit x3 months. - No known trauma or injury preceding onset. - Numbness is intermittent, with certain positions exacerbating symptoms. - Reports a different sensation in the fifth digit compared to the index finger. - Experiences mild pain when the digit is squeezed or touched for an extended period. - Frequently rests the arm on the table, which sometimes causes "shock and pain." - Denies nocturnal symptoms. Open Heart Surgery: - Underwent open heart surgery in 2012. - Post-surgery, was advised to stop working and has been homebound since. ASSESSMENT: R20.0 Hand numbness G56.22 Ulnar nerve compression, left PLAN: 1. Hand numbness (R20.0) 2. 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 - Provided an elbow pad to reduce pressure on the ulnar nerve; advised to avoid leaning on the elbow. - If symptoms persist, will order an ultrasound of the elbow to assess for nerve entrapment. US completed at [facility]? will check if symptoms do not improve with elbow pad. - Discussed potential for surgical intervention if conservative measures fail. Will continue to monitor patient for Hand numbness Ulnar nerve compression, left, patient to schedule visit as per follow up discussed. Mr. Aureliano Dang was advised as to contrast therapies and/or to take analgesics/anti-inflammatories as needed and all contraindications were reviewed. OBJECTIVE: Mr. Aureliano Dang is a pleasant 75 year old in no apparent distress. Gen:There were no vitals taken for this visit. nl development, obese, no deformities ENT: Normocephalic, normal hearing, moist mucosa CV: Pulses:Radial= 2+ and symmetric, capillary refill < 2 secs, no peripheral edema/varicosities Skin: no rash, bruising or lesions. Good turgor. Psych: cooperative and appropriate, alert and oriented x 3, good mood and affect. Musculoskeletal: Left hand with subjective numbness in the ulnar 2 digits. Positive Tinel's over the left elbow at the cubital tunnel. No subluxation of the ulnar nerve noted with flexion or extension of the left elbow. Intrinsic weakness noted on exam but no intrinsic atrophy. Sensation is intact in the radial 3 digits. Imaging: Deferred today Supporting Subjective Information Below: Past Surgical History: PAST SURGICAL HISTORY Procedure Laterality Date CABG (5) VENOUS GRAFTS & ARTERIAL GRAFT(S) 11/13/2012 [facility] COLONOSCOPY FLX DX W/COLLJ SPEC WHEN PFRMD 10/24/2013 Colonoscopy,repeat 10 yrs ESOPHAGOGASTRODUODENOSCOPY TRANSORAL DIAGNOSTIC 10/24/2013 EGD REMV CATARACT EXTRACAP,INSERT LENS one 03/2022 and the other 04/2022 Medications: Current Outpatient Medications Medication Sig budesonide-formoterol (SYMBICORT) 160-4.5 mcg/actuation inhaler Inhale 2 puffs as instructed two times a day. albuterol HFA (PROVENTIL HFA) 90 mcg/actuation inhaler Inhale 2 Puffs as instructed every 6 hours as needed for wheezing/shortness of breath. atorvastatin (LIPITOR) 40 mg tablet Take 1 tablet by mouth daily at bedtime. dilTIAZem CD (CARDIZEM CD) 120 mg 24 hr capsule Take 1 capsule by mouth once daily. losartan (COZAAR) 100 mg tablet Take 1 tablet by mouth once daily. metFORMIN (GLUCOPHAGE) 500 mg tablet Take 1 tablet by mouth daily with breakfast. diphenhydrAMINE (BENADRYL ALLERGY) 25 mg tablet Take 1 tablet by mouth every 6 hours as needed. fluticasone (FLONASE) 50 mcg/actuation nasal spray Use 2 Sprays in each nostril once daily. Rinse mouth after use. carvedilol (COREG) 25 mg tablet Take 1 tablet by mouth two times a day with meals. nitroglycerin sublingual (NITROQUICK) 0.4 mg SL tablet Dissolve 1 tablet under the tongue as needed. for chest pain,every 5 min x3 aspirin 81 mg chewable tablet Take 2 tablets by mouth once daily. Lancets Test blood sugar(s) one times daily. Dx: Other DM Code E11.29 Insulin: No blood sugar diagnostic (BLOOD GLUCOSE TEST) test strip Test blood sugar(s) one times daily. Dx: Other DM Code E11.29 Insulin: No Blood-Glucose Meter Test blood sugar once a day DX E11.29 Insulin: No Blood-Glucose Meter (TRUE METRIX GLUCOSE METER) Use to check blood sugar once a day. Dx: E11.29, no insulin Blood Glucose Control, Low (TRUE METRIX LEVEL 1) Use as directed to set up machine Blood Glucose Control, Normal (TRUE METRIX LEVEL 2) soln Use as directed to set up machine Blood Glucose Control, High (TRUE METRIX LEVEL 3) Use as directed to set up machine alcohol swabs Apply 1 application to affected area once daily. Blood Pressure Test Kit-Large Check BP once a day or as needed. Dx: I10, I25.5 and I25.10 No current facility-administered medications for this visit. Allergies: Acetaminophen, Lisinopril, Oxycodone, and Percocet [Oxycodone-Acetaminophen] ROS: General (negative for fatigue, malaise, weight loss/gain) HEENT (negative for headache, earache, recent vision changes, sinus pain, sore throat) Respiratory (no recent shortness of breath, hemoptysis) CV (negative for chest tightness, palpitations) Musculoskeletal (see HPI) Psych (no depression, anxiety) This note was partially generated using Bix voice recognition system, and there may be some incorrect words, spellings, and punctuation that were not noted in checking the note before saving. Cheri Richey PA-C Patient presents with: Left Hand - Numbness: Referred by Kelly Walton [facility] ROOMING INTAKE FLOWSHEET DATA Risk Screening Do you have concerns about personal safety or safety in the home?: No Pain Pain Location: Hand-Left Description: Numbness Duration Amount of Time: 3 Duration Units: Months Frequency: Intermittent Intervention/Comfort measure: (none) Patient here for evaluation numbness left hand. States he is having numbness in his left 5th finger and at times in his 4th finger. 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 Patient is right hand dominant. He is retired. documented in this encounter [facility] 02-23-2025 Note HNO ID: [id number] Author: QING CHO MA Service: ? Author Type: Snaker Type: Progress Notes Filed: 02/23/2025 15:45 Note Text: Patient presents with: Left Hand - Numbness: Referred by Kelly Walton [facility] INTAKE FLOWSHEET DATA Risk Screening Do you have concerns about personal safety or safety in the home?: No Pain Pain Location: Hand-Left Description: Numbness Duration Amount of Time: 3 Duration Units: Months Frequency: Intermittent Intervention/Comfort measure: (none) Patient here for evaluation numbness left hand. States he is having numbness in his left 5th finger and at times in his 4th finger. 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 Patient is right hand dominant. He is retired. [facility] 02-05-2025 Telephone encounter Note Lancets and Blood glucose test strips were sent to [facility] on 02/05/25. [facility] 02-05-2025 Miscellaneous Notes Lancets and Blood glucose test strips were sent to [facility] on 02/05/25. Prescription Refill Information The patient has been identified by name and date of : Yes Caregiver verified no other encounters exist for this prescription request: Yes Caregiver confirmed with patient/requestor that no other refills are due, in the near future, with this provider at this time: Yes The last office visit in the department: 02/03/2025 Does the patient have a future office visit with this provider/department: Yes Requested Prescriptions Pending Prescriptions Disp Refills blood sugar diagnostic (BLOOD GLUCOSE TEST) test strip 100 strip 11 Sig: Test blood sugar(s) one times daily. Dx: Other DM Code E11.29 Insulin: No Lancets 100 each 11 Sig: Test blood sugar(s) one times daily. Dx: Other DM Code E11.29 Insulin: No Kaylynn Jackson February 05, 2025 2:14 PM documented in this encounter [facility] 02-05-2025 Telephone encounter Note Prescription Refill Information The patient has been identified by name and date of : Yes Caregiver verified no other encounters exist for this prescription request: Yes Caregiver confirmed with patient/requestor that no other refills are due, in the near future, with this provider at this time: Yes The last office visit in the department: 02/03/2025 Does the patient have a future office visit with this provider/department: Yes Requested Prescriptions Pending Prescriptions Disp Refills blood sugar diagnostic (BLOOD GLUCOSE TEST) test strip 100 strip 11 Sig: Test blood sugar(s) one times daily. Dx: Other DM Code E11.29 Insulin: No Lancets 100 each 11 Sig: Test blood sugar(s) one times daily. Dx: Other DM Code E11.29 Insulin: No Kaylynn Jackson February 05, 2025 2:14 PM [facility] 02-04-2025 Telephone encounter Note [facility] calls to request orders for glucose test strips and lancets. They received the order for blood glucose meter. Pended as requested. Milady Marinelli RN [facility] 02-04-2025 Miscellaneous Notes [facility] calls to request orders for glucose test strips and lancets. They received the order for blood glucose meter. Pended as requested. Milady Marinelli RN documented in this encounter [facility] 02-03-2025 Note HNO ID: [id number] Author: KELLY WALTON PA-C Service: ? Author Type: Physician Endless Bed Drum Sander Type: Progress Notes Filed: 02/03/2025 09:48 Note Text: Chief Complaint Patient presents with: Follow Up HPI Aureliano Dang is a 75 year old male who presents here today for follow up on COPD and inhaler. COPD: - Diagnosed with moderate COPD following a lung function test in October. - Initially prescribed Spiriva, but unable to afford due to cost ($336). - Currently using albuterol inhaler, purchased for $10.50 at [facility]. - Uses albuterol multiple times daily, reporting significant improvement in breathing. - Experiences labored breathing approximately every 6 hours, prompting albuterol use. - Albuterol use has improved ability to lie down and sleep without feeling congested or wheezing. - Has not contacted insurance to discuss inhaler coverage. Left Hand Numbness: - New onset numbness in the left hand, specifically in the pinky and ring fingers. - Numbness is constant and began this year. - Reports numbness is more bothersome than previous numbness experienced in the foot. - Numbness affects ability to hold objects and drive safely. Past medical history, appointments, medications, allergies reviewed. Previous Medical History PAST MEDICAL HISTORY Diagnosis Date Allergic rhinitis 02/01/2021 Bilateral leg edema 03/18/2024 Calculus of kidney 03/08/2010 Chronic obstructive pulmonary disease (HCC) 02/03/2025 Chronic systolic CHF (congestive heart failure) (HCC) 11/13/2012 Preop EF 27+/-5%. NSTEMI mod LV mild RV required epinephrine infusion intraop. Post op EF 30+/-5%. - Pulmonary congestion and B effusions on CXR--improving. Lasix 40mg po daily, continue coreg, ACEI Coronary artery disease due to lipid rich plaque 08/08/[address] Decker: 5 vessel CABG 2012 Edema 12/09/2012 Elevated PSA 04/02/2023 Essential hypertension 02/10/2021 Ex-smoker 02/03/2021 Smoked 1/4 pck for about 45 yrs quit 2014 Ex-smoker 02/03/2021 Smoked 10/25 pck for about 45 yrs quit 2014, US 01/2021 Neg for AAA History of atrial fibrillation 11/16/2012 Secondary to [place] but resolved. Sees: Dr. Decker: New onset AF RVR 11/16. Converted to NSR after 30 mins w/ BB/Mg++. 11/18-11/21 Remains in NSR, continue coreg. History of non-ST elevation myocardial infarction (NSTEMI) 11/06/2012 Preop NSTEMI by his history and EKG findings. Mildly Elevated Troponin T. ECHO LVEF 27%. - On ASA/BB/statin and ACEI. ECHO showed improved EF 39%, no pericardial effusion. Ischemic cardiomyopathy 02/10/2021 Seeing Cardio Lung nodule 11/21/[address] scan on 11/09/2012 showed 3-mm noncalcified at the base of the lateral right lower lobe segment (slice 73). Repeat CT 2013 showed no nodules. Medicare annual wellness visit, subsequent 02/07/2022 Medicare Part B: Last done: 02/07/2022 Mixed hyperlipidemia 11/18/2012 Preop lipids: Tri-86, chol-219, HDL-52, LDL-150. Lipitor 40mg started, consider increase to 80mg d/t NSTEMI--can be increased after discharge to assure pt is tolerating dose (d/w Dr. Beasley). Pt to follow up w/ local MD for repeat cholesterol levels in 6 weeks. MADELIN (obstructive sleep apnea) 12/12/2023 Sees [facility] (Santino/Estefan[facility]) Other proteinuria 02/04/2021 diabetes related. 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 Previous Surgical History PAST SURGICAL HISTORY Procedure Laterality Date CABG (5) VENOUS GRAFTS AND ARTERIAL GRAFT(S) 11/13/2012 [facility] COLONOSCOPY FLX DX W/COLLJ SPEC WHEN PFRMD 10/24/2013 Colonoscopy,repeat 10 yrs ESOPHAGOGASTRODUODENOSCOPY TRANSORAL DIAGNOSTIC 10/24/2013 EGD REMV CATARACT EXTRACAP,INSERT LENS one 03/2022 and the other 04/2022 Family History FAMILY HISTORY Problem Relation Age of Onset Hypertension Mother Stroke Mother Patient Allergies ALLERGIES Allergen Reactions Acetaminophen Other: See Comments, Mental Status Change Lisinopril Rash Oxycodone Other: See Comments hallucination Percocet [Oxycodone* Mental Status Change Hallucination Current Medications Current Outpatient Medications on File Prior to Visit Medication Sig albuterol HFA (PROVENTIL HFA) 90 mcg/actuation inhaler Inhale 2 Puffs as instructed every 6 hours as needed for wheezing/shortness of breath. tiotropium (SPIRIVA WITH HANDIHALER) 18 mcg inhalation capsule Inhale 1 capsule as instructed once daily. atorvastatin (LIPITOR) 40 mg tablet Take 1 tablet by mouth daily at bedtime. dilTIAZem CD (CARDIZEM CD) 120 mg 24 hr capsule Take 1 capsule by mouth once daily. losartan (COZAAR) 100 mg tablet Take 1 tablet by mouth once daily. metFORMIN (GLUCOPHAGE) 500 mg tablet Take 1 tablet by mouth daily with breakfast. diphenhydrAMINE (BENADRYL ALLERGY) 25 mg tablet Take 1 tablet by mouth every 6 hours as needed. fluti (more content not included)... [facility] 02-03-2025 History of Present illness Narrative Chief Complaint Patient presents with: Follow Up HPI Aureliano Dang is a 75 year old male who presents here today for follow up on COPD and inhaler. COPD: - Diagnosed with moderate COPD following a lung function test in October. - Initially prescribed Spiriva, but unable to afford due to cost ($336). - Currently using albuterol inhaler, purchased for $10.50 at [facility]. - Uses albuterol multiple times daily, reporting significant improvement in breathing. - Experiences labored breathing approximately every 6 hours, prompting albuterol use. - Albuterol use has improved ability to lie down and sleep without feeling congested or wheezing. - Has not contacted insurance to discuss inhaler coverage. Left Hand Numbness: - New onset numbness in the left hand, specifically in the pinky and ring fingers. - Numbness is constant and began this year. - Reports numbness is more bothersome than previous numbness experienced in the foot. - Numbness affects ability to hold objects and drive safely. Past medical history, appointments, medications, allergies reviewed. Previous Medical History PAST MEDICAL HISTORY Diagnosis Date Allergic rhinitis 02/01/2021 Bilateral leg edema 03/18/2024 Calculus of kidney 03/08/2010 Chronic obstructive pulmonary disease (HCC) 02/03/2025 Chronic systolic CHF (congestive heart failure) (HCC) 11/13/2012 Preop EF 27+/-5%. NSTEMI mod LV mild RV required epinephrine infusion intraop. Post op EF 30+/-5%. - Pulmonary congestion and B effusions on CXR--improving. Lasix 40mg po daily, continue coreg, ACEI Coronary artery disease due to lipid rich plaque 08/08/[address] Decker: 5 vessel CABG 2012 Edema 12/09/2012 Elevated PSA 04/02/2023 Essential hypertension 02/10/2021 Ex-smoker 02/03/2021 Smoked 1/4 pck for about 45 yrs quit 2014 Ex-smoker 02/03/2021 Smoked 1/4 pck for about 45 yrs quit 2014, US 01/2021 Neg for AAA History of atrial fibrillation 11/16/2012 Secondary to [place] but resolved. Sees: Dr. Decker: New onset AF RVR 11/16. Converted to NSR after 30 mins w/ BB/Mg++. 11/18-11/21 Remains in NSR, continue coreg. History of non-ST elevation myocardial infarction (NSTEMI) 11/06/2012 Preop NSTEMI by his history and EKG findings. Mildly Elevated Troponin T. ECHO LVEF 27%. - On ASA/BB/statin and ACEI. ECHO showed improved EF 39%, no pericardial effusion. Ischemic cardiomyopathy 02/10/2021 Seeing Cardio Lung nodule 11/21/[address] scan on 11/09/2012 showed 3-mm noncalcified at the base of the lateral right lower lobe segment (slice 73). Repeat CT 2013 showed no nodules. Medicare annual wellness visit, subsequent 02/07/2022 Medicare Part B: Last done: 02/07/2022 Mixed hyperlipidemia 11/18/2012 Preop lipids: Tri-86, chol-219, HDL-52, LDL-150. Lipitor 40mg started, consider increase to 80mg d/t NSTEMI--can be increased after discharge to assure pt is tolerating dose (d/w Dr. Beasley). Pt to follow up w/ local MD for repeat cholesterol levels in 6 weeks. MADELIN (obstructive sleep apnea) 12/12/2023 Sees [facility] ([facility]) Other proteinuria 02/04/2021 diabetes related. 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 Previous Surgical History PAST SURGICAL HISTORY Procedure Laterality Date CABG (5) VENOUS GRAFTS & ARTERIAL GRAFT(S) 11/13/2012 [facility] COLONOSCOPY FLX DX W/COLLJ SPEC WHEN PFRMD 10/24/2013 Colonoscopy,repeat 10 yrs ESOPHAGOGASTRODUODENOSCOPY TRANSORAL DIAGNOSTIC 10/24/2013 EGD REMV CATARACT EXTRACAP,INSERT LENS one 03/2022 and the other 04/2022 Family History FAMILY HISTORY Problem Relation Age of Onset Hypertension Mother Stroke Mother Patient Allergies ALLERGIES Allergen Reactions Acetaminophen Other: See Comments, Mental Status Change Lisinopril Rash Oxycodone Other: See Comments hallucination Percocet [Oxycodone* Mental Status Change Hallucination Current Medications Current Outpatient Medications on File Prior to Visit Medication Sig albuterol HFA (PROVENTIL HFA) 90 mcg/actuation inhaler Inhale 2 Puffs as instructed every 6 hours as needed for wheezing/shortness of breath. tiotropium (SPIRIVA WITH HANDIHALER) 18 mcg inhalation capsule Inhale 1 capsule as instructed once daily. atorvastatin (LIPITOR) 40 mg tablet Take 1 tablet by mouth daily at bedtime. dilTIAZem CD (CARDIZEM CD) 120 mg 24 hr capsule Take 1 capsule by mouth once daily. losartan (COZAAR) 100 mg tablet Take 1 tablet by mouth once daily. metFORMIN (GLUCOPHAGE) 500 mg tablet Take 1 tablet by mouth daily with breakfast. diphenhydrAMINE (BENADRYL ALLERGY) 25 mg tablet Take 1 tablet by mouth every 6 hours as needed. fluticasone (FLONASE) 50 mcg/actuation nasal spray Use 2 Sprays in each nostril once daily. Rinse mouth after use. carvedilol (COREG) 25 mg tablet Take 1 tablet by mouth two times a day with meals. nitroglycerin sublingual (NITROQUICK) 0.4 mg SL tablet Dissolve 1 tablet under the tongue as needed. for chest pain,every 5 min x3 blood sugar diagnostic (BLOOD GLUCOSE TEST) test strip Test blood sugar(s) one times daily. Dx: Other DM Code E11.29 Insulin: No Blood-Glucose Meter (TRUE METRIX GLUCOSE METER) Use to check blood sugar once a day. Dx: E11.29, no insulin Blood Glucose Control, Low (TRUE METRIX LEVEL 1) Use as directed to set up machine Blood Glucose Control, Normal (TRUE METRIX LEVEL 2) soln Use as directed to set up machine Blood Glucose Control, High (TRUE METRIX LEVEL 3) Use as directed to set up machine alcohol swabs Apply 1 application to affected area once daily. Blood Pressure Test Kit-Large Check BP once a day or as needed. Dx: I10, I25.5 and I25.10 Lancets lancets Test blood sugar(s) one times daily. Dx: Other DM Code E11.29 Insulin: No Blood-Glucose Meter Test blood sugar once a day DX E11.29 Insulin: No aspirin 81 mg chewable tablet Take 2 tablets by mouth once daily. No current facility-administered medications on file prior to visit. Social History Social History Tobacco Use Smoking status: Former Current packs/day: 0.00 Average packs/day: 0.3 packs/day for 45.0 years (11.3 ttl pk-yrs) Types: Cigarettes Start date: 1967 Quit date: 2012 Years since quittin.2 Smokeless tobacco: Never Tobacco comments: 4-5 cigarettes per day Vaping Use Vaping status: Never Used Substance Use Topics Alcohol use: Not Currently Drug use: Never Review of Symptoms REVIEW OF SYSTEMS SEE HPI EXAM: BP 118/76 (BP Site: Left Arm, BP Position: Sitting, BP Cuff Size: Large Adult) Pulse (!) 57 Temp 36.4 C (97.5 F) Resp 16 Wt 75.3 kg (166 lb) SpO2 98% BMI 28.17 kg/m General Appearance: Well appearing, alert, in no acute distress, well-hydrated, well nourished.. Musculoskeletal: +tinnels in left elbow. No pain to palp. FROM. . Health Maintenance List BP Controlled (<130/80) Never done Dilated Retinal Exam due on 02/25/2022 HbA1C due on 09/18/2024 DTaP,Tdap,Td Vaccine(2 - Td or Tdap) due on 03/18/2025 RSV Vaccine(1 - 1-dose 75+ series) due on 03/18/2025 Shingrix Vaccine(2 of 3) due on 03/18/2025 Urine Albumin:Creatinine Ratio due on 03/18/2025 LDL Cholesterol due on 03/18/2025 Diabetic Foot Exam due on 04/25/2025 Depression Screening due on 04/25/2025 Anxiety Screening due on 04/25/2025 Annual PCP Team Chronic Disease Visit due on 11/11/2025 Influenza Vaccine Completed Advance Directive Discussion Completed Hepatitis C Screening Completed Pneumococcal Vaccine: 50+ Completed Colorectal Cancer Screening Discontinued Covid-19 Vaccine Discontinued Data reviewed PFT: IMPRESSION: Spirometry indicates moderate obstruction. Positive bronchodilator response. Assessment and Plan 1. Chronic obstructive pulmonary disease, unspecified COPD type (HCC) (J44.9) - Moderate COPD confirmed by lung function test in October. - Patient unable to afford Spiriva; currently using albuterol multiple times daily. - Educated patient on the use of albuterol as a rescue inhaler and the importance of a maintenance inhaler. - Prescribed Symbicort, instructed to use two puffs twice daily; patient may adjust to one puff twice daily based on response. - Discussed potential cost of Symbicort ($35 or less with Medicare); advised patient to check with pharmacy and insurance for coverage. - Follow-up scheduled for April; patient advised to return sooner if issues arise. 2. Hand numbness (R20.0) 3. 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 - Symptoms present all the time, started this year. - Educated patient on avoiding pressure on the elbow to reduce symptoms. - Referral to orthopedics for further evaluation and potential treatment options Kelly Walton PA-C Recording using [employer] software for draft documentation of the visit was discussed with the patient/authorized technology sales representative; all questions welcomed and answered. Patient/authorized technology sales representative agreed to proceed documented in this encounter [facility] 11-28-2024 Telephone encounter Note Pt called and is notified of providers message and instructions. Pt voices understanding and will try to get a hold of the insurance company. Jewell Babulski, RN [facility] 11-28-2024 Miscellaneous Notes Pt called and is notified of providers message and instructions. Pt voices understanding and will try to get a hold of the insurance company. Jewell Carrasco RN Is he willing to contact insurance to see which ones are covered under his plan. He should be able to get the albuterol inhaler. It's the spirivia that is likely too expensive. Recommend he go back to pharmacy and see how much just the albuterol inhaler is. This is one that he can at least use as needed for symptom relief. Kelly Walton PA-C Patient calls back and schedules an appointment for 01/26/2025. 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 Patient reports that he has been unable to work and he cannot afford $300 for inhalers. Nenita Fan RN Left message for pt to contact office. Needs to schedule a 2 month f/u. Erika Chacon LPN Needs 2 month f/u The following approved medication requests have been transmitted electronically. Requested Prescriptions Signed Prescriptions Disp Refills albuterol HFA (PROVENTIL HFA) 90 mcg/actuation inhaler 1 Each 5 Sig: Inhale 2 Puffs as instructed every 6 hours as needed for wheezing/shortness of breath. Authorizing Provider: KELLY WALTON tiotropium (SPIRIVA WITH HANDIHALER) 18 mcg inhalation capsule 1 capsule 5 Sig: Inhale 1 capsule as instructed once daily. Authorizing Provider: KELLY WALTON PA-C. Pt called and is notified of providers results and instructions. Pt voices understanding and would like to have provider send medication in to [facility] in [place] for him. Jewell Carrasco RN Sent pt a letter to call back and speak with a Triage Nurse for results and instructions. Erika Chacon LPN Left additional message for pt to contact office. Erika Chacon LPN Called and left a voicemail for the Patient to call back and ask for a nurse to receive the providers message. Jewell Carrasco RN Let patient know that his lung function test shows moderate COPD. Is he willing to try inhaler? If yes, I will send one in that he would use daily and an albuterol that he would use as needed. Then have a 2 month follow up to see how they are doing. If any issues at pharmacy with getting the prescription, please let us know. Sometimes insurance has a specific one that they cover and I don't have that information. Kelly Walton PA-C documented in this encounter [facility] 11-28-2024 Telephone encounter Note Is he willing to contact insurance to see which ones are covered under his plan. He should be able to get the albuterol inhaler. It's the spirivia that is likely too expensive. Recommend he go back to pharmacy and see how much just the albuterol inhaler is. This is one that he can at least use as needed for symptom relief. Kelly Walton PA-C [facility] 11-28-2024 Telephone encounter Note Patient calls back and schedules an appointment for 01/26/2025. 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 Patient reports that he has been unable to work and he cannot afford $300 for inhalers. Nenita Fan RN [facility] 11-27-2024 Telephone encounter Note Left message for pt to contact office. Needs to schedule a 2 month f/u. Erika Chacon LPN [facility] 11-27-2024 Telephone encounter Note Needs 2 month f/u The following approved medication requests have been transmitted electronically. Requested Prescriptions Signed Prescriptions Disp Refills albuterol HFA (PROVENTIL HFA) 90 mcg/actuation inhaler 1 Each 5 Sig: Inhale 2 Puffs as instructed every 6 hours as needed for wheezing/shortness of breath. Authorizing Provider: KELLY WALTON tiotropium (SPIRIVA WITH HANDIHALER) 18 mcg inhalation capsule 1 capsule 5 Sig: Inhale 1 capsule as instructed once daily. Authorizing Provider: KELLY WALTON PA-C. [facility] 11-27-2024 Telephone encounter Note Pt called and is notified of providers results and instructions. Pt voices understanding and would like to have provider send medication in to [facility] for him. Jewell Carrasco RN [facility] 11-19-2024 Telephone encounter Note Sent pt a letter to call back and speak with a Triage Nurse for results and instructions. Erika Chacon LPN [facility] 11-18-2024 Telephone encounter Note Left additional message for pt to contact office. Erika Chcaon LPN [facility] 11-14-2024 Telephone encounter Note Called and left a voicemail for the Patient to call back and ask for a nurse to receive the providers message. Jewell Carrasco RN [facility] 11-14-2024 Telephone encounter Note Let patient know that his lung function test shows moderate COPD. Is he willing to try inhaler? If yes, I will send one in that he would use daily and an albuterol that he would use as needed. Then have a 2 month follow up to see how they are doing. If any issues at pharmacy with getting the prescription, please let us know. Sometimes insurance has a specific one that they cover and I don't have that information. Kelly Walton PA-C [facility] 11-14-2024 Note HNO ID: [id number] Author: ERIKA CHACON LPN Service: ? Author Type: LICENSED NURSE Type: Progress Notes Filed: 11/14/2024 07:20 Note Text: Scan on 11/13/2024 4:19 PM by Provider, CATIE Lopez: Consultation - Ophthalmology [facility] 01-24-2025 History of Present illness Narrative Scan on 11/13/2024 4:19 PM by Provider, CATIE Lopez: Consultation - Ophthalmology documented in this encounter [facility] 11-13-2024 Note HNO ID: [id number] Author: EAGLE AIKEN RPFT Service: ? Author Type: Respiratory Therapist Type: Progress Notes Filed: 11/13/2024 13:07 Note Text: PULM FUNCTION: Provider: Diego Patricio MD Assisting Tech: Eagle Aiken, RPDEVIN Spirometry w/BD: 1 [facility] 11-13-2024 History of Present illness Narrative PULM FUNCTION: Provider: Diego Patricio MD Assisting Tech: Eagle Aiken, RPDEVIN Spirometry w/BD: 1 documented in this encounter [facility] 11-11-2024 Instructions Diego Patricio MD - 11/11/2024 1:49 PM EST Please get labs and urine test done on or after 05/01/2025 prior to your next visit. 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 documented in this encounter [facility] 11-11-2024 History of Present illness Narrative Chief Complaint Patient presents with: F/U 6 months HPI Aureliano Dang is a 74 year old male who presents here today for Chronic Medical Conditions. and Medicare Annual Visit. Patient with hx of diabetes, CAD, CHF, hyperlipidemia, ex smoker, overweight, a.fib after an [place] that resolved as well as those as below. Component Ref Range & Units 7 mo ago (03/18/24) 1 yr ago (09/06/23) 1 yr ago (01/29/23) 2 yr ago (08/04/22) 3 yr ago (08/05/21) 3 yr ago (02/03/21) 5 yr ago (12/28/18) Hemoglobin A1C 4.3 - 5.6 % 6.4 High 6.4 High CM 6.8 High CM 6.3 High CM 6.4 High CM 6.9 High CM 6.[address] Tapia - nephrology Patient sees Gilbert Garza - Urology Patient sees Cardiology last visit 09/2023 Patient was seeing Pulm (Dr. Nick De) last visit 12/2023. Stopped wearing the CPAP due to making him feel like he was suffocating. . Hey discussed inspire with him and he was to get back to them and h never did. Patient stopped taking the lasix after his script ran out in May 2024 and just didn't refill it. He has not had any swelling issues since then. Patient does limit the salt in his diet. Patient stopped eating as much junk food snacks over a year ago. Past medical history, appointments, medications, allergies reviewed. Previous Medical History PAST MEDICAL HISTORY Diagnosis Date Allergic rhinitis 02/01/2021 Calculus of kidney 03/08/2010 Chronic systolic CHF (congestive heart failure) (HCC) 11/13/2012 Preop EF 27+/-5%. NSTEMI mod LV mild RV required epinephrine infusion intraop. Post op EF 30+/-5%. - Pulmonary congestion and B effusions on CXR--improving. Lasix 40mg po daily, continue coreg, ACEI Coronary artery disease due to lipid rich plaque 08/08/[address] Decker: 5 vessel CABG 2013 Edema 12/09/2012 Elevated PSA 04/02/2023 Essential hypertension 02/10/2021 Ex-smoker 02/03/2021 Smoked 1/4 pck for about 45 yrs quit 2014 Ex-smoker 02/03/2021 Smoked 1/4 pck for about 45 yrs quit 2014, US 01/2021 Neg for AAA History of atrial fibrillation 11/16/2012 Secondary to OH but resolved. Sees: Dr. Decker: New onset AF RVR 11/16. Converted to NSR after 30 mins w/ BB/Mg++. 11/18-11/21 Remains in NSR, continue coreg. History of non-ST elevation myocardial infarction (NSTEMI) 11/06/2012 Preop NSTEMI by his history and EKG findings. Mildly Elevated Troponin T. ECHO LVEF 27%. - On ASA/BB/statin and ACEI. ECHO showed improved EF 39%, no pericardial effusion. Ischemic cardiomyopathy 02/10/2021 Seeing Cardio Lung nodule 11/21/[address] scan on 11/09/2012 showed 3-mm noncalcified at the base of the lateral right lower lobe segment (slice 73). Repeat CT 2013 showed no nodules. Medicare annual wellness visit, subsequent 02/07/2022 Medicare Part B: Last done: 02/07/2022 Mixed hyperlipidemia 11/18/2012 Preop lipids: Tri-86, chol-219, HDL-52, LDL-150. Lipitor 40mg started, consider increase to 80mg d/t NSTEMI--can be increased after discharge to assure pt is tolerating dose (d/w Dr. Beasley). Pt to follow up w/ local MD for repeat cholesterol levels in 6 weeks. MADELIN (obstructive sleep apnea) 12/12/2023 Sees [facility] (Santino/Estefanía) Other proteinuria 02/04/2021 diabetes related. 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) 02/03/2021 Previous Surgical History PAST SURGICAL HISTORY Procedure Laterality Date CABG (5) VENOUS GRAFTS & ARTERIAL GRAFT(S) 11/13/2012 [facility] COLONOSCOPY FLX DX W/COLLJ SPEC WHEN PFRMD 10/24/2013 Colonoscopy,repeat 10 yrs ESOPHAGOGASTRODUODENOSCOPY TRANSORAL DIAGNOSTIC 10/24/2013 EGD REMV CATARACT EXTRACAP,INSERT LENS one 03/2022 and the other 04/2022 Family History FAMILY HISTORY Problem Relation Age of Onset Hypertension Mother Stroke Mother Patient Allergies ALLERGIES Allergen Reactions Acetaminophen Other: See Comments, Mental Status Change Lisinopril Rash Oxycodone Other: See Comments hallucination Percocet [Oxycodone* Mental Status Change Hallucination Current Medications Current Outpatient Medications on File Prior to Visit Medication Sig atorvastatin (LIPITOR) 40 mg tablet Take 1 tablet by mouth daily at bedtime. dilTIAZem CD (CARDIZEM CD) 120 mg 24 hr capsule Take 1 capsule by mouth once daily. losartan (COZAAR) 100 mg tablet Take 1 tablet by mouth once daily. metFORMIN (GLUCOPHAGE) 500 mg tablet Take 1 tablet by mouth daily with breakfast. diphenhydrAMINE (BENADRYL ALLERGY) 25 mg tablet Take 1 tablet by mouth every 6 hours as needed. fluticasone (FLONASE) 50 mcg/actuation nasal spray Use 2 Sprays in each nostril once daily. Rinse mouth after use. carvedilol (COREG) 25 mg tablet Take 1 tablet by mouth two times a day with meals. furosemide (LASIX) 20 mg tablet Take 1 tablet by mouth every other day. nitroglycerin sublingual (NITROQUICK) 0.4 mg SL tablet Dissolve 1 tablet under the tongue as needed. for chest pain,every 5 min x3 blood sugar diagnostic (BLOOD GLUCOSE TEST) test strip Test blood sugar(s) one times daily. Dx: Other DM Code E11.29 Insulin: No Blood-Glucose Meter (TRUE METRIX GLUCOSE METER) Use to check blood sugar once a day. Dx: E11.29, no insulin Blood Glucose Control, Low (TRUE METRIX LEVEL 1) Use as directed to set up machine Blood Glucose Control, Normal (TRUE METRIX LEVEL 2) soln Use as directed to set up machine Blood Glucose Control, High (TRUE METRIX LEVEL 3) Use as directed to set up machine alcohol swabs Apply 1 application to affected area once daily. Blood Pressure Test Kit-Large Check BP once a day or as needed. Dx: I10, I25.5 and I25.10 Lancets lancets Test blood sugar(s) one times daily. Dx: Other DM Code E11.29 Insulin: No Blood-Glucose Meter Test blood sugar once a day DX E11.29 Insulin: No aspirin 81 mg chewable tablet Take 2 tablets by mouth once daily. No current facility-administered medications on file prior to visit. Social History Social History Tobacco Use Smoking status: Former Current packs/day: 0.00 Average packs/day: 0.3 packs/day for 45.0 years (11.3 ttl pk-yrs) Types: Cigarettes Start date: 1967 Quit date: 2012 Years since quittin.0 Smokeless tobacco: Never Tobacco comments: 4-5 cigarettes per day Vaping Use Vaping status: Never Used Substance Use Topics Alcohol use: Not Currently Drug use: Never Review of Symptoms REVIEW OF SYSTEMS GENERAL: No weight loss, malaise or fevers NECK: Negative for lumps, goiter, pain and significant neck swelling RESPIRATORY: Negative for cough, hemoptysis, COPD, dyspnea or shortness of breath. Has maura noticing slight wheeze, especially with laying down and occasionally during the day. When he works out of treadmill he burgos no significant shortness of breath and the wheezing goes away. CARDIOVASCULAR: Negative for chest pain, leg swelling, hypertension, CHF or palpitations GI: No nausea, vomiting, or diarrhea and No heartburn or reflux symptoms : No history of dysuria, blood ENDOCRINE: FB's have been 140-160 per patient. Negative for symptoms of low BS's NEURO: No history of headaches, syncope, paralysis, seizures or tremors EXAM: BP 140/80 Pulse 72 Resp 18 Wt 77.1 kg (170 lb) BMI 28.29 kg/m Last 6 Encounter Wt Readings: Date: Wt: 11/11/2024 77.1 kg (170 lb) 08/04/2024 76.9 kg (169 lb 8.5 oz) 07/01/2024 77.1 kg (170 lb) 06/27/2024 76.7 kg (169 lb) 06/16/2024 77.7 kg (171 lb 4.8 oz) 06/03/2024 76.7 kg (169 lb 1.5 oz) General Appearance: Well appearing, alert, in no acute distress, well-hydrated, well nourished.. Eyes: Anicteric sclera. Pupils are equally round and reactive to light. Extraocular movements are intact. . Neck: Supple, no adenopathy; thyroid symmetric, normal size, no bruits. Lungs: diminished breath sounds through out. Has end expiratory wheezing that is mild. No rhonchi, rales.. Heart: RRR without murmur, gallop, or rubs. No ectopy. Abdomen: Normal abdominal exam, Abdomen soft, non-tender. Bowel sounds normal. No masses, organomegaly. Extremities: No deformities, edema, skin discoloration, Good capillary refill. . Musculoskeletal: Muscular strength intact. Peripheral Pulses: Normal. Neurologic: Gait normal. Sensation grossly intact.. Health Maintenance List Dilated Retinal Exam due on 02/25/2022 Influenza Vaccine(1) due on 06/22/2024 Covid-19 Vaccine( season) due on 06/22/2024 HbA1C due on 09/18/2024 Advance Directive Discussion due on 10/22/2024 DTaP,Tdap,Td Vaccine(2 - Td or Tdap) due on 03/18/2025 RSV Vaccine(1 - 1-dose 75+ series) due on 03/18/2025 Shingrix Vaccine(2 of 3) due on 03/18/2025 Urine Albumin:Creatinine Ratio due on 03/18/2025 LDL Cholesterol due on 03/18/2025 Diabetic Foot Exam due on 04/25/2025 Depression Screening due on 04/25/2025 Anxiety Screening due on 04/25/2025 Annual PCP Team Chronic Disease Visit due on 06/27/2025 BP Controlled (<130/80) due on 08/04/2025 Hepatitis C Screening Completed Pneumococcal Vaccine: 50+ Completed Colorectal Cancer Screening Discontinued Data reviewed A/P ASSESSMENT/PLAN: 1. Type 2 diabetes mellitus with other circulatory complication, without long-term current use of insulin (HCC) - ICD9: 250.70, ICD10: E11.59 (primary diagnosis) - Control undetermined, due for labs - Continue current medications - Counseled on healthy diet and regular exercise - Discussed need for and benefit of weight loss. BMI 28.29 kg/(m^2) 2. 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) (HCC) - ICD9: 250.40, 791.0, ICD10: E11.29, R80.9 - as per #1 3. Essential hypertension - ICD9: 401.9, ICD10: I10 - Controlled - Continue current medications - Recommend home blood pressure monitoring, to bring results to next visit - Encouraged sodium restriction, DASH or Mediterranean diet - Recommend regular aerobic exercise - Discussed need for and benefit of weight loss. BMI 28.29 kg/(m^2) 4. Mixed hyperlipidemia - ICD9: 272.2, ICD10: E78.2 - Control undetermined, due for labs - Continue current medications - Counseled on healthy diet and regular exercise - Discussed need for and benefit of weight loss. BMI 28.29 kg/(m^2) 5. Edema, unspecified type - ICD9: 782.3, ICD10: R60.9 - none on exam. Will keep hi of the Lasix. 6. Coronary artery disease due to lipid rich plaque - ICD9: 414.00, 414.3, ICD10: I25.10, I25.83 - clinically stable and managed per cardio. 7. Chronic systolic CHF (congestive heart failure) (HCC) - ICD9: 428.22, 428.0, ICD10: I50.22 - as per #6 8. Ischemic cardiomyopathy - ICD9: 414.8, ICD10: I25.5 - as per #6 9. MADELIN (obstructive sleep apnea) - ICD9: 327.23, ICD10: G47.33 - patient stopped the CPAP due to intolerance and at appt in 12/2023 with [facility] they discussed [employer] and he freddy returned. 10. Overweight (BMI 25.0-29.9) - ICD9: 278.02, ICD10: E66.3 - patient to work on weight loss. 11. Elevated PSA - ICD9: 790.93, ICD10: R97.20 - await labs 12. Wheezing - ICD9: 786.07, ICD10: R06.2 Check - SPIROMETRY - BASELINE AND POST DILATOR 13. Ex-smoker - ICD9: V15.82, ICD10: Z87.891 Check - SPIROMETRY - BASELINE AND POST DILATOR 14. Encounter for immunization - ICD9: V03.89, ICD10: Z23 - INFLUENZA VACCINE, PRSV FREE, AGE 65+ YR, HIGH DOSE, TRIVALENT (FLUZONE HIGH-DOSE): given 15. Advance directive discussed with patient - ICD9: V65.49, ICD10: Z71.89 - patient to bring in copies. F/u 6 months extensive. Check CMP, Lipid, UA, A1c, UA, urine micro albumin, CBC prior. I spent a total of 40 minutes on the date of the service which included preparing to see the patient, [id number] patient care, completing clinical documentation, performing a medically appropriate examination, counseling and educating the patient/family/caregiver and ordering medications, tests, or procedures. Diego Patricio MD documented in this encounter [facility] 11-11-2024 Note HNO ID: [id number] Author: DIEGO PATRICIO MD Service: ? Author Type: Physician Type: Progress Notes Filed: 11/11/2024 20:17 Note Text: Chief Complaint Patient presents with: F/U 6 months HPI Aureliano Dang is a 74 year old male who presents here today for Chronic Medical Conditions. and Medicare Annual Visit. Patient with hx of diabetes, CAD, CHF, hyperlipidemia, ex smoker, overweight, a.fib after an OH that resolved as well as those as below. Component Ref Range AND Units 7 mo ago (03/18/24) 1 yr ago (09/06/23) 1 yr ago (01/29/23) 2 yr ago (08/04/22) 3 yr ago (08/05/21) 3 yr ago (02/03/21) 5 yr ago (12/28/18) Hemoglobin A1C 4.3 - 5.6 % 6.4 High 6.4 High CM 6.8 High CM 6.3 High CM 6.4 High CM 6.9 High CM 6.[address] Tapia - nephrology Patient sees Gilbert Garza - Urology Patient sees Cardiology last visit 09/2023 Patient was seeing Pulm (Dr. Nick De) last visit 12/2023. Stopped wearing the CPAP due to making him feel like he was suffocating. . Hey discussed inspire with him and he was to get back to them and h never did. Patient stopped taking the lasix after his script ran out in May 2024 and just didn't refill it. He has not had any swelling issues since then. Patient does limit the salt in his diet. Patient stopped eating as much junk food snacks over a year ago. Past medical history, appointments, medications, allergies reviewed. Previous Medical History PAST MEDICAL HISTORY Diagnosis Date Allergic rhinitis 02/01/2021 Calculus of kidney 03/08/2010 Chronic systolic CHF (congestive heart failure) (HCC) 11/13/2012 Preop EF 27+/-5%. NSTEMI mod LV mild RV required epinephrine infusion intraop. Post op EF 30+/-5%. - Pulmonary congestion and B effusions on CXR--improving. Lasix 40mg po daily, continue coreg, ACEI Coronary artery disease due to lipid rich plaque 08/08/[address] Decker: 5 vessel CABG 2012 Edema 12/09/2012 Elevated PSA 04/02/2023 Essential hypertension 02/10/2021 Ex-smoker 02/03/2021 Smoked 1/4 pck for about 45 yrs quit 2014 Ex-smoker 02/03/2021 Smoked 1/4 pck for about 45 yrs quit 2014, US 01/2021 Neg for AAA History of atrial fibrillation 11/16/2012 Secondary to OH but resolved. Sees: Dr. Decker: New onset AF RVR 11/16. Converted to NSR after 30 mins w/ BB/Mg++. 11/18-11/21 Remains in NSR, continue coreg. History of non-ST elevation myocardial infarction (NSTEMI) 11/06/2012 Preop NSTEMI by his history and EKG findings. Mildly Elevated Troponin T. ECHO LVEF 27%. - On ASA/BB/statin and ACEI. ECHO showed improved EF 39%, no pericardial effusion. Ischemic cardiomyopathy 02/10/2021 Seeing Cardio Lung nodule 11/21/[address] scan on 11/09/2012 showed 3-mm noncalcified at the base of the lateral right lower lobe segment (slice 73). Repeat CT 2013 showed no nodules. Medicare annual wellness visit, subsequent 02/07/2022 Medicare Part B: Last done: 02/07/2022 Mixed hyperlipidemia 11/18/2012 Preop lipids: Tri-86, chol-219, HDL-52, LDL-150. Lipitor 40mg started, consider increase to 80mg d/t NSTEMI--can be increased after discharge to assure pt is tolerating dose (d/w Dr. Beasley). Pt to follow up w/ local MD for repeat cholesterol levels in 6 weeks. MADELIN (obstructive sleep apnea) 12/12/2023 Sees [facility] (Santino/Estefanía) Other proteinuria 02/04/2021 diabetes related. 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) 02/03/2021 Previous Surgical History PAST SURGICAL HISTORY Procedure Laterality Date CABG (5) VENOUS GRAFTS AND ARTERIAL GRAFT(S) 11/13/2012 [facility] COLONOSCOPY FLX DX W/COLLJ SPEC WHEN PFRMD 10/24/2013 Colonoscopy,repeat 10 yrs ESOPHAGOGASTRODUODENOSCOPY TRANSORAL DIAGNOSTIC 10/24/2013 EGD REMV CATARACT EXTRACAP,INSERT LENS one 03/2022 and the other 04/2022 Family History FAMILY HISTORY Problem Relation Age of Onset Hypertension Mother Stroke Mother Patient Allergies ALLERGIES Allergen Reactions Acetaminophen Other: See Comments, Mental Status Change Lisinopril Rash Oxycodone Other: See Comments hallucination Percocet [Oxycodone* Mental Status Change Hallucination Current Medications Current Outpatient Medications on File Prior to Visit Medication Sig atorvastatin (LIPITOR) 40 mg tablet Take 1 tablet by mouth daily at bedtime. dilTIAZem CD (CARDIZEM CD) 120 mg 24 hr capsule Take 1 capsule by mouth once daily. losartan (COZAAR) 100 mg tablet Take 1 tablet by mouth once daily. metFORMIN (GLUCOPHAGE) 500 mg tablet Take 1 tablet by mouth daily with breakfast. diphenhydrAMINE (BENADRYL ALLERGY) 25 mg tablet Take 1 tablet by mouth every 6 hours as needed. fluticasone (FLONASE) 50 mcg/actuation nasal spray Use 2 Sprays in each nostril once daily. Rinse mouth after use. carvedilol (COREG) 25 mg tablet Take 1 tablet by candelaria (more content not included)... [facility] 11-07-2024 Telephone encounter Note Left a detailed message for pt to call the office to reschedule 6 month follow past due. Trinity Conte LPN The patient has been identified by name and date of : Yes Caregiver verified no other encounters exist for this prescription request: Yes Caregiver confirmed with patient/requestor that no other refills are due, in the near future, with this provider at this time: Yes The last office visit in the department: 06/27/2024 Does the patient have a future office visit with this provider/department: No Visit date not found Requested Prescriptions Pending Prescriptions Disp Refills atorvastatin (LIPITOR) 40 mg tablet 90 tablet 3 Sig: Take 1 tablet by mouth daily at bedtime. Trinity Conte LPN November 07, 2024 8:17 AM [facility] 11-07-2024 Miscellaneous Notes Left a detailed message for pt to call the office to reschedule 6 month follow past due. Trinity Conte LPN The patient has been identified by name and date of : Yes Caregiver verified no other encounters exist for this prescription request: Yes Caregiver confirmed with patient/requestor that no other refills are due, in the near future, with this provider at this time: Yes The last office visit in the department: 06/27/2024 Does the patient have a future office visit with this provider/department: No Visit date not found Requested Prescriptions Pending Prescriptions Disp Refills atorvastatin (LIPITOR) 40 mg tablet 90 tablet 3 Sig: Take 1 tablet by mouth daily at bedtime. Trinity Conte LPN November 07, 2024 8:17 AM Prescription Refill Information The patient has been identified by name and date of : Yes Caregiver verified no other encounters exist for this prescription request: Yes Caregiver confirmed with patient/requestor that no other refills are due, in the near future, with this provider at this time: Yes The last office visit in the department: 06/27/2024 Does the patient have a future office visit with this provider/department: No Requested Prescriptions Pending Prescriptions Disp Refills atorvastatin (LIPITOR) 40 mg tablet 90 tablet 3 Sig: Take 1 tablet by mouth daily at bedtime. Gege Doss November 06, 2024 1:04 PM documented in this encounter [facility] 11-06-2024 Telephone encounter Note Prescription Refill Information The patient has been identified by name and date of : Yes Caregiver verified no other encounters exist for this prescription request: Yes Caregiver confirmed with patient/requestor that no other refills are due, in the near future, with this provider at this time: Yes The last office visit in the department: 06/27/2024 Does the patient have a future office visit with this provider/department: No Requested Prescriptions Pending Prescriptions Disp Refills atorvastatin (LIPITOR) 40 mg tablet 90 tablet 3 Sig: Take 1 tablet by mouth daily at bedtime. Gege Doss November 06, 2024 1:04 PM [facility] 10-17-2024 Telephone encounter Note See new prescription refill dated 10/17/24 [facility] 10-17-2024 Miscellaneous Notes See new prescription refill dated 10/17/24 ..Prescription Refill Information The patient has been identified by name and date of : Yes Caregiver verified no other encounters exist for this prescription request: Yes Caregiver confirmed with patient/requestor that no other refills are due, in the near future, with this provider at this time: Yes The last office visit in the department: 08/04/2024 Does the patient have a future office visit with this provider/department: No Requested Prescriptions Pending Prescriptions Disp Refills dilTIAZem CD (CARDIZEM CD) 120 mg 24 hr capsule 30 capsule 5 Sig: Take 1 capsule by mouth once daily. metFORMIN (GLUCOPHAGE) 500 mg tablet 90 tablet 1 Sig: Take 1 tablet by mouth daily with breakfast. Ashley Billingsley September 22, 2024 9:55 AM documented in this encounter [facility] 10-17-2024 Telephone encounter Note Pt walked in to lobby to get refills. Pt states he always walks in to request them as he does not like to call in and does not have MyChart. Pt states the hotel front desk clerk always seem to have issues with getting his refills taken care of. Pt has an upcoming appt with Dr. Patricio on 10/26/24. Pt requesting 3 mon supply with 1 year refills. The patient has been identified by name and date of : Yes Caregiver verified no other encounters exist for this prescription request: Yes Caregiver confirmed with patient/requestor that no other refills are due, in the near future, with this provider at this time: Yes The last office visit in the department: 06/27/2024 Does the patient have a future office visit with this provider/department: Yes 10/28/2024 Requested Prescriptions Pending Prescriptions Disp Refills dilTIAZem CD (CARDIZEM CD) 120 mg 24 hr capsule 30 capsule 5 Sig: Take 1 capsule by mouth once daily. losartan (COZAAR) 100 mg tablet 90 tablet 1 Sig: Take 1 tablet by mouth once daily. metFORMIN (GLUCOPHAGE) 500 mg tablet 90 tablet 1 Sig: Take 1 tablet by mouth daily with breakfast. Anusha Santiago RN October 17, 2024 1:26 PM [facility] 10-17-2024 Miscellaneous Notes Pt walked in to lobby to get refills. Pt states he always walks in to request them as he does not like to call in and does not have MyChart. Pt states the hotel front desk clerk always seem to have issues with getting his refills taken care of. Pt has an upcoming appt with Dr. Patricio on 10/26/24. Pt requesting 3 mon supply with 1 year refills. The patient has been identified by name and date of : Yes Caregiver verified no other encounters exist for this prescription request: Yes Caregiver confirmed with patient/requestor that no other refills are due, in the near future, with this provider at this time: Yes The last office visit in the department: 06/27/2024 Does the patient have a future office visit with this provider/department: Yes 10/28/2024 Requested Prescriptions Pending Prescriptions Disp Refills dilTIAZem CD (CARDIZEM CD) 120 mg 24 hr capsule 30 capsule 5 Sig: Take 1 capsule by mouth once daily. losartan (COZAAR) 100 mg tablet 90 tablet 1 Sig: Take 1 tablet by mouth once daily. metFORMIN (GLUCOPHAGE) 500 mg tablet 90 tablet 1 Sig: Take 1 tablet by mouth daily with breakfast. Anusha Santiago RN October 17, 2024 1:26 PM documented in this encounter [facility] 09-22-2024 Telephone encounter Note ..Prescription Refill Information The patient has been identified by name and date of : Yes Caregiver verified no other encounters exist for this prescription request: Yes Caregiver confirmed with patient/requestor that no other refills are due, in the near future, with this provider at this time: Yes The last office visit in the department: 08/04/2024 Does the patient have a future office visit with this provider/department: Yes Requested Prescriptions Pending Prescriptions Disp Refills dilTIAZem CD (CARDIZEM CD) 120 mg 24 hr capsule 30 capsule 5 Sig: Take 1 capsule by mouth once daily. metFORMIN (GLUCOPHAGE) 500 mg tablet 90 tablet 1 Sig: Take 1 tablet by mouth daily with breakfast. Ashley Billingsley September 22, 2024 10:03 AM [facility] 09-22-2024 Miscellaneous Notes ..Prescription Refill Information The patient has been identified by name and date of : Yes Caregiver verified no other encounters exist for this prescription request: Yes Caregiver confirmed with patient/requestor that no other refills are due, in the near future, with this provider at this time: Yes The last office visit in the department: 08/04/2024 Does the patient have a future office visit with this provider/department: Yes Requested Prescriptions Pending Prescriptions Disp Refills dilTIAZem CD (CARDIZEM CD) 120 mg 24 hr capsule 30 capsule 5 Sig: Take 1 capsule by mouth once daily. metFORMIN (GLUCOPHAGE) 500 mg tablet 90 tablet 1 Sig: Take 1 tablet by mouth daily with breakfast. Ashley Billingsley September 22, 2024 10:03 AM documented in this encounter [facility] 09-22-2024 Telephone encounter Note ..Prescription Refill Information The patient has been identified by name and date of : Yes Caregiver verified no other encounters exist for this prescription request: Yes Caregiver confirmed with patient/requestor that no other refills are due, in the near future, with this provider at this time: Yes The last office visit in the department: 08/04/2024 Does the patient have a future office visit with this provider/department: No Requested Prescriptions Pending Prescriptions Disp Refills dilTIAZem CD (CARDIZEM CD) 120 mg 24 hr capsule 30 capsule 5 Sig: Take 1 capsule by mouth once daily. metFORMIN (GLUCOPHAGE) 500 mg tablet 90 tablet 1 Sig: Take 1 tablet by mouth daily with breakfast. Ashley Billingsley September 22, 2024 9:55 AM [facility] 08-04-2024 Note HNO ID: [id number] Author: VICENTA SNEED APRN.TYPING BOOKKEEPER Service: ? Author Type: Nurse Practitioner Type: Progress Notes Filed: 08/04/2024 11:14 Note Text: Yung Dang is a 74 year old male who presents with an abscess on the left shoulder x 2 days. Abscess Pertinent negatives include no abdominal pain, chills, fever, nausea or vomiting. Patient states he has an abscess on his left shoulder that was first noticed two days ago. Patient states he has not been able see the abscess himself, but states his has seen it and touched it. There has been a small amount of drainage from the area. Patient reports pain to the area. He denies any fever, nausea, vomiting, diarrhea or abdominal pain. No other concerns at this time. Review of Systems Constitutional: Negative for chills, fever and malaise/fatigue. HENT: Negative. Eyes: Negative. Respiratory: Negative. Cardiovascular: Negative. Gastrointestinal: Negative for abdominal pain, diarrhea, nausea and vomiting. Genitourinary: Negative. Musculoskeletal: Negative. Neurological: Negative. Psychiatric/Behavioral: Negative. PAST MEDICAL HISTORY Diagnosis Date Allergic rhinitis 02/01/2021 Calculus of kidney 03/08/2010 Chronic systolic CHF (congestive heart failure) (HCC) 11/13/2012 Preop EF 27+/-5%. NSTEMI mod LV mild RV required epinephrine infusion intraop. Post op EF 30+/-5%. - Pulmonary congestion and B effusions on CXR--improving. Lasix 40mg po daily, continue coreg, ACEI Coronary artery disease due to lipid rich plaque 08/08/[address] Decker: 5 vessel CABG 2012 Edema 12/09/2012 Elevated PSA 04/02/2023 Essential hypertension 02/10/2021 Ex-smoker 02/03/2021 Smoked 1/4 pck for about 45 yrs quit 2014 Ex-smoker 02/03/2021 Smoked 1/4 pck for about 45 yrs quit 2014, US 01/2021 Neg for AAA History of atrial fibrillation 11/16/2012 Secondary to [place] but resolved. Sees: Dr. Decker: New onset AF RVR 11/16. Converted to NSR after 30 mins w/ BB/Mg++. 11/18-11/21 Remains in NSR, continue coreg. History of non-ST elevation myocardial infarction (NSTEMI) 11/06/2012 Preop NSTEMI by his history and EKG findings. Mildly Elevated Troponin T. ECHO LVEF 27%. - On ASA/BB/statin and ACEI. ECHO showed improved EF 39%, no pericardial effusion. Ischemic cardiomyopathy 02/10/2021 Seeing Cardio Lung nodule 11/21/[address] scan on 11/09/2012 showed 3-mm noncalcified at the base of the lateral right lower lobe segment (slice 73). Repeat CT 2013 showed no nodules. Medicare annual wellness visit, subsequent 02/07/2022 Medicare Part B: Last done: 02/07/2022 Mixed hyperlipidemia 11/18/2012 Preop lipids: Tri-86, chol-219, HDL-52, LDL-150. Lipitor 40mg started, consider increase to 80mg d/t NSTEMI--can be increased after discharge to assure pt is tolerating dose (d/w Dr. Beasley). Pt to follow up w/ local MD for repeat cholesterol levels in 6 weeks. MADELIN (obstructive sleep apnea) 12/12/2023 Sees [facility] (Santino/Estefanía) Other proteinuria 02/04/2021 diabetes related. 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 dilTIAZem CD (CARDIZEM CD) 120 mg 24 hr capsule Take 1 capsule by mouth once daily. fluticasone (FLONASE) 50 mcg/actuation nasal spray Use 2 Sprays in each nostril once daily. Rinse mouth after use. losartan (COZAAR) 100 mg tablet Take 1 tablet by mouth once daily. carvedilol (COREG) 25 mg tablet Take 1 tablet by mouth two times a day with meals. metFORMIN (GLUCOPHAGE) 500 mg tablet Take 1 tablet by mouth daily with breakfast. furosemide (LASIX) 20 mg tablet Take 1 tablet by mouth every other day. atorvastatin (LIPITOR) 40 mg tablet Take 1 tablet by mouth daily at bedtime. nitroglycerin sublingual (NITROQUICK) 0.4 mg SL tablet Dissolve 1 tablet under the tongue as needed. for chest pain,every 5 min x3 blood sugar diagnostic (BLOOD GLUCOSE TEST) test strip Test blood sugar(s) one times daily. Dx: Other DM Code E11.29 Insulin: No Blood-Glucose Meter (TRUE METRIX GLUCOSE METER) Use to check blood sugar once a day. Dx: E11.29, no insulin Blood Glucose Control, Low (TRUE METRIX LEVEL 1) Use as directed to set up machine Blood Glucose Control, Normal (TRUE METRIX LEVEL 2) soln Use as directed to set up machine Blood Glucose (more content not included)... [facility] 08-04-2024 History of Present illness Narrative Images from the original note were not included. Subjective Aureliano Dang is a 74 year old male who presents with an abscess on the left shoulder x 2 days. Abscess Pertinent negatives include no abdominal pain, chills, fever, nausea or vomiting. Patient states he has an abscess on his left shoulder that was first noticed two days ago. Patient states he has not been able see the abscess himself, but states his has seen it and touched it. There has been a small amount of drainage from the area. Patient reports pain to the area. He denies any fever, nausea, vomiting, diarrhea or abdominal pain. No other concerns at this time. Review of Systems Constitutional: Negative for chills, fever and malaise/fatigue. HENT: Negative. Eyes: Negative. Respiratory: Negative. Cardiovascular: Negative. Gastrointestinal: Negative for abdominal pain, diarrhea, nausea and vomiting. Genitourinary: Negative. Musculoskeletal: Negative. Neurological: Negative. Psychiatric/Behavioral: Negative. PAST MEDICAL HISTORY Diagnosis Date Allergic rhinitis 02/01/2021 Calculus of kidney 03/08/2010 Chronic systolic CHF (congestive heart failure) (HCC) 11/13/2012 Preop EF 27+/-5%. NSTEMI mod LV mild RV required epinephrine infusion intraop. Post op EF 30+/-5%. - Pulmonary congestion and B effusions on CXR--improving. Lasix 40mg po daily, continue coreg, ACEI Coronary artery disease due to lipid rich plaque 08/08/[address] Decker: 5 vessel CABG 2012 Edema 12/09/2012 Elevated PSA 04/02/2023 Essential hypertension 02/10/2021 Ex-smoker 02/03/2021 Smoked 1/4 pck for about 45 yrs quit 2014 Ex-smoker 02/03/2021 Smoked 1/4 pck for about 45 yrs quit 2014, US 01/2021 Neg for AAA History of atrial fibrillation 11/16/2012 Secondary to [place] but resolved. Sees: Dr. Decker: New onset AF RVR 11/16. Converted to NSR after 30 mins w/ BB/Mg++. 11/18-11/21 Remains in NSR, continue coreg. History of non-ST elevation myocardial infarction (NSTEMI) 11/06/2012 Preop NSTEMI by his history and EKG findings. Mildly Elevated Troponin T. ECHO LVEF 27%. - On ASA/BB/statin and ACEI. ECHO showed improved EF 39%, no pericardial effusion. Ischemic cardiomyopathy 02/10/2021 Seeing Cardio Lung nodule 11/21/[address] scan on 11/09/2012 showed 3-mm noncalcified at the base of the lateral right lower lobe segment (slice 73). Repeat CT 2013 showed no nodules. Medicare annual wellness visit, subsequent 02/07/2022 Medicare Part B: Last done: 02/07/2022 Mixed hyperlipidemia 11/18/2012 Preop lipids: Tri-86, chol-219, HDL-52, LDL-150. Lipitor 40mg started, consider increase to 80mg d/t NSTEMI--can be increased after discharge to assure pt is tolerating dose (d/w Dr. Beasley). Pt to follow up w/ local MD for repeat cholesterol levels in 6 weeks. MADELIN (obstructive sleep apnea) 12/12/2023 Sees [facility] (Santino/Estefanía) Other proteinuria 02/04/2021 diabetes related. 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 dilTIAZem CD (CARDIZEM CD) 120 mg 24 hr capsule Take 1 capsule by mouth once daily. fluticasone (FLONASE) 50 mcg/actuation nasal spray Use 2 Sprays in each nostril once daily. Rinse mouth after use. losartan (COZAAR) 100 mg tablet Take 1 tablet by mouth once daily. carvedilol (COREG) 25 mg tablet Take 1 tablet by mouth two times a day with meals. metFORMIN (GLUCOPHAGE) 500 mg tablet Take 1 tablet by mouth daily with breakfast. furosemide (LASIX) 20 mg tablet Take 1 tablet by mouth every other day. atorvastatin (LIPITOR) 40 mg tablet Take 1 tablet by mouth daily at bedtime. nitroglycerin sublingual (NITROQUICK) 0.4 mg SL tablet Dissolve 1 tablet under the tongue as needed. for chest pain,every 5 min x3 blood sugar diagnostic (BLOOD GLUCOSE TEST) test strip Test blood sugar(s) one times daily. Dx: Other DM Code E11.29 Insulin: No Blood-Glucose Meter (TRUE METRIX GLUCOSE METER) Use to check blood sugar once a day. Dx: E11.29, no insulin Blood Glucose Control, Low (TRUE METRIX LEVEL 1) Use as directed to set up machine Blood Glucose Control, Normal (TRUE METRIX LEVEL 2) soln Use as directed to set up machine Blood Glucose Control, High (TRUE METRIX LEVEL 3) Use as directed to set up machine alcohol swabs Apply 1 application to affected area once daily. Blood Pressure Test Kit-Large Check BP once a day or as needed. Dx: I10, I25.5 and I25.10 Lancets lancets Test blood sugar(s) one times daily. Dx: Other DM Code E11.29 Insulin: No Blood-Glucose Meter Test blood sugar once a day DX E11.29 Insulin: No aspirin 81 mg chewable tablet Take 2 tablets by mouth once daily. doxycycline monohydrate 100 mg tablet Take 1 tablet by mouth two times a day for 10 days. FAMILY HISTORY Problem Relation Age of Onset Hypertension Mother Stroke Mother Social History Tobacco Use Smoking status: Former Current packs/day: 0.00 Average packs/day: 0.3 packs/day for 45.0 years (11.3 ttl pk-yrs) Types: Cigarettes Start date: 1967 Quit date: 2012 Years since quittin.7 Smokeless tobacco: Never Tobacco comments: 4-5 cigarettes per day Vaping Use Vaping status: Never Used Substance Use Topics Alcohol use: Not Currently Drug use: Never BP 122/74 Pulse 64 Temp 36.4 C (97.5 F) Resp 16 Wt 76.9 kg (169 lb 8.5 oz) SpO2 98% BMI 28.21 kg/m Objective Physical Exam Vitals and nursing note reviewed. Constitutional: Appearance: Normal appearance. HENT: Head: Normocephalic. Cardiovascular: Rate and Rhythm: Normal rate and regular rhythm. Pulses: Normal pulses. Heart sounds: Normal heart sounds. Pulmonary: Effort: Pulmonary effort is normal. Breath sounds: Normal breath sounds. Abdominal: Palpations: Abdomen is soft. Tenderness: There is no abdominal tenderness. Musculoskeletal: Cervical back: Normal range of motion and neck supple. Skin: General: Skin is warm and dry. Findings: Abscess present. No bruising, ecchymosis or signs of injury. Comments: Medium sized abscess to posterior left shoulder noted. The area is covered with a large band-aid. Purulent drainage noted from the abscess and on the band-aid. The abscess is firm with a small area of fluctuance in the center of the abscess at the point of drainage. Neurological: General: No focal deficit present. Mental Status: He is alert and oriented to person, place, and time. Psychiatric: Mood and Affect: Mood normal. Behavior: Behavior normal. UNIVERSAL PROTOCOL / SAFETY CHECKLIST Procedure to be Performed: incision and drainage abscess left posterior shoulder Sign In: A Moment of CARE was completed. Personnel directly involved with the procedure wore the appropriate PPE (Personal Protective Equipment). No special equipment needed. Patient/Surrogate Stated/Verified: PATIENT VERIFIED(optional for EMERGENT procedures): Patient name, Date of , Relevant allergies, and The intended procedure Time Out Communication: Intended patient and procedure match the source documents. Consent documented and matches the intended procedure. No relevant labs, photos, and/or imaging studies were applicable for review. Correct side/site marked and visible. Medications required for procedure verified. No fire risk assessment and interventions applicable. No implant(s) inserted. Sign Out: SIGN OUT (optional for EMERGENT procedures): All specimen containers correctly labeled. All instruments, equipment, possible retained foreign bodies accounted for. Post-procedure follow-up management communicated and Plan of Care Visit completed when applicable. Vicenta Sneed APRN.TYPING BOOKKEEPER ASSESSMENT/PLAN: 1. Cutaneous abscess of back excluding buttocks - ICD9: 682.2, ICD10: L02.212 - Begin treatment with doxycycline - No lymphangetic streaking, this was defined for patient to watch for and to seek medical care immediately if appears - DOXYCYCLINE MONOHYDRATE 100 MG TABLET After universal precaution procedure done, skin was cleansed with saline and povidine. 1.5 cc of 1% lidocaine was injected near the area of maximal fluctuance and small incision made with 11 blade scalpel. A small amount of purulent drainage was expressed. Culture swab obtained. A dry sterile dressing was applied. Patient tolerated procedure well. - Follow-up with your PCP in 3-5 days if symptoms have not improved or sooner if symptoms worsen - Discussed red flags and need for immediate medical evaluation if any occur. - Discussed supportive care treatment with fluids, rest and analgesia. - Discussed expected course of illness Vicenta Sneed APRN.CNP documented in this encounter [facility] 08-04-2024 Instructions Vicenta Sneed APRN.CNP - 08/04/2024 10:07 AM EDT ASSESSMENT/PLAN: 1. Cutaneous abscess of back excluding buttocks - ICD9: 682.2, ICD10: L02.212 - Begin treatment with doxycycline - No lymphangetic streaking, this was defined for patient to watch for and to seek medical care immediately if appears - DOXYCYCLINE MONOHYDRATE 100 MG TABLET After universal precaution procedure done, skin was cleansed with saline and povidine. 1.5 cc of 1% lidocaine was injected near the area of maximal fluctuance and small incision made with 11 blade scalpel. A small amount of purulent drainage was expressed. Culture swab obtained. A dry sterile dressing was applied. Patient tolerated procedure well. - Follow-up with your PCP in 3-5 days if symptoms have not improved or sooner if symptoms worsen - Discussed red flags and need for immediate medical evaluation if any occur. - Discussed supportive care treatment with fluids, rest and analgesia. - Discussed expected course of illness Vicenta Sneed APRN.CNP ABSCESS (BOIL): You have a skin abscess, or boil. Boils usually develop when Staph bacteria get into the small glands or hair follicles in the skin and form a pus pocket. After an abscess is properly drained, it will most often heal without any problems. You should not squeeze an abscess or boil to drain it; this can cause the infection to spread to other areas under the skin. Boils are contagious, so you should dispose of soiled bandages carefully and not share your towel or wash cloth with others. A boil is lanced to start the draining. Soak the area in warm water for 20-30 minutes 3-4 times daily to help the healing. Oral antibiotics may be needed if the infection is severe or if it seems to be spreading. Please call your doctor if you have increased pain or swelling, chills or fever, red streaks going up the arm or leg, or continued pus drainage after 3-4 days. documented in this encounter [facility] 07-01-2024 Note HNO ID: [id number] Author: GILBERT GARZA PA-C Service: ? Author Type: Physician Endless Bed Drum Sander Type: Progress Notes Filed: 07/01/2024 19:06 Note Text: [facility] NEW PATIENT CLINIC NOTE SERVICE DATE: July 01, 2024 NAME: Aureliano Dang CHIEF COMPLAINT: Hematuria HISTORY OF PRESENT ILLNESS: Aureliano Dang is a 74 year old male an new patient here for Hematuria The patient reports no gross but blood positive on UA only, he did have a Renal US that showed renal cysts that benign and not likely to cause blood in urine And found to have a Prostate measures 4.2 x 4.3 x 5.2 cm corresponding to a volume of 49 mL, enlarged. Which is a likely cause for his UA positive for blood He also had a smoking history and has stopped smoking for years. We discussed that if he sees gross blood he will need a full hematuria work-up Recommend continue follow up for BPH LUTS: DYSURIA: no URGENCY: No FREQUENCY:6 per day NOCTURIA: 0 per night STRAINING TO VOID: No EMPTIES COMPLETELY: Yes UTI: No GROSS HEMATURIA: no UA DIPSTICK POSITIVE ONLY: yes LABS: PSA (ng/mL) Date Value 03/18/2024 2.41 09/06/2023 2.35 03/31/2023 2.98 02/03/2021 1.88 Creatinine Date Value Ref Range Status 03/18/2024 0.89 0.73 - 1.22 mg/dL Final 02/04/2024 0.90 0.73 - 1.22 mg/dL Final 2023 0.93 0.73 - 1.22 mg/dL Final MEDICATIONS: diphenhydrAMINE (BENADRYL ALLERGY) 25 mg tablet Take 1 tablet by mouth every 6 hours as needed. fluconazole (DIFLUCAN) 200 mg tablet Take 1 tablet by mouth one time a week for 28 days. dilTIAZem CD (CARDIZEM CD) 120 mg 24 hr capsule Take 1 capsule by mouth once daily. fluticasone (FLONASE) 50 mcg/actuation nasal spray Use 2 Sprays in each nostril once daily. Rinse mouth after use. losartan (COZAAR) 100 mg tablet Take 1 tablet by mouth once daily. carvedilol (COREG) 25 mg tablet Take 1 tablet by mouth two times a day with meals. metFORMIN (GLUCOPHAGE) 500 mg tablet Take 1 tablet by mouth daily with breakfast. furosemide (LASIX) 20 mg tablet Take 1 tablet by mouth every other day. atorvastatin (LIPITOR) 40 mg tablet Take 1 tablet by mouth daily at bedtime. nitroglycerin sublingual (NITROQUICK) 0.4 mg SL tablet Dissolve 1 tablet under the tongue as needed. for chest pain,every 5 min x3 blood sugar diagnostic (BLOOD GLUCOSE TEST) test strip Test blood sugar(s) one times daily. Dx: Other DM Code E11.29 Insulin: No Blood-Glucose Meter (TRUE METRIX GLUCOSE METER) Use to check blood sugar once a day. Dx: E11.29, no insulin Blood Glucose Control, Low (TRUE METRIX LEVEL 1) Use as directed to set up machine Blood Glucose Control, Normal (TRUE METRIX LEVEL 2) soln Use as directed to set up machine Blood Glucose Control, High (TRUE METRIX LEVEL 3) Use as directed to set up machine alcohol swabs Apply 1 application to affected area once daily. Blood Pressure Test Kit-Large Check BP once a day or as needed. Dx: I10, I25.5 and I25.10 Lancets lancets Test blood sugar(s) one times daily. Dx: Other DM Code E11.29 Insulin: No Blood-Glucose Meter Test blood sugar once a day DX E11.29 Insulin: No aspirin 81 mg chewable tablet Take 2 tablets by mouth once daily. PAST MEDICAL HISTORY: PAST MEDICAL HISTORY 02/01/2021: Allergic rhinitis 03/08/2010: Calculus of kidney 11/13/2012: Chronic systolic CHF (congestive heart failure) (HCC) Comment: Preop EF 27+/-5%. NSTEMI mod LV mild RV required epinephrine infusion intraop. Post op EF 30+/-5%. - Pulmonary congestion and B effusions on CXR--improving. Lasix 40mg po daily, continue coreg, ACEI 08/08/2017: Coronary artery disease due to lipid rich plaque Comment: Seeing Dr. Decker: 5 vessel CABG 201212/09/2012: Edema 04/02/2023: Elevated PSA 02/10/2021: Essential hypertension 02/03/2021: Ex-smoker Comment: Smoked 1/4 pck for about 45 yrs quit 201402/03/2021: Ex-smoker Comment: Smoked 1/4 pck for about 45 yrs quit 2014, US 01/2021 Neg for AAA 11/16/2012: History of atrial fibrillation Comment: Secondary to [place] but resolved. Sees: Dr. Decker: New onset AF RVR 11/16. Converted to NSR after 30 mins w/ BB/Mg++. 11/18-11/21 Remains in NSR, continue coreg. 11/06/2012: History of non-ST elevation myocardial infarction (NSTEMI) Comment: Preop NSTEMI by his history and EKG findings. Mildly Elevated Troponin T. ECHO LVEF 27%. - On ASA/BB/statin and ACEI. ECHO showed improved EF 39%, no pericardial effusion. 02/10/2021: Ischemic cardiomyopathy Comment: Seeing Cardio 11/21/2012: Lung nodule Comment: Preop CT scan on 11/09/2012 showed 3-mm noncalcified at the base of the lateral right lower lobe segment (slice 73). Repeat CT 2013 showed no nodules. 02/07/2022: Medicare annual wellness visit, subsequent Comment: Medicare Part B: Last done: 02/07/2022 11/18/2012: Mixed hyperlipidemia Comment: Preop lipids: Tri-86, chol-219, HDL-52, LDL-15 (more content not included)... [facility] 07-01-2024 History of Present illness Narrative Images from the original note were not included. [facility] NEW PATIENT CLINIC NOTE SERVICE DATE: July 01, 2024 NAME: Aureliano Dang CHIEF COMPLAINT: Hematuria HISTORY OF PRESENT ILLNESS: Aureliano Dang is a 74 year old male an new patient here for Hematuria The patient reports no gross but blood positive on UA only, he did have a Renal US that showed renal cysts that benign and not likely to cause blood in urine And found to have a Prostate measures 4.2 x 4.3 x 5.2 cm corresponding to a volume of 49 mL, enlarged. Which is a likely cause for his UA positive for blood He also had a smoking history and has stopped smoking for years. We discussed that if he sees gross blood he will need a full hematuria work-up Recommend continue follow up for BPH LUTS: DYSURIA: no URGENCY: No FREQUENCY:6 per day NOCTURIA: 0 per night STRAINING TO VOID: No EMPTIES COMPLETELY: Yes UTI: No GROSS HEMATURIA: no UA DIPSTICK POSITIVE ONLY: yes LABS: PSA (ng/mL) Date Value 03/18/2024 2.41 09/06/2023 2.35 03/31/2023 2.98 02/03/2021 1.88 Creatinine Date Value Ref Range Status 03/18/2024 0.89 0.73 - 1.22 mg/dL Final 02/04/2024 0.90 0.73 - 1.22 mg/dL Final 2023 0.93 0.73 - 1.22 mg/dL Final MEDICATIONS: diphenhydrAMINE (BENADRYL ALLERGY) 25 mg tablet Take 1 tablet by mouth every 6 hours as needed. fluconazole (DIFLUCAN) 200 mg tablet Take 1 tablet by mouth one time a week for 28 days. dilTIAZem CD (CARDIZEM CD) 120 mg 24 hr capsule Take 1 capsule by mouth once daily. fluticasone (FLONASE) 50 mcg/actuation nasal spray Use 2 Sprays in each nostril once daily. Rinse mouth after use. losartan (COZAAR) 100 mg tablet Take 1 tablet by mouth once daily. carvedilol (COREG) 25 mg tablet Take 1 tablet by mouth two times a day with meals. metFORMIN (GLUCOPHAGE) 500 mg tablet Take 1 tablet by mouth daily with breakfast. furosemide (LASIX) 20 mg tablet Take 1 tablet by mouth every other day. atorvastatin (LIPITOR) 40 mg tablet Take 1 tablet by mouth daily at bedtime. nitroglycerin sublingual (NITROQUICK) 0.4 mg SL tablet Dissolve 1 tablet under the tongue as needed. for chest pain,every 5 min x3 blood sugar diagnostic (BLOOD GLUCOSE TEST) test strip Test blood sugar(s) one times daily. Dx: Other DM Code E11.29 Insulin: No Blood-Glucose Meter (TRUE METRIX GLUCOSE METER) Use to check blood sugar once a day. Dx: E11.29, no insulin Blood Glucose Control, Low (TRUE METRIX LEVEL 1) Use as directed to set up machine Blood Glucose Control, Normal (TRUE METRIX LEVEL 2) soln Use as directed to set up machine Blood Glucose Control, High (TRUE METRIX LEVEL 3) Use as directed to set up machine alcohol swabs Apply 1 application to affected area once daily. Blood Pressure Test Kit-Large Check BP once a day or as needed. Dx: I10, I25.5 and I25.10 Lancets lancets Test blood sugar(s) one times daily. Dx: Other DM Code E11.29 Insulin: No Blood-Glucose Meter Test blood sugar once a day DX E11.29 Insulin: No aspirin 81 mg chewable tablet Take 2 tablets by mouth once daily. PAST MEDICAL HISTORY: PAST MEDICAL HISTORY 02/01/2021: Allergic rhinitis 03/08/2010: Calculus of kidney 11/13/2012: Chronic systolic CHF (congestive heart failure) (HCC) Comment: Preop EF 27+/-5%. NSTEMI mod LV mild RV required epinephrine infusion intraop. Post op EF 30+/-5%. - Pulmonary congestion and B effusions on CXR--improving. Lasix 40mg po daily, continue coreg, ACEI 08/08/2017: Coronary artery disease due to lipid rich plaque Comment: Seeing Dr. Decker: 5 vessel CABG 201212/09/2012: Edema 04/02/2023: Elevated PSA 02/10/2021: Essential hypertension 02/03/2021: Ex-smoker Comment: Smoked 1/4 pck for about 45 yrs quit 201402/03/2021: Ex-smoker Comment: Smoked 1/4 pck for about 45 yrs quit 2014, US 01/2021 Neg for AAA 11/16/2012: History of atrial fibrillation Comment: Secondary to [place] but resolved. Sees: Dr. Decker: New onset AF RVR 11/16. Converted to NSR after 30 mins w/ BB/Mg++. 11/18-11/21 Remains in NSR, continue coreg. 11/06/2012: History of non-ST elevation myocardial infarction (NSTEMI) Comment: Preop NSTEMI by his history and EKG findings. Mildly Elevated Troponin T. ECHO LVEF 27%. - On ASA/BB/statin and ACEI. ECHO showed improved EF 39%, no pericardial effusion. 02/10/2021: Ischemic cardiomyopathy Comment: Seeing Cardio 11/21/2012: Lung nodule Comment: Preop CT scan on 11/09/2012 showed 3-mm noncalcified at the base of the lateral right lower lobe segment (slice 73). Repeat CT 2013 showed no nodules. 02/07/2022: Medicare annual wellness visit, subsequent Comment: Medicare Part B: Last done: 02/07/2022 11/18/2012: Mixed hyperlipidemia Comment: Preop lipids: Tri-86, chol-219, HDL-52, LDL-150. Lipitor 40mg started, consider increase to 80mg d/t NSTEMI--can be increased after discharge to assure pt is tolerating dose (d/w Dr. Beasley). Pt to follow up w/ local MD for repeat cholesterol levels in 6 weeks. 12/12/2023: MADELIN (obstructive sleep apnea) Comment: Sees [facility] (Santino/Estefanía) 02/04/2021: Other proteinuria Comment: diabetes related. 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 ENMT: Negative CARDIOVASCULAR:NO CHEST PAIN, PALPITATIONS, ANKLE EDEMA RESPIRATORY: No chronic cough, wheezing, dyspnea, hemoptysis. GENITOURINARY: SEE HPI MUSCULOSKELETAL:NO CHRONIC BACK PAIN, ARTHRITIS, CHRONIC NECK PAIN SKIN: NO VARICOSE VEINS, RASH, ABNORMAL ITCHING HEME/LYMPH/IMMUNE:Negative for prolonged bleeding, bruising easily or swollen nodes NEUROLOGICAL: NO HEADACHES, NUMBNESS, SEIZURES, STROKE DIABETES: Yes All other systems reviewed and are negative PHYSICAL EXAMINATION: Blood pressure 124/74, pulse 60, temperature 37.1 C (98.7 F), temperature source Temporal, resp. rate 16, height 165.1 cm (5' 5"), weight 77.1 kg (170 lb), SpO2 98%. GENERAL: WNL nutrition, no deformities, healthy appearing NEURO: Awake, alert and oriented x 3 and Normal gait PSYCH: No signs of depression, anxiety, or agitation ENMT (Ear, Nose, Mouth, Throat): No masses, adenopathy, icterus. Thyroid nonpalpable RESP: NL effort, no retractions or purse-lip breathing. CV: No extremity swelling, varices, edema, pallor, erythema GASTROINTESTINAL: Soft, nontender, nondistended, no masses. HERNIAS: None SKIN: No rash, lesions No palpable lymphadenopathy MUSCULOSKELETAL: Extremities normal. No deformities, edema, clubbing or skin discoloration. PROBLEM LIST REVIEW: Yes LABS: Results for orders placed or performed in visit on 07/01/24 UA DIP, URINE (POC) Result Value Ref Range GLUCOSE UA (POCT) Negative Negative mg/dL BILIRUBIN UA (POCT) Negative Negative KETONE UA (POCT) Negative Negative mg/dL SPECIFIC GRAVITY UA (POCT) 1.025 1.005 - 1.030 HEMOGLOBIN/BLOOD UA (POCT) Trace-intact (A) Negative PH UA (POCT) 6.0 4.5 - 8.0 PROTEIN UA (POCT) 100 (A) Negative mg/dL UROBILINOGEN UA (POCT) 0.2 Normal E.U./dL NITRITE UA (POCT) Negative Negative LEUKOCYTES UA (POCT) Negative Negative COLOR UA (POCT) Yellow CLARITY UA (POCT) Slightly Cloudy PROCEDURES: PVR: 0 ml IMAGING: Renal US RESULT: Right Kidney: -Renal length: 9.1 cm -Parenchyma: Normal parenchymal echogenicity. Normal parenchymal thickness. -Collecting system: No hydronephrosis. -Calculus: No echogenic, shadowing calculus. -Lesion: 1.8 cm simple upper pole cyst. Left Kidney: -Renal length: 10.5 cm -Parenchyma: Normal parenchymal echogenicity. Normal parenchymal thickness. -Collecting system: No hydronephrosis. -Calculus: No echogenic, shadowing calculus. -Lesion: 1 cm simple lower pole cyst. Bladder: Normal sonographic appearance. Prevoid urinary bladder volume: 123 mL Post void residual volume: 10 mL Prostate measures 4.2 x 4.3 x 5.2 cm corresponding to a volume of 49 mL, enlarged. ASSESSMENT/PLAN: 1. Hematuria, unspecified type - ICD9: 599.70, ICD10: R31.9 (primary diagnosis) > UA with Blood , no gross hematuria > Enlarged Prostate on US - POST VOID RESIDUAL - 0 ml 2. Screening for genitourinary condition - ICD9: V81.6, ICD10: Z13.89 New Diagnosis of unknown prognosis > 1 year Appt w/ B. JOYCE Garza MT, PA-C for BPH follow -up if any gross hematuria return to clinic sooner JOYCE Diaz MT, PA-C Verified name and date of . CC Post Void Residual HPI: Aureliano Dang is a 74 year old male. The patient is here now for an appointment with JOYCE Diaz MT, PA-COV. Procedure: Explained procedure to patient and verbalizes understanding. Performed a PVR. Patient urinated and instructed to empty bladder as much as possible just prior to having PVR done using bladder ultrasound scanner. Results of scan: 0 mL The patient tolerated the procedure well. Plan: Appointment with Gilbert. documented in this encounter [facility] 07-01-2024 Note HNO ID: [id number] Author: RACHEL CROUCH LPN Service: ? Author Type: LICENSED NURSE Type: Progress Notes Filed: 07/01/2024 19:06 Note Text: Verified name and date of . CC Post Void Residual HPI: Aureliano Dang is a 74 year old male. The patient is here now for an appointment with Gilbert E. Garza, MPAS, MT, PA-COV. Procedure: Explained procedure to patient and verbalizes understanding. Performed a PVR. Patient urinated and instructed to empty bladder as much as possible just prior to having PVR done using bladder ultrasound scanner. Results of scan: 0 mL The patient tolerated the procedure well. Plan: Appointment with Gilbert. [facility] 06-27-2024 History of Present illness Narrative Chief Complaint Patient presents with: Recheck HPI Aureliano Dang is a 74 year old male who presents here today for Recheck. Patient continues to have significant pruritus. States its now all over his body. Recently had some abnormal urinary tests. Will be see nephrology today but would like to check with insurance before scheduling with urology. Past medical history, appointments, medications, allergies reviewed. Previous Medical History PAST MEDICAL HISTORY 02/01/2021: Allergic rhinitis 03/08/2010: Calculus of kidney 11/13/2012: Chronic systolic CHF (congestive heart failure) (HCC) Comment: Preop EF 27+/-5%. NSTEMI mod LV mild RV required epinephrine infusion intraop. Post op EF 30+/-5%. - Pulmonary congestion and B effusions on CXR--improving. Lasix 40mg po daily, continue coreg, ACEI 08/08/2017: Coronary artery disease due to lipid rich plaque Comment: Seeing Dr. Decker: 5 vessel CABG 201212/09/2012: Edema 04/02/2023: Elevated PSA 02/10/2021: Essential hypertension 02/03/2021: Ex-smoker Comment: Smoked 1/4 pck for about 45 yrs quit 201402/03/2021: Ex-smoker Comment: Smoked 1/4 pck for about 45 yrs quit 2014, US 01/2021 Neg for AAA 11/16/2012: History of atrial fibrillation Comment: Secondary to [place] but resolved. Sees: Dr. Decker: New onset AF RVR 11/16. Converted to NSR after 30 mins w/ BB/Mg++. 11/18-11/21 Remains in NSR, continue coreg. 11/06/2012: History of non-ST elevation myocardial infarction (NSTEMI) Comment: Preop NSTEMI by his history and EKG findings. Mildly Elevated Troponin T. ECHO LVEF 27%. - On ASA/BB/statin and ACEI. ECHO showed improved EF 39%, no pericardial effusion. 02/10/2021: Ischemic cardiomyopathy Comment: Seeing Cardio 11/21/2012: Lung nodule Comment: Preop CT scan on 11/09/2012 showed 3-mm noncalcified at the base of the lateral right lower lobe segment (slice 73). Repeat CT 2013 showed no nodules. 02/07/2022: Medicare annual wellness visit, subsequent Comment: Medicare Part B: Last done: 02/07/2022 11/18/2012: Mixed hyperlipidemia Comment: Preop lipids: Tri-86, chol-219, HDL-52, LDL-150. Lipitor 40mg started, consider increase to 80mg d/t NSTEMI--can be increased after discharge to assure pt is tolerating dose (d/w Dr. Beasley). Pt to follow up w/ local MD for repeat cholesterol levels in 6 weeks. 12/12/2023: MADELIN (obstructive sleep apnea) Comment: Sees [facility] (Santino/Estefan[facility]) 02/04/2021: Other proteinuria Comment: diabetes related. 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) Previous Surgical History PAST SURGICAL HISTORY 11/13/2012: CABG (5) VENOUS GRAFTS & ARTERIAL GRAFT(S) Comment: [facility] main 10/24/2013: COLONOSCOPY FLX DX W/COLLJ SPEC WHEN PFRMD Comment: Colonoscopy,repeat 10 yrs 10/24/2013: ESOPHAGOGASTRODUODENOSCOPY TRANSORAL DIAGNOSTIC Comment: EGD No date: REMV CATARACT EXTRACAP,INSERT LENS Comment: one 03/2022 and the other 04/2022 Family History FAMILY HISTORY Problem Relation Age of Onset Hypertension Mother Stroke Mother Patient Allergies ALLERGIES Allergen Reactions Acetaminophen Other: See Comments, Mental Status Change Lisinopril Rash Oxycodone Other: See Comments hallucination Percocet [Oxycodone* Mental Status Change Hallucination Current Medications Current Outpatient Medications on File Prior to Visit Medication Sig fluconazole (DIFLUCAN) 200 mg tablet Take 1 tablet by mouth one time a week for 28 days. clotrimazole (LOTRIMIN) 1 % cream Apply to affected area two times a day for 14 days. dilTIAZem CD (CARDIZEM CD) 120 mg 24 hr capsule Take 1 capsule by mouth once daily. fluticasone (FLONASE) 50 mcg/actuation nasal spray Use 2 Sprays in each nostril once daily. Rinse mouth after use. losartan (COZAAR) 100 mg tablet Take 1 tablet by mouth once daily. carvedilol (COREG) 25 mg tablet Take 1 tablet by mouth two times a day with meals. metFORMIN (GLUCOPHAGE) 500 mg tablet Take 1 tablet by mouth daily with breakfast. furosemide (LASIX) 20 mg tablet Take 1 tablet by mouth every other day. atorvastatin (LIPITOR) 40 mg tablet Take 1 tablet by mouth daily at bedtime. nitroglycerin sublingual (NITROQUICK) 0.4 mg SL tablet Dissolve 1 tablet under the tongue as needed. for chest pain,every 5 min x3 blood sugar diagnostic (BLOOD GLUCOSE TEST) test strip Test blood sugar(s) one times daily. Dx: Other DM Code E11.29 Insulin: No Blood-Glucose Meter (TRUE METRIX GLUCOSE METER) Use to check blood sugar once a day. Dx: E11.29, no insulin Blood Glucose Control, Low (TRUE METRIX LEVEL 1) Use as directed to set up machine Blood Glucose Control, Normal (TRUE METRIX LEVEL 2) soln Use as directed to set up machine Blood Glucose Control, High (TRUE METRIX LEVEL 3) Use as directed to set up machine alcohol swabs Apply 1 application to affected area once daily. Blood Pressure Test Kit-Large Check BP once a day or as needed. Dx: I10, I25.5 and I25.10 Lancets lancets Test blood sugar(s) one times daily. Dx: Other DM Code E11.29 Insulin: No Blood-Glucose Meter Test blood sugar once a day DX E11.29 Insulin: No aspirin 81 mg chewable tablet Take 2 tablets by mouth once daily. No current facility-administered medications on file prior to visit. Social History Social History Tobacco Use Smoking status: Former Current packs/day: 0.00 Average packs/day: 0.3 packs/day for 45.0 years (11.3 ttl pk-yrs) Types: Cigarettes Start date: 1967 Quit date: 2012 Years since quittin.6 Smokeless tobacco: Never Tobacco comments: 4-5 cigarettes per day Vaping Use Vaping status: Never Used Substance Use Topics Alcohol use: No Drug use: No Review of Symptoms REVIEW OF SYSTEMS See hpi EXAM: BP 136/76 (BP Site: Left Arm, BP Position: Sitting, BP Cuff Size: Regular Adult) Pulse 61 Temp 36.1 C (97 F) Resp 16 Wt 76.7 kg (169 lb) SpO2 96% BMI 27.70 kg/m General Appearance: Well appearing, alert, in no acute distress, well-hydrated, well nourished.. Skin: no obvious rash on trunk in areas that patient is noticing symptoms. . Health Maintenance List Dilated Retinal Exam due on 02/25/2022 Covid-19 Vaccine( season) due on 06/22/2024 Influenza Vaccine(1) due on 06/22/2024 DTaP,Tdap,Td Vaccine(2 - Td or Tdap) due on 03/18/2025 RSV Vaccine(1 - 1-dose 60+ series) due on 03/18/2025 Shingrix Vaccine(2 of 3) due on 03/18/2025 HbA1C due on 09/18/2024 Urine Albumin:Creatinine Ratio due on 03/18/2025 LDL Cholesterol due on 03/18/2025 Diabetic Foot Exam due on 04/25/2025 Depression Screening due on 04/25/2025 Anxiety Screening due on 04/25/2025 Annual PCP Team Chronic Disease Visit due on 06/16/2025 BP Controlled (<130/80) due on 06/16/2025 Advance Directive Discussion Completed Hepatitis C Screening Completed Pneumococcal Vaccine: 65+ Completed Colorectal Cancer Screening Discontinued Data reviewed Latest Ref Rng 04/16/2024 06/05/2024 Color Yellow Dark Yellow ! Clarity Clear Clear Glucose, Urine Negative Negative Bilirubin, Urine Negative Negative Ketones, Urine Negative Negative Specific [place], Ur 1.005 - 1.030 1.024 Hemoglobin/Blood,Ur Negative Negative pH, Urine <8.5 5.5 Protein, Urine Negative 2+ ! Urobilinogen 0.2-1.0 EU/dL 0.2 EU/dL Nitrites Negative Negative Leukest Negative Negative WBC, Urine 0-5 /HPF 0-5 /HPF RBC, Urine 0-2 /HPF 3-5 /HPF ! Bacteria Negative /HPF Negative Epithelial Cells /HPF None Seen Hyaline Cast 0 /LPF 4-10 /LPF ! Protein, Timed Urine <0.15 g/24 Hr 0.40 (H) Period hr 24 Urine Volume 24 hour mL 1,150 Legend: ! Abnormal (H) High ASSESSMENT/PLAN: 1. Microscopic hematuria - ICD9: 599.72, ICD10: R31.29 (primary diagnosis) Consult to urology agreeable by patient. Dr. Cisneros. - CONSULT TO UROLOGY 2. Pruritus - ICD9: 698.9, ICD10: L29.9 Unclear etiology Prn antihistamine. Patient scheduled with nata on 07/01 3. Rash - ICD9: 782.1, ICD10: R21 As above Kelly Walton PA-C documented in this encounter [facility] 06-24-2024 Telephone encounter Note Spoke with pt and information listed below given. Pt verbalizes understanding. Before putting in referral pt has a few questions. Will check at apt on Sunday06-27-24. Trinity Conte LPN [facility] 06-24-2024 Miscellaneous Notes Spoke with pt and information listed below given. Pt verbalizes understanding. Before putting in referral pt has a few questions. Will check at apt on Sunday06-27-24. Trinity Conte LPN Left message for patient to contact office. Laureen Leonard MA Let patient know S of kidnies and bladder were ok. However needs to see Urology for bladder scope to make sure there is no bladder cancer. See if he wants to stay local and see Dr. Davies or see [facility] provider in [facility] or [place]? documented in this encounter [facility] 06-24-2024 Telephone encounter Note Left message for patient to contact office. Laureen Leonard MA [facility] 06-23-2024 Telephone encounter Note Let patient know S of kidnies and bladder were ok. However needs to see Urology for bladder scope to make sure there is no bladder cancer. See if he wants to stay local and see Dr. Davies or see [facility] provider in [facility] or [place]? [facility] 06-16-2024 History of Present illness Narrative Chief Complaint Patient presents with: Follow Up: Rash worsening HPI Aureliano Dang is a 74 year old male who presents here today for Above Complaints. follow up for tinea cruris. Patient is here for follow-up. He was in the office on June 03 for routine care with his PCP team. Had complaint of rash in the groin area. Was given ketoconazole for tinea cruris. Called last week stating that area was spreading around to the buttock region. Has appointment with dermatology at [facility] on 07/01. At this time, he denies any fevers, chills, rectal complaints, urinary complaints. Past medical history, appointments, medications, allergies reviewed. EXAM: BP 111/67 Pulse (!) 56 Resp 16 Wt 77.7 kg (171 lb 4.8 oz) SpO2 100% BMI 28.07 kg/m General Appearance: Well appearing, alert, in no acute distress, well-hydrated, well nourished.. Skin: Groin: Erythema, with circular raised plaques scattered in the bilateral groin, spreading to the lower buttock region ASSESSMENT/PLAN: 1. Tinea cruris - ICD9: 110.3, ICD10: B35.6 -Trial below treatment, continue with follow-up with PCP team and dermatology. - FLUCONAZOLE 200 MG TABLET - CLOTRIMAZOLE 1 % TOPICAL CREAM Contreras Jasper, PROJECT DRILLING ENGINEER.TYPING BOOKKEEPER This note was partly generated using Bix voice recognition dictation and may contain some misspelled or inaccurate words missed on review. documented in this encounter [facility] 06-13-2024 Telephone encounter Note Spoke with pt and advised of Kelly's message and instructions. Pt advises that his derm appointment with [facility] is 9/10. This was the soonest appointment. He advises that he knows it might take a while to get better but is concerned since it has gotten worse. States he has to take his clothes off d/t the itching. Advises rash is in groin area spreading up to buttocks. Did get pt in to see Contreras Hutchinson on Mon since pt is more comfortable with male provider for this. Pt is agreeable with this. Advised pt not to cancel derm appointment and would not cancel f/u appointment with Kelly just yet until pt sees Contreras. Pt verbalizes understanding. Erika Chacon LPN [facility] 06-13-2024 Miscellaneous Notes Spoke with pt and advised of Kelly's message and instructions. Pt advises that his derm appointment with [facility] is 9/10. This was the soonest appointment. He advises that he knows it might take a while to get better but is concerned since it has gotten worse. States he has to take his clothes off d/t the itching. Advises rash is in groin area spreading up to buttocks. Did get pt in to see Contreras Hutchinson on Mon since pt is more comfortable with male provider for this. Pt is agreeable with this. Advised pt not to cancel derm appointment and would not cancel f/u appointment with Kelly just yet until pt sees [facility]re[facility]. Pt verbalizes understanding. Erika Chacon LPN During that visit I also told him to set up a visit with derm if things had worsened. Has he called them yet? He told me he has sees [facility]. Also remind him that it can take multiple weeks to improve and this may be the case. Still would recommend Derm since things are worsening. Pt calling stating he was to let Kelly know if his derm problem that they discussed at ov 8/13 was any better or if it worsened. Pt is reporting that it has worsened. Please let pt know next step. Erika Chacon LPN documented in this encounter [facility] 06-13-2024 Telephone encounter Note During that visit I also told him to set up a visit with derm if things had worsened. Has he called them yet? He told me he has sees [facility]. Also remind him that it can take multiple weeks to improve and this may be the case. Still would recommend Derm since things are worsening. [facility] 06-13-2024 Telephone encounter Note Pt calling stating he was to let Kelly know if his derm problem that they discussed at ov 8/13 was any better or if it worsened. Pt is reporting that it has worsened. Please let pt know next step. Erika Chacon LPN [facility] 06-12-2024 History of Present illness Narrative Radiology Service Progress Note PATIENT NAME: Aureliano Dang DATE OF SERVICE: June 12, 2024 TIME: 10:28 AM PATIENT IDENTITY VERIFICATION COMPLETED USING TWO (2) IDENTIFIERS: Name and Date of confirmed by patient verbally. FALL SCREENING: Has the patient had 2 falls in the last year or 1 fall with injury or currently using an Ambulatory Assistive Device (Walker, Cane, Wheelchair, Crutches, etc.)? No PATIENT GENDER DATA: Male PATIENT RELEVANT IMPLANT DATA REVIEWED: Not Applicable PATIENT PRESENTS WITH AN IMPLANTABLE OR ATTACHED DOCENT COORDINATOR: No RADIOLOGY DEPARTMENT: Ultrasound PERIPHERAL IV DATA: Not applicable SIGNED BY: Miryam Viera RDMS RVT June 12, 2024 10:28 AM documented in this encounter [facility] 06-09-2024 Telephone encounter Note Pt notified of results and instructions. Pt given phone number to Dr Tapia's office. All info and referral has also been faxed. Pt was transferred to [facility]. Erika Chacon LPN [facility] 06-09-2024 Miscellaneous Notes Pt notified of results and instructions. Pt given phone number to Dr Tapia's office. All info and referral has also been faxed. Pt was transferred to [facility]. Erika Chacon LPN Called and left a voicemail for the Patient to call back and ask for a nurse to receive the providers message. Jewell Carrasco, KARLENE Let patient know that his urine protein was mildly elevated. I would like to have him seeing kidney specialist. Dr. Tapia at [facility] is who dr. Patricio typically recommends. Also remind patient to reschedule his kidney US. Kelly Walton PA-C documented in this encounter [facility] 06-06-2024 Telephone encounter Note Called and left a voicemail for the Patient to call back and ask for a nurse to receive the providers message. Jewell Carrasco RN [facility] 06-06-2024 Telephone encounter Note Let patient know that his urine protein was mildly elevated. I would like to have him seeing kidney specialist. Dr. Tapia at [facility] is who dr. Patricio typically recommends. Also remind patient to reschedule his kidney US. Kelly Walton PA-C [facility] 06-05-2024 Telephone encounter Note Reviewed. [facility] 06-05-2024 Miscellaneous Notes Reviewed. Received results on Duplex scan. Results on PCP desk. It doesn't appear that provider ordered the testing. It appears it was a health assessment. Laureen Leonard MA documented in this encounter [facility] 06-03-2024 History of Present illness Narrative Chief Complaint Patient presents with: Recheck: Blood pressure HPI Aureliano Dang is a 74 year old male who presents here today for Above Complaints.. Patient's bp was elevated at last visit. Also concerns with itching on hands and in groin. Past medical history, appointments, medications, allergies reviewed. Previous Medical History PAST MEDICAL HISTORY 02/01/2021: Allergic rhinitis 03/08/2010: Calculus of kidney 11/13/2012: Chronic systolic CHF (congestive heart failure) (HCC) Comment: Preop EF 27+/-5%. NSTEMI mod LV mild RV required epinephrine infusion intraop. Post op EF 30+/-5%. - Pulmonary congestion and B effusions on CXR--improving. Lasix 40mg po daily, continue coreg, ACEI 08/08/2017: Coronary artery disease due to lipid rich plaque Comment: Seeing Dr. Decker: 5 vessel CABG 201212/09/2012: Edema 04/02/2023: Elevated PSA 02/10/2021: Essential hypertension 02/03/2021: Ex-smoker Comment: Smoked 1/4 pck for about 45 yrs quit 201402/03/2021: Ex-smoker Comment: Smoked 1/4 pck for about 45 yrs quit 2014, US 01/2021 Neg for AAA 11/16/2012: History of atrial fibrillation Comment: Secondary to OH but resolved. Sees: Dr. Decker: New onset AF RVR 11/16. Converted to NSR after 30 mins w/ BB/Mg++. 11/18-11/21 Remains in NSR, continue coreg. 11/06/2012: History of non-ST elevation myocardial infarction (NSTEMI) Comment: Preop NSTEMI by his history and EKG findings. Mildly Elevated Troponin T. ECHO LVEF 27%. - On ASA/BB/statin and ACEI. ECHO showed improved EF 39%, no pericardial effusion. 02/10/2021: Ischemic cardiomyopathy Comment: Seeing Cardio 11/21/2012: Lung nodule Comment: Preop CT scan on 11/09/2012 showed 3-mm noncalcified at the base of the lateral right lower lobe segment (slice 73). Repeat CT 2013 showed no nodules. 02/07/2022: Medicare annual wellness visit, subsequent Comment: Medicare Part B: Last done: 02/07/2022 11/18/2012: Mixed hyperlipidemia Comment: Preop lipids: Tri-86, chol-219, HDL-52, LDL-150. Lipitor 40mg started, consider increase to 80mg d/t NSTEMI--can be increased after discharge to assure pt is tolerating dose (d/w Dr. Beasley). Pt to follow up w/ local MD for repeat cholesterol levels in 6 weeks. 12/12/2023: MADELIN (obstructive sleep apnea) Comment: Sees [facility] (Santino/Estefanía) 02/04/2021: Other proteinuria Comment: diabetes related. 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) Previous Surgical History PAST SURGICAL HISTORY 11/13/2012: CABG (5) VENOUS GRAFTS & ARTERIAL GRAFT(S) Comment: [facility] 10/24/2013: COLONOSCOPY FLX DX W/COLLJ SPEC WHEN PFRMD Comment: Colonoscopy,repeat 10 yrs 10/24/2013: ESOPHAGOGASTRODUODENOSCOPY TRANSORAL DIAGNOSTIC Comment: EGD No date: REMV CATARACT EXTRACAP,INSERT LENS Comment: one 03/2022 and the other 04/2022 Family History FAMILY HISTORY Problem Relation Age of Onset Hypertension Mother Stroke Mother Patient Allergies ALLERGIES Allergen Reactions Acetaminophen Other: See Comments, Mental Status Change Lisinopril Rash Oxycodone Other: See Comments hallucination Percocet [Oxycodone* Mental Status Change Hallucination Current Medications Current Outpatient Medications on File Prior to Visit Medication Sig dilTIAZem CD (CARDIZEM CD) 120 mg 24 hr capsule Take 1 capsule by mouth once daily. fluticasone (FLONASE) 50 mcg/actuation nasal spray Use 2 Sprays in each nostril once daily. Rinse mouth after use. losartan (COZAAR) 100 mg tablet Take 1 tablet by mouth once daily. carvedilol (COREG) 25 mg tablet Take 1 tablet by mouth two times a day with meals. metFORMIN (GLUCOPHAGE) 500 mg tablet Take 1 tablet by mouth daily with breakfast. furosemide (LASIX) 20 mg tablet Take 1 tablet by mouth every other day. atorvastatin (LIPITOR) 40 mg tablet Take 1 tablet by mouth daily at bedtime. nitroglycerin sublingual (NITROQUICK) 0.4 mg SL tablet Dissolve 1 tablet under the tongue as needed. for chest pain,every 5 min x3 blood sugar diagnostic (BLOOD GLUCOSE TEST) test strip Test blood sugar(s) one times daily. Dx: Other DM Code E11.29 Insulin: No Blood-Glucose Meter (TRUE METRIX GLUCOSE METER) Use to check blood sugar once a day. Dx: E11.29, no insulin Blood Glucose Control, Low (TRUE METRIX LEVEL 1) Use as directed to set up machine Blood Glucose Control, Normal (TRUE METRIX LEVEL 2) soln Use as directed to set up machine Blood Glucose Control, High (TRUE METRIX LEVEL 3) Use as directed to set up machine alcohol swabs Apply 1 application to affected area once daily. Blood Pressure Test Kit-Large Check BP once a day or as needed. Dx: I10, I25.5 and I25.10 Lancets lancets Test blood sugar(s) one times daily. Dx: Other DM Code E11.29 Insulin: No Blood-Glucose Meter Test blood sugar once a day DX E11.29 Insulin: No aspirin 81 mg chewable tablet Take 2 tablets by mouth once daily. No current facility-administered medications on file prior to visit. Social History Social History Tobacco Use Smoking status: Former Packs/day: 0.25 Years: 45.00 Additional pack years: 0.00 Total pack years: 11.25 Types: Cigarettes Quit date: 2012 Years since quittin.6 Smokeless tobacco: Never Tobacco comments: 4-5 cigarettes per day Vaping Use Vaping Use: Never used Substance Use Topics Alcohol use: No Drug use: No Review of Symptoms REVIEW OF SYSTEMS GENERAL: No weight loss, malaise or fevers See hpi EXAM: BP 125/71 (BP Site: Left Arm, BP Position: Sitting, BP Cuff Size: Regular Adult) Pulse (!) 56 Temp 36.4 C (97.6 F) Resp 16 Wt 76.7 kg (169 lb 1.5 oz) SpO2 98% BMI 27.71 kg/m General Appearance: Well appearing, alert, in no acute distress, well-hydrated, well nourished.. Skin: some scaling noted on fingers. . Health Maintenance List Dilated Retinal Exam due on 02/25/2022 Covid-19 Vaccine( season) due on 09/06/2024 DTaP,Tdap,Td Vaccine(2 - Td or Tdap) due on 03/18/2025 RSV Vaccine(1 - 1-dose 60+ series) due on 03/18/2025 Shingrix Vaccine(2 of 3) due on 03/18/2025 Influenza Vaccine(1) due on 06/22/2024 HbA1C due on 09/18/2024 Urine Albumin:Creatinine Ratio due on 03/18/2025 LDL Cholesterol due on 03/18/2025 Diabetic Foot Exam due on 04/25/2025 Depression Screening due on 04/25/2025 Anxiety Screening due on 04/25/2025 Annual PCP Team Chronic Disease Visit due on 06/03/2025 BP Controlled (<130/80) due on 06/03/2025 Advance Directive Discussion Completed Hepatitis C Screening Completed Pneumococcal Vaccine: 65+ Completed Colorectal Cancer Screening Discontinued Data reviewed ASSESSMENT/PLAN: 1. Essential hypertension - ICD9: 401.9, ICD10: I10 (primary diagnosis) - Controlled - Continue current medications - Recommend home blood pressure monitoring, to bring results to next visit - Encouraged sodium restriction, DASH or Mediterranean diet - Recommend regular aerobic exercise 2. Tinea cruris - ICD9: 110.3, ICD10: B35.6 - Treat with ketoconazole daily until rash resolves and then another week - Follow up with PCP if symptoms persist or do not improved after 3-4 weeks of treatment. - if not improving, recommend derm- he has seen luis manuel melara in past. Follow up as scheduled. Kelly Walton PA-C documented in this encounter [facility] 05-26-2024 Telephone encounter Note Received results on Duplex scan. Results on PCP desk. It doesn't appear that provider ordered the testing. It appears it was a health assessment. Laureen Leonard MA [facility] 04-25-2024 Telephone encounter Note done [facility] 04-25-2024 Miscellaneous Notes done service desk specialist calling office and indicated that they see a protein urine order but it is not signed and they cannot assess it. Can you place an order. Laureen Leonard MA documented in this encounter [facility] 04-25-2024 Telephone encounter Note service desk specialist calling office and indicated that they see a protein urine order but it is not signed and they cannot assess it. Can you place an order. Laureen Leonard MA [facility] 04-25-2024 Instructions Kelly Walton PA-C - 04/25/2024 8:20 AM EDT Due to continued leg swelling- stop the amlodipine and start diltiazem CD 120mg. Monitor BP at home for the next few weeks. Contact us if BP is >160/90s. Stop at lab today to get urine collection kit for 24 hour urine. Schedule BP recheck in about 3-4 weeks. Follow up for routine check up in 6 months with labs prior. WHAT YOU CAN DO TO PREVENT FALLS Many falls can be prevented. By making some changes, you can lower your chances of falling. Four things YOU can do to prevent falls for you* and your caregiver 1. Begin a regular exercise program Exercise is one of the most important ways to lower your chances of falling. It makes you stronger and helps you feel better. Exercises that improve balance and coordination (like Sea Chi) are the most helpful. Lack of exercise leads to weakness and increases your chances of falling. Ask your doctor or health care provider about the best type of exercise program for you. 2. Have your health care provider review your medicines Have your doctor or pharmacist review all the medicines you take, even [id number]-[id number] medicines. As you get older, the way medicines work in your body can change. Some medicines, or combinations of medicines, can make you sleepy or dizzy and can cause you to fall. 3. Have your vision checked Have your eyes checked by an eye doctor at least once a year. You may be wearing the wrong glasses or have a condition like glaucoma or cataracts that limits your vision. Poor vision can increase your chances of falling. 4. Make your home safer About half of all falls happen at home. To make your home safer: Remove things you can trip over (like papers, books, clothes, and shoes) from stairs and places where you walk. Remove small throw rugs or use double-sided tape to keep the rugs from slipping. Keep items you use often in cabinets you can reach easily without using a step stool. Have grab bars put in next to your toilet and in the tub or shower. Use non-slip mats in the bathtub and on shower floors. Improve the lighting in your home. As you get older, you need brighter lights to see well. Hang light-weight curtains or shades to reduce glare. Have handrails and lights put in on all staircases. Wear shoes both inside and outside the house. Avoid going barefoot or wearing slippers. For more information, contact: Centers for Disease Control and Prevention www.cdc.gov/injury * This information may not apply if you have certain medical conditions. documented in this encounter [facility] 04-25-2024 History of Present illness Narrative Images from the original note were not included. Aureliano Dang is a 74 year old male here for a Medicare wellness visit. Medicare Health Risk Assessment General Health Good Exercise: Minutes/Day 30 min Exercise: Days/Week 7 days Alcohol: Daily Use Never Alcohol: Drinks/Day Patient does not drink Alcohol: 6 or more drinks Never Feel off balance Yes Concerns: Teeth/Dentures No Concerns: Sexual function No Troubled by feelings None of the above Frequency: Eating healthy diet More than half the days ADLs requiring help None of the above Safety precautions in home/vehicle No Smoke, vape, chews tobacco No Difficulty hearing No Difficulty seeing No Current Providers Specialists: I have reviewed specialist-related care of the patient in the medical record. Medical/Family history review Reviewed and updated problem list, medical/surgical/family/social history, medications, and allergies. Opioid use review Opioid Medications (last 90 days) No data to display Anxiety/Depression screening PHQ-2 Score: 0 (Lower risk for depression) Recommendation: no further intervention at this time Cognitive screening Mini Cog Score: 5 Cognitive screening reviewed and No further action needed (score 3-5). Functional Observation Was the patient's Timed Up & Go test unsteady or ? 12 seconds? No Advance Care Planning Patient did not wish or was not able to name a surrogate decision maker or provide an advance care plan Measurements BP 128/64 Pulse 60 Temp (Src) 97.4 (Tympanic) Resp 18 Ht 5' 5.5" (1.66m) Wt 168 lb (76.2kg) BMI 27.52 kg/(m^2). Vision Screening: Follows with optometry/ophthalmology Assessment/Plan Medicare annual wellness visit, subsequent (Z00.00) - Counseled on healthy diet and regular exercise - Fall avoidance information provided - Personalized prevention plan provided Chief Complaint Patient presents with: Medicare Wellness Exam HPI Aureliano Dang is a 74 year old male who presents here today for Chronic Medical Conditions. and Medicare Annual Visit. Patient with hx of diabetes, CAD, CHF, hyperlipidemia, ex smoker, overweight, a.fib after an OH that resolved as well as those as below. Last visit patient had edema in his lower legs and was started on Lasix 20 mg every other day. Patient is stilling having some edema in both legs. Patient has also had a productive cough for about 2 weeks. States feels related to postnasal drip. No wheezing or shortness of breath. No fevers. Chronic sinus congestion Patient sees [facility] last visit 09/2023 Patient sees [facility] last visit 11/[address] Moctezuma last visit 06/2023 Past medical history, appointments, medications, allergies reviewed. Previous Medical History PAST MEDICAL HISTORY Diagnosis Date Allergic rhinitis 02/01/2021 Calculus of kidney 03/08/2010 Chronic systolic CHF (congestive heart failure) (HCC) 11/13/2012 Preop EF 27+/-5%. NSTEMI mod LV mild RV required epinephrine infusion intraop. Post op EF 30+/-5%. - Pulmonary congestion and B effusions on CXR--improving. Lasix 40mg po daily, continue coreg, ACEI Coronary artery disease due to lipid rich plaque 08/08/[address] Decker: 5 vessel CABG 2012 Edema 12/09/2012 Elevated PSA 04/02/2023 Essential hypertension 02/10/2021 Ex-smoker 02/03/2021 Smoked 1/4 pck for about 45 yrs quit 2014 Ex-smoker 02/03/2021 Smoked 10/25 pck for about 45 yrs quit 2014, US 01/2021 Neg for AAA History of atrial fibrillation 11/16/2012 Secondary to OH but resolved. Sees: Dr. Decker: New onset AF RVR 11/16. Converted to NSR after 30 mins w/ BB/Mg++. 11/18-11/21 Remains in NSR, continue coreg. History of non-ST elevation myocardial infarction (NSTEMI) 11/06/2012 Preop NSTEMI by his history and EKG findings. Mildly Elevated Troponin T. ECHO LVEF 27%. - On ASA/BB/statin and ACEI. ECHO showed improved EF 39%, no pericardial effusion. Ischemic cardiomyopathy 02/10/2021 Seeing Cardio Lung nodule 11/21/[address] scan on 11/09/2012 showed 3-mm noncalcified at the base of the lateral right lower lobe segment (slice 73). Repeat CT 2013 showed no nodules. Medicare annual wellness visit, subsequent 02/07/2022 Medicare Part B: Last done: 02/07/2022 Mixed hyperlipidemia 11/18/2012 Preop lipids: Tri-86, chol-219, HDL-52, LDL-150. Lipitor 40mg started, consider increase to 80mg d/t NSTEMI--can be increased after discharge to assure pt is tolerating dose (d/w Dr. Beasley). Pt to follow up w/ local MD for repeat cholesterol levels in 6 weeks. MADELIN (obstructive sleep apnea) 12/12/2023 Sees [facility] (Santino/Estefanía) Other proteinuria 02/04/2021 diabetes related. 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) 02/03/2021 Previous Surgical History PAST SURGICAL HISTORY Procedure Laterality Date CABG (5) VENOUS GRAFTS & ARTERIAL GRAFT(S) 11/13/2012 [facility] COLONOSCOPY FLX DX W/COLLJ SPEC WHEN PFRMD 10/24/2013 Colonoscopy,repeat 10 yrs ESOPHAGOGASTRODUODENOSCOPY TRANSORAL DIAGNOSTIC 10/24/2013 EGD REMV CATARACT EXTRACAP,INSERT LENS one 03/2022 and the other 04/2022 Family History FAMILY HISTORY Problem Relation Age of Onset Hypertension Mother Stroke Mother Patient Allergies ALLERGIES Allergen Reactions Acetaminophen Other: See Comments, Mental Status Change Lisinopril Rash Oxycodone Other: See Comments hallucination Percocet [Oxycodone* Mental Status Change Hallucination Current Medications Current Outpatient Medications on File Prior to Visit Medication Sig losartan (COZAAR) 100 mg tablet Take 1 tablet by mouth once daily. carvedilol (COREG) 25 mg tablet Take 1 tablet by mouth two times a day with meals. metFORMIN (GLUCOPHAGE) 500 mg tablet Take 1 tablet by mouth daily with breakfast. furosemide (LASIX) 20 mg tablet Take 1 tablet by mouth every other day. amLODIPine (NORVASC) 5 mg tablet Take 1 tablet by mouth once daily. atorvastatin (LIPITOR) 40 mg tablet Take 1 tablet by mouth daily at bedtime. fluticasone (FLONASE) 50 mcg/actuation nasal spray Use 2 Sprays in each nostril once daily. Rinse mouth after use. nitroglycerin sublingual (NITROQUICK) 0.4 mg SL tablet Dissolve 1 tablet under the tongue as needed. for chest pain,every 5 min x3 blood sugar diagnostic (BLOOD GLUCOSE TEST) test strip Test blood sugar(s) one times daily. Dx: Other DM Code E11.29 Insulin: No Blood-Glucose Meter (TRUE METRIX GLUCOSE METER) Use to check blood sugar once a day. Dx: E11.29, no insulin Blood Glucose Control, Low (TRUE METRIX LEVEL 1) Use as directed to set up machine Blood Glucose Control, Normal (TRUE METRIX LEVEL 2) soln Use as directed to set up machine Blood Glucose Control, High (TRUE METRIX LEVEL 3) Use as directed to set up machine alcohol swabs Apply 1 application to affected area once daily. Blood Pressure Test Kit-Large Check BP once a day or as needed. Dx: I10, I25.5 and I25.10 Lancets lancets Test blood sugar(s) one times daily. Dx: Other DM Code E11.29 Insulin: No Blood-Glucose Meter Test blood sugar once a day DX E11.29 Insulin: No aspirin 81 mg chewable tablet Take 2 tablets by mouth once daily. No current facility-administered medications on file prior to visit. Social History Social History Tobacco Use Smoking status: Former Packs/day: 0.25 Years: 45.00 Additional pack years: 0.00 Total pack years: 11.25 Types: Cigarettes Quit date: 2012 Years since quittin.5 Smokeless tobacco: Never Tobacco comments: 4-5 cigarettes per day Vaping Use Vaping Use: Never used Substance Use Topics Alcohol use: No Drug use: No Review of Symptoms REVIEW OF SYSTEMS GENERAL: No weight loss, malaise or fevers HEENT: No changes in hearing or vision, no nose bleeds or other nasal problems NECK: Negative for lumps, goiter, pain and significant neck swelling RESPIRATORY: productive cough for the past 2 weeks. No significant SOB CARDIOVASCULAR: +leg swelling GI: Negative for abdominal discomfort, blood in stools or black stools, change in bowel habit, heart burn, nausea, vomiting : No history of dysuria, frequency or incontinence MUSCULOSKELETAL: Negative for joint pain or swelling, back pain or muscle pain SKIN: Negative for lesions, rash, and itching PSYCH: Negative for sleep disturbance, mood disorder and recent psychosocial stressors HEMATOLOGY/LYMPHOLOGY: Negative for prolonged bleeding, bruising easily or swollen nodes ENDOCRINE: Negative for cold or heat intolerance, polyuria, polydipsia and goiter NEURO: No history of headaches, syncope, paralysis, seizures or tremors EXAM: BP 128/64 (BP Site: Left Arm, BP Position: Sitting, BP Cuff Size: Regular Adult) Pulse 60 Temp 36.3 C (97.4 F) (Tympanic) Resp 18 Ht 166.4 cm (5' 5.5") Wt 76.2 kg (168 lb) BMI 27.53 kg/m General Appearance: Well appearing, alert, in no acute distress, well-hydrated, well nourished. and Overweight. Skin: Skin color, texture, turgor normal, no suspicious rashes or lesions. Multiple nevi Head: Normocephalic, no masses, lesions, tenderness or abnormalities. Eyes: Anicteric sclera. Pupils are equally round and reactive to light. Extraocular movements are intact. . Ears: External ears normal, canals clear, mild-moderate cerumen b/l. Nose/Sinuses: Nares normal, septum midline, mucosa normal, no drainage or sinus tenderness. Oropharynx: Lips, mucosa, and tongue normal, teeth and gums normal, oropharynx normal. Neck: Supple, no adenopathy; thyroid symmetric, normal size, no bruits. Lungs: Lungs clear to auscultation. No wheezing, rhonchi, rales.. Heart: RRR without murmur, gallop, or rubs. No ectopy. Abdomen: Normal abdominal exam, Abdomen soft, non-tender. Bowel sounds normal. No masses, organomegaly. Extremities: 1+ edema on left and 2+ edema on R. No skin discoloration, clubbing or cyanosis. Good capillary refill. . Peripheral Pulses: Normal. Neurologic: Gait normal. Reflexes normal and symmetric. Sensation grossly intact.. Feet:Shoes and socks removed, No deformities, ulcers, calluses, normal distal pulses, sensitive to 10 gm monofilament, vibratory perception normal, and nails notable for Hypertrophic or Yellowish Health Maintenance List Behavioral Health Screening Never done Diabetic Foot Exam due on 02/24/2024 Dilated Retinal Exam due on 05/22/2024 Covid-19 Vaccine(2022- season) due on 09/06/2024 DTaP,Tdap,Td Vaccine(2 - Td or Tdap) due on 03/18/2025 RSV Vaccine(1 - 1-dose 60+ series) due on 03/18/2025 Shingrix Vaccine(2 of 3) due on 03/18/2025 Influenza Vaccine(1) due on 06/22/2024 HbA1C due on 09/18/2024 Urine Albumin:Creatinine Ratio due on 03/18/2025 LDL Cholesterol due on 03/18/2025 Annual PCP Team Chronic Disease Visit due on 03/18/2025 BP Controlled (<130/80) due on 03/18/2025 Advance Directive Discussion Completed Hepatitis C Screening Completed Pneumococcal Vaccine: 65+ Completed Colorectal Cancer Screening Discontinued Data reviewed Latest Ref Rng 03/18/2024 04/16/2024 WBC 3.70 - 11.00 k/uL 8.24 RBC 4.20 - 6.00 m/uL 5.55 Hemoglobin 13.0 - 17.0 g/dL 13.9 Hematocrit 39.0 - 51.0 % 44.9 MCV 80.0 - 100.0 fL 80.9 MCH 26.0 - 34.0 pg 25.0 (L) MCHC 30.5 - 36.0 g/dL 31.0 RDW-CV 11.5 - 15.0 % 15.5 (H) Platelet Count 150 - 400 k/uL 236 MPV 9.0 - 12.7 fL 12.4 Neut% % 53.0 Abs Neut (ANC) 1.45 - 7.50 k/uL 4.37 Lymph% % 26.7 Abs Lymph 1.00 - 4.00 k/uL 2.20 [place]% % 7.9 Abs [place] <0.87 k/uL 0.65 Eosin% % 11.2 Abs Eosin <0.46 k/uL 0.92 (H) Baso% % 1.0 Abs Baso <0.11 k/uL 0.08 Immature Gran % % 0.2 IMMATURE GRANS (ABS) <0.10 k/uL <0.03 NRBC /100 WBC 0.0 Absolute nRBC <0.01 k/uL <0.01 DTYPE Auto Color Yellow Yellow Dark Yellow ! Clarity Clear Clear Clear Glucose, Urine Negative Negative Negative Bilirubin, Urine Negative Negative Negative Ketones, Urine Negative Negative Negative Specific [place], Ur 1.005 - 1.030 1.018 1.024 Hemoglobin/Blood,Ur Negative Negative Negative pH, Urine <8.5 5.5 5.5 Protein, Urine Negative 2+ ! 2+ ! Urobilinogen 0.2-1.0 EU/dL 0.2 EU/dL 0.2 EU/dL Nitrites Negative Negative Negative Leukest Negative Negative Negative WBC, Urine 0-5 /HPF 0-5 /HPF 0-5 /HPF RBC, Urine 0-2 /HPF 3-5 /HPF ! 3-5 /HPF ! Bacteria Negative /HPF Negative Negative Epithelial Cells /HPF None Seen None Seen Hyaline Cast 0 /LPF 1-3 /LPF ! 4-10 /LPF ! Protein, Total 6.3 - 8.0 g/dL 7.0 Albumin 3.9 - 4.9 g/dL 4.2 Calcium 8.5 - 10.2 mg/dL 9.6 Bilirubin, Total 0.2 - 1.3 mg/dL 0.8 Alkaline Phosphatase 38 - 113 U/L 82 AST 14 - 40 U/L 17 ALT 10 - 54 U/L 13 Glucose 74 - 99 mg/dL 96 BUN 9 - 24 mg/dL 11 Creatinine 0.73 - 1.22 mg/dL 0.89 Sodium 136 - 144 mmol/L 141 Potassium 3.7 - 5.1 mmol/L 4.4 Chloride 97 - 105 mmol/L 103 CO2 22 - 30 mmol/L 24 Anion Gap 9 - 18 mmol/L 14 eGFR >=60 mL/min/1.73m 89 Total Cholesterol, Nonfasting <200 mg/dL 159 Triglycerides, Nonfasting <150 mg/dL 97 HDL Cholesterol, Nonfasting >39 mg/dL 46 LDL Cholesterol, Nonfasting <100 mg/dL 94 Non HDL Cholesterol, Nonfasting <130 mg/dL 113 VLDL Cholesterol, Nonfasting <30 mg/dL 19 Total Chol/HDL Ratio, Nonfasting <5.10 mg/dL 3.46 LDL/HDL Ratio, Nonfasting <2.54 mg/dL 2.04 Creatinine, Ur Random (UCRR) 20.0 - 300.0 mg/dL 127.6 Albumin, Urine Random mg/L 585.6 Albumin/Creat Ratio <30 mg/g 459 (H) Hemoglobin A1C 4.3 - 5.6 % 6.4 (H) Estimated Average Glucose mg/dL 137 PSA <2.60 ng/mL 2.41 PSA, Percent Free % 22 NT Pro BNP <450 pg/mL 402 ASSESSMENT/PLAN: 1. Medicare annual wellness visit, subsequent - ICD9: V70.0, ICD10: Z00.00 (primary diagnosis) - Counseled on healthy diet and regular exercise - Discussed need for and benefit of weight loss. BMI 27.53 kg/(m^2) 2. Advance directive discussed with patient - ICD9: V65.49, ICD10: Z71.89 Papers given 3. Mixed hyperlipidemia - ICD9: 272.2, ICD10: E78.2 - Controlled - Continue current medications - Counseled on healthy diet and regular exercise 4. Ischemic cardiomyopathy - ICD9: 414.8, ICD10: I25.5 stable Cont with cardiology 5. History of non-ST elevation myocardial infarction (NSTEMI) - ICD9: 412, ICD10: I25.2 Cont with cardiology 6. History of atrial fibrillation - ICD9: V12.59, ICD10: Z86.79 Cont with cardiology 7. Essential hypertension - ICD9: 401.9, ICD10: I10 - Controlled - Recommend home blood pressure monitoring, to bring results to next visit - Encouraged sodium restriction, DASH or Mediterranean diet - Recommend regular aerobic exercise 8. Coronary artery disease due to lipid rich plaque - ICD9: 414.00, 414.3, ICD10: I25.10, I25.83 Overall stable Cont with cardiology 9. Chronic systolic CHF (congestive heart failure) (HCC) - ICD9: 428.22, 428.0, ICD10: I50.22 - recent EF% at 46% which is decreased compared to previous. Continue current management and await visit with cardiology 10. Type 2 diabetes mellitus with other circulatory complication, without long-term current use of insulin (HCC) - ICD9: 250.70, ICD10: E11.59 - Controlled - Continue current medications - Counseled on healthy diet and regular exercise - Discussed need for and benefit of weight loss. BMI 27.53 kg/(m^2) 11. Ex-smoker - ICD9: V15.82, ICD10: Z87.891 12. MADELIN (obstructive sleep apnea) - ICD9: 327.23, ICD10: G47.33 stable 13. 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 14. Bilateral leg edema - ICD9: 782.3, ICD10: R60.0 Not much improved. Will stop amlodipine and switch to diltiazem CD120. Recheck in 3-4 weeks 15. Prostate disorder - ICD9: 602.9, ICD10: N42.9 16. Nasal congestion - ICD9: 478.19, ICD10: R09.81 chronic - FLUTICASONE PROPIONATE 50 MCG/ACTUATION NASAL SPRAY,SUSPENSION Kelly Walton PA-C I spent a total of 46 minutes on the date of the service which included preparing to see the patient, [id number] patient care, completing clinical documentation, obtaining and/or reviewing separately obtained history, performing a medically appropriate examination, ordering medications, tests, or procedures, and communicating results to the patient/family/caregiver. documented in this encounter [facility] 04-21-2024 Telephone encounter Note The following approved medication requests have been transmitted electronically. Requested Prescriptions Signed Prescriptions Disp Refills losartan (COZAAR) 100 mg tablet 90 tablet 1 Sig: Take 1 tablet by mouth once daily. Authorizing Provider: DIEGO PATRICIO Refused Prescriptions Disp Refills metFORMIN (GLUCOPHAGE) 500 mg tablet [Pharmacy Med Name: metFORMIN HCl 500 MG Oral Tablet] 90 tablet 0 Sig: Take 1 tablet by mouth once daily with breakfast Refused By: DUSTIN CHENG Reason for Refusal: Request already responded to by other means (for example, phone, fax) Diego Patricio MD [facility] 04-21-2024 Miscellaneous Notes The following approved medication requests have been transmitted electronically. Requested Prescriptions Signed Prescriptions Disp Refills losartan (COZAAR) 100 mg tablet 90 tablet 1 Sig: Take 1 tablet by mouth once daily. Authorizing Provider: DIEGO PATRICIO Refused Prescriptions Disp Refills metFORMIN (GLUCOPHAGE) 500 mg tablet [Pharmacy Med Name: metFORMIN HCl 500 MG Oral Tablet] 90 tablet 0 Sig: Take 1 tablet by mouth once daily with breakfast Refused By: DUSTIN CHENG Reason for Refusal: Request already responded to by other means (for example, phone, fax) Diego Patricio MD Prescription Refill Information The patient has been identified by name and date of : Yes Caregiver verified no other encounters exist for this prescription request: Yes Caregiver confirmed with patient/requestor that no other refills are due, in the near future, with this provider at this time: Yes The last office visit in the department: 03/18/2024 Does the patient have a future office visit with this provider/department: Yes Requested Prescriptions Pending Prescriptions Disp Refills losartan (COZAAR) 100 mg tablet 90 tablet 1 Sig: Take 1 tablet by mouth once daily. Refused Prescriptions Disp Refills metFORMIN (GLUCOPHAGE) 500 mg tablet [Pharmacy Med Name: metFORMIN HCl 500 MG Oral Tablet] 90 tablet 0 Sig: Take 1 tablet by mouth once daily with breakfast Refused By: DUSTIN CHENG Reason for Refusal: Request already responded to by other means (for example, phone, fax) Gege Doss April 21, 2024 2:16 PM documented in this encounter [facility] 04-21-2024 Telephone encounter Note Prescription Refill Information The patient has been identified by name and date of : Yes Caregiver verified no other encounters exist for this prescription request: Yes Caregiver confirmed with patient/requestor that no other refills are due, in the near future, with this provider at this time: Yes The last office visit in the department: 03/18/2024 Does the patient have a future office visit with this provider/department: Yes Requested Prescriptions Pending Prescriptions Disp Refills losartan (COZAAR) 100 mg tablet 90 tablet 1 Sig: Take 1 tablet by mouth once daily. Refused Prescriptions Disp Refills metFORMIN (GLUCOPHAGE) 500 mg tablet [Pharmacy Med Name: metFORMIN HCl 500 MG Oral Tablet] 90 tablet 0 Sig: Take 1 tablet by mouth once daily with breakfast Refused By: DUSTIN CHENG Reason for Refusal: Request already responded to by other means (for example, phone, fax) Gege Doss April 21, 2024 2:16 PM [facility] 04-17-2024 Telephone encounter Note Patient returned call and given provider's message below. Alina Armenta RN [facility] 04-17-2024 Miscellaneous Notes Patient returned call and given provider's message below. Alina Armenta RN Called and left a voicemail for the Patient to call back and ask for a nurse to receive the providers message. Jewell Carrasco RN Let patient know his urine still shows blood and protein. I have placed ordered to get a kidney and bladder US and a 24 hr urine protein level. documented in this encounter [facility] 04-17-2024 Telephone encounter Note Called and left a voicemail for the Patient to call back and ask for a nurse to receive the providers message. Jewell Carrasco RN [facility] 04-16-2024 Telephone encounter Note Let patient know his urine still shows blood and protein. I have placed ordered to get a kidney and bladder US and a 24 hr urine protein level. [facility] 04-09-2024 Telephone encounter Note Patient returned call and went over results, notes from Dr Patricio with understanding. Aware copy was [facility]ed to [facility] his [employer] office. [facility] 04-09-2024 Miscellaneous Notes Patient returned call and went over results, notes from Dr Patricio with understanding. Aware copy was faxed to [facility], his [employer] office. Left message for patient to contact office. For results. Faxed over US to [facility]. Laureen Leonard MA Please fax copy of echo to [facility] for their records. Let patient know the US of his heart showed no valve issues. His over all heart function is reduced some when compared to US from 2019. 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 documented in this encounter [facility] 04-08-2024 Telephone encounter Note Left message for patient to contact office. For results. Faxed over US to [facility]. Laureen Leonard MA [facility] 04-07-2024 Telephone encounter Note Please fax copy of echo to [facility] for their records. Let patient know the US of his heart showed no valve issues. His over all heart function is reduced some when compared to US from 2019. 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 [facility] 04-07-2024 Telephone encounter Note Pt notified and verbalized understanding Jennifer Dudley MA [facility] 04-07-2024 Miscellaneous Notes Pt notified and verbalized understanding Jennifer Dudley MA Please let patient know his US is negative. documented in this encounter [facility] 04-07-2024 Telephone encounter Note Please let patient know his US is negative. [facility] 03-31-2024 Telephone encounter Note Prescription Refill Information The patient has been identified by name and date of : Yes Caregiver verified no other encounters exist for this prescription request: Yes Caregiver confirmed with patient/requestor that no other refills are due, in the near future, with this provider at this time: Yes The last office visit in the department: 03/18/2024 Does the patient have a future office visit with this provider/department: Yes 04/2024 Last refill: 08/2023 Requested Prescriptions Pending Prescriptions Disp Refills carvedilol (COREG) 25 mg tablet 180 tablet 3 Sig: Take 1 tablet by mouth two times a day with meals. Laureen Leonard MA March 31, 2024 11:12 AM [facility] 03-31-2024 Miscellaneous Notes Prescription Refill Information The patient has been identified by name and date of : Yes Caregiver verified no other encounters exist for this prescription request: Yes Caregiver confirmed with patient/requestor that no other refills are due, in the near future, with this provider at this time: Yes The last office visit in the department: 03/18/2024 Does the patient have a future office visit with this provider/department: Yes 04/2024 Last refill: 08/2023 Requested Prescriptions Pending Prescriptions Disp Refills carvedilol (COREG) 25 mg tablet 180 tablet 3 Sig: Take 1 tablet by mouth two times a day with meals. Laureen Leonard MA March 31, 2024 11:12 AM Prescription Refill Information The patient has been identified by name and date of : Yes Caregiver verified no other encounters exist for this prescription request: Yes Caregiver confirmed with patient/requestor that no other refills are due, in the near future, with this provider at this time: Yes The last office visit in the department: 03/18/2024 Does the patient have a future office visit with this provider/department: Yes Requested Prescriptions Pending Prescriptions Disp Refills carvedilol (COREG) 25 mg tablet 180 tablet 3 Sig: Take 1 tablet by mouth two times a day with meals. Patient stated he is out of medication Abigail Belles Pss March 31, 2024 10:20 AM documented in this encounter [facility] 03-31-2024 Telephone encounter Note Prescription Refill Information The patient has been identified by name and date of : Yes Caregiver verified no other encounters exist for this prescription request: Yes Caregiver confirmed with patient/requestor that no other refills are due, in the near future, with this provider at this time: Yes The last office visit in the department: 03/18/2024 Does the patient have a future office visit with this provider/department: Yes Requested Prescriptions Pending Prescriptions Disp Refills carvedilol (COREG) 25 mg tablet 180 tablet 3 Sig: Take 1 tablet by mouth two times a day with meals. Patient stated he is out of medication Abigail Carlson [facility] March 31, 2024 10:20 AM [facility] 03-21-2024 Telephone encounter Note Patient notified and voiced understanding. Laureen Leonard MA [facility] 03-21-2024 Miscellaneous Notes Patient notified and voiced understanding. Laureen Leonard MA Let patient know chest x-ray was ok and lab for possible congestive heart failure was negative. His lipid panel showed his Trigs and HDL were ok. His LDL is too high at 94. With his heart disease and diabetes is should be below 50. I would like to increase his lipitor from 40 mg a day to 80 mg a day. If ok will send in script. His A1c, CBC, Prostate lab and complete electrolyte panel were all ok. Still spilling a fair amount of protein in his urine and some blood. Want to repeat UA in a month. Order placed documented in this encounter [facility] 03-20-2024 Telephone encounter Note Let patient know chest x-ray was ok and lab for possible congestive heart failure was negative. His lipid panel showed his Trigs and HDL were ok. His LDL is too high at 94. With his heart disease and diabetes is should be below 50. I would like to increase his lipitor from 40 mg a day to 80 mg a day. If ok will send in script. His A1c, CBC, Prostate lab and complete electrolyte panel were all ok. Still spilling a fair amount of protein in his urine and some blood. Want to repeat UA in a month. Order placed [facility] 03-18-2024 History of Present illness Narrative Radiology Service Progress Note PATIENT NAME: Aureliano Dang DATE OF SERVICE: March 18, 2024 TIME: 12:09 PM PATIENT IDENTITY VERIFICATION COMPLETED USING TWO (2) IDENTIFIERS: Name and Date of confirmed by patient verbally. FALL SCREENING: Has the patient had 2 falls in the last year or 1 fall with injury or currently using an Ambulatory Assistive Device (Walker, Cane, Wheelchair, Crutches, etc.)? No PATIENT GENDER DATA: Male PATIENT RELEVANT IMPLANT DATA REVIEWED: Yes PATIENT PRESENTS WITH AN IMPLANTABLE OR ATTACHED DOCENT COORDINATOR: No RADIOLOGY DEPARTMENT: General X-ray: Exam(s) Completed: Chest X-Ray PERIPHERAL IV DATA: Not applicable SIGNED BY: RT Morgan(R) March 18, 2024 12:09 PM documented in this encounter [facility] 03-18-2024 Instructions Diego Patricio MD - 03/18/2024 10:51 AM EDT Consider getting the shingrix vaccine for the prevention of shingles from a local pharmacy along with the RSV vaccine. Consider getting a Tdap update for tetanus at the health dept. documented in this encounter [facility] 03-18-2024 History of Present illness Narrative Chief Complaint Patient presents with: F/U 6 months HPI Aureliano Dang is a 74 year old male who presents here today for 6 month follow up. Patient with hx of diabetes, CAD, CHF, hyperlipidemia, ex smoker, overweight, a.fib after an OH that resolved as well as those as below. Patient sees [facility] last visit 09/2023 Patient sees [facility] last visit 11/2023 Has eye appt set up for next month. He went to [place] about a month ago and when he returned he noted his lower legs were a little more swollen but not as much as they had been in the past. He denies any pain in the calves. Has support socks that he typically wears daily. His hands have been itchy at times. The whole hands. Not daily. Has tried some patrolmen jelly with little improvement. Washing his hands in warm water helps. Past medical history, appointments, medications, allergies reviewed. Previous Medical History PAST MEDICAL HISTORY Diagnosis Date Allergic rhinitis 02/01/2021 Calculus of kidney 03/08/2010 Chronic systolic CHF (congestive heart failure) (HCC) 11/13/2012 Preop EF 27+/-5%. NSTEMI mod LV mild RV required epinephrine infusion intraop. Post op EF 30+/-5%. - Pulmonary congestion and B effusions on CXR--improving. Lasix 40mg po daily, continue coreg, ACEI Coronary artery disease due to lipid rich plaque 08/08/[address] Decker: 5 vessel CABG 2012 DM (diabetes mellitus), type 2, uncontrolled, with renal complications 02/03/2021 Edema 12/09/2012 Elevated PSA 04/02/2023 Essential hypertension 02/10/2021 Ex-smoker 02/03/2021 Smoked 1/4 pck for about 45 yrs quit 2014 Ex-smoker 02/03/2021 Smoked 1/4 pck for about 45 yrs quit 2014, US 01/2021 Neg for AAA History of atrial fibrillation 11/16/2012 Secondary to OH but resolved. Sees: Dr. Decker: New onset AF RVR 11/16. Converted to NSR after 30 mins w/ BB/Mg++. 11/18-11/21 Remains in NSR, continue coreg. History of non-ST elevation myocardial infarction (NSTEMI) 11/06/2012 Preop NSTEMI by his history and EKG findings. Mildly Elevated Troponin T. ECHO LVEF 27%. - On ASA/BB/statin and ACEI. ECHO showed improved EF 39%, no pericardial effusion. Ischemic cardiomyopathy 02/10/2021 Seeing Cardio Lung nodule 11/21/[address] scan on 11/09/2012 showed 3-mm noncalcified at the base of the lateral right lower lobe segment (slice 73). Repeat CT 2013 showed no nodules. Medicare annual wellness visit, subsequent 02/07/2022 Medicare Part B: Last done: 02/07/2022 Mixed hyperlipidemia 11/18/2012 Preop lipids: Tri-86, chol-219, HDL-52, LDL-150. Lipitor 40mg started, consider increase to 80mg d/t NSTEMI--can be increased after discharge to assure pt is tolerating dose (d/w Dr. Beasley). Pt to follow up w/ local MD for repeat cholesterol levels in 6 weeks. MADELIN (obstructive sleep apnea) 12/12/2023 Sees [facility] ([facility]) Other proteinuria 02/04/2021 diabetes related. 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) 02/03/2021 Previous Surgical History PAST SURGICAL HISTORY Procedure Laterality Date CABG (5) VENOUS GRAFTS & ARTERIAL GRAFT(S) 11/13/2012 [facility] COLONOSCOPY FLX DX W/COLLJ SPEC WHEN PFRMD 10/24/2013 Colonoscopy,repeat 10 yrs ESOPHAGOGASTRODUODENOSCOPY TRANSORAL DIAGNOSTIC 10/24/2013 EGD REMV CATARACT EXTRACAP,INSERT LENS one 03/2022 and the other 04/2022 Family History FAMILY HISTORY Problem Relation Age of Onset Hypertension Mother Stroke Mother Patient Allergies ALLERGIES Allergen Reactions Acetaminophen Other: See Comments, Mental Status Change Lisinopril Rash Oxycodone Other: See Comments hallucination Percocet [Oxycodone* Mental Status Change Hallucination Current Medications Current Outpatient Medications on File Prior to Visit Medication Sig amLODIPine (NORVASC) 5 mg tablet Take 1 tablet by mouth once daily. losartan (COZAAR) 100 mg tablet Take 1 tablet by mouth once daily. atorvastatin (LIPITOR) 40 mg tablet Take 1 tablet by mouth daily at bedtime. carvedilol (COREG) 25 mg tablet Take 1 tablet by mouth two times a day with meals. metFORMIN (GLUCOPHAGE) 500 mg tablet Take 1 tablet by mouth daily with breakfast. fluticasone (FLONASE) 50 mcg/actuation nasal spray Use 2 Sprays in each nostril once daily. Rinse mouth after use. nitroglycerin sublingual (NITROQUICK) 0.4 mg SL tablet Dissolve 1 tablet under the tongue as needed. for chest pain,every 5 min x3 blood sugar diagnostic (BLOOD GLUCOSE TEST) test strip Test blood sugar(s) one times daily. Dx: Other DM Code E11.29 Insulin: No Blood-Glucose Meter (TRUE METRIX GLUCOSE METER) Use to check blood sugar once a day. Dx: E11.29, no insulin Blood Glucose Control, Low (TRUE METRIX LEVEL 1) Use as directed to set up machine Blood Glucose Control, Normal (TRUE METRIX LEVEL 2) soln Use as directed to set up machine Blood Glucose Control, High (TRUE METRIX LEVEL 3) Use as directed to set up machine alcohol swabs Apply 1 application to affected area once daily. Blood Pressure Test Kit-Large Check BP once a day or as needed. Dx: I10, I25.5 and I25.10 Lancets lancets Test blood sugar(s) one times daily. Dx: Other DM Code E11.29 Insulin: No Blood-Glucose Meter Test blood sugar once a day DX E11.29 Insulin: No aspirin 81 mg chewable tablet Take 2 tablets by mouth once daily. No current facility-administered medications on file prior to visit. Social History Social History Tobacco Use Smoking status: Former Packs/day: 0.25 Years: 45.00 Additional pack years: 0.00 Total pack years: 11.25 Types: Cigarettes Quit date: 2012 Years since quittin.4 Smokeless tobacco: Never Tobacco comments: 4-5 cigarettes per day Vaping Use Vaping Use: Never used Substance Use Topics Alcohol use: No Drug use: No Review of Symptoms REVIEW OF SYSTEMS GENERAL: No significant weight loss, malaise or fevers NECK: Negative for lumps, goiter, pain and significant neck swelling RESPIRATORY: Negative for cough, hemoptysis, wheezing, COPD, dyspnea or shortness of breath CARDIOVASCULAR: Negative for chest pain, hypertension, CHF or palpitations. No orthopnea. GI: No nausea, vomiting, or diarrhea and No heartburn or reflux symptoms : No history of dysuria, frequency or blood ENDOCRINE: Negative for symptoms of low BS's NEURO: No history of headaches, syncope, paralysis, seizures or tremors EXAM: BP 142/82 (BP Site: Left Arm, BP Position: Sitting, BP Cuff Size: Regular Adult) Pulse 62 Resp 14 Wt 76.2 kg (168 lb) BMI 28.33 kg/m BP 118/64 Pulse 62 Resp 14 Wt 76.2 kg (168 lb) BMI 28.33 kg/m Last 4 Encounter Wt Readings: Date: Wt: 03/18/2024 76.2 kg (168 lb) 02/04/2024 77.9 kg (171 lb 11.8 oz) 09/06/2023 77.1 kg (170 lb) 02/23/2023 79.4 kg (175 lb) General Appearance: Well appearing, alert, in no acute distress, well-hydrated, well nourished. and Overweight. Skin: Skin color, texture, turgor normal, no suspicious rashes or lesions. Eyes: Anicteric sclera. Pupils are equally round and reactive to light. Extraocular movements are intact. . Neck: Supple, no adenopathy; thyroid symmetric, normal size, no bruits. Lungs: No rhonchi, rales. Mild early inspiratory wheeze. Slightly resolved with a cough. Heart: RRR without murmur, gallop, or rubs. No ectopy. Abdomen: Normal abdominal exam, Abdomen soft, non-tender. Bowel sounds normal. No masses, organomegaly. Extremities: No deformities, skin discoloration, Good capillary refill. Has 1-2+ pitting edema on the right and 1+ on the left. No calf tenderness bilaterally. Musculoskeletal: Muscular strength intact, No joint swelling, deformity, or tenderness. Peripheral Pulses: Normal. Neurologic: Gait normal. Sensation to light touch and crainal nerves 2-12 intact.. Health Maintenance List BP Controlled (<130/80) Never done RSV Vaccine(1 - 1-dose 60+ series) Never done Shingrix Vaccine(2 of 3) due on 07/24/2016 Dilated Retinal Exam due on 02/25/2022 DTaP,Tdap,Td Vaccine(2 - Td or Tdap) due on 09/16/2023 Advance Directive Discussion due on 10/22/2023 Behavioral Health Screening Never done HbA1C due on 03/06/2024 Diabetic Foot Exam due on 02/24/2024 Covid-19 Vaccine( season) due on 09/06/2024 Influenza Vaccine(Season Ended) due on 06/22/2024 Urine Albumin:Creatinine Ratio due on 09/06/2024 LDL Cholesterol due on 09/06/2024 Annual PCP Team Chronic Disease Visit due on 09/06/2024 Hepatitis C Screening Completed Pneumococcal Vaccine: 65+ Completed Colorectal Cancer Screening Discontinued Data reviewed Latest Ref Rng 02/04/2024 Protein, Total 6.3 - 8.0 g/dL 7.0 Albumin 3.9 - 4.9 g/dL 4.1 Calcium 8.5 - 10.2 mg/dL 9.6 Bilirubin, Total 0.2 - 1.3 mg/dL 0.4 Alkaline Phosphatase 38 - 113 U/L 76 AST 14 - 40 U/L 16 ALT 10 - 54 U/L 16 Glucose 74 - 99 mg/dL 88 BUN 9 - 24 mg/dL 20 Creatinine 0.73 - 1.22 mg/dL 0.90 Sodium 136 - 144 mmol/L 144 Potassium 3.7 - 5.1 mmol/L 4.0 Chloride 97 - 105 mmol/L 107 (H) CO2 22 - 30 mmol/L 25 Anion Gap 9 - 18 mmol/L 12 eGFR >=60 mL/min/1.73m 89 A/P ASSESSMENT/PLAN: 1. Type 2 diabetes mellitus with other circulatory complication, without long-term current use of insulin (HCC) - ICD9: 250.70, ICD10: E11.59 (primary diagnosis) - await labs to see if changes needed. - Continue current medications - Counseled on healthy diet and regular exercise - Discussed need for and benefit of weight loss. BMI 28.33 kg/(m^2) Check - ALBUMIN/CREATININE RATIO, URINE - COMPREHENSIVE METABOLIC PANEL - HEMOGLOBIN A1C - URINALYSIS, WITH MICROSCOPIC - LIPID PANEL, NONFASTING - COMPLETE BLOOD COUNT AND DIFFERENTIAL 2. 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 BMI 28.33 kg/(m^2) Check - ALBUMIN/CREATININE RATIO, URINE - URINALYSIS, WITH MICROSCOPIC 3. Essential hypertension - ICD9: 401.9, ICD10: I10 - Controlled - Continue current medications - Recommend home blood pressure monitoring, to bring results to next visit - Encouraged sodium restriction, DASH or Mediterranean diet - Recommend regular aerobic exercise Check - COMPREHENSIVE METABOLIC PANEL - URINALYSIS, WITH MICROSCOPIC - LIPID PANEL, NONFASTING 4. Mixed hyperlipidemia - ICD9: 272.2, ICD10: E78.2 - a wait labs - Continue current medications - Counseled on healthy diet and regular exercise - Discussed need for and benefit of weight loss. BMI 28.33 kg/(m^2) Check - COMPREHENSIVE METABOLIC PANEL - URINALYSIS, WITH MICROSCOPIC - LIPID PANEL, NONFASTING 5. Edema, unspecified type - ICD9: 782.3, ICD10: R60.9 - will start lasix 20 mg every other day. - check BNP - check bilateral leg US to r/o DVT's 6. Chronic systolic CHF (congestive heart failure) (HCC) - ICD9: 428.22, 428.0, ICD10: I50.22 - HFpEF 50+ - Compensated - Hypervolemic - Continue current medications - Start furosemide 20 mg every other day. - last echo was 2018. With signs of hypervolemia needs repeat. May need stress test. Check - COMPREHENSIVE METABOLIC PANEL - NT PRO BNP - XR CHEST 2V FRONTAL/LAT - check echo. 7. Coronary artery disease due to lipid rich plaque - ICD9: 414.00, 414.3, ICD10: I25.10, I25.83 - no clinically symptoms other then the edema. Managed per cardio - as above - LIPID PANEL, NONFASTING 8. Ischemic cardiomyopathy - ICD9: 414.8, ICD10: I25.5 - as per #7, managed per cardio 9. Overweight (BMI 25.0-29.9) - ICD9: 278.02, ICD10: E66.3 - patient to work on weight loss. 10. Medication management - ICD9: V58.69, ICD10: Z79.899 - check labs as above and below. 11. Advance directive discussed with patient - ICD9: V65.49, ICD10: Z71.89 - packets provided. 12. Elevated PSA - ICD9: 790.93, ICD10: R97.20 Check - PROSTATE SPECIFIC ANTIGEN, FREE 13. Wheezing - ICD9: 786.07, ICD10: R06.2 Check - XR CHEST 2V FRONTAL/LAT 14. Bilateral leg edema - ICD9: 782.3, ICD10: R60.0 Check - US LEG VEIN DVT [facility] Requested Prescriptions Signed Prescriptions Disp Refills metFORMIN (GLUCOPHAGE) 500 mg tablet 90 tablet 1 Sig: Take 1 tablet by mouth daily with breakfast. furosemide (LASIX) 20 mg tablet 45 tablet 1 Sig: Take 1 tablet by mouth every other day. F/u in a month extensive and recheck leg edema. I spent a total of 42 minutes on the date of the service which included preparing to see the patient, [id number] patient care, completing clinical documentation, performing a medically appropriate examination, counseling and educating the patient/family/caregiver and ordering medications, tests, or procedures. Diego Patricio MD documented in this encounter [facility] 02-18-2024 Telephone encounter Note Patient has been identified by name and date of : Yes, Provider Dr Patricio Date 02/18/2024 Time 10:31 am Requested Prescriptions Pending Prescriptions Disp Refills amLODIPine (NORVASC) 5 mg tablet 90 tablet 1 Sig: Take 1 tablet by mouth once daily. RX INSTRUCTIONS: Patient aware RX will be sent to pharmacy. No need to notify patient. Laureen Leonard MA [facility] 08/2023 Nov 02/2024 Last refill: 08/2023 [facility] 02-18-2024 Miscellaneous Notes Patient has been identified by name and date of : Yes, Provider Dr Patricio Date 02/18/2024 Time 10:31 am Requested Prescriptions Pending Prescriptions Disp Refills amLODIPine (NORVASC) 5 mg tablet 90 tablet 1 Sig: Take 1 tablet by mouth once daily. RX INSTRUCTIONS: Patient aware RX will be sent to pharmacy. No need to notify patient. Laureen Leonard MA [facility] 08/2023 Nov 02/2024 Last refill: 08/2023 Patient has been identified by name and date of : Yes Patient phones for refill(s): Requested Prescriptions Pending Prescriptions Disp Refills amLODIPine (NORVASC) 5 mg tablet 90 tablet 1 Sig: Take 1 tablet by mouth once daily. Date of last office visit in primary care: 09/06/2023 Date of next office visit in primary care: 03/11/2024 Please advise. Thank you. Gabriel Hernandez. documented in this encounter [facility] 02-18-2024 Telephone encounter Note Patient has been identified by name and date of : Yes Patient phones for refill(s): Requested Prescriptions Pending Prescriptions Disp Refills amLODIPine (NORVASC) 5 mg tablet 90 tablet 1 Sig: Take 1 tablet by mouth once daily. Date of last office visit in primary care: 09/06/2023 Date of next office visit in primary care: 03/11/2024 Please advise. Thank you. Gabriel Hernandez. [facility] 02-07-2024 Miscellaneous Notes No contact with patient on 3 occasions, will mail letter to listed address today. Arti Pham MA Left message for patient to return call. Irma Cash MA Left message for patient to return call. Irma Cash MA Please inform patient that his lab values are unremarkable. Prednisone will be called in the pharmacy. Take as instructed. Continue care plan as discussed during visit. Diego Tan APRN.PRAVIN documented in this encounter [facility] 02-04-2024 History of Present illness Narrative Radiology Service Progress Note PATIENT NAME: Aureliano Dang DATE OF SERVICE: February 04, 2024 TIME: 12:45 PM PATIENT IDENTITY VERIFICATION COMPLETED USING TWO (2) IDENTIFIERS: Name and Date of confirmed by patient verbally. FALL SCREENING: Has the patient had 2 falls in the last year or 1 fall with injury or currently using an Ambulatory Assistive Device (Walker, Cane, Wheelchair, Crutches, etc.)? No PATIENT GENDER DATA: Male PATIENT RELEVANT IMPLANT DATA REVIEWED: Not Applicable PATIENT PRESENTS WITH AN IMPLANTABLE OR ATTACHED DOCENT COORDINATOR: No RADIOLOGY DEPARTMENT: General X-ray: Exam(s) Completed: Chest X-Ray PERIPHERAL IV DATA: Not applicable SIGNED BY: RT Delilah(R) February 04, 2024 12:45 PM documented in this encounter [facility] 02-04-2024 History of Present illness Narrative Patient presents with: Wheezing: X 1 week HPI: Feeling wheezy for the last 1 1/2 weeks. He was mowing yesterday and started coughing and sneezing during that; his wheezing is worsened also. Positive symptoms: Cough, Shortness of breath, Wheezing, Fatigue, sneezing, Negative symptoms: Chest pain, Sore throat, Nasal Congestion, Rhinorrhea, Fever, Body Aches, Headache, palpitations, edema, OTC: none Spirometry in 2019 showed possible restriction but no obstruction. Hx of CAD with heart failure; no history of asthma or COPD. MEDICATIONS: Current Outpatient Medications Medication Sig amLODIPine (NORVASC) 5 mg tablet Take 1 tablet by mouth once daily. losartan (COZAAR) 100 mg tablet Take 1 tablet by mouth once daily. atorvastatin (LIPITOR) 40 mg tablet Take 1 tablet by mouth daily at bedtime. carvedilol (COREG) 25 mg tablet Take 1 tablet by mouth two times a day with meals. metFORMIN (GLUCOPHAGE) 500 mg tablet Take 1 tablet by mouth daily with breakfast. fluticasone (FLONASE) 50 mcg/actuation nasal spray Use 2 Sprays in each nostril once daily. Rinse mouth after use. nitroglycerin sublingual (NITROQUICK) 0.4 mg SL tablet Dissolve 1 tablet under the tongue as needed. for chest pain,every 5 min x3 blood sugar diagnostic (BLOOD GLUCOSE TEST) test strip Test blood sugar(s) one times daily. Dx: Other DM Code E11.29 Insulin: No Blood-Glucose Meter (TRUE METRIX GLUCOSE METER) Use to check blood sugar once a day. Dx: E11.29, no insulin Blood Glucose Control, Low (TRUE METRIX LEVEL 1) Use as directed to set up machine Blood Glucose Control, Normal (TRUE METRIX LEVEL 2) soln Use as directed to set up machine Blood Glucose Control, High (TRUE METRIX LEVEL 3) Use as directed to set up machine alcohol swabs Apply 1 application to affected area once daily. Blood Pressure Test Kit-Large Check BP once a day or as needed. Dx: I10, I25.5 and I25.10 Lancets lancets Test blood sugar(s) one times daily. Dx: Other DM Code E11.29 Insulin: No Blood-Glucose Meter Test blood sugar once a day DX E11.29 Insulin: No aspirin 81 mg chewable tablet Take 2 tablets by mouth once daily. No current facility-administered medications for this visit. ALLERGIES: ALLERGIES Allergen Reactions Acetaminophen Other: See Comments, Mental Status Change Lisinopril Rash Oxycodone Other: See Comments hallucination Percocet [Oxycodone* Mental Status Change Hallucination VITALS: BP 144/84 Pulse 64 Temp 36.3 C (97.3 F) (Tympanic) Resp 16 Wt 77.9 kg (171 lb 11.8 oz) SpO2 97% BMI 28.96 kg/m Last 4 Encounter Wt Readings: Date: Wt: 02/04/2024 77.9 kg (171 lb 11.8 oz) 09/06/2023 77.1 kg (170 lb) 02/23/2023 79.4 kg (175 lb) 01/02/2023 80.3 kg (177 lb) PHYSICAL EXAM: GEN: Pleasant, in no acute distress. HEENT: PERRL, EOMI, conjunctiva clear Ears: canals clear. TMs without erythema, bulge, or effusion Sinuses: non-tender frontal sinus, non-tender maxillary sinuses, +nasal congestion Throat: moist mucous membranes, no erythema, no exudate Neck: supple, no thyromegaly, no lymphadenopathy HEART: regular rate and rhythm, no murmurs LUNGS: bilateral expiratory wheezes, no crackles, no increased WOB EXT: trace edema above sock line ASSESSMENT/PLAN: 1. Wheezing - ICD9: 786.07, ICD10: R06.2 (primary diagnosis) 2. Chronic systolic CHF (congestive heart failure) (HCC) - ICD9: 428.22, 428.0, ICD10: I50.22 - XR CHEST 2V FRONTAL/LAT - no acute infiltrate or vascular edema. He will have additional labs to rule out CHF and COVID. - COMPLETE BLOOD COUNT AND DIFFERENTIAL - COMPREHENSIVE METABOLIC PANEL - NT PRO BNP - COVID NAAT, UPPER RESPIRATORY, ROUTINE He has been prescribed prednisone by [facility] pulmonology before and reports it helped his breathing. Plan to send short prednisone taper to treat suspected allergy/dust induced bronchospasm if labs are benign. Follow up with cardiology or primary care if not improving. Ten Luevano MD documented in this encounter [facility] 01-08-2024 History of Present illness Narrative POPULATION HEALTH NAVIGATION OUTREACH Action/FYI msg to schedule wellness Reason for Outreach Care Gap/HCC or Scheduling Wellness Visits Care Gaps due: Medicare Annual Wellness Visit Patient Contacted: Unable or unnecessary to reach patient: Left message Navigation Signature: Aleida Heller MA January 08, 2024 2:35 PM documented in this encounter [facility] 12-12-2023 History of Present illness Narrative Scan on 12/11/2023 12:46 PM by Provider, Jessica, CATIE: Consultation - Pulmonary documented in this encounter [facility] 09-07-2023 Miscellaneous Notes Pt called and is notified of providers results. Pt voices understanding. Jewell Carrasco RN Please let patient know his labs are stable. documented in this encounter [facility] 09-06-2023 History of Present illness Narrative Chief Complaint Patient presents with: Follow Up HPI Aureliano Dang is a 73 year old male who presents here today for Above Complaints.. Patient presents for routine follow up. Patient requesting refills for his medications. Informed patient he has pending labs that need completed. Past medical history, appointments, medications, allergies reviewed. Previous Medical History PAST MEDICAL HISTORY Diagnosis Date Allergic rhinitis 02/01/2021 Calculus of kidney 03/08/2010 Chronic systolic CHF (congestive heart failure) (HCC) 11/13/2012 Preop EF 27+/-5%. NSTEMI mod LV mild RV required epinephrine infusion intraop. Post op EF 30+/-5%. - Pulmonary congestion and B effusions on CXR--improving. Lasix 40mg po daily, continue coreg, ACEI Coronary artery disease due to lipid rich plaque 08/08/[address] Decker: 5 vessel CABG 2012 DM (diabetes mellitus), type 2, uncontrolled, with renal complications 02/03/2021 Edema 12/09/2012 Elevated PSA 04/02/2023 Essential hypertension 02/10/2021 Ex-smoker 02/03/2021 Smoked 1/4 pck for about 45 yrs quit 2014 Ex-smoker 02/03/2021 Smoked 1/4 pck for about 45 yrs quit 2014, US 01/2021 Neg for AAA History of atrial fibrillation 11/16/2012 Secondary to OH but resolved. Sees: Dr. Decker: New onset AF RVR 11/16. Converted to NSR after 30 mins w/ BB/Mg++. 11/18-11/21 Remains in NSR, continue coreg. History of non-ST elevation myocardial infarction (NSTEMI) 11/06/2012 Preop NSTEMI by his history and EKG findings. Mildly Elevated Troponin T. ECHO LVEF 27%. - On ASA/BB/statin and ACEI. ECHO showed improved EF 39%, no pericardial effusion. Ischemic cardiomyopathy 02/10/2021 Seeing Cardio Lung nodule 11/21/[address] scan on 11/09/2012 showed 3-mm noncalcified at the base of the lateral right lower lobe segment (slice 73). Repeat CT 2013 showed no nodules. Medicare annual wellness visit, subsequent 02/07/2022 Medicare Part B: Last done: 02/07/2022 Mixed hyperlipidemia 11/18/2012 Preop lipids: Tri-86, chol-219, HDL-52, LDL-150. Lipitor 40mg started, consider increase to 80mg d/t NSTEMI--can be increased after discharge to assure pt is tolerating dose (d/w Dr. Beasley). Pt to follow up w/ local MD for repeat cholesterol levels in 6 weeks. Other proteinuria 02/04/2021 diabetes related. 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 Previous Surgical History PAST SURGICAL HISTORY Procedure Laterality Date CABG (5) VENOUS GRAFTS & ARTERIAL GRAFT(S) 11/13/2012 [facility] COLONOSCOPY FLX DX W/COLLJ SPEC WHEN PFRMD 10/24/2013 Colonoscopy,repeat 10 yrs ESOPHAGOGASTRODUODENOSCOPY TRANSORAL DIAGNOSTIC 10/24/2013 EGD REMV CATARACT EXTRACAP,INSERT LENS one 03/2022 and the other 04/2022 Family History FAMILY HISTORY Problem Relation Age of Onset Hypertension Mother Stroke Mother Patient Allergies ALLERGIES Allergen Reactions Acetaminophen Other: See Comments, Mental Status Change Lisinopril Rash Oxycodone Other: See Comments hallucination Percocet [Oxycodone* Mental Status Change Hallucination Current Medications Current Outpatient Medications on File Prior to Visit Medication Sig amLODIPine (NORVASC) 5 mg tablet Take 1 tablet by mouth once daily. losartan (COZAAR) 100 mg tablet Take 1 tablet by mouth once daily. atorvastatin (LIPITOR) 40 mg tablet Take 1 tablet by mouth daily at bedtime. carvedilol (COREG) 25 mg tablet Take 1 tablet by mouth twice daily with meals. metFORMIN (GLUCOPHAGE) 500 mg tablet Take 1 tablet by mouth daily with breakfast. fluticasone (FLONASE) 50 mcg/actuation nasal spray Use 2 Sprays in each nostril once daily. Rinse mouth after use. nitroglycerin sublingual (NITROQUICK) 0.4 mg SL tablet Dissolve 1 tablet under the tongue as needed. for chest pain,every 5 min x3 blood sugar diagnostic (BLOOD GLUCOSE TEST) test strip Test blood sugar(s) one times daily. Dx: Other DM Code E11.29 Insulin: No Blood-Glucose Meter (TRUE METRIX GLUCOSE METER) Use to check blood sugar once a day. Dx: E11.29, no insulin Blood Glucose Control, Low (TRUE METRIX LEVEL 1) Use as directed to set up machine Blood Glucose Control, Normal (TRUE METRIX LEVEL 2) soln Use as directed to set up machine Blood Glucose Control, High (TRUE METRIX LEVEL 3) Use as directed to set up machine alcohol swabs Apply 1 application to affected area once daily. Blood Pressure Test Kit-Large Check BP once a day or as needed. Dx: I10, I25.5 and I25.10 Lancets lancets Test blood sugar(s) one times daily. Dx: Other DM Code E11.29 Insulin: No Blood-Glucose Meter Test blood sugar once a day DX E11.29 Insulin: No aspirin 81 mg chewable tablet Take 2 tablets by mouth once daily. No current facility-administered medications on file prior to visit. Social History Social History Tobacco Use Smoking status: Former Packs/day: 0.25 Years: 45.00 Additional pack years: 0.00 Total pack years: 11.25 Types: Cigarettes Quit date: 2012 Years since quittin.8 Smokeless tobacco: Never Tobacco comments: 4-5 cigarettes per day Vaping Use Vaping Use: Never used Substance Use Topics Alcohol use: No Drug use: No Review of Symptoms REVIEW OF SYSTEMS SEE HPI EXAM: BP 118/62 Pulse 62 Resp 14 Wt 77.1 kg (170 lb) BMI 28.67 kg/m General Appearance: Well appearing, alert, in no acute distress, well-hydrated, well nourished.. Lungs: Lungs clear to auscultation. No wheezing, rhonchi, rales.. Heart: RRR without murmur, gallop, or rubs. No ectopy. Health Maintenance List Hepatitis B Vaccine(1 of 3 - Risk 3-dose series) Never done RSV Vaccine(1 - 1-dose 60+ series) Never done Shingrix Vaccine(2 of 3) due on 07/24/2016 Dilated Retinal Exam due on 02/25/2022 Influenza Vaccine(1) due on 06/22/2023 Covid-19 Vaccine( season) due on 06/22/2023 HbA1C due on 07/31/2023 DTaP,Tdap,Td Vaccine(2 - Td or Tdap) due on 09/16/2023 Colorectal Cancer Screening due on 10/24/2023 Urine Albumin:Creatinine Ratio due on 01/30/2024 LDL Cholesterol due on 01/30/2024 Diabetic Foot Exam due on 02/24/2024 Annual PCP Team Chronic Disease Visit due on 02/24/2024 BP Controlled (<130/80) due on 02/24/2024 Advance Directive Discussion Completed Depression Assessment Completed Hepatitis C Screening Completed Pneumococcal Vaccine: 65+ Completed ASSESSMENT/PLAN: 1. Essential hypertension - ICD9: 401.9, ICD10: I10 (primary diagnosis) - Controlled - Continue current medications - Recommend home blood pressure monitoring, to bring results to next visit - Encouraged sodium restriction, DASH or Mediterranean diet - Recommend regular aerobic exercise - AMLODIPINE 5 MG TABLET - LOSARTAN 100 MG TABLET 2. Hyperlipidemia, unspecified hyperlipidemia type - ICD9: 272.4, ICD10: E78.5 - Control undetermined, due for labs - Continue current medications - Counseled on healthy diet and regular exercise - ATORVASTATIN 40 MG TABLET 3. Controlled type 2 diabetes mellitus without complication, without long-term current use of insulin (HCC) - ICD9: 250.00, ICD10: E11.9 - Control undetermined, due for labs - Continue current medications - Counseled on healthy diet and regular exercise - Discussed need for and benefit of weight loss. BMI 28.67 kg/(m^2) - METFORMIN 500 MG TABLET 4. Heart failure, acute systolic (HCC) - ICD9: 428.21, ICD10: I50.21 - Continue current medications - CARVEDILOL 25 MG TABLET Mary Littlejohn APRN.TYPING BOOKKEEPER documented in this encounter [facility] 09-05-2023 Miscellaneous Notes Pt has apt booked for 09-06-23. Trinity Conte LPN Left a message for pt to call the office and ask to speak to a nurse. Trinity Conte LPN Let patient know refill denied. Was to be seen for routine appt 08/29/2023 and NO showed. Needs seen. KATHI 02/23/23 NOV none scheduled Camelia Celaya MA Patient has been identified by name and date of : Yes Last office visit in this department: 02/23/2023 RX INSTRUCTIONS: Patient aware RX will be sent to pharmacy. No need to notify patient. Patient phones requesting refills as follows: Requested Prescriptions Pending Prescriptions Disp Refills metFORMIN (GLUCOPHAGE) 500 mg tablet 90 tablet 1 Sig: Take 1 tablet by mouth daily with breakfast. Please review and advise. Gabriel Hernandez documented in this encounter [facility] 09-04-2023 History of Present illness Narrative Scan on 09/04/2023 4:06 PM by Provider, External, PALarryC: Consultation - Pulmonary documented in this encounter [facility] 09-04-2023 History of Present illness Narrative Scan on 09/04/2023 4:06 PM by Provider, Jessica, CATIE: Consultation - Pulmonary documented in this encounter [facility] 07-06-2023 History of Present illness Narrative Last saw pcp 02/23/23 Subjective: Patient presents to clinic c/o painful toenails. They state that the nails are especially painful with shoe gear and pressure. Patient states that nails 1-5 b/l are painful. Patient admits to being diabetic. No other pedal complaints at this time. Patient states no change in medications or medical history since last visit. Objective: Patient presents to clinic ambulating in sneakers Vasc: DP and PT pulses are palpable bilateral. CFT is less than 5 seconds bilateral. Skin temperature is warm to cool proximal to distal bilateral. There is no edema or varicosities noted. Neuro: Protective sensation is intact to the foot and toes when tested with the 5.07 SWM bilateral. Vibratory sensation is decreased at the hallux IPJ bilateral. The hallux is downgoing bilateral. Derm: Nails 1-5 b/l are painful, discolored-yellow, thick, crumbly, dystrophic and with subungal debris. Skin is of normal turgor, texture and hair growth is decreased bilateral. There are callus to 5th metatarsal b/l Ortho: Muscle strength is 5/5 for all pedal groups tested. Ankle joint DF is decreased with the knee extended with no pain or crepitus noted. 1st MPJ ROM is decreased bilateral. Assessment: (B35.1) Onychomycosis (primary encounter diagnosis) (M79.675) Pain in toe of left foot (M79.674) Pain in toe of right foot (E11.49) Other diabetic neurological complication associated with type 2 diabetes mellitus (HCC) (L84) Callus of foot Plan: Patient was seen and evaluated. Nails 1-5 bilateral were debrided in length and thickness. Patient was instructed on the continued importance of diabetic foot care along with proper diet and keeping their blood sugar under control to prevent complications. Callus reduced to b/l 5th metatarsal with dremmel Patient is to RTC in 3-4 months. Truong Moctezuma DPM AMB ROOMING INTAKE FLOWSHEET DATA Patient presents with: Left Foot - Established Patient, Nail Fungus Right Foot - Nail Fungus, Established Patient Ciara Babb LPN documented in this encounter [facility] 03-15-2023 History of Present illness Narrative Aureliano Dang is identified through a medication adherence outreach initiative based on pharmacy claims data from [facility] (insurer) for Non-insulin DM medication(s). Patient is reviewed 03/15/23 due to medication adherence concerns with the following medications (name, strength, sig): metformin 500 mg daily. Per data/report, last fill date and days supply: 11/13/22 x90d Per reconcile dispense, last fill date and days supply: 02/20/23 x90d Outcome of review/outreach: (choose outcome source and status) - Filled later than 7 days after Next fill date per reconcile dispense Josi Garcia RPh documented in this encounter [facility] 02-23-2023 Instructions Kelly Walton PA-C - 02/23/2023 9:38 AM EDT NETI Pot with saline mix. Can try this for your sinuses. Recheck Prostate lab in about 1 month. Follow up routine in 6 months with labs prior. documented in this encounter [facility] 02-23-2023 History of Present illness Narrative Medicare Yearly Visit Medical B eligibilty date 01/20/15 Date of last exam 02/07/22 PAST MEDICAL HISTORY Diagnosis Date Allergic rhinitis 02/01/2021 Calculus of kidney 03/08/2010 Chronic systolic CHF (congestive heart failure) (HCC) 11/13/2012 Preop EF 27+/-5%. NSTEMI mod LV mild RV required epinephrine infusion intraop. Post op EF 30+/-5%. - Pulmonary congestion and B effusions on CXR--improving. Lasix 40mg po daily, continue coreg, ACEI Coronary artery disease due to lipid rich plaque 08/08/[address] Decker: 5 vessel CABG 2012 DM (diabetes mellitus), type 2, uncontrolled, with renal complications 02/03/2021 Edema 12/09/2012 Essential hypertension 02/10/2021 Ex-smoker 02/03/2021 Smoked 1/4 pck for about 45 yrs quit 2014 Ex-smoker 02/03/2021 Smoked 1/4 pck for about 45 yrs quit 2014, US 01/2021 Neg for AAA History of atrial fibrillation 11/16/2012 Secondary to OH but resolved. Sees: Dr. Decker: New onset AF RVR 11/16. Converted to NSR after 30 mins w/ BB/Mg++. 11/18-11/21 Remains in NSR, continue coreg. History of non-ST elevation myocardial infarction (NSTEMI) 11/06/2012 Preop NSTEMI by his history and EKG findings. Mildly Elevated Troponin T. ECHO LVEF 27%. - On ASA/BB/statin and ACEI. ECHO showed improved EF 39%, no pericardial effusion. Ischemic cardiomyopathy 02/10/2021 Seeing Cardio Lung nodule 11/21/[address] scan on 11/09/2012 showed 3-mm noncalcified at the base of the lateral right lower lobe segment (slice 73). Repeat CT 2013 showed no nodules. Medicare annual wellness visit, subsequent 02/07/2022 Medicare Part B: Last done: 02/07/2022 Mixed hyperlipidemia 11/18/2012 Preop lipids: Tri-86, chol-219, HDL-52, LDL-150. Lipitor 40mg started, consider increase to 80mg d/t NSTEMI--can be increased after discharge to assure pt is tolerating dose (d/w Dr. Beasley). Pt to follow up w/ local MD for repeat cholesterol levels in 6 weeks. Other proteinuria 02/04/2021 diabetes related. 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 PAST SURGICAL HISTORY Procedure Laterality Date CABG (5) VENOUS GRAFTS & ARTERIAL GRAFT(S) 11/13/2012 [facility] COLONOSCOPY FLX DX W/COLLJ SPEC WHEN PFRMD 10/24/2013 Colonoscopy,repeat 10 yrs ESOPHAGOGASTRODUODENOSCOPY TRANSORAL DIAGNOSTIC 10/24/2013 EGD REMV CATARACT EXTRACAP,INSERT LENS one 03/2022 and the other 04/2022 ALLERGIES: Acetaminophen, Lisinopril, Oxycodone, and Percocet [Oxycodone-Acetaminophen] Medications reviewed: Yes FAMILY HISTORY Problem Relation Age of Onset Hypertension Mother Stroke Mother SOCIAL HISTORY: Social History Tobacco Use Smoking status: Former Packs/day: 0.25 Years: 45.00 Pack years: 11.25 Types: Cigarettes Quit date: 10/22/2014 Years since quittin.3 Smokeless tobacco: Never Tobacco comments: 4-5 cigarettes per day Substance Use Topics Alcohol use: No Drug use: No Aureliano gets minimal exercise. He watches his diet for sodium, low fat and low cholesterol most of the time. List of current specialists seen: Cardiology End of Live Planning discussed including patients advanced directive wishes: Yes I am willing to follow Aureliano's advanced directives. Depression Screening 04/08/2019 02/07/2022 08/09/2022 02/23/2023 PHQ-2 Score 0 0 0 0 Depression screening tool completed and reviewed. Based on score and interview, patient is not at risk for depression. Screening tool discussed with patient, and I recommended no further intervention at this time. Functional Ability/Safety Screen 1. Was the patient's timed Up and Go test unsteady or longer than 30 seconds? No 2. Does the patient need help with the phone, transportation, shopping,preparing meals, housework, laundry, medications or managing money? No 3. Does your home have rugs in the hallway, lack of grab bars in the bathroom, lack of handrails on the stairs or have poor lighting? No Hearing Evaluation: normal PHYSICAL EXAM BP 100/70 (BP Site: Right Arm, BP Position: Sitting, BP Cuff Size: Large Adult) Pulse 64 Temp 36.4 C (97.5 F) Resp 18 Ht 164 cm (5' 4.57") Wt 79.4 kg (175 lb) BMI 29.51 kg/m Alert and oriented X 3: YES Body mass index is 29.51 kg/m . Visual acuity: sees Ophthalmology ASSESSMENT/PLAN: 73 year old male The following prevention plan was discussed during the office visit and provided to the patient: See below. Kelly Walton PA-C Chief Complaint Patient presents with: Medicare Wellness Exam HPI Aureliano Dang is a 73 year old male who presents here today for extensive exam. Patient with hx of diabetes, CAD, CHF, hyperlipidemia, ex smoker, overweight, a.fib after an OH that resolved as well as those as below. Patient overall doing well. Has eye exam in the next month. Last 6 Encounter Wt Readings: Date: Wt: 02/23/2023 79.4 kg (175 lb) 01/02/2023 80.3 kg (177 lb) 10/20/2022 78.1 kg (172 lb 3.2 oz) 08/09/2022 77.6 kg (171 lb) 02/07/2022 76.2 kg (168 lb) 10/03/2021 75.8 kg (167 lb) Past medical history, appointments, medications, allergies reviewed. Previous Medical History PAST MEDICAL HISTORY Diagnosis Date Allergic rhinitis 02/01/2021 Calculus of kidney 03/08/2010 Chronic systolic CHF (congestive heart failure) (HCC) 11/13/2012 Preop EF 27+/-5%. NSTEMI mod LV mild RV required epinephrine infusion intraop. Post op EF 30+/-5%. - Pulmonary congestion and B effusions on CXR--improving. Lasix 40mg po daily, continue coreg, ACEI Coronary artery disease due to lipid rich plaque 08/08/[address] Decker: 5 vessel CABG 2012 DM (diabetes mellitus), type 2, uncontrolled, with renal complications 02/03/2021 Edema 12/09/2012 Essential hypertension 02/10/2021 Ex-smoker 02/03/2021 Smoked 1/4 pck for about 45 yrs quit 2014 Ex-smoker 02/03/2021 Smoked 1/4 pck for about 45 yrs quit 2014, US 01/2021 Neg for AAA History of atrial fibrillation 11/16/2012 Secondary to OH but resolved. Sees: Dr. Decker: New onset AF RVR 11/16. Converted to NSR after 30 mins w/ BB/Mg++. 11/18-11/21 Remains in NSR, continue coreg. History of non-ST elevation myocardial infarction (NSTEMI) 11/06/2012 Preop NSTEMI by his history and EKG findings. Mildly Elevated Troponin T. ECHO LVEF 27%. - On ASA/BB/statin and ACEI. ECHO showed improved EF 39%, no pericardial effusion. Ischemic cardiomyopathy 02/10/2021 Seeing Cardio Lung nodule 11/21/[address] scan on 11/09/2012 showed 3-mm noncalcified at the base of the lateral right lower lobe segment (slice 73). Repeat CT 2013 showed no nodules. Medicare annual wellness visit, subsequent 02/07/2022 Medicare Part B: Last done: 02/07/2022 Mixed hyperlipidemia 11/18/2012 Preop lipids: Tri-86, chol-219, HDL-52, LDL-150. Lipitor 40mg started, consider increase to 80mg d/t NSTEMI--can be increased after discharge to assure pt is tolerating dose (d/w Dr. Beasley). Pt to follow up w/ local MD for repeat cholesterol levels in 6 weeks. Other proteinuria 02/04/2021 diabetes related. 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 Previous Surgical History PAST SURGICAL HISTORY Procedure Laterality Date CABG (5) VENOUS GRAFTS & ARTERIAL GRAFT(S) 11/13/2012 [facility] COLONOSCOPY FLX DX W/COLLJ SPEC WHEN PFRMD 10/24/2013 Colonoscopy,repeat 10 yrs ESOPHAGOGASTRODUODENOSCOPY TRANSORAL DIAGNOSTIC 10/24/2013 EGD REMV CATARACT EXTRACAP,INSERT LENS one 03/2022 and the other 04/2022 Family History FAMILY HISTORY Problem Relation Age of Onset Hypertension Mother Stroke Mother Patient Allergies ALLERGIES Allergen Reactions Acetaminophen Other: See Comments, Mental Status Change Lisinopril Rash Oxycodone Other: See Comments hallucination Percocet [Oxycodone* Mental Status Change Hallucination Current Medications Current Outpatient Medications on File Prior to Visit Medication Sig metFORMIN (GLUCOPHAGE) 500 mg tablet Take 1 tablet by mouth daily with breakfast. fluticasone (FLONASE) 50 mcg/actuation nasal spray Use 2 Sprays in each nostril once daily. Rinse mouth after use. amLODIPine (NORVASC) 5 mg tablet Take 1 tablet by mouth once daily. nitroglycerin sublingual (NITROQUICK) 0.4 mg SL tablet Dissolve 1 tablet under the tongue as needed. for chest pain,every 5 min x3 blood sugar diagnostic (BLOOD GLUCOSE TEST) test strip Test blood sugar(s) one times daily. Dx: Other DM Code E11.29 Insulin: No losartan (COZAAR) 100 mg tablet Take 1 tablet by mouth once daily. Blood-Glucose Meter (TRUE METRIX GLUCOSE METER) Use to check blood sugar once a day. Dx: E11.29, no insulin Blood Glucose Control, Low (TRUE METRIX LEVEL 1) Use as directed to set up machine Blood Glucose Control, Normal (TRUE METRIX LEVEL 2) soln Use as directed to set up machine Blood Glucose Control, High (TRUE METRIX LEVEL 3) Use as directed to set up machine alcohol swabs Apply 1 application to affected area once daily. Blood Pressure Test Kit-Large Check BP once a day or as needed. Dx: I10, I25.5 and I25.10 Lancets lancets Test blood sugar(s) one times daily. Dx: Other DM Code E11.29 Insulin: No Blood-Glucose Meter Test blood sugar once a day DX E11.29 Insulin: No atorvastatin (LIPITOR) 40 mg tablet Take 1 tablet by mouth daily at bedtime. carvedilol (COREG) 25 mg tablet Take 1 tablet by mouth twice daily with meals. aspirin 81 mg chewable tablet Take 2 tablets by mouth once daily. No current facility-administered medications on file prior to visit. Social History Social History Tobacco Use Smoking status: Former Packs/day: 0.25 Years: 45.00 Pack years: 11.25 Types: Cigarettes Quit date: 10/22/2014 Years since quittin.3 Smokeless tobacco: Never Tobacco comments: 4-5 cigarettes per day Substance Use Topics Alcohol use: No Drug use: No Review of Symptoms REVIEW OF SYSTEMS GENERAL: No weight loss, malaise or fevers HEENT: No changes in hearing or vision, no nose bleeds or other nasal problems NECK: Negative for lumps, goiter, pain and significant neck swelling RESPIRATORY: Negative for cough, hemoptysis, wheezing, COPD, dyspnea or shortness of breath CARDIOVASCULAR: Negative for chest pain, leg swelling, CHF or palpitations GI: Negative for abdominal discomfort, blood in stools or black stools, change in bowel habit, heart burn, nausea, vomiting : No history of dysuria, frequency or incontinence MUSCULOSKELETAL: Negative for joint pain or swelling, back pain or muscle pain SKIN: Negative for lesions, rash, and itching PSYCH: Negative for sleep disturbance, mood disorder and recent psychosocial stressors HEMATOLOGY/LYMPHOLOGY: Negative for prolonged bleeding, bruising easily or swollen nodes ENDOCRINE: Negative for cold or heat intolerance, polyuria, polydipsia and goiter NEURO: No history of headaches, syncope, paralysis, seizures or tremors EXAM: BP 100/70 (BP Site: Right Arm, BP Position: Sitting, BP Cuff Size: Large Adult) Pulse 64 Temp 36.4 C (97.5 F) Resp 18 Ht 164 cm (5' 4.57") Wt 79.4 kg (175 lb) BMI 29.51 kg/m Last 3 Encounter Wt Readings: Date: Wt: 02/23/2023 79.4 kg (175 lb) 01/02/2023 80.3 kg (177 lb) 10/20/2022 78.1 kg (172 lb 3.2 oz) General Appearance: Well appearing, alert, in no acute distress, well-hydrated, well nourished.. overweight Skin: Skin color, texture, turgor normal, no suspicious rashes or lesions. Head: Normocephalic, no masses, lesions, tenderness or abnormalities. Eyes: Anicteric sclera. Pupils are equally round and reactive to light. Extraocular movements are intact. . Ears: External ears normal, canals clear, TMs pearly martinez. Nose/Sinuses: Nares normal, septum midline, mucosa normal, no drainage or sinus tenderness. Oropharynx: Lips, mucosa, and tongue normal, teeth and gums normal, oropharynx normal. Neck: Supple, no adenopathy; thyroid symmetric, normal size, no bruits. Lungs: Lungs clear to auscultation. No wheezing, rhonchi, rales.. Heart: RRR without murmur, gallop, or rubs. No ectopy. Abdomen: Normal abdominal exam, Abdomen soft, non-tender. Bowel sounds normal. No masses, organomegaly. Extremities: stable edema in RLE. No deformities, edema (on L), skin discoloration, clubbing or cyanosis. Good capillary refill. . Peripheral Pulses: Normal. Neurologic: Gait normal. Reflexes normal and symmetric. Sensation grossly intact.. Feet:Shoes and socks removed, No deformities, ulcers, calluses, normal distal pulses, sensitive to 10 gm monofilament, and vibratory perception normal . Health Maintenance List SHINGRIX VACCINE(2 of 3) due on 07/24/2016 DILATED RETINAL EXAM due on 02/25/2022 ADVANCE DIRECTIVE DISCUSSION due on 10/22/2022 DEPRESSION ASSESSMENT due on 10/22/2022 DIABETIC FOOT EXAM due on 02/07/2023 HBA1C due on 07/31/2023 ANNUAL PCP TEAM CHRONIC DISEASE VISIT due on 08/09/2023 DTAP,TDAP,TD(2 - Td or Tdap) due on 09/16/2023 COLORECTAL CANCER SCREENING due on 10/24/2023 BP CONTROLLED (<130/80) due on 01/03/2024 URINE ALBUMIN:CREATININE RATIO due on 01/30/2024 LDL CHOLESTEROL due on 01/30/2024 ABDOMINAL AORTIC ANEURYSM SCREENING Completed INFLUENZA Completed HEPATITIS C SCREENING Completed COVID-19 VACCINE Completed PNEUMOCOCCAL: 65+ Completed Data reviewed Component Latest Ref Rng & Units 2023 WBC 3.70 - 11.00 k/uL 7.96 RBC 4.20 - 6.00 m/uL 5.55 Hemoglobin 13.0 - 17.0 g/dL 13.3 Hematocrit 39.0 - 51.0 % 44.4 MCV 80.0 - 100.0 fL 80.0 MCH 26.0 - 34.0 pg 24.0 (L) MCHC 30.5 - 36.0 g/dL 30.0 (L) RDW-CV 11.5 - 15.0 % 16.8 (H) Platelet Count 150 - 400 k/uL 273 MPV 9.0 - 12.7 fL 12.2 Neut% % 48.0 Abs Neut (ANC) 1.45 - 7.50 k/uL 3.82 Lymph% % 33.5 Abs Lymph 1.00 - 4.00 k/uL 2.67 [place]% % 9.9 Abs [place] <0.87 k/uL 0.79 Eosin% % 7.0 Abs Eosin <0.46 k/uL 0.56 (H) Baso% % 1.3 Abs Baso <0.11 k/uL 0.10 Immature Gran % % 0.3 IMMATURE GRANS (ABS) <0.10 k/uL <0.03 NRBC /100 WBC 0.0 Absolute nRBC <0.01 k/uL <0.01 DTYPE Auto Protein, Total 6.3 - 8.0 g/dL 6.8 Albumin 3.9 - 4.9 g/dL 4.0 Calcium 8.5 - 10.2 mg/dL 9.3 Bilirubin, Total 0.2 - 1.3 mg/dL 0.5 Alkaline Phosphatase 38 - 113 U/L 81 AST 14 - 40 U/L 18 ALT 10 - 54 U/L 17 Glucose 74 - 99 mg/dL 116 (H) BUN 9 - 24 mg/dL 14 Creatinine 0.73 - 1.22 mg/dL 0.93 Sodium 136 - 144 mmol/L 142 Potassium 3.7 - 5.1 mmol/L 3.8 Chloride 97 - 105 mmol/L 107 (H) CO2 22 - 30 mmol/L 23 Anion Gap 9 - 18 mmol/L 12 eGFR >=60 mL/min/1.73m 86 Color Yellow Yellow Clarity Clear Clear Glucose, Urine Trace, Negative Negative Bilirubin, Urine Negative Negative Ketones, Urine Trace, Negative Negative Specific [place], Ur 1.005 - 1.030 1.027 Hemoglobin/Blood,Ur Negative, Trace Negative pH, Urine 5.0 - 8.0 6.0 Protein, Urine Trace, Negative 2+ (A) Urobilinogen Negative Negative Nitrites Negative Negative Leukest Negative, 25 Sil[place]/uL Negative WBC, Urine 0-5 /HPF 0-5 /HPF RBC, Urine 0-3 /HPF 0-3 /HPF Epithelial Cells /HPF Few Hyaline Cast 0 /LPF 1-3 /LPF (A) Total Cholesterol, Nonfasting <200 mg/dL 185 Triglycerides, Nonfasting <150 mg/dL 159 (H) HDL Cholesterol, Nonfasting >39 mg/dL 44 LDL Cholesterol, Nonfasting <100 mg/dL 109 (H) Non HDL Cholesterol, Nonfasting <130 mg/dL 141 (H) VLDL Cholesterol, Nonfasting <30 mg/dL 32 (H) Total Chol/HDL Ratio, Nonfasting <5.10 mg/dL 4.20 LDL/HDL Ratio, Nonfasting <2.54 mg/dL 2.48 Creatinine, Ur Random (UCRR) 20.0 - 300.0 mg/dL 279.2 Albumin, Urine Random mg/L 484.7 Albumin/Creat Ratio <30 mg/g 174 (H) Hemoglobin A1C 4.3 - 5.6 % 6.8 (H) Estimated Average Glucose mg/dL 148 PSA <2.60 ng/mL 3.69 (H) ASSESSMENT/PLAN: 1. Medicare annual wellness visit, subsequent - ICD9: V70.0, ICD10: Z00.00 (primary diagnosis) - Counseled on healthy diet and regular exercise 2. Advance directive discussed with patient - ICD9: V65.49, ICD10: Z71.89 Paperwork given 3. Controlled type 2 diabetes mellitus without complication, without long-term current use of insulin (HCC) - ICD9: 250.00, ICD10: E11.9 - Controlled - Continue current medications - Counseled on healthy diet and regular exercise - Discussed need for and benefit of weight loss. BMI 29.51 kg/(m^2) - CARVEDILOL 25 MG TABLET 4. Type 2 diabetes mellitus with other circulatory complication, without long-term current use of insulin (HCC) - ICD9: 250.70, ICD10: E11.59 As above - HGB A1C - ALBUMIN/CREAT RATIO RND UR 5. Essential hypertension - ICD9: 401.9, ICD10: I10 - good control - Continue current medication(s) - Recommended regular aerobic exercise. - Recommend home blood pressure monitoring, to bring results in on next visit - Goal of BP <130/80 6. Mixed hyperlipidemia - ICD9: 272.2, ICD10: E78.2 Worsening control Patient admits to recent poor diet. Decline increase in statin . Will change his diet 7. Hyperlipidemia, unspecified hyperlipidemia type - ICD9: 272.4, ICD10: E78.5 As above - ATORVASTATIN 40 MG TABLET - LIPID PANEL, NONFASTING 8. Heart failure, acute systolic (HCC) - ICD9: 428.21, ICD10: I50.21 Cont with cardio - CARVEDILOL 25 MG TABLET 9. Coronary artery disease due to lipid rich plaque - ICD9: 414.00, 414.3, ICD10: I25.10, I25.83 Cont with cardio 10. 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) - ICD9: 250.40, 791.0, ICD10: E11.29, R80.9 stable - ALBUMIN/CREAT RATIO RND UR 11. Allergic rhinitis, unspecified seasonality, unspecified trigger - ICD9: 477.9, ICD10: J30.9 Stable overall 12. Chronic systolic CHF (congestive heart failure) (HCC) - ICD9: 428.22, 428.0, ICD10: I50.22 Stable. Cont with cardio 13. Prostate disorder - ICD9: 602.9, ICD10: N42.9 Recheck in about 1 month. - PSA FREE Kelly Walton PA-C documented in this encounter [facility] 02-20-2023 Miscellaneous Notes Last refill 08/09/22 Qty: 90 with 1 refill KATHI 08/09/22 NOV 02/22/23 Erika Chacon LPN Patient has been identified by name and date of : Yes Last office visit in this department: 08/09/2022 RX INSTRUCTIONS: Patient aware RX will be sent to pharmacy. No need to notify patient. Patient phones requesting refills as follows: Requested Prescriptions Pending Prescriptions Disp Refills metFORMIN (GLUCOPHAGE) 500 mg tablet 90 tablet 1 Sig: Take 1 tablet by mouth daily with breakfast. Please review and advise. Adamaris Doan documented in this encounter [facility] 01-31-2023 Miscellaneous Notes done Routed message to Kelly. 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 Can you redo Handicapp placard? Letter done for pt has pss's name on it also. Letter on your desk. Erika Chacon LPN Pt is requesting a prescription for a handicap parking permit. Please advise. Thank you, Adamaris RIZVI documented in this encounter [facility] 2023 Miscellaneous Notes Patient contact and was going to mushroom picker handicap placard. Taken the medical records. Laureen Leonard MA Letter ready Please see message below. I don't see a previous letter. Patient is scheduled for 02/22/2023 medicare [employer]. Laureen Leonard MA Patient came in to get a letter regarding a handicap placard. Please advise. documented in this encounter [facility] 01-03-2023 Miscellaneous Notes Patient given results and verbalized understanding of instructions given. Irma Cash Please notify that covid testing negative. Continue with plan of care as discussed during visit. documented in this encounter [facility] 01-02-2023 Instructions Trevon Foss APRN.CNP - 01/02/2023 1:18 PM EDT Fact Sheet for Patients And Caregivers Emergency Use Authorization (EUA) Of Molnupiravir For Coronavirus Disease 2019 (COVID-19) What is the most important information I should know about molnupiravir? Molnupiravir may cause serious side effects, including: Molnupiravir may cause harm to your unborn baby. It is not known if molnupiravir will harm your baby if you take molnupiravir during . Molnupiravir is not recommended for use in . Molnupiravir has not been studied in . Molnupiravir was studied in animals only. When molnupiravir was given to animals, molnupiravir caused harm to their unborn babies. You and your healthcare provider may decide that you should take molnupiravir during if there are no other COVID-19 treatment options authorized by the FDA that are accessible or clinically appropriate for you. If you and your healthcare provider decide that you should take molnupiravir during , you and your healthcare provider should discuss the known and potential benefits and the potential risks of taking molnupiravir during . For individuals who are able to become : You should use a reliable method of control (contraception) consistently and correctly during treatment with molnupiravir and for 4 days after the last dose of molnupiravir. Talk to your healthcare provider about reliable control methods. Before starting treatment with molnupiravir your healthcare provider may do a test to see if you are before starting treatment with molnupiravir. Tell your healthcare provider right away if you become or think you may be during treatment with molnupiravir. Surveillance Program: There is a surveillance program for individuals who take molnupiravir during . The purpose of this program is to collect information about the health of you and your baby. Talk to your healthcare provider about how to take part in this program. If you take molnupiravir during and you agree to participate in the surveillance program and allow your healthcare provider to share your information with [employer], then your healthcare provider will report your use of molnupiravir during to [employer]. by calling or [email or web address]. For individuals who are sexually active with partners who are able to become : It is not known if molnupiravir can affect sperm. While the risk is regarded as low, animal studies to fully assess the potential for molnupiravir to affect the babies of males treated with molnupiravir have not been completed. A reliable method of control (contraception) should be used consistently and correctly during treatment with molnupiravir and for at least 3 months after the last dose. The risk to sperm beyond 3 months is not known. Studies to understand the risk to sperm beyond 3 months are ongoing. Talk to your healthcare provider about reliable control methods. Talk to your healthcare provider if you have questions or concerns about how molnupiravir may affect sperm. You are being given this fact sheet because your healthcare provider believes it is necessary to provide you with molnupiravir for the treatment of adults with ghcv-oc-byhlqjqk coronavirus disease 2019 (COVID-19) with positive results of direct SARS-CoV-2 viral testing, and who are at high risk for progressing to severe COVID-19 including hospitalization or , and for whom other COVID-19 treatment options authorized by the FDA are not accessible or clinically appropriate. The [place].S. Food and Drug Administration (FDA) has issued an Emergency Use Authorization (EUA) to make molnupiravir available during the COVID-19 pandemic (for more details about an EUA please see What is an Emergency Use Authorization? at the end of this document). Molnupiravir is not an FDA-approved medicine in the [place]. Read this Fact Sheet for information about molnupiravir. Talk to your healthcare provider about your options if you have any questions. It is your choice to take molnupiravir. What is COVID-19? COVID-19 is caused by a virus called a coronavirus. You can get COVID-19 through close contact with another person who has the virus. COVID-19 illnesses have ranged from very alaa-bz-mjbszw, including illness resulting in . While information so far suggests that most COVID-19 illness is mild, serious illness can happen and may cause some of your other medical conditions to become worse. Older people and people of all ages with severe, long lasting (chronic) medical conditions like heart disease, lung disease and diabetes, for example seem to be at higher risk of being hospitalized for COVID-19. What is molnupiravir? Molnupiravir is an investigational medicine used to treat zokv-fk-xlgeyyga COVID-19 in adults: with positive results of direct SARS-CoV-2 viral testing, and who are at high risk for progressing to severe COVID-19 including hospitalization or , and for whom other COVID-19 treatment options authorized by the FDA are not accessible or clinically appropriate. The FDA has authorized the emergency use of molnupiravir for the treatment of mild-tomoderate COVID-19 in adults under an EUA. For more information on EUA, see the What is an Emergency Use Authorization (EUA)? section at the end of this Fact Sheet. Molnupiravir is not authorized: for use in people less than 18 years of age. for prevention of COVID-19. for people needing hospitalization for COVID-19. for use for longer than 5 consecutive days. What should I tell my healthcare provider before I take molnupiravir? Tell your healthcare provider if you: Have any allergies Are or plan to breastfeed Have any serious illnesses Are taking any medicines (prescription, ucwc-iqv-dlozeuw, vitamins, or herbal products). How do I take molnupiravir? Take molnupiravir exactly as your healthcare provider tells you to take it. Take 4 capsules of molnupiravir every 12 hours (for example, at 8 am and at 8 pm) Take molnupiravir for 5 days. It is important that you complete the full 5 days of treatment with molnupiravir. Do not stop taking molnupiravir before you complete the full 5 days of treatment, even if you feel better. Take molnupiravir with or without food. You should stay in isolation for as long as your healthcare provider tells you to. Talk to your healthcare provider if you are not sure about how to properly isolate while you have COVID-19. Swallow molnupiravir capsules whole. Do not open, break, or crush the capsules. If you cannot swallow capsules whole, tell your healthcare provider. What to do if you miss a dose: If it has been less than 10 hours since the missed dose, take it as soon as you remember If it has been more than 10 hours since the missed dose, skip the missed dose and take your dose at the next scheduled time. Do not double the dose of molnupiravir to make up for a missed dose. What are the important possible side effects of molnupiravir? Possible side effects of molnupiravir are: See, What is the most important information I should know about molnupiravir? diarrhea nausea dizziness These are not all the possible side effects of molnupiravir. Not many people have taken molnupiravir. Serious and unexpected side effects may happen. This medicine is still being studied, so it is possible that all of the risks are not known at this time. What other treatment choices are there? Like molnupiravir, FDA may allow for the emergency use of other medicines to treat people with COVID-19. Go to https://www.fda.gov/emergency-prepared sdej-wlg-etebciae/mcm-legalregulatory- oso-anpdyr-wkyoqapaw/wzomoloqb-dyg-sxa horization for more information. It is your choice to be treated or not to be treated with molnupiravir. Should you decide not to take it, it will not change your standard medical care. What if I am ? is not recommended during treatment with molnupiravir and for 4 days after the last dose of molnupiravir. If you are or plan to breastfeed, talk to your healthcare provider about your options and specific situation before taking molnupiravir. How do I report side effects with molnupiravir? Contact your healthcare provider if you have any side effects that bother you or do not go away. Report side effects to FDA MedWatch at www.fda.gov/medwatch or call 1-816-YTE-8384 ( ). How should I store molnupiravir? Store molnupiravir capsules at room temperature between 68 F to 77 F (20 C to 25 C). Keep molnupiravir and all medicines out of the reach of children and pets. How can I learn more about COVID-19? Ask your healthcare provider. Visit www.cdc.gov/COVID19 Contact your local or state public health department. Call [employer] at (toll free in the [place] Visit www.Adrenaline [email or web address].ESILLAGE What Is an Emergency Use Authorization (EUA)? The [place] FDA has made molnupiravir available under an emergency access mechanism called an Emergency Use Authorization (EUA) The EUA is supported by a [employer] of Health and Human Service ([facility]) declaration that circumstances exist to justify emergency use of drugs and biological products during the COVID-19 pandemic. Molnupiravir for the treatment of njbq-jo-veeyrbzn COVID-19 in adults with positive results of direct SARS-CoV-2 viral testing, who are at high risk for progression to severe COVID-19, including hospitalization or , and for whom alternative COVID-19 treatment options authorized by FDA are not accessible or clinically appropriate, has not undergone the same type of review as an FDA-approved product. In issuing an EUA under the COVID-19 public health emergency, the FDA has determined, among other things, that based on the total amount of scientific evidence available including data from adequate and well-controlled clinical trials, if available, it is reasonable to believe that the product may be effective for diagnosing, treating, or preventing COVID-19, or a serious or life-threatening disease or condition caused by COVID19; that the known and potential benefits of the product, when used to diagnose, treat, or prevent such disease or condition, outweigh the known and potential risks of such product; and that there are no adequate, approved, and available alternatives. All of these criteria must be met to allow for the product to be used in the treatment of patients during the COVID-19 pandemic. The EUA for molnupiravir is in effect for the duration of the COVID-19 declaration justifying emergency use of molnupiravir, unless terminated or revoked (after which molnupiravir may no longer be used under the EUA). For patent information: [email or web address] Copyright 2020 [employer] [place], [place] and its affiliates. All rights reserved. [id number] Issued: 10/13/2021 FACT SHEET FOR PATIENTS, PARENTS, AND CAREGIVERS EMERGENCY USE AUTHORIZATION (EUA) OF PAXLOVID FOR CORONAVIRUS DISEASE 2019 (COVID-19) You are being given this Fact Sheet because your healthcare provider believes it is necessary to provide you with PAXLOVID for the treatment of aewt-gg-fewndxbe coronavirus disease (COVID-19) caused by the SARS-CoV-2 virus. This Fact Sheet contains information to help you understand the risks and benefits of taking the PAXLOVID you have received or may receive. The [place].S. Food and Drug Administration (FDA) has issued an Emergency Use Authorization (EUA) to make PAXLOVID available during the COVID-19 pandemic (for more details about an EUA please see What is an Emergency Use Authorization? at the end of this document). PAXLOVID is not an FDA-approved medicine in the [place]. Read this Fact Sheet for information about PAXLOVID. Talk to your healthcare provider about your options or if you have any questions. It is your choice to take PAXLOVID. What is COVID-19? COVID-19 is caused by a virus called a coronavirus. You can get COVID-19 through close contact with another person who has the virus. COVID-19 illnesses have ranged from very dfbq-wt-voucfq, including illness resulting in . While information so far suggests that most COVID-19 illness is mild, serious illness can happen and may cause some of your other medical conditions to become worse. Older people and people of all ages with severe, long lasting (chronic) medical conditions like heart disease, lung disease, and diabetes, for example seem to be at higher risk of being hospitalized for COVID-19. What is PAXLOVID? PAXLOVID is an investigational medicine used to treat zomk-uf-tqiucgta COVID-19 in adults and children [12 years of age and older weighing at least 88 pounds (40 kg)] with positive results of direct SARS-CoV-2 viral testing, and who are at high risk for progression to severe COVID-19, including hospitalization or . PAXLOVID is investigational because it is still being studied. There is limited information about the safety and effectiveness of using PAXLOVID to treat people with jmph-hi-ocdsqsye COVID-19. The FDA has authorized the emergency use of PAXLOVID for the treatment of uuyc-me-uxsssvrq COVID-19 in adults and children [12 years of age and older weighing at least 88 pounds (40 kg)] with a positive test for the virus that causes COVID-19, and who are at high risk for progression to severe COVID-19, including hospitalization or , under an EUA. 1 Revised: 06 January 2022 What should I tell my healthcare provider before I take PAXLOVID? Tell your healthcare provider if you: Have any allergies Have liver or kidney disease Are or plan to become Are a child Have any serious illnesses Tell your healthcare provider about all the medicines you take, including prescription and zctz-bid-jjxndlm medicines, vitamins, and herbal supplements. Some medicines may interact with PAXLOVID and may cause serious side effects. Keep a list of your medicines to show your healthcare provider and pharmacist when you get a new medicine. You can ask your healthcare provider or pharmacist for a list of medicines that interact with PAXLOVID. Do not start taking a new medicine without telling your healthcare provider. Your healthcare provider can tell you if it is safe to take PAXLOVID with other medicines. Tell your healthcare provider if you are taking combined hormonal contraceptive. PAXLOVID may affect how your control pills work. Females who are able to become should use another effective alternative form of contraception or an additional barrier method of contraception. Talk to your healthcare provider if you have any questions about contraceptive methods that might be right for you. How do I take PAXLOVID? PAXLOVID consists of 2 medicines: nirmatrelvir and ritonavir. Take 2 pink tablets of nirmatrelvir with 1 white tablet of ritonavir by mouth 2 times each day (in the morning and in the evening) for 5 days. For each dose, take all 3 tablets at the same time. If you have kidney disease, talk to your healthcare provider. You may need a different dose. Swallow the tablets whole. Do not chew, break, or crush the tablets. Take PAXLOVID with or without food. Do not stop taking PAXLOVID without talking to your healthcare provider, even if you feel better. If you miss a dose of PAXLOVID within 8 hours of the time it is usually taken, take it as soon as you remember. If you miss a dose by more than 8 hours, skip the missed dose and take the next dose at your regular time. Do not take 2 doses of PAXLOVID at the same time. If you take too much PAXLOVID, call your healthcare provider or go to the nearest hospital emergency room right away. If you are taking a ritonavir-or cobicistat-containing medicine to treat hepatitis C or Human Immunodeficiency Virus (HIV), you should continue to take your medicine as prescribed by your healthcare provider. Talk to your healthcare provider if you do not feel better or if you feel worse after 5 days. Who should generally not take PAXLOVID? Do not take PAXLOVID if: You are allergic to nirmatrelvir, ritonavir, or any of the ingredients in PAXLOVID You are taking any of the following medicines: Alfuzosin Pethidine, propoxyphene Ranolazine Amiodarone, dronedarone, flecainide, propafenone, quinidine Colchicine Lurasidone, pimozide, clozapine Dihydroergotamine, ergotamine, methylergonovine Lovastatin, simvastatin Sildenafil (Revatio ) for pulmonary arterial hypertension (PAH) Triazolam, oral midazolam Apalutamide Carbamazepine, phenobarbital, phenytoin Rifampin Lor s Wort (hypericum perforatum) Taking PAXLOVID with these medicines may cause serious or life-threatening side effects or affect how PAXLOVID works. These are not the only medicines that may cause serious side effects if taken with PAXLOVID. PAXLOVID may increase or decrease the levels of multiple other medicines. It is very important to tell your healthcare provider about all of the medicines you are taking because additional laboratory tests or changes in the dose of your other medicines may be necessary while you are taking PAXLOVID. Your healthcare provider may also tell you about specific symptoms to watch out for that may indicate that you need to stop or decrease the dose of some of your other medicines. What are the important possible side effects of PAXLOVID? Possible side effects of PAXLOVID are: Allergic Reactions. Allergic reactions can happen in people taking PAXLOVID, even after only 1 dose. Stop taking PAXLOVID and call your healthcare provider right away if you get any of the following symptoms of an allergic reaction: hives trouble swallowing or breathing swelling of the mouth, lips, or face throat tightness hoarseness skin rash Liver Problems. Tell your healthcare provider right away if you have any of these signs and symptoms of liver problems: loss of appetite, yellowing of your skin and the whites of eyes (jaundice), dark-colored urine, pale colored stools and itchy skin, stomach area (abdominal) pain. Resistance to HIV Medicines. If you have untreated HIV infection, PAXLOVID may lead to some HIV medicines not working as well in the future. Other possible side effects include: altered sense of taste diarrhea high blood pressure muscle aches These are not all the possible side effects of PAXLOVID. Not many people have taken PAXLOVID. Serious and unexpected side effects may happen. PAXLOVID is still being studied, so it is possible that all of the risks are not known at this time. What other treatment choices are there? Veklury (remdesivir) is FDA-approved for the treatment of gzcj-il-gpnuqzay COVID-19 in certain adults and children. Talk with your doctor to see if Veklury is appropriate for you. Like PAXLOVID, FDA may also allow for the emergency use of other medicines to treat people with COVID-19. Go to https://www.fda.gov/emergency-prepared ness-johanne/mso-iucti-kbtyoiahrq- jne-hldqpk-fsadlyrfx/dhzykerfb-dgh-wkx horization for information on the emergency use of other medicines that are authorized by FDA to treat people with COVID-19. Your healthcare provider may talk with you about clinical trials for which you may be eligible. It is your choice to be treated or not to be treated with PAXLOVID. Should you decide not to receive it or for your child not to receive it, it will not change your standard medical care. What if I am or ? There is radiology ct technologist treating women or mothers with PAXLOVID. For a mother and unborn baby, the benefit of taking PAXLOVID may be greater than the risk from the treatment. If you are , discuss your options and specific situation with your healthcare provider. It is recommended that you use effective barrier contraception or do not have sexual activity while taking PAXLOVID. If you are , discuss your options and specific situation with your healthcare provider. How do I report side effects with PAXLOVID? Contact your healthcare provider if you have any side effects that bother you or do not go away. Report side effects to [employer]) at www.fda.gov/medMDdatacor or call 7-569-RAA5009 or you can report side effects to [employer]. at the contact information provided below. Website Fax number Telephone number [email or web address] How should I store PAXLOVID? Store PAXLOVID tablets at room temperature, between 68?F to 77?F (20?C to 25?C). How can I learn more about COVID-19? Ask your healthcare provider. Visit https://www.cdc.gov/COVID19. Contact your local or state public health department. What is an Emergency Use Authorization (EUA)? The [place] FDA has made PAXLOVID available under an emergency access mechanism called an Emergency Use Authorization (EUA). The EUA is supported by a [employer] of Health and Human Service (HHS) declaration that circumstances exist to justify the emergency use of drugs and biological products during the COVID-19 pandemic. PAXLOVID for the treatment of krqp-wq-kbbmkxhc COVID-19 in adults and children [12 years of age and older weighing at least 88 pounds (40 kg)] with positive results of direct SARS-CoV-2 viral testing, and who are at high risk for progression to severe COVID-19, including hospitalization or , has not undergone the same type of review as an FDA-approved product. In issuing an EUA under the COVID-19 public health emergency, the FDA has determined, among other things, that based on the total amount of scientific evidence available including data from adequate and well-controlled clinical trials, if available, it is reasonable to believe that the product may be effective for diagnosing, treating, or preventing COVID-19, or a serious or life-threatening disease or condition caused by COVID-19; that the known and potential benefits of the product, when used to diagnose, treat, or prevent such disease or condition, outweigh the known and potential risks of such product; and that there are no adequate, approved, and available alternatives. All of these criteria must be met to allow for the product to be used in the treatment of patients during the COVID-19 pandemic. The EUA for PAXLOVID is in effect for the duration of the COVID-19 declaration justifying emergency use of this product, unless terminated or revoked (after which the products may no longer be used under the EUA). Additional Information For general questions, visit the website or call the telephone number provided below. Website Telephone number [email or web address] (0-874-A84-NTBA) You can also go to www.ActionRun or call for more information. Pfizer Distributed by [employer] [place] [address] [id number] Revised: 06 January 2022 documented in this encounter [facility] 01-02-2023 History of Present illness Narrative Radiology Service Progress Note PATIENT NAME: Aureliano Dang DATE OF SERVICE: January 02, 2023 TIME: 12:47 PM PATIENT IDENTITY VERIFICATION COMPLETED USING TWO (2) IDENTIFIERS: Name and Date of confirmed by patient verbally. FALL SCREENING: Has the patient had 2 falls in the last year or 1 fall with injury or currently using an Ambulatory Assistive Device (Walker, Cane, Wheelchair, Crutches, etc.)? No PATIENT GENDER DATA: Male PATIENT RELEVANT IMPLANT DATA REVIEWED: Yes RADIOLOGY DEPARTMENT: General X-ray: Exam(s) Completed: Chest X-Ray PERIPHERAL IV DATA: Not applicable SIGNED BY: RT Morgan(R) January 02, 2023 12:47 PM documented in this encounter [facility] 01-02-2023 History of Present illness Narrative Subjective HPI HPI Aureliano Dang is a 72 year old male who presents today for CC of cough, congestion, st, feverish. This started 4 days ago. Has tried otc medication for relief. Symptoms are worsened by nothing. Risk factors no known sick exposures, smoked for many years, diabetic. .Patient presents with: Nasal Congestion: drainage, cough, feverish x 4 days PAST MEDICAL HISTORY Diagnosis Date Allergic rhinitis 02/01/2021 Calculus of kidney 03/08/2010 Chronic systolic CHF (congestive heart failure) (HCC) 11/13/2012 Preop EF 27+/-5%. NSTEMI mod LV mild RV required epinephrine infusion intraop. Post op EF 30+/-5%. - Pulmonary congestion and B effusions on CXR--improving. Lasix 40mg po daily, continue coreg, ACEI Coronary artery disease due to lipid rich plaque 08/08/[address] Decker: 5 vessel CABG 2012 DM (diabetes mellitus), type 2, uncontrolled, with renal complications 02/03/2021 Edema 12/09/2012 Essential hypertension 02/10/2021 Ex-smoker 02/03/2021 Smoked 1/4 pck for about 45 yrs quit 2014 Ex-smoker 02/03/2021 Smoked 1/4 pck for about 45 yrs quit 2014, [place] 01/2021 Neg for AAA History of atrial fibrillation 11/16/2012 Secondary to OH but resolved. Sees: Dr. Decker: New onset AF RVR 11/16. Converted to NSR after 30 mins w/ BB/Mg++. 11/18-11/21 Remains in NSR, continue coreg. History of non-ST elevation myocardial infarction (NSTEMI) 11/06/2012 Preop NSTEMI by his history and EKG findings. Mildly Elevated Troponin T. ECHO LVEF 27%. - On ASA/BB/statin and ACEI. ECHO showed improved EF 39%, no pericardial effusion. Ischemic cardiomyopathy 02/10/2021 Seeing Cardio Lung nodule 11/21/[address] scan on 11/09/2012 showed 3-mm noncalcified at the base of the lateral right lower lobe segment (slice 73). Repeat CT 2013 showed no nodules. Medicare annual wellness visit, subsequent 02/07/2022 Medicare Part B: Last done: 02/07/2022 Mixed hyperlipidemia 11/18/2012 Preop lipids: Tri-86, chol-219, HDL-52, LDL-150. Lipitor 40mg started, consider increase to 80mg d/t NSTEMI--can be increased after discharge to assure pt is tolerating dose (d/w Dr. Beasley). Pt to follow up w/ local MD for repeat cholesterol levels in 6 weeks. Other proteinuria 02/04/2021 diabetes related. 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 Rinse mouth after use. amLODIPine (NORVASC) 5 mg tablet Take 1 tablet by mouth once daily. metFORMIN (GLUCOPHAGE) 500 mg tablet Take 1 tablet by mouth daily with breakfast. nitroglycerin sublingual (NITROQUICK) 0.4 mg SL tablet Dissolve 1 tablet under the tongue as needed. for chest pain,every 5 min x3 blood sugar diagnostic (BLOOD GLUCOSE TEST) test strip Test blood sugar(s) one times daily. Dx: Other DM Code E11.29 Insulin: No losartan (COZAAR) 100 mg tablet Take 1 tablet by mouth once daily. Blood-Glucose Meter (TRUE METRIX GLUCOSE METER) Use to check blood sugar once a day. Dx: E11.29, no insulin Blood Glucose Control, Low (TRUE METRIX LEVEL 1) Use as directed to set up machine Blood Glucose Control, Normal (TRUE METRIX LEVEL 2) soln Use as directed to set up machine Blood Glucose Control, High (TRUE METRIX LEVEL 3) Use as directed to set up machine alcohol swabs Apply 1 application to affected area once daily. Blood Pressure Test Kit-Large Check BP once a day or as needed. Dx: I10, I25.5 and I25.10 Lancets lancets Test blood sugar(s) one times daily. Dx: Other DM Code E11.29 Insulin: No Blood-Glucose Meter Test blood sugar once a day DX E11.29 Insulin: No atorvastatin (LIPITOR) 40 mg tablet Take 1 tablet by mouth daily at bedtime. carvedilol (COREG) 25 mg tablet Take 1 tablet by mouth twice daily with meals. aspirin 81 mg chewable tablet Take 2 tablets by mouth once daily. FAMILY HISTORY Problem Relation Age of Onset Hypertension Mother Stroke Mother Social History Tobacco Use Smoking status: Former Packs/day: 0.25 Years: 45.00 Pack years: 11.25 Types: Cigarettes Quit date: 10/22/2014 Years since quittin.2 Smokeless tobacco: Never Tobacco comments: 4-5 cigarettes per day Substance Use Topics Alcohol use: No Drug use: No Review of Systems Constitutional: Positive for fever. HENT: Positive for congestion and sore throat. Negative for ear pain and nosebleeds. Respiratory: Positive for cough. Negative for shortness of breath and wheezing. Cardiovascular: Negative for chest pain. Gastrointestinal: Negative for diarrhea and vomiting. Musculoskeletal: Negative for neck pain. Skin: Negative for itching and rash. Objective Blood pressure 124/76, pulse 96, temperature 36.8 C (98.2 F), resp. rate 16, weight 80.3 kg (177 lb), SpO2 97 %. Component Latest Ref Rng & Units 08/05/2021 Glucose 74 - 99 mg/dL 93 BUN 9 - 24 mg/dL 14 Creatinine 0.73 - 1.22 mg/dL 0.88 Sodium 136 - 144 mmol/L 141 Potassium 3.7 - 5.1 mmol/L 4.3 Chloride 97 - 105 mmol/L 106 (H) CO2 22 - 30 mmol/L 25 Anion Gap 9 - 18 mmol/L 10 Calcium 8.5 - 10.2 mg/dL 9.6 eGFR- >60 eGFR-All Other Races . >60 Physical Exam Constitutional: General: He is not in acute distress. Appearance: He is not toxic-appearing or diaphoretic. HENT: Head: Normocephalic and atraumatic. Cardiovascular: Rate and Rhythm: Normal rate and regular rhythm. Heart sounds: Normal heart sounds, S1 normal and S2 normal. Pulmonary: Effort: Pulmonary effort is normal. Breath sounds: Examination of the right-middle field reveals wheezing. Examination of the right-lower field reveals wheezing and rhonchi. Examination of the left-lower field reveals wheezing and rhonchi. Wheezing and rhonchi present. No decreased breath sounds or rales. Lymphadenopathy: Cervical: No cervical adenopathy. Right cervical: No superficial cervical adenopathy. Left cervical: No superficial cervical adenopathy. Neurological: Mental Status: He is alert and oriented to person, place, and time. Gait: Gait is intact. ASSESSMENT/PLAN: 1. Lower resp. tract infection - ICD9: 519.8, ICD10: J22 (primary diagnosis) Xray negative, adventitious lung sounds concerning with long hx of smoking. Start steroid today, if s/s worsen in next 3-5 days fill/take atb -If you experience chest pain/shortness of breath go to ER -if pos for covid I will cover with oral antiviral treatment tomorrow. - DOXYCYCLINE MONOHYDRATE 100 MG TABLET - 2019 CORONAVIRUS 2. Acute cough - ICD9: 786.2, ICD10: R05.1 - XR CHEST 2V FRONTAL/LAT IMPRESSION: No active disease in the chest. Stable exam. Dictated by : YE VILLAFANA MD - PREDNISONE 20 MG TABLET 3. Wheezing - ICD9: 786.07, ICD10: R06.2 Steroid ordered. - PREDNISONE 20 MG TABLET Trevon Foss APRN.TYPING BOOKKEEPER documented in this encounter [facility] 10-20-2022 Instructions Ten Luevano MD - 10/20/2022 2:54 PM EST Acute Sinusitis Each of us has four paired cavities (spaces) in our head that are connected to the nose by narrow channels. These cavities, known as sinuses, produce thin mucus that drains out of the channels of the nose. This drainage helps keep the nose clean and free of particles and bacteria. Normally, sinuses are filled with air. But when sinuses become blocked and filled with fluid, bacteria can grow and cause an infection (bacterial sinusitis). Conditions that cause sinus blockage include: the common cold allergic rhinitis (swelling of the lining of the nose due to allergies) nasal polyps (small growths in the lining of the nose), or a deviated septum (the wall between the left and right nostril is crooked). Allergies, such as hay fever, can also cause swelling and poor drainage of the sinuses. One confusing factor to consider is that many people with sinus headaches are actually suffering from migraines. In fact, in large clinical studies, up to 90% of people who reported sinus headaches were diagnosed with migraines instead. Migraines can cause headaches in combination with facial pressure over the sinuses, a runny nose, and nasal congestion. If you have symptoms that involve the sinuses, it may be difficult to tell if you have sinusitis, a cold, nasal allergy, or even a migraine. This article will describe the symptoms, diagnosis, and treatment of sinusitis, and how to tell the difference between sinusitis, cold, migraines, and nasal allergy. What is sinusitis? Sinusitis is an inflammation, or swelling, of the tissue lining the sinuses. There are two types of sinusitis: Acute bacterial sinusitis: a sudden onset of cold symptoms such as runny nose, stuffy nose, and facial pain that does not go away after 10 days, or symptoms that seem to begin improving but return worse than the initial symptoms. It responds well to antibiotics and decongestants. Chronic sinusitis: a condition defined by nasal congestion, drainage, facial pain/pressure, and decreased sense of smell for at least 12 weeks. Who gets sinusitis? Every year, approximately 1 billion Americans have at least one episode of viral sinusitis. About 37 million will develop a bacterial sinusitis. People who have the following conditions have a higher risk of sinusitis: Nasal mucus membrane swelling, as from a common cold or allergies Blockage of drainage ducts, leading to trapping of mucus Structure differences that narrow the drainage ducts Conditions that result in an increased risk of infection Polyps (growths) In children, common factors in the environment that contribute to sinusitis include allergies, illness from other children at day care or school, and smoke in the environment. In adults, the contributing factors are most frequently viral infections, allergies, and smoking. What are the signs and symptoms of acute sinusitis? The primary symptoms of acute sinusitis include: Facial pain/pressure/tenderness Nasal stuffiness Nasal discharge (thick yellow or green discharge from nose), especially if it is long-lasting Loss of smell and taste Cough/congestion Additional symptoms may include: Fever of 102 or higher Ear pain Headache Bad breath Fatigue Ache in upper jaw and teeth How is sinusitis diagnosed? To diagnose sinusitis, your doctor will discuss your symptoms and examine your nose for swelling and drainage. Your personal history is most important in diagnosing sinusitis. A physical exam of the ears, nose, and throat is performed to look for signs of obstruction (blockage) or infection. An endoscope (a small lighted/optical instrument) may be used to look inside the nose. In general, X-rays or CT scans do not play any role in the diagnosis of acute sinusitis. Some patients may have conditions that may need to be referred to a specialist, such as an ear, nose, and throat (ENT) physician. Additional diagnostic tests may be needed. Tests for these more complicated cases may include cultures, allergy testing, CT scan of the sinuses, or nasal endoscopy. Nasal endoscopy allows doctors to look directly inside the nose to see sinus drainage pathways. How is sinusitis treated? Acute sinusitis. If you have a simple sinusitis infection, your health care provider may recommend treatment with decongestants like Sudafed and [id number] medications for cold and allergy, nasal saline irrigation, and drinking fluids (as most sinusitis is viral). If symptoms do not improve after at least 10 days, if the symptoms seem to be getting worse, or if medications for cold or allergy do not improve symptoms, a bacterial infection may be causing the sinusitis. In this case, antibiotics are given for 7 days in adults and 10 days in children. Antibiotics should improve symptoms within 48 hours. Oral or topical decongestants may be prescribed to relieve symptoms. Use of prescription intranasal steroid sprays might be added to help control symptoms. However, non-prescription drops or sprays should not be used beyond 5 days -- or they may actually increase congestion. Chronic sinusitis. Treating chronic sinusitis begins with controlling the underlying condition, which is most often allergies. Standard treatments include intranasal steroid sprays, topical antihistamine sprays, or antihistamine pills, and leukotriene antagonists such as montelukast. Often you will be encouraged to rinse the nose with saline irrigations. Sometimes medications may be added to these irrigations. If sinusitis is not controlled, the next step is a CT scan of the sinuses. This allows for a direct view of the nose and surrounding sinuses. Based upon CT findings, surgery may be recommended. Will I need to make lifestyle changes? If you have indoor allergies, avoiding triggers -- such as animal dander and dust mites - is recommended in addition to medications. Smoking is never recommended, but if you do smoke, strongly consider a program to help you stop smoking, as this may be the main reason you have sinus infections. No special diet is required, but drinking extra fluids helps to thin nasal secretions. What are the symptoms of the common cold? An upper respiratory infection (the common cold) is usually caused by a virus that infects the nose and throat. Most upper respiratory infections are not bacterial and do not respond to antibiotics. A cold may cause swelling in the sinuses, preventing the outflow of mucus. Cold symptoms include nasal congestion, runny nose, post-nasal drip (jvqq-ra-vbzh release of nasal fluid into the back of the throat), headache, achiness, and fatigue. Cough and fever may also go along with these symptoms. Cold symptoms usually build, peak, and slowly disappear. No treatment is necessary for a cold, but some medications can ease symptoms. For example, decongestants may decrease drainage and open the nasal passages. Analgesics (pain relievers) may help with fever and headache. Cough medication may help, as well. Colds will typically last from a few days to about a week. What is the harm in getting an antibiotic for a common cold? Viral infections like the common cold are not cured by antibiotics. Taking an antibiotic for a viral infection unnecessarily puts you at risk for side effects related to the antibiotic. In addition, the overuse of antibiotics leads to antibiotic resistance, which may make future infections more difficult to treat. Finally, the use of inappropriate medication increases health care costs unnecessarily. What are the symptoms of nasal allergy? Symptoms of nasal allergy include: Sneezing Itchy nose Clear, watery nasal discharge Nasal blockage Feeling fatigued How is nasal allergy treated? Usually medications are prescribed to relieve symptoms. These may include antihistamines, with or without decongestants, or steroid nasal sprays. Other nasal sprays, which deliver antihistamines or cromolyn sodium, are sometimes helpful. If allergy symptoms are chronic (long-term), allergy testing and allergy shots (immunotherapy) may be helpful. How can I tell if I have a sinus infection, cold, or nasal allergy? Although the symptoms of sinusitis and nasal allergy may occur with a common cold, in general, cold-related symptoms disappear within 1 week. The point at which a normal cold ends and a sinus condition begins is not always easy to know. If you are fighting off a cold and develop symptoms of a sinus infection or nasal allergy, see your health care provider. You will be asked to describe your symptoms and medical history. How do I know if my sinus condition requires the care of an ear, nose, and throat specialist? Most routine sinus conditions are easily cared for by primary care physicians. If, however, you are bothered by ongoing abnormal symptoms, recurring infections, or have abnormal X-ray findings or complications, a referral to a specialist is appropriate. References Eboni Adrian. et al., IDSA Clinical Practice Guideline for Acute Bacterial Rhinosinusitis in Children and Adults. Clinical Infectious Diseases; 2012;54(8):2969-0916. Brennan Shah, Sinusitis: Allergies, antibiotics, aspirin, asthma. [facility] Journal of Medicine 2006; 73(7): 671-678 [employer] of All[employer]ious [employer]. Sinusitis (Sinus Infection) Accessed 08/31/2015. [employer], [employer]. Sinusitis Accessed 08/31/2015. [employer]. Sinus Information Accessed 08/31/2015. Jaylyn Barton., Prevalence of migraine in patients with a history of self-reported or physician-diagnosed "sinus" headache. Arch Synthetic Chemist Med, 2004. 164(16):1769-46. Copyright 5221-8625 [facility]. All rights reserved. NASAL SALINE IRRIGATION Sinus rinses can help with the nasal congestion and discomfort associated with sinusitis. They can clear or thin excessive mucus, remove crusting, and even remove allergy causing particles such as pollen from the nose. You can purchase commercially prepared salt mixtures or prepare your own rinse with the recipe below: INSTRUCTIONS FOR THE PREPARATION OF ISOTONIC NASAL IRRIGATION SOLUTION Fill one bottle with 8 ounces of distilled water. If you use tap water, boil it first and let it cool to room temperature. Add 1/2 teaspoon non-iodized table salt. Add 1/2 teaspoon baking soda. Mix well until dissolved. Irrigate each nostril with solution Use a commercial squeeze bottle or bulb syringe. Use of the bottle or one full syringe in each nostril. Squeeze saline into the upper nostril gently with your head rotated and tilted down and over a sink. Breathe through your mouth. The saline solution should come out the other nostril. A small amount may get into your mouth. Repeat the process with the other nostril. You may use these salt water rinses one to four times a day. If your nose is severely blocked do not use rinses. If you experience pain, nose bleeds, or other difficulties with the rinses, DO NOT use them. Contact your health care provider with any problems. documented in this encounter [facility] 10-20-2022 History of Present illness Narrative Patient presents with: Chest Congestion: Pt reported nasal congestion. HPI: Feeling nasal congestion for years. No recent changes. His nose is only congested at night. It interrupts his sleep and improves if he gets up for while. He has been evaluated and treated by his PCPs and ENT. He has had allergy testing. Positive symptoms: Nasal Congestion, sometimes sneeze then rhinorrhea, Negative symptoms: Cough, Sore throat, Sinus pressure, Fever, Headache, OTC: saline, allergy medicine. PAST MEDICAL HISTORY Diagnosis Date Allergic rhinitis 02/01/2021 Calculus of kidney 03/08/2010 Chronic systolic CHF (congestive heart failure) (HCC) 11/13/2012 Preop EF 27+/-5%. NSTEMI mod LV mild RV required epinephrine infusion intraop. Post op EF 30+/-5%. - Pulmonary congestion and B effusions on CXR--improving. Lasix 40mg po daily, continue coreg, ACEI Coronary artery disease due to lipid rich plaque 08/08/[address] Decker: 5 vessel CABG 2012 DM (diabetes mellitus), type 2, uncontrolled, with renal complications 02/03/2021 Edema 12/09/2012 Essential hypertension 02/10/2021 Ex-smoker 02/03/2021 Smoked 1/4 pck for about 45 yrs quit 2014 Ex-smoker 02/03/2021 Smoked 1/4 pck for about 45 yrs quit 2014, US 01/2021 Neg for AAA History of atrial fibrillation 11/16/2012 Secondary to OH but resolved. Sees: Dr. Decker: New onset AF RVR 11/16. Converted to NSR after 30 mins w/ BB/Mg++. 11/18-11/21 Remains in NSR, continue coreg. History of non-ST elevation myocardial infarction (NSTEMI) 11/06/2012 Preop NSTEMI by his history and EKG findings. Mildly Elevated Troponin T. ECHO LVEF 27%. - On ASA/BB/statin and ACEI. ECHO showed improved EF 39%, no pericardial effusion. Ischemic cardiomyopathy 02/10/2021 Seeing Cardio Lung nodule 11/21/[address] scan on 11/09/2012 showed 3-mm noncalcified at the base of the lateral right lower lobe segment (slice 73). Repeat CT 2013 showed no nodules. Medicare annual wellness visit, subsequent 02/07/2022 Medicare Part B: Last done: 02/07/2022 Mixed hyperlipidemia 11/18/2012 Preop lipids: Tri-86, chol-219, HDL-52, LDL-150. Lipitor 40mg started, consider increase to 80mg d/t NSTEMI--can be increased after discharge to assure pt is tolerating dose (d/w Dr. Beasley). Pt to follow up w/ local MD for repeat cholesterol levels in 6 weeks. Other proteinuria 02/04/2021 diabetes related. 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 metFORMIN (GLUCOPHAGE) 500 mg tablet Take 1 tablet by mouth daily with breakfast. nitroglycerin sublingual (NITROQUICK) 0.4 mg SL tablet Dissolve 1 tablet under the tongue as needed. for chest pain,every 5 min x3 blood sugar diagnostic (BLOOD GLUCOSE TEST) test strip Test blood sugar(s) one times daily. Dx: Other DM Code E11.29 Insulin: No losartan (COZAAR) 100 mg tablet Take 1 tablet by mouth once daily. Blood Glucose Control, Low (TRUE METRIX LEVEL 1) Use as directed to set up machine Blood Glucose Control, Normal (TRUE METRIX LEVEL 2) soln Use as directed to set up machine Blood Glucose Control, High (TRUE METRIX LEVEL 3) Use as directed to set up machine alcohol swabs Apply 1 application to affected area once daily. Blood Pressure Test Kit-Large Check BP once a day or as needed. Dx: I10, I25.5 and I25.10 Blood-Glucose Meter Test blood sugar once a day DX E11.29 Insulin: No atorvastatin (LIPITOR) 40 mg tablet Take 1 tablet by mouth daily at bedtime. carvedilol (COREG) 25 mg tablet Take 1 tablet by mouth twice daily with meals. aspirin 81 mg chewable tablet Take 2 tablets by mouth once daily. Blood-Glucose Meter (TRUE METRIX GLUCOSE METER) Use to check blood sugar once a day. Dx: E11.29, no insulin Lancets lancets Test blood sugar(s) one times daily. Dx: Other DM Code E11.29 Insulin: No No current facility-administered medications for this visit. ALLERGIES: ALLERGIES Allergen Reactions Acetaminophen Other: See Comments, Mental Status Change Lisinopril Rash Oxycodone Other: See Comments hallucination Percocet [Oxycodone* Mental Status Change Hallucination VITALS: BP 124/70 Pulse 65 Temp 36.6 C (97.9 F) (Tympanic) Resp 18 Wt 78.1 kg (172 lb 3.2 oz) SpO2 98% BMI 29.10 kg/m PHYSICAL EXAM: GEN: Pleasant, in no acute distress. HEENT: PERRL, EOMI, conjunctiva clear Ears: canals with small cerumen. TMs without erythema, bulge, or effusion Sinuses: non-tender frontal sinus, non-tender maxillary sinuses Nose: mild erythema and edema of nasal mucosa Throat: moist mucous membranes, no erythema, no exudate Neck: supple, no thyromegaly, no lymphadenopathy HEART: regular rate and rhythm, no murmurs LUNGS: clear to auscultation, no wheezes or crackles, no increased WOB ASSESSMENT/PLAN: 1. Nasal congestion - ICD9: 478.19, ICD10: R09.81 Prescribed - FLUTICASONE PROPIONATE 50 MCG/ACTUATION NASAL SPRAY,SUSPENSION which he had been prescribed in 2016 and 2018. Printed information on sinusitis including saline rinse. Follow up with - CONSULT TO ENT Ten Luevano MD documented in this encounter [facility] 09-04-2022 Miscellaneous Notes Pt called back and message below given. He will contact Dr. Decker. Trinity Conte LPN Left message patient to contact office. Prescription has not been filled since 2019. 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 Patient has been identified by name and date of : Yes Requested Prescriptions Pending Prescriptions Disp Refills atorvastatin (LIPITOR) 40 mg tablet 90 tablet 3 Sig: Take 1 tablet by mouth daily at bedtime. RX INSTRUCTIONS: Patient requesting a call when RX is approved and sent to the pharmacy. Please call patient at: [phone] Laureen Leonard MA. Kathi: 07/2022 Nov: 02/2023 Last refill: Patient has been identified by name and date of : Yes Last office visit in this department: Visit date not found RX INSTRUCTIONS: Patient requesting a call when RX is approved and sent to the pharmacy. Please call patient at: [phone] Patient phones requesting refills as follows: Requested Prescriptions Pending Prescriptions Disp Refills atorvastatin (LIPITOR) 40 mg tablet 90 tablet 3 Sig: Take 1 tablet by mouth daily at bedtime. Please review and advise. DMITRI Moreno documented in this encounter [facility] 08-28-2022 Miscellaneous Notes The following approved medication requests have been transmitted electronically. Requested Prescriptions Signed Prescriptions Disp Refills Blood-Glucose Meter monitoring kit 1 Each 0 Sig: Glucose Meter of Choice - Kit - Dx: Type 2 DM - Controlled E11.9 Check Blood Sugar Once a day Authorizing Provider: KELLY WALTON PA-C Akilah from [facility] pharmacy calls and states that patient needs a new prescription for generic glucose meter. Please review and advise, Nenita Fan RN documented in this encounter [facility] 08-09-2022 Instructions Diego Patricio MD - 08/09/2022 9:58 AM EDT Please get labs and urine test done on or after 01/26/2023 prior to your next visit. documented in this encounter [facility] 08-09-2022 History of Present illness Narrative Chief Complaint Patient presents with: F/U 6 months HPI Aureliano Dang is a 72 year old male who presents here today for 6 month follow up. Patient with Hx of elevated A1c, CAD, systolic CHF, hyperlipidemia, ex-smoker, over weight, Hx of A.fib after OH that resolved as well as those reviewed and addressed below and in ROS Patient has been doing well. No new issues or concerns. Home BP's av-141/63-84 Past medical history, appointments, medications, allergies reviewed. Previous Medical History PAST MEDICAL HISTORY Diagnosis Date Allergic rhinitis 02/01/2021 Calculus of kidney 03/08/2010 Chronic systolic CHF (congestive heart failure) (HCC) 11/13/2012 Preop EF 27+/-5%. NSTEMI mod LV mild RV required epinephrine infusion intraop. Post op EF 30+/-5%. - Pulmonary congestion and B effusions on CXR--improving. Lasix 40mg po daily, continue coreg, ACEI Coronary artery disease due to lipid rich plaque 08/08/[address] Decker: 5 vessel CABG 2012 DM (diabetes mellitus), type 2, uncontrolled, with renal complications 02/03/2021 Edema 12/09/2012 Essential hypertension 02/10/2021 Ex-smoker 02/03/2021 Smoked 1/4 pck for about 45 yrs quit 2014 Ex-smoker 02/03/2021 Smoked 1/4 pck for about 45 yrs quit 2014, US 01/2021 Neg for AAA History of atrial fibrillation 11/16/2012 Secondary to [place] but resolved. Sees: Dr. Decker: New onset AF RVR 11/16. Converted to NSR after 30 mins w/ BB/Mg++. 11/18-11/21 Remains in NSR, continue coreg. History of non-ST elevation myocardial infarction (NSTEMI) 11/06/2012 Preop NSTEMI by his history and EKG findings. Mildly Elevated Troponin T. ECHO LVEF 27%. - On ASA/BB/statin and ACEI. ECHO showed improved EF 39%, no pericardial effusion. Ischemic cardiomyopathy 02/10/2021 Seeing Cardio Lung nodule 11/21/[address] scan on 11/09/2012 showed 3-mm noncalcified at the base of the lateral right lower lobe segment (slice 73). Repeat CT 2013 showed no nodules. Medicare annual wellness visit, subsequent 02/07/2022 Medicare Part B: Last done: 02/07/2022 Mixed hyperlipidemia 11/18/2012 Preop lipids: Tri-86, chol-219, HDL-52, LDL-150. Lipitor 40mg started, consider increase to 80mg d/t NSTEMI--can be increased after discharge to assure pt is tolerating dose (d/w Dr. Beasley). Pt to follow up w/ local MD for repeat cholesterol levels in 6 weeks. Other proteinuria 02/04/2021 diabetes related. 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 Previous Surgical History PAST SURGICAL HISTORY Procedure Laterality Date CABG (5) VENOUS GRAFTS & ARTERIAL GRAFT(S) 11/13/2012 [facility] COLONOSCOPY FLX DX W/COLLJ SPEC WHEN PFRMD 10/24/2013 Colonoscopy,repeat 10 yrs ESOPHAGOGASTRODUODENOSCOPY TRANSORAL DIAGNOSTIC 10/24/2013 EGD REMV CATARACT EXTRACAP,INSERT LENS one 03/2022 and the other 04/2022 Family History FAMILY HISTORY Problem Relation Age of Onset Hypertension Mother Stroke Mother Patient Allergies ALLERGIES Allergen Reactions Lisinopril Rash Oxycodone Other: See Comments hallucination Percocet [Oxycodone* Mental Status Change Hallucination Current Medications Current Outpatient Medications on File Prior to Visit Medication Sig losartan (COZAAR) 100 mg tablet Take 1 tablet by mouth once daily. amLODIPine (NORVASC) 5 mg tablet Take 1 tablet by mouth once daily. metFORMIN (GLUCOPHAGE) 500 mg tablet Take 1 tablet by mouth daily with breakfast. nitroglycerin sublingual (NITROQUICK) 0.4 mg SL tablet Dissolve 1 tablet under the tongue as needed. for chest pain,every 5 min x3 Blood-Glucose Meter (TRUE METRIX GLUCOSE METER) Use to check blood sugar once a day. Dx: E11.29, no insulin Blood Glucose Control, Low (TRUE METRIX LEVEL 1) Use as directed to set up machine Blood Glucose Control, Normal (TRUE METRIX LEVEL 2) soln Use as directed to set up machine Blood Glucose Control, High (TRUE METRIX LEVEL 3) Use as directed to set up machine alcohol swabs Apply 1 application to affected area once daily. Blood Pressure Test Kit-Large Check BP once a day or as needed. Dx: I10, I25.5 and I25.10 Lancets lancets Test blood sugar(s) one times daily. Dx: Other DM Code E11.29 Insulin: No blood sugar diagnostic (BLOOD GLUCOSE TEST) test strip Test blood sugar(s) one times daily. Dx: Other DM Code E11.29 Insulin: No Blood-Glucose Meter Test blood sugar once a day DX E11.29 Insulin: No atorvastatin (LIPITOR) 40 mg tablet Take 1 tablet by mouth daily at bedtime. carvedilol (COREG) 25 mg tablet Take 1 tablet by mouth twice daily with meals. aspirin 81 mg chewable tablet Take 2 tablets by mouth once daily. No current facility-administered medications on file prior to visit. Social History Social History Tobacco Use Smoking status: Former Packs/day: 0.25 Years: 45.00 Pack years: 11.25 Types: Cigarettes Quit date: 10/22/2014 Years since quittin.8 Smokeless tobacco: Never Tobacco comments: 4-5 cigarettes per day Substance Use Topics Alcohol use: No Drug use: No Review of Symptoms REVIEW OF SYSTEMS GENERAL: No weight loss, malaise or fevers NECK: Negative for lumps, goiter, pain and significant neck swelling RESPIRATORY: Negative for hemoptysis, wheezing, COPD, dyspnea or shortness of breath. Has had a slight cough with occasional mucus and some sneezing. CARDIOVASCULAR: Negative for chest pain, leg swelling, hypertension, CHF or palpitations GI: No nausea, vomiting, or diarrhea and No heartburn or reflux symptoms : No history of dysuria, frequency or incontinence ENDOCRINE: Negative for symptoms pf low BS's. BS rang [id number] NEURO: No history of headaches, syncope, paralysis, seizures or tremors. Occasional dizzy when getting up from sitting. EXAM: BP 122/76 (BP Site: Left Arm, BP Position: Sitting, BP Cuff Size: Regular Adult) Pulse 64 Resp 16 Wt 77.6 kg (171 lb) BMI 28.90 kg/m Last 4 Encounter Wt Readings: Date: Wt: 08/09/2022 77.6 kg (171 lb) 02/07/2022 76.2 kg (168 lb) 10/03/2021 75.8 kg (167 lb) 09/02/2021 75.8 kg (167 lb) General Appearance: Well appearing, alert, in no acute distress, well-hydrated, well nourished.. Eyes: Anicteric sclera. Pupils are equally round and reactive to light. Extraocular movements are intact. . Neck: Supple, no adenopathy; thyroid symmetric, normal size, no bruits. Lungs: Lungs clear to auscultation. No wheezing, rhonchi, rales.. Heart: RRR without murmur, gallop, or rubs. No ectopy. Abdomen: Normal abdominal exam, Abdomen soft, non-tender. Bowel sounds normal. No masses, organomegaly. Extremities: No deformities, edema, skin discoloration. Good capillary refill. . Musculoskeletal: Muscular strength intact. Peripheral Pulses: Normal. Neurologic: Gait normal. Sensation to light touch and crainal nerves 2-12 intact.. Health Maintenance List COVID-19 VACCINE(4 - Booster for Pfizer series) due on 09/30/2021 DEPRESSION ASSESSMENT Never done DILATED RETINAL EXAM due on 02/25/2022 INFLUENZA(1) due on 06/22/2022 URINE ALBUMIN:CREATININE RATIO due on 08/05/2022 SHINGRIX VACCINE(2 of 3) due on 02/07/2023 HBA1C due on 02/02/2023 DIABETIC FOOT EXAM due on 02/07/2023 ANNUAL PCP TEAM CHRONIC DISEASE VISIT due on 02/07/2023 BP CONTROLLED (<130/80) due on 02/07/2023 LDL CHOLESTEROL due on 08/04/2023 DTAP,TDAP,TD(2 - Td or Tdap) due on 09/16/2023 COLORECTAL CANCER SCREENING due on 10/24/2023 ABDOMINAL AORTIC ANEURYSM SCREENING Completed ADVANCE DIRECTIVE DISCUSSION Completed HEPATITIS C SCREENING Completed PNEUMOCOCCAL: 65+ Completed Data reviewed Component Latest Ref Rng & Units 02/03/2021 08/05/2021 08/04/2022 WBC 3.70 - 11.00 k/uL 7.77 RBC 4.20 - 6.00 m/uL 5.62 Hemoglobin 13.0 - 17.0 g/dL 14.2 Hematocrit 39.0 - 51.0 % 45.5 MCV 80.0 - 100.0 fL 81.0 MCH 26.0 - 34.0 pG 25.3 (L) MCHC 30.5 - 36.0 g/dL 31.2 RDW-CV 11.5 - 15.0 % 14.4 Platelet Count 150 - 400 k/uL 190 MPV 9.0 - 12.7 fL 12.8 (H) Neut% % 41.9 Abs Neut (ANC) 1.45 - 7.50 k/uL 3.23 Lymph% % 42.5 Abs Lymph 1.00 - 4.00 k/uL 3.30 [place]% % 10.0 Abs [place] <0.87 k/uL 0.78 Eosin% % 4.6 Abs Eosin <0.46 k/uL 0.36 Baso% % 1.0 Abs Baso <0.11 k/uL 0.08 Nucleated Reds 0 /100 WBC 0.0 Absolute nRBC <0.01 k/uL <0.01 Diff Type Auto Diff Glucose 74 - 99 mg/dL 93 BUN 9 - 24 mg/dL 14 Creatinine 0.73 - 1.22 mg/dL 0.88 Sodium 136 - 144 mmol/L 141 Potassium 3.7 - 5.1 mmol/L 4.3 Chloride 97 - 105 mmol/L 106 (H) CO2 22 - 30 mmol/L 25 Anion Gap 9 - 18 mmol/L 10 Calcium 8.5 - 10.2 mg/dL 9.6 eGFR- >60 eGFR-All Other Races . >60 Total Cholesterol, Nonfasting <200 mg/dL 132 Triglycerides, Nonfasting <150 mg/dL 114 HDL Cholesterol, Nonfasting >39 mg/dL 36 (L) LDL Cholesterol, Nonfasting <100 mg/dL 73 Non HDL Cholesterol, Nonfasting <130 mg/dL 96 VLDL Cholesterol, Nonfasting <30 mg/dL 23 Total Chol/HDL Ratio, Nonfasting <5.10 mg/dL 3.67 LDL/HDL Ratio, Nonfasting <2.54 mg/dL 2.03 Creatinine, Ur Random (UCRR) 20 - 300 mg/dL 168.6 126.8 Albumin, Urine Random mg/L 237.7 113.2 Albumin/Creat Ratio <30 mg/g 141 (H) 89 (H) Hemoglobin A1C 4.3 - 5.6 % 6.4 (H) 6.3 (H) Estimated Average Glucose mg/dL 137 134 A/P ASSESSMENT/PLAN: 1. Type 2 diabetes mellitus with other circulatory complication, without long-term current use of insulin (HCC) - ICD9: 250.70, ICD10: E11.59 (primary diagnosis) Controlled. - Continue current medications - Encouraged regular aerobic exercise and weight loss - BP goal of <130/80 - LDL goal of <100 check - ALBUMIN/CREAT RATIO RND UR 2. 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 3. Essential hypertension - ICD9: 401.9, ICD10: I10 - good control - Continue current medication(s) - Recommended regular aerobic exercise. - Recommend home blood pressure monitoring, to bring results in on next visit - Goal of BP <130/80 4. Mixed hyperlipidemia - ICD9: 272.2, ICD10: E78.2 - good control - Encouraged following a low fat, low cholesterol diet. - Discussed the benefits of regular aerobic exercise and weight loss. - Encouraged following a low carbohydrate, healthy oil intake diet. - Continue current therapy. 5. Coronary artery disease due to lipid rich plaque - ICD9: 414.00, 414.3, ICD10: I25.10, I25.83 - clinically stable no changes and cont f/u with cardio. 6. Ischemic cardiomyopathy - ICD9: 414.8, ICD10: I25.5 - as per #5 7. Edema, unspecified type - ICD9: 782.3, ICD10: R60.9 - none on exam today. 8. Overweight (BMI 25.0-29.9) - ICD9: 278.02, ICD10: E66.3 Stable - Behavioral intervention 9. Encounter for immunization - ICD9: V03.89, ICD10: Z23 - [employer] COVID-19 BIVALENT BOOSTER VACCINE, AGE 12+ YR: given Requested Prescriptions Signed Prescriptions Disp Refills amLODIPine (NORVASC) 5 mg tablet 90 tablet 1 Sig: Take 1 tablet by mouth once daily. metFORMIN (GLUCOPHAGE) 500 mg tablet 90 tablet 1 Sig: Take 1 tablet by mouth daily with breakfast. nitroglycerin sublingual (NITROQUICK) 0.4 mg SL tablet 25 tablet 1 Sig: Dissolve 1 tablet under the tongue as needed. for chest pain,every 5 min x3 blood sugar diagnostic (BLOOD GLUCOSE TEST) test strip 100 Strip 11 Sig: Test blood sugar(s) one times daily. Dx: Other DM Code E11.29 Insulin: No F/u [place] in next few dasy for influenza vaccine. F/u 6 months extensive check CMP, Lipid, UA, urine micro albumin, A1c, PSA, CBC prior Diego Patricio MD documented in this encounter [facility] 05-10-2022 Miscellaneous Notes Patient was notified Karen Nicholson Ma Let patient know I have no idea what francois's restrictions are. I would think that since he has the original series and one booster he should be ok. I'm not aware of anyone making the second booster mandatory. He can search [employer] travel quide lines on [employer] for more precise info. Patient stopped by office and is wanting to go [employer] and needs to know if he needs a booster to get into the board[place]. Suggested the patient look online to see what the requirement were. He was told to see his PCP. Please review and advise. Ok to leave a message. Laureen Leonard MA Cdc[employer]gov documented in this encounter [facility] 04-21-2022 Miscellaneous Notes Left detailed message for patient [facility] that patient needed refill on this medication. As Dr. Patricio has not refilled since 2019. Laureen Leonard MA Patient has been identified by name and date of : Yes Pending Prescriptions Disp Refills CARVEDILOL 25 MG TABLET 180 tablet 3 Sig: Take 1 tablet by mouth twice daily with meals. SALINA: No RX INSTRUCTIONS: Patient aware RX will be sent to pharmacy. No need to notify patient. Laureen Leonard MA Kathi: 09/2021 Nov: 07/2022 Spoke with patient and explained that we had not prescribed since 2018 and he needed to contact his cardiology office. Patient seemed confused by that. Reached out to their office and was closed. Will call again and reach back out to patient again. Nothing in the note stated he was out of medication until patient indicated so on the phone call. Laureen Leonard MA Patient has been identified by name and date of : Yes Last office visit in this department: 02/07/2022 RX INSTRUCTIONS: Patient aware RX will be sent to pharmacy. please call patient Patient phones requesting refills as follows: Pending Prescriptions Disp Refills CARVEDILOL 25 MG TABLET 180 tablet 3 Sig: Take 1 tablet by mouth twice daily with meals. SALINA: No Please review and advise. Milagro Daniel Pss documented in this encounter [facility] 02-07-2022 Instructions Diego Patricio MD - 02/07/2022 9:25 AM EDT If you want to get the shingrix vaccine for the prevention of shingles check with a local pharmacy. Please get labs and urine test done on or after 07/28/2022 prior to your next visit. documented in this encounter [facility] 02-07-2022 History of Present illness Narrative Medicare Yearly Visit Medical B eligibilty date 01/20/2015 Date of last exam NA PAST MEDICAL HISTORY Diagnosis Date Allergic rhinitis 02/01/2021 Calculus of kidney 03/08/2010 Chronic systolic CHF (congestive heart failure) (HCC) 11/13/2012 Preop EF 27+/-5%. NSTEMI mod LV mild RV required epinephrine infusion intraop. Post op EF 30+/-5%. - Pulmonary congestion and B effusions on CXR--improving. Lasix 40mg po daily, continue coreg, ACEI Coronary artery disease due to lipid rich plaque 08/08/[address] Decker: 5 vessel CABG 2012 DM (diabetes mellitus), type 2, uncontrolled, with renal complications 02/03/2021 Edema 12/09/2012 Elevated hemoglobin A1c 02/03/2021 Essential hypertension 02/10/2021 Ex-smoker 02/03/2021 Smoked 1/4 pck for about 45 yrs quit 2014 Ex-smoker 02/03/2021 Smoked 1/4 pck for about 45 yrs quit 2014, US 01/2021 Neg for AAA History of atrial fibrillation 11/16/2012 Secondary to [place] but resolved. Sees: Dr. Decker: New onset AF RVR 11/16. Converted to NSR after 30 mins w/ BB/Mg++. 11/18-11/21 Remains in NSR, continue coreg. History of non-ST elevation myocardial infarction (NSTEMI) 11/06/2012 Preop NSTEMI by his history and EKG findings. Mildly Elevated Troponin T. ECHO LVEF 27%. - On ASA/BB/statin and ACEI. ECHO showed improved EF 39%, no pericardial effusion. Ischemic cardiomyopathy 02/10/2021 Seeing Cardio Lung nodule 11/21/[address] scan on 11/09/2012 showed 3-mm noncalcified at the base of the lateral right lower lobe segment (slice 73). Repeat CT 2013 showed no nodules. Medicare annual wellness visit, subsequent 02/07/2022 Medicare Part B: Last done: 02/07/2022 Mixed hyperlipidemia 11/18/2012 Preop lipids: Tri-86, chol-219, HDL-52, LDL-150. Lipitor 40mg started, consider increase to 80mg d/t NSTEMI--can be increased after discharge to assure pt is tolerating dose (d/w Dr. Beasley). Pt to follow up w/ local MD for repeat cholesterol levels in 6 weeks. Other proteinuria 02/04/2021 diabetes related. Overweight (BMI 25.0-29.9) 08/08/2017 PAST SURGICAL HISTORY Procedure Laterality Date CABG (5) VENOUS GRAFTS & ARTERIAL GRAFT(S) 11/13/2012 [facility] COLONOSCOPY FLX DX W/COLLJ SPEC WHEN PFRMD 10/24/2013 Colonoscopy,repeat 10 yrs ESOPHAGOGASTRODUODENOSCOPY TRANSORAL DIAGNOSTIC 10/24/2013 EGD ALLERGIES: Lisinopril, Oxycodone, and Percocet [Oxycodone-Acetaminophen] Medications reviewed: Yes FAMILY HISTORY Problem Relation Age of Onset Hypertension Mother Stroke Mother SOCIAL HISTORY: Social History Tobacco Use Smoking status: Former Smoker Packs/day: 0.25 Years: 45.00 Pack years: 11.25 Types: Cigarettes Quit date: 10/22/2014 Years since quittin.3 Smokeless tobacco: Never Used Tobacco comment: 4-5 cigarettes per day Substance Use Topics Alcohol use: No Drug use: No Aureliano denies regular aerobic exercise. He watches his diet for sodium, low fat and low cholesterol all of the time. Patient is eating more vegetables and may have meat only once a week. List of current specialists seen: Dr. Decker (cardio) Optho End of Live Planning discussed including patients advanced directive wishes: Yes I am willing to follow Aureliano's advanced directives. PHQ-2 / Depression screen Depression Screening 10/11/2016 08/08/2017 04/08/2019 02/07/2022 PHQ-2 Score 0 0 0 0 Depression screening tool completed and reviewed. Based on score and interview, patient is not at risk for depression. Screening tool discussed with patient, and I recommended no further intervention at this time. Functional Ability/Safety Screen 1. Was the patient's timed Up and Go test unsteady or longer than 30 seconds? No 2. Does the patient need help with the phone, transportation, shopping,preparing meals, housework, laundry, medications or managing money? No 3. Does your home have rugs in the hallway, lack of grab bars in the bathroom, lack of handrails on the stairs or have poor lighting? No Hearing Evaluation: normal PHYSICAL EXAM BP 108/68 (BP Site: Left Arm, BP Position: Sitting, BP Cuff Size: Regular Adult) Pulse 60 Resp 16 Ht 163.8 cm (5' 4.5") Wt 76.2 kg (168 lb) BMI 28.39 kg/m Alert and oriented X 3: YES Body mass index is 28.39 kg/m . Visual acuity: seeing optho See below ASSESSMENT/PLAN: 72 year old male The following prevention plan was discussed during the office visit and provided to the patient: See below Diego Patricio MD Chief Complaint Patient presents with: 6 Month Exam: patient is here for medicare wellness HPI Aureliano Dang is a 72 year old male who presents here today for Medicare Annual Visit. Patient with Hx of elevated A1c, CAD, systolic CHF, hyperlipidemia, ex-smoker, over weight, Hx of A.fib after [place] that resolved as well as those reviewed and addressed below and in ROS Concerns: Issues with having ears feeling blocked. Sugars: Ranges from 90-160 Otherwise has been doing well. Has started using and learning to use a tablet. Past medical history, appointments, medications, allergies reviewed. Previous Medical History PAST MEDICAL HISTORY Diagnosis Date Allergic rhinitis 02/01/2021 Calculus of kidney 03/08/2010 Chronic systolic CHF (congestive heart failure) (HCC) 11/13/2012 Preop EF 27+/-5%. NSTEMI mod LV mild RV required epinephrine infusion intraop. Post op EF 30+/-5%. - Pulmonary congestion and B effusions on CXR--improving. Lasix 40mg po daily, continue coreg, ACEI Coronary artery disease due to lipid rich plaque 08/08/[address] Decker: 5 vessel CABG 2012 DM (diabetes mellitus), type 2, uncontrolled, with renal complications (HCC) 02/03/2021 Edema 12/09/2012 Elevated hemoglobin A1c 02/03/2021 Essential hypertension 02/10/2021 Ex-smoker 02/03/2021 Smoked 1/4 pck for about 45 yrs quit 2014 Ex-smoker 02/03/2021 Smoked 1/4 pck for about 45 yrs quit 2014, US 01/2021 Neg for AAA History of atrial fibrillation 11/16/2012 Secondary to [place] but resolved. Sees: Dr. Decker: New onset AF RVR 11/16. Converted to NSR after 30 mins w/ BB/Mg++. 11/18-11/21 Remains in NSR, continue coreg. History of non-ST elevation myocardial infarction (NSTEMI) 11/06/2012 Preop NSTEMI by his history and EKG findings. Mildly Elevated Troponin T. ECHO LVEF 27%. - On ASA/BB/statin and ACEI. ECHO showed improved EF 39%, no pericardial effusion. Ischemic cardiomyopathy 02/10/2021 Seeing Cardio Lung nodule 11/21/[address] scan on 11/09/2012 showed 3-mm noncalcified at the base of the lateral right lower lobe segment (slice 73). Repeat CT 2013 showed no nodules. Mixed hyperlipidemia 11/18/2012 Preop lipids: Tri-86, chol-219, HDL-52, LDL-150. Lipitor 40mg started, consider increase to 80mg d/t NSTEMI--can be increased after discharge to assure pt is tolerating dose (d/w Dr. Beasley). Pt to follow up w/ local MD for repeat cholesterol levels in 6 weeks. Other proteinuria 02/04/2021 diabetes related. Overweight (BMI 25.0-29.9) 08/08/2017 Previous Surgical History PAST SURGICAL HISTORY Procedure Laterality Date CABG (5) VENOUS GRAFTS & ARTERIAL GRAFT(S) 11/13/2012 [facility] COLONOSCOP W/ OR W/O BRSH SPEC 10/24/2013 Colonoscopy,repeat 10 yrs EGD W/O OR W/BRUSH/WASH 10/24/2013 EGD Family History FAMILY HISTORY Problem Relation Age of Onset Hypertension Mother Stroke Mother Patient Allergies ALLERGIES Allergen Reactions Lisinopril Rash Oxycodone Other: See Comments hallucination Percocet [Oxycodone* Mental Status Change Hallucination Current Medications Current Outpatient Medications on File Prior to Visit Medication Sig nitroglycerin sublingual (NITROQUICK) 0.4 mg SL tablet Dissolve 1 tablet under the tongue as needed. for chest pain,every 5 min x3 amLODIPine (NORVASC) 5 mg tablet Take 1 tablet by mouth once daily. losartan (COZAAR) 100 mg tablet Take 1 tablet by mouth once daily. metFORMIN (GLUCOPHAGE) 500 mg tablet Take 1 tablet by mouth daily with breakfast. Blood-Glucose Meter (TRUE METRIX GLUCOSE METER) Use to check blood sugar once a day. Dx: E11.29, no insulin Blood Glucose Control, Low (TRUE METRIX LEVEL 1) Use as directed to set up machine Blood Glucose Control, Normal (TRUE METRIX LEVEL 2) soln Use as directed to set up machine Blood Glucose Control, High (TRUE METRIX LEVEL 3) Use as directed to set up machine alcohol swabs Apply 1 application to affected area once daily. Blood Pressure Test Kit-Large Check BP once a day or as needed. Dx: I10, I25.5 and I25.10 Lancets lancets Test blood sugar(s) one times daily. Dx: Other DM Code E11.29 Insulin: No blood sugar diagnostic (BLOOD GLUCOSE TEST) test strip Test blood sugar(s) one times daily. Dx: Other DM Code E11.29 Insulin: No Blood-Glucose Meter Test blood sugar once a day DX E11.29 Insulin: No atorvastatin (LIPITOR) 40 mg tablet Take 1 tablet by mouth daily at bedtime. carvedilol (COREG) 25 mg tablet Take 1 tablet by mouth twice daily with meals. aspirin 81 mg chewable tablet Take 2 tablets by mouth once daily. No current facility-administered medications on file prior to visit. Social History Social History Tobacco Use Smoking status: Former Smoker Packs/day: 0.25 Years: 45.00 Pack years: 11.25 Types: Cigarettes Quit date: 10/22/2014 Years since quittin.3 Smokeless tobacco: Never Used Tobacco comment: 4-5 cigarettes per day Substance Use Topics Alcohol use: No Drug use: No Review of Symptoms REVIEW OF SYSTEMS GENERAL: No weight loss, malaise or fevers HEENT: Negative for frequent or significant headaches, No changes in hearing (just feels blocked) or vision changes (had cataracts removed April 2021), no nose bleeds or other nasal problems NECK: Negative for lumps, goiter, pain and significant neck swelling RESPIRATORY: Negative for cough, hemoptysis, wheezing, COPD, dyspnea or shortness of breath CARDIOVASCULAR: Negative for chest pain, leg swelling, hypertension, CHF or palpitations GI: No nausea, vomiting, or diarrhea, No heartburn or reflux symptoms and no blood : No history of dysuria, frequency or incontinence MUSCULOSKELETAL: gets pain in the left ankle that is sharp and then resolves with moving the ankle around. This is infrequent. SKIN: Negative for lesions, rash, and itching PSYCH: Negative for sleep disturbance, mood disorder and recent psychosocial stressors HEMATOLOGY/LYMPHOLOGY: Negative for prolonged bleeding, bruising easily or swollen nodes ENDOCRINE: Negative for cold or heat intolerance. No symptms of low BS's NEURO: No history of headaches, syncope, paralysis, seizures or tremors EXAM: BP 108/68 (BP Site: Left Arm, BP Position: Sitting, BP Cuff Size: Regular Adult) Pulse 60 Resp 16 Ht 163.8 cm (5' 4.5") Wt 76.2 kg (168 lb) BMI 28.39 kg/m Last 5 Encounter Wt Readings: Date: Wt: 02/07/2022 76.2 kg (168 lb) 10/03/2021 75.8 kg (167 lb) 09/02/2021 75.8 kg (167 lb) 08/05/2021 74.4 kg (164 lb) 02/03/2021 78.5 kg (173 lb) General Appearance: Well appearing, alert, in no acute distress, well-hydrated, well nourished.. Skin: Skin color, texture, turgor normal, no suspicious rashes or lesions. Head: Normocephalic, no masses, lesions, tenderness or abnormalities. Eyes: Anicteric sclera. Pupils are equally round and reactive to light. Extraocular movements are intact. . Ears: External ears normal, canals blocked with wax. Neck: Supple, no adenopathy; thyroid symmetric, normal size, no bruits. Lungs: Lungs clear to auscultation. No wheezing, rhonchi, rales.. Heart: RRR without murmur, gallop, or rubs. No ectopy. Abdomen: Normal abdominal exam, Abdomen soft, non-tender. Bowel sounds normal. No masses, organomegaly. Extremities: No deformities, edema, skin discoloration, clubbing or cyanosis. Musculoskeletal: Muscular strength intact, No joint swelling, deformity, or tenderness. Peripheral Pulses: Normal. Neurologic: Gait normal. Reflexes normal and symmetric. Sensation to light touch and crainal nerves 2-12 intact.. Genitalia: Normal, Penis normal. No urethral discharge. Scrotum normal to palpation. No hernia.. Rectal: Normal exam. Prostate enlarged but smooth firm capsule. Health Maintenance List PNEUMOVAX AGE 65 AND OVER WITH 5YR LOOKBACK(1) due on 10/23/2013 SHINGRIX VACCINE(2 of 3) due on 07/24/2016 ADVANCE DIRECTIVE DISCUSSION Never done HBA1C due on 02/03/2022 LDL CHOLESTEROL due on 02/03/2022 DILATED RETINAL EXAM due on 02/25/2022 URINE ALBUMIN:CREATININE RATIO due on 08/05/2022 DIABETIC FOOT EXAM due on 09/08/2022 ANNUAL PCP TEAM CHRONIC DISEASE VISIT due on 10/03/2022 BP CONTROLLED (<130/80) due on 10/03/2022 DTAP,TDAP,TD(2 - Td or Tdap) due on 09/16/2023 COLORECTAL CANCER SCREENING due on 10/24/2023 ABDOMINAL AORTIC ANEURYSM SCREENING Completed INFLUENZA Completed HEPATITIS C SCREENING Completed COVID-19 VACCINE Completed MENINGOCOCCAL CONJUGATE Aged Out DEPRESSION SCREENING Discontinued Data reviewed A/P ASSESSMENT/PLAN: 1. Medicare annual wellness visit, subsequent - ICD9: V70.0, ICD10: Z00.00 (primary diagnosis) - Counseled on healthy diet and regular exercise - Patient was counseled [id number] by myself (the billing provider) for the following immunizations and vaccine components, including side effects: Pneumococcal Prev-23. Patient consents for immunization and understands risks and benefits. A VIS sheet on each immunization was given to the patient. - Follow up for annual exam in one year 2. Type 2 diabetes mellitus with other circulatory complication, without long-term current use of insulin (HCC) - ICD9: 250.70, ICD10: E11.59 - Will await labs to determine control and if changes needed. - Continue current medications - Encouraged regular aerobic exercise and weight loss - BP goal of <130/80 - LDL goal of <100 3. Essential hypertension - ICD9: 401.9, ICD10: I10 - good control - Continue current medication(s) - Recommended regular aerobic exercise. - Recommend home blood pressure monitoring, to bring results in on next visit - Goal of BP <130/80 4. Edema, unspecified type - ICD9: 782.3, ICD10: R60.9 - Very little in the left ankle from vein harvesting for CABG. 5. Mixed hyperlipidemia - ICD9: 272.2, ICD10: E78.2 - to be determined upon return of lab results - Continue current medication. - Encouraged following a low fat, low cholesterol diet. - Discussed the benefits of regular aerobic exercise and weight loss. - Encouraged following a low carbohydrate, healthy oil intake diet. 6. Coronary artery disease due to lipid rich plaque - ICD9: 414.00, 414.3, ICD10: I25.10, I25.83 - clinically stable no changes. Cont f/u with cardio 7. Chronic systolic CHF (congestive heart failure) (HCC) - ICD9: 428.22, 428.0, ICD10: I50.22 - As per #6 8. Ischemic cardiomyopathy - ICD9: 414.8, ICD10: I25.5 - As per #6 9. Allergic rhinitis, unspecified seasonality, unspecified trigger - ICD9: 477.9, ICD10: J30.9 - Stable 10. 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) - ICD9: 250.40, 791.0, ICD10: E11.29, R80.9 Await labs - Continue current medications - Encouraged regular aerobic exercise and weight loss - BP goal of <130/80 - LDL goal of <100 11. Bilateral impacted cerumen - ICD9: 380.4, ICD10: H61.23 - discussed irrigation. Verbal consent given. Both ears irrigated with warm water for the removal of wax. Patient tolerated well. 12. Overweight (BMI 25.0-29.9) - ICD9: 278.02, ICD10: E66.3 Stable - Behavioral intervention 13. Need for vaccination - ICD9: V05.9, ICD10: Z23 - PNEUMOCOCCAL IMMUNIZATION PPSV 23: given 14. Advance directive discussed with patient - ICD9: V65.49, ICD10: Z71.89 - Packets provided. Signed Prescriptions Disp Refills amLODIPine (NORVASC) 5 mg tablet 90 tablet 1 Sig: Take 1 tablet by mouth once daily. SALNIA: No losartan (COZAAR) 100 mg tablet 90 tablet 1 Sig: Take 1 tablet by mouth once daily. SALINA: No metFORMIN (GLUCOPHAGE) 500 mg tablet 90 tablet 1 Sig: Take 1 tablet by mouth daily with breakfast. SALINA: No F/u 6 months routine check A1c, lipid prior I spent a total of 40 minutes on the date of the service which included preparing to see the patient, [id number] patient care, completing clinical documentation, performing a medically appropriate examination, counseling and educating the patient/family/caregiver and ordering medications, tests, or procedures. Diego Patricio MD documented in this encounter [facility] 11-14-2012 History of Past i llness Narrative Problem Noted Date Resolved Date Fluid overload 11/14/2012 11/18/2012 Overview: Above pre-op wt. B effusions on CXR. Goal for negative fluid balance. Continue diuresis-increased 11/16. ECHO result revealed L pleural effusions. Reviewed CXR w/ CTS fellow, no US chest for now, optimize diuresis. Hypotension 11/13/2012 11/15/2012 Overview: Continue Levophed infusion to maintain MAP > 65 Stress hyperglycemia 11/13/2012 08/12/2018 Overview: On SSI. Accuchecks mostly under 150 not requiring coverage. D/c accuchecks, pt can have fasting glucose by local MD. documented as of this encounter (statuses as of 02/07/2022) [facility] History of Past illness Narrative* Problem Noted Date Resolved Date Fluid overload 11/14/2012 11/18/2012 Overview: Above pre-op wt. B effusions on CXR. Goal for negative fluid balance. Continue diuresis-increased 11/16. ECHO result revealed L pleural effusions. Reviewed CXR w/ CTS fellow, no US chest for now, optimize diuresis. Hypotension 11/13/2012 11/15/2012 Overview: Continue Levophed infusion to maintain MAP > 65 Stress hyperglycemia 11/13/2012 08/12/2018 Overview: On SSI. Accuchecks mostly under 150 not requiring coverage. D/c accuchecks, pt can have fasting glucose by local MD. documented as of this encounter (statuses as of 04/27/2022) [facility] History of Past illness Narrative* Problem Noted Date Resolved Date Fluid overload 11/14/2012 11/18/2012 Overview: Above pre-op wt. B effusions on CXR. Goal for negative fluid balance. Continue diuresis-increased 11/16. ECHO result revealed L pleural effusions. Reviewed CXR w/ CTS fellow, no US chest for now, optimize diuresis. Hypotension 11/13/2012 11/15/2012 Overview: Continue Levophed infusion to maintain MAP > 65 Stress hyperglycemia 11/13/2012 08/12/2018 Overview: On SSI. Accuchecks mostly under 150 not requiring coverage. D/c accuchecks, pt can have fasting glucose by local MD. documented as of this encounter (statuses as of 05/10/2022) [facility] History of Past illness Narrative* Problem Noted Date Resolved Date Fluid overload 11/14/2012 11/18/2012 Overview: Above pre-op wt. B effusions on CXR. Goal for negative fluid balance. Continue diuresis-increased 11/16. ECHO result revealed L pleural effusions. Reviewed CXR w/ CTS fellow, no US chest for now, optimize diuresis. Hypotension 11/13/2012 11/15/2012 Overview: Continue Levophed infusion to maintain MAP > 65 Stress hyperglycemia 11/13/2012 08/12/2018 Overview: On SSI. Accuchecks mostly under 150 not requiring coverage. D/c accuchecks, pt can have fasting glucose by local MD. documented as of this encounter (statuses as of 08/10/2022) [facility] History of Past illness Narrative* Problem Noted Date Resolved Date Fluid overload 11/14/2012 11/18/2012 Overview: Above pre-op wt. B effusions on CXR. Goal for negative fluid balance. Continue diuresis-increased 11/16. ECHO result revealed L pleural effusions. Reviewed CXR w/ CTS fellow, no US chest for now, optimize diuresis. Hypotension 11/13/2012 11/15/2012 Overview: Continue Levophed infusion to maintain MAP > 65 Stress hyperglycemia 11/13/2012 08/12/2018 Overview: On SSI. Accuchecks mostly under 150 not requiring coverage. D/c accuchecks, pt can have fasting glucose by local MD. documented as of this encounter (statuses as of 08/28/2022) [facility] History of Past illness Narrative* Problem Noted Date Resolved Date Fluid overload 11/14/2012 11/18/2012 Overview: Above pre-op wt. B effusions on CXR. Goal for negative fluid balance. Continue diuresis-increased 11/16. ECHO result revealed L pleural effusions. Reviewed CXR w/ CTS fellow, no US chest for now, optimize diuresis. Hypotension 11/13/2012 11/15/2012 Overview: Continue Levophed infusion to maintain MAP > 65 Stress hyperglycemia 11/13/2012 08/12/2018 Overview: On SSI. Accuchecks mostly under 150 not requiring coverage. D/c accuchecks, pt can have fasting glucose by local MD. documented as of this encounter (statuses as of 09/05/2022) [facility] History of Past illness Narrative* Problem Noted Date Resolved Date Fluid overload 11/14/2012 11/18/2012 Overview: Above pre-op wt. B effusions on CXR. Goal for negative fluid balance. Continue diuresis-increased 11/16. ECHO result revealed L pleural effusions. Reviewed CXR w/ CTS fellow, no US chest for now, optimize diuresis. Hypotension 11/13/2012 11/15/2012 Overview: Continue Levophed infusion to maintain MAP > 65 Stress hyperglycemia 11/13/2012 08/12/2018 Overview: On SSI. Accuchecks mostly under 150 not requiring coverage. D/c accuchecks, pt can have fasting glucose by local MD. documented as of this encounter (statuses as of 10/25/2022) [facility] History of Past illness Narrative* Problem Noted Date Resolved Date Fluid overload 11/14/2012 11/18/2012 Overview: Above pre-op wt. B effusions on CXR. Goal for negative fluid balance. Continue diuresis-increased 11/16. ECHO result revealed L pleural effusions. Reviewed CXR w/ CTS fellow, no US chest for now, optimize diuresis. Hypotension 11/13/2012 11/15/2012 Overview: Continue Levophed infusion to maintain MAP > 65 Stress hyperglycemia 11/13/2012 08/12/2018 Overview: On SSI. Accuchecks mostly under 150 not requiring coverage. D/c accuchecks, pt can have fasting glucose by local MD. documented as of this encounter (statuses as of 01/02/2023) [facility] History of Past illness Narrative* Problem Noted Date Resolved Date Fluid overload 11/14/2012 11/18/2012 Overview: Above pre-op wt. B effusions on CXR. Goal for negative fluid balance. Continue diuresis-increased 11/16. ECHO result revealed L pleural effusions. Reviewed CXR w/ CTS fellow, no US chest for now, optimize diuresis. Hypotension 11/13/2012 11/15/2012 Overview: Continue Levophed infusion to maintain MAP > 65 Stress hyperglycemia 11/13/2012 08/12/2018 Overview: On SSI. Accuchecks mostly under 150 not requiring coverage. D/c accuchecks, pt can have fasting glucose by local MD. documented as of this encounter (statuses as of 01/03/2023) [facility] History of Past illness Narrative* Problem Noted Date Resolved Date Fluid overload 11/14/2012 11/18/2012 Overview: Above pre-op wt. B effusions on CXR. Goal for negative fluid balance. Continue diuresis-increased 11/16. ECHO result revealed L pleural effusions. Reviewed CXR w/ CTS fellow, no US chest for now, optimize diuresis. Hypotension 11/13/2012 11/15/2012 Overview: Continue Levophed infusion to maintain MAP > 65 Stress hyperglycemia 11/13/2012 08/12/2018 Overview: On SSI. Accuchecks mostly under 150 not requiring coverage. D/c accuchecks, pt can have fasting glucose by local MD. documented as of this encounter (statuses as of 01/30/2023) [facility] History of Past illness Narrative* Problem Noted Date Resolved Date Fluid overload 11/14/2012 11/18/2012 Overview: Above pre-op wt. B effusions on CXR. Goal for negative fluid balance. Continue diuresis-increased 11/16. ECHO result revealed L pleural effusions. Reviewed CXR w/ CTS fellow, no US chest for now, optimize diuresis. Hypotension 11/13/2012 11/15/2012 Overview: Continue Levophed infusion to maintain MAP > 65 Stress hyperglycemia 11/13/2012 08/12/2018 Overview: On SSI. Accuchecks mostly under 150 not requiring coverage. D/c accuchecks, pt can have fasting glucose by local MD. documented as of this encounter (statuses as of 02/01/2023) [facility] History of Past illness Narrative* Problem Noted Date Resolved Date Fluid overload 11/14/2012 11/18/2012 Overview: Above pre-op wt. B effusions on CXR. Goal for negative fluid balance. Continue diuresis-increased 11/16. ECHO result revealed L pleural effusions. Reviewed CXR w/ CTS fellow, no US chest for now, optimize diuresis. Hypotension 11/13/2012 11/15/2012 Overview: Continue Levophed infusion to maintain MAP > 65 Stress hyperglycemia 11/13/2012 08/12/2018 Overview: On SSI. Accuchecks mostly under 150 not requiring coverage. D/c accuchecks, pt can have fasting glucose by local MD. documented as of this encounter (statuses as of 02/21/2023) [facility] History of Past illness Narrative* Problem Noted Date Resolved Date Fluid overload 11/14/2012 11/18/2012 Overview: Above pre-op wt. B effusions on CXR. Goal for negative fluid balance. Continue diuresis-increased 11/16. ECHO result revealed L pleural effusions. Reviewed CXR w/ CTS fellow, no US chest for now, optimize diuresis. Hypotension 11/13/2012 11/15/2012 Overview: Continue Levophed infusion to maintain MAP > 65 Stress hyperglycemia 11/13/2012 08/12/2018 Overview: On SSI. Accuchecks mostly under 150 not requiring coverage. D/c accuchecks, pt can have fasting glucose by local MD. documented as of this encounter (statuses as of 02/23/2023) [facility] History of Past illness Narrative* Problem Noted Date Resolved Date Fluid overload 11/14/2012 11/18/2012 Overview: Above pre-op wt. B effusions on CXR. Goal for negative fluid balance. Continue diuresis-increased 11/16. ECHO result revealed L pleural effusions. Reviewed CXR w/ CTS fellow, no US chest for now, optimize diuresis. Hypotension 11/13/2012 11/15/2012 Overview: Continue Levophed infusion to maintain MAP > 65 Stress hyperglycemia 11/13/2012 08/12/2018 Overview: On SSI. Accuchecks mostly under 150 not requiring coverage. D/c accuchecks, pt can have fasting glucose by local MD. documented as of this encounter (statuses as of 03/20/2023) [facility] History of Past illness Narrative* Problem Noted Date Diagnosed Date Resolved Date Fluid overload 11/14/2012 11/18/2012 Overview: Above pre-op wt. B effusions on CXR. Goal for negative fluid balance. Continue diuresis-increased 11/16. ECHO result revealed L pleural effusions. Reviewed CXR w/ CTS fellow, no US chest for now, optimize diuresis. Hypotension 11/13/2012 11/15/2012 Overview: Continue Levophed infusion to maintain MAP > 65 Stress hyperglycemia 11/13/2012 018 Overview: On SSI. Accuchecks mostly under 150 not requiring coverage. D/c accuchecks, pt can have fasting glucose by local MD. documented as of this encounter (statuses as of 07/08/2023) [facility] History of Past illness Narrative* Problem Noted Date Diagnosed Date Resolved Date Fluid overload 11/14/2012 11/18/2012 Overview: Above pre-op wt. B effusions on CXR. Goal for negative fluid balance. Continue diuresis-increased 11/16. ECHO result revealed L pleural effusions. Reviewed CXR w/ CTS fellow, no US chest for now, optimize diuresis. Hypotension 11/13/2012 11/15/2012 Overview: Continue Levophed infusion to maintain MAP > 65 Stress hyperglycemia 11/13/2012 018 Overview: On SSI. Accuchecks mostly under 150 not requiring coverage. D/c accuchecks, pt can have fasting glucose by local MD. documented as of this encounter (statuses as of 09/05/2023) [facility] History of Past illness Narrative* Problem Noted Date Diagnosed Date Resolved Date Fluid overload 11/14/2012 11/18/2012 Overview: Above pre-op wt. B effusions on CXR. Goal for negative fluid balance. Continue diuresis-increased 11/16. ECHO result revealed L pleural effusions. Reviewed CXR w/ CTS fellow, no US chest for now, optimize diuresis. Hypotension 11/13/2012 11/15/2012 Overview: Continue Levophed infusion to maintain MAP > 65 Stress hyperglycemia 11/13/2012 018 Overview: On SSI. Accuchecks mostly under 150 not requiring coverage. D/c accuchecks, pt can have fasting glucose by local MD. documented as of this encounter (statuses as of 09/06/2023) [facility] History of Past illness Narrative* Problem Noted Date Diagnosed Date Resolved Date Fluid overload 11/14/2012 11/18/2012 Overview: Above pre-op wt. B effusions on CXR. Goal for negative fluid balance. Continue diuresis-increased 11/16. ECHO result revealed L pleural effusions. Reviewed CXR w/ CTS fellow, no US chest for now, optimize diuresis. Hypotension 11/13/2012 11/15/2012 Overview: Continue Levophed infusion to maintain MAP > 65 Stress hyperglycemia 11/13/2012 018 Overview: On SSI. Accuchecks mostly under 150 not requiring coverage. D/c accuchecks, pt can have fasting glucose by local MD. documented as of this encounter (statuses as of 09/07/2023) [facility] History of Past illness Narrative* Problem Noted Date Diagnosed Date Resolved Date Fluid overload 11/14/2012 11/18/2012 Overview: Above pre-op wt. B effusions on CXR. Goal for negative fluid balance. Continue diuresis-increased 11/16. ECHO result revealed L pleural effusions. Reviewed CXR w/ CTS fellow, no US chest for now, optimize diuresis. Hypotension 11/13/2012 11/15/2012 Overview: Continue Levophed infusion to maintain MAP > 65 Stress hyperglycemia 11/13/2012 018 Overview: On SSI. Accuchecks mostly under 150 not requiring coverage. D/c accuchecks, pt can have fasting glucose by local MD. documented as of this encounter (statuses as of 12/12/2023) [facility] History of Past illness Narrative* Problem Noted Date Diagnosed Date Resolved Date Fluid overload 11/14/2012 11/18/2012 Overview: Above pre-op wt. B effusions on CXR. Goal for negative fluid balance. Continue diuresis-increased 11/16. ECHO result revealed L pleural effusions. Reviewed CXR w/ CTS fellow, no US chest for now, optimize diuresis. Hypotension 11/13/2012 11/15/2012 Overview: Continue Levophed infusion to maintain MAP > 65 Stress hyperglycemia 11/13/2012 018 Overview: On SSI. Accuchecks mostly under 150 not requiring coverage. D/c accuchecks, pt can have fasting glucose by local MD. documented as of this encounter (statuses as of 01/08/2024) [facility] History of Past illness Narrative* Problem Noted Date Diagnosed Date Resolved Date Fluid overload 11/14/2012 11/18/2012 Overview: Above pre-op wt. B effusions on CXR. Goal for negative fluid balance. Continue diuresis-increased 11/16. ECHO result revealed L pleural effusions. Reviewed CXR w/ CTS fellow, no US chest for now, optimize diuresis. Hypotension 11/13/2012 11/15/2012 Overview: Continue Levophed infusion to maintain MAP > 65 Stress hyperglycemia 11/13/2012 018 Overview: On SSI. Accuchecks mostly under 150 not requiring coverage. D/c accuchecks, pt can have fasting glucose by local MD. documented as of this encounter (statuses as of 02/05/2024) [facility] History of Past illness Narrative* Problem Noted Date Diagnosed Date Resolved Date Fluid overload 11/14/2012 11/18/2012 Overview: Above pre-op wt. B effusions on CXR. Goal for negative fluid balance. Continue diuresis-increased 11/16. ECHO result revealed L pleural effusions. Reviewed CXR w/ CTS fellow, no US chest for now, optimize diuresis. Hypotension 11/13/2012 11/15/2012 Overview: Continue Levophed infusion to maintain MAP > 65 Stress hyperglycemia 11/13/2012 018 Overview: On SSI. Accuchecks mostly under 150 not requiring coverage. D/c accuchecks, pt can have fasting glucose by local MD. documented as of this encounter (statuses as of 02/08/2024) [facility] Evaluation note* Diagnosis Onset Date Resolution Status Admit Date Essential hypertension chronic Au bernardo 2024 10:57am History of coronary artery b ypass surgery October, chronic June 03 10:57am Ischemic cardiomyopathy chronic A ugust 2024 10:57am Pure hypercholesterolemia chronic June 03, 2025 10:57am Type 2 diabetes mellitus chronic June 03, 2025 10:57am [employer] Work Phone: Evaluation note* Diagnosis Medicare annual wellness visit, subsequent- Primary Routine general medical examination at a health care facility Type 2 diabetes mellitus with other circulatory complication, without long-term current use of insulin ([facility]) Essential hypertension Unspecified essential hypertension Edema, unspecified type Mixed hyperlipidemia Coronary artery disease due to lipid rich plaque Chronic systolic CHF (congestive heart failure) (HCC) Chronic systolic heart failure Ischemic cardiomyopathy Other specified forms of chronic ischemic heart disease Allergic rhinitis, unspecified seasonality, unspecified trigger 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) Bilateral impacted cerumen Impacted cerumen Overweight (BMI 25.0-29.9) Overweight Need for vaccination Need for prophylactic vaccination and inoculation against unspecified single disease Advance directive discussed with patient Other specified counseling documented in this encounter [facility] Controlled type 2 diabetes mellitus without complication, without long-term current use of insulin (HCC) Heart failure, acute systolic (HCC) Acute systolic heart failure documented in this encounter [facility] Diagnosis Type 2 diabetes mellitus with other circulatory complication, without long-term current use of insulin ([facility])- Primary 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) Essential hypertension Unspecified essential hypertension Mixed hyperlipidemia Coronary artery disease due to lipid rich plaque Ischemic cardiomyopathy Other specified forms of chronic ischemic heart disease Edema, unspecified type Overweight (BMI 25.0-29.9) Overweight Encounter for immunization Need for other specified prophylactic vaccination against single bacterial disease Prostate disorder Unspecified disorder of prostate Medication management Encounter for long-term (current) use of other medications [facility] Diagnosis Type 2 diabetes mellitus with other circulatory complication, without long-term current use of insulin (HCC)- Primary [facility]* Diagnosis Hyperlipidemia, unspecified hyperlipidemia type documented in this encounter [facility] note* Diagnosis Nasal congestion- Primary Other diseases of nasal cavity and sinuses [facility]* Diagnosis Lower resp. tract infection- Primary Other diseases of respiratory system, not elsewhere classified Acute cough Wheezing documented in this [facility] Diagnosis Medicare annual wellness visit, subsequent- Primary Routine general [facility] Advance directive discussed with patient Other specified counseling Controlled type 2 diabetes mellitus without complication, without long-term current use of insulin (HCC) Type 2 diabetes mellitus with other circulatory complication, without long-term current use of insulin (HCC) Essential hypertension Unspecified essential hypertension Mixed hyperlipidemia Hyperlipidemia, unspecified hyperlipidemia type Heart failure, acute systolic (HCC) Acute systolic heart failure Coronary artery disease due to lipid rich plaque 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) Allergic rhinitis, unspecified seasonality, unspecified trigger Chronic systolic CHF (congestive heart failure) (HCC) Chronic systolic heart failure Prostate disorder Unspecified disorder of prostate [facility]* Diagnosis Onychomycosis- Primary Dermatophytosis of nail Pain in toe of left foot Pain in limb Pain in toe of right foot Pain in limb Other diabetic neurological complication associated with type 2 diabetes mellitus ([facility]) Callus of foot Corns and callosities documented in this encounter [facility] note* Diagnosis Onset Date Resolution Status MADELIN (obstructive sleep apnea) acute [facility] Work Phone: Evaluation note* Diagnosis Essential hypertension- Primary Unspecified essential hypertension Hyperlipidemia, unspecified hyperlipidemia type Controlled type 2 diabetes mellitus without complication, without long-term current use of insulin (HCC) Heart failure, acute systolic (HCC) Acute systolic heart failure [facility]* Diagnosis Wheezing- Primary Chronic systolic CHF (congestive heart failure) (HCC) Chronic systolic heart failure documented in this encounter [facility] Diagnosis Essential hypertension Unspecified essential hypertension documented in this encounter [facility] note* Diagnosis Type 2 diabetes mellitus with other circulatory complication, without long-term current use of insulin (HCC)- Primary 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) (HCC) Essential hypertension Unspecified essential hypertension Mixed hyperlipidemia Edema, unspecified type Chronic systolic CHF (congestive heart failure) (HCC) Chronic systolic heart failure Coronary artery disease due to lipid rich plaque Ischemic cardiomyopathy Other specified forms of chronic ischemic heart disease Overweight (BMI 25.0-29.9) Overweight Medication management Encounter for long-term (current) use of other medications Advance directive discussed with patient Other specified counseling Elevated PSA Elevated prostate specific antigen (PSA) Wheezing Bilateral leg edema [facility] Diagnosis Microscopic hematuria- Primary Other proteinuria documented in this [facility] Diagnosis Proteinuria, unspecified type- Primary Microscopic hematuria [facility] Diagnosis Controlled type 2 diabetes mellitus without complication, without long-term current use of insulin (HCC) Essential hypertension Unspecified essential hypertension [facility] Diagnosis Medicare annual wellness visit, subsequent- Primary Routine general medical examination at a [facility] Advance directive discussed with patient Other specified counseling Mixed hyperlipidemia Ischemic cardiomyopathy Other specified forms of chronic ischemic heart disease History of non-ST elevation myocardial infarction (NSTEMI) Old myocardial infarction History of atrial fibrillation Personal history of other diseases of circulatory system Essential hypertension Unspecified essential hypertension Coronary artery disease due to lipid rich plaque Chronic systolic CHF (congestive heart failure) (HCC) Chronic systolic heart failure Type 2 diabetes mellitus with other circulatory complication, without long-term current use of insulin (HCC) Ex-smoker Personal history of tobacco use, presenting hazards to health MADELIN (obstructive sleep apnea) Obstructive sleep apnea (adult) (pediatric) 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) (HCC) Bilateral leg edema Edema Prostate disorder Unspecified disorder of prostate Nasal congestion Other diseases of nasal cavity and sinuses Other proteinuria [facility] Diagnosis Essential hypertension- Primary Unspecified essential hypertension Tinea cruris Dermatophytosis of groin and perianal area [facility]* Diagnosis Persistent proteinuria- Primary Proteinuria [facility] Diagnosis Microscopic hematuria [facility]* Diagnosis Tinea cruris- Primary Dermatophytosis of groin and perianal area [facility] Diagnosis Microscopic hematuria- Primary Pruritus Unspecified pruritic disorder Rash Rash and other nonspecific skin eruption documented in this [facility] Diagnosis Chronic systolic CHF (congestive heart failure) (HCC) Chronic systolic heart failure Wheezing documented in this [facility] Diagnosis Hematuria, unspecified type- Primary Screening for genitourinary condition Screening for other and unspecified genitourinary condition documented in this encounter [facility] Diagnosis Wheezing documented in this encounter [facility] Diagnosis Cutaneous abscess of back excluding buttocks- Primary Cellulitis and abscess of trunk documented in this encounter [facility]* Diagnosis Heart failure, acute systolic (HCC) Acute systolic heart failure documented in this encounter [facility] Diagnosis Essential hypertension Unspecified essential hypertension documented in this [facility]* Diagnosis Type 2 diabetes mellitus with other circulatory complication, without long-term current use of insulin ([facility])- Primary Essential hypertension Unspecified essential hypertension documented in this encounter [facility]* Diagnosis Hyperlipidemia, unspecified hyperlipidemia type [facility]* Diagnosis Type 2 diabetes mellitus with other circulatory complication, without long-term current use of insulin ([facility])- Primary 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) (HCC) Essential hypertension Unspecified essential hypertension Mixed hyperlipidemia Edema, unspecified type Coronary artery disease due to lipid rich plaque Chronic systolic CHF (congestive heart failure) (HCC) Chronic systolic heart failure Ischemic cardiomyopathy Other specified forms of chronic ischemic heart disease MADELIN (obstructive sleep apnea) Obstructive sleep apnea (adult) (pediatric) Overweight (BMI 25.0-29.9) Overweight Elevated PSA Elevated prostate specific antigen (PSA) Wheezing Ex-smoker Personal history of tobacco use, presenting hazards to health Encounter for immunization Need for other specified prophylactic vaccination against single bacterial disease Medication management Encounter for long-term (current) use of other medications Advance directive discussed with patient Other specified counseling documented in this [facility] Diagnosis Wheezing Ex-smoker Personal history of tobacco use, presenting hazards to health documented in this [facility] Diagnosis Chronic obstructive pulmonary disease, unspecified COPD type ([facility])- Primary Hand numbness Disturbance of skin sensation Ulnar nerve compression, left documented in this encounter [facility]* Diagnosis Hand numbness Disturbance of skin sensation Ulnar nerve compression, left documented in this [facility] Diagnosis Chronic obstructive pulmonary disease, unspecified COPD type (HCC)- Primary SOB (shortness of breath) Shortness of breath Wheezing SOB (shortness of breath) Shortness of breath documented in this encounter [facility]* Diagnosis SOB (shortness of breath) Shortness of breath documented in this encounter [facility] Diagnosis Chronic bronchitis, unspecified chronic bronchitis type (HCC)- Primary Chronic obstructive pulmonary disease, unspecified COPD type (HCC) documented in this encounter [facility]* Diagnosis Heart failure, acute systolic (HCC) Acute systolic heart failure documented in this encounter [facility]* Diagnosis Chronic obstructive pulmonary disease, unspecified COPD type (HCC)- Primary Bilateral impacted cerumen Impacted cerumen Hyperkalemia Hyperpotassemia Type 2 diabetes mellitus with other circulatory complication, without long-term current use of insulin (HCC) Chronic systolic CHF (congestive heart failure) (HCC) Chronic systolic heart failure documented in this encounter [facility] note* Diagnosis Medicare annual wellness visit, subsequent- Primary Routine general medical examination at a [facility] facility Type 2 diabetes mellitus with other circulatory complication, 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) Essential hypertension Unspecified essential hypertension Mixed hyperlipidemia Coronary artery disease due to lipid rich plaque Chronic systolic CHF (congestive heart failure) (HCC) Chronic systolic heart failure Ischemic cardiomyopathy Other specified forms of chronic ischemic heart disease Bilateral leg edema Edema Overweight (BMI 25.0-29.9) Overweight Elevated PSA Elevated prostate specific antigen (PSA) Chronic obstructive pulmonary disease, unspecified COPD type (HCC) Chronic bronchitis, unspecified chronic bronchitis type (HCC) Foot callus Corns and callosities Bilateral impacted cerumen Impacted cerumen Advance directive discussed with patient Other specified counseling Encounter for screening examination for other mental health and behavioral disorders Screening for depression documented in this encounter [facility] for referral (narrative)* Outpatient Procedure (Routine) - Authorized Specialty Diagnoses / Procedures Referred By Contac t Referred To [facility] Diagnoses Chronic systolic CHF (congestive heart failure) (HCC) Coronary artery disease due to lipid rich plaque Ischemic cardiomyopathy Procedures ECHO ECHO TTC R-T 2D W/WOM-MODE COMPL SPEC&COLR Diego Crystal MD [address] [place] [id number] [facility] [address] [address] Referral ID Status Reason Start Date Expiration Date Visits Requested Visits Authorized [id number] Authorized Auto-Generat ed Referral 04/04/2024 05/04/2024 1 1 * Outpatient Procedure (Routine) - Authorized Specialty Diagnoses / Procedures Referred By Contac t Referred To Contact [facility] Diagnoses Bilateral leg edema Procedures US LEG VEIN DVT [facility] DUP-SCAN XTR VEINS COMPLETE BILATERAL STUDY Diego Patricio MD [address] [place] [id number] [address] Referral ID Status Reason Start Date Expiration Date Visits Requested Visits Authorized [id number] Authorized Auto-Generat ed Referral 03/18/2024 03/18/2025 1 1 [facility] for referral (narrative)* Diagnostic Procedure Only (Routine) - Authorized Specialty Diagnoses / Procedures [facility]erred To Contact [facility] Diagnoses Microscopic hematuria Procedures US KIDNEY/BLADDER US RETROPERITONEAL REAL TIME W/IMAGE COMPLETE Diego Patricio MD [address] [place] [address] [id number] Referral ID Status Reason Start Date Expiration Date Visits Requested Visits Authorized [id number] Authorized Auto-Generat ed Referral 04/16/2024 05/16/2025 1 1 [facility] for referral (narrative)* Outpatient Procedure (Routine) - Authorized Specialty Diagnoses / Procedures [facility] To [facility] Diagnoses Wheezing Ex-smoker Procedures SPIROMETRY - BASELINE AND POST DILATOR BRNCDILAT RSPSE SPMTRY PRE&POST-BRNCDILAT ADMN Diego Patricio MD [address] [place] [address] [facility] [address] [place] [address] Referral ID Status Reason Start Date Expiration Date Visits Requested Visits Authorized [id number] Authorized Auto-Generat ed Referral 11/11/2024 12/11/2025 1 1 [facility] for referral (narrative)No reason for referral information availableBlackwell Ligandal Services Work Phone: Summary Purpose Family History No Family History Records Found Relationship Condition Age at Onset Recorded Date/T cole mother Hypertension Unknown Advance Directives No Advanced Directives Records FoundDocuments on File Type Date Recorded Patient Fitness Director Expl anation Advance Directive(s) Reason for Referral Specialty Diagnoses / Procedures Referred By Contac t Referred To Contact Ent - Otolaryngology Diagnoses Nasal congestion Procedures CONSULT TO ENT OFFICE/OUTPATIENT [facility] 60-74 MINUTES Ten Luevano MD [address] [place] [address] Referral ID Status Reason Start Date Expiration Date Visits Requested Visits Authorized [id number] Pending Review PCP Requested Referral 2 10/20/2023 1 1 Specialty Diagnoses / Procedures Referred By Contac t Referred To Contact Nephrology Diagnoses Persistent proteinuria Procedures CONSULT TO NEPHROLOGY OFFICE/OUTPATIENT [facility] MDM 60 MINUTES Kelly Walton PA-C [address] [place] [address] Referral ID Status Reason Start Date Expiration Date Visits Requested Visits Authorized [id number] Authorized PCP Requested Referral 06/06/2024 06/06/2025 1 1 Specialty Diagnoses / Procedures Referred By Contac t Referred To Contact Diagnoses Microscopic hematuria Procedures CONSULT TO UROLOGY OFFICE/OUTPATIENT [facility] MDM 60 MINUTES Kelly Walton PA-C [address] [place] [address] Referral ID Status Reason Start Date Expiration Date Visits Requested Visits Authorized [id number] Authorized PCP Requested Referral 06/27/2024 06/27/2025 1 1 Chief Complaint and Reason for Visit Chief Complaint HYPERSOMNIA Sleep problems HYPERSOMINA MADELIN; AUTO CPAP *DEVICE TAGGED Reason for Visit MADELIN (obstructive sle ep apnea) Chief Complaint Admit Date 1 Y FU June 03, 2025 10 :57am Reason for Visit Admit Date Essential hypertension June 03, 2025 10:57am History of coronary artery bypass surger y June 03, 2025 10:57am Ischemic cardiomyopathy June 03 10:57am Pure hypercholesterolemia June 03, 025 10:57am Type 2 diabetes mellitus June 03 10:57am Additional Source Comments (unrecognized sect ion and content) No Status Records FoundNo Status Records FoundNo Status Records FoundNo Status Records FoundNo Status Records Found INFORMATION SOURCE (unrecogn ized section and content) DATE CREATED AUTHOR 04/12/2018 [facility] DATE CREATED AUTHOR AUTHOR'S ORGANIZ ATION 05/12/2019 [facility] DATE CREATED AUTHOR AUTHOR'S ORGANIZ ATION 07/01/2024 [facility] DATE CREATED AUTHOR AUTHOR'S ORGANIZ ATION 06/28/2025 [facility] DATE CREATED AUTHOR AUTHOR'S ORGANIZ ATION 07/03/2025 [facility] y [facility] Source Comments (unrecognize d section and content) In the event this informatio n is protected by the Federal Confidentiality of Alcohol and Drug Abuse Patient Records regulations: The Federal rules restrict any use of the information to criminally investigate or prosecute any alcohol or drug abuse patient.[facility] the event this information is protected by the Federal Confidentiality of Alcohol and Drug Abuse Patient Records regulations: The Federal rules restrict any use of the information to criminally investigate or prosecute any alcohol or drug abuse patient.[facility] the event this information is protected by the Federal Confidentiality of Alcohol and Drug Abuse Patient Records regulations: The Federal rules restrict any use of the information to criminally investigate or prosecute any alcohol or drug abuse patient.[facility] the event this information is protected by the Federal Confidentiality of Alcohol and Drug Abuse Patient Records regulations: The Federal rules restrict any use of the information to criminally investigate or prosecute any alcohol or drug abuse patient.[facility] the event this information is protected by the Federal Confidentiality of Alcohol and Drug Abuse Patient Records regulations: The Federal rules restrict any use of the information to criminally investigate or prosecute any alcohol or drug abuse patient.[facility] the event this information is protected by the Federal Confidentiality of Alcohol and Drug Abuse Patient Records regulations: The Federal rules restrict any use of the information to criminally investigate or prosecute any alcohol or drug abuse patient.[facility] the event this information is protected by the Federal Confidentiality of Alcohol and Drug Abuse Patient Records regulations: The Federal rules restrict any use of the information to criminally investigate or prosecute any alcohol or drug abuse patient.[facility] the event this information is protected by the Federal Confidentiality of Alcohol and Drug Abuse Patient Records regulations: The Federal rules restrict any use of the information to criminally investigate or prosecute any alcohol or drug abuse patient.[facility] the event this information is protected by the Federal Confidentiality of Alcohol and Drug Abuse Patient Records regulations: The Federal rules restrict any use of the information to criminally investigate or prosecute any alcohol or drug abuse patient.[facility] the event this information is protected by the Federal Confidentiality of Alcohol and Drug Abuse Patient Records regulations: The Federal rules restrict any use of the information to criminally investigate or prosecute any alcohol or drug abuse patient.[facility] the event this information is protected by the Federal Confidentiality of Alcohol and Drug Abuse Patient Records regulations: The Federal rules restrict any use of the information to criminally investigate or prosecute any alcohol or drug abuse patient.[facility] the event this information is protected by the Federal Confidentiality of Alcohol and Drug Abuse Patient Records regulations: The Federal rules restrict any use of the information to criminally investigate or prosecute any alcohol or drug abuse patient.[facility] the event this information is protected by the Federal Confidentiality of Alcohol and Drug Abuse Patient Records regulations: The Federal rules restrict any use of the information to criminally investigate or prosecute any alcohol or drug abuse patient.[facility] the event this information is protected by the Federal Confidentiality of Alcohol and Drug Abuse Patient Records regulations: The Federal rules restrict any use of the information to criminally investigate or prosecute any alcohol or drug abuse patient.[facility] the event this information is protected by the Federal Confidentiality of Alcohol and Drug Abuse Patient Records regulations: The Federal rules restrict any use of the information to criminally investigate or prosecute any alcohol or drug abuse patient.[facility] the event this information is protected by the Federal Confidentiality of Alcohol and Drug Abuse Patient Records regulations: The Federal rules restrict any use of the information to criminally investigate or prosecute any alcohol or drug abuse patient.[facility] the event this information is protected by the Federal Confidentiality of Alcohol and Drug Abuse Patient Records regulations: The Federal rules restrict any use of the information to criminally investigate or prosecute any alcohol or drug abuse patient.[facility] the event this information is protected by the Federal Confidentiality of Alcohol and Drug Abuse Patient Records regulations: The Federal rules restrict any use of the information to criminally investigate or prosecute any alcohol or drug abuse patient.[facility] the event this information is protected by the Federal Confidentiality of Alcohol and Drug Abuse Patient Records regulations: The Federal rules restrict any use of the information to criminally investigate or prosecute any alcohol or drug abuse patient.[facility] HospitalIn the event this information is protected by the Federal Confidentiality of Alcohol and Drug Abuse Patient Records regulations: The Federal rules restrict any use of the information to criminally investigate or prosecute any alcohol or drug abuse patient.[facility] HospitalIn the event this information is protected by the Federal Confidentiality of Alcohol and Drug Abuse Patient Records regulations: The Federal rules restrict any use of the information to criminally investigate or prosecute any alcohol or drug abuse patient.[facility] HospitalIn the event this information is protected by the Federal Confidentiality of Alcohol and Drug Abuse Patient Records regulations: The Federal rules restrict any use of the information to criminally investigate or prosecute any alcohol or drug abuse patient.[facility] HospitalIn the event this information is protected by the Federal Confidentiality of Alcohol and Drug Abuse Patient Records regulations: The Federal rules restrict any use of the information to criminally investigate or prosecute any alcohol or drug abuse patient.[facility] HospitalIn the event this information is protected by the Federal Confidentiality of Alcohol and Drug Abuse Patient Records regulations: The Federal rules restrict any use of the information to criminally investigate or prosecute any alcohol or drug abuse patient.[facility] HospitalIn the event this information is protected by the Federal Confidentiality of Alcohol and Drug Abuse Patient Records regulations: The Federal rules restrict any use of the information to criminally investigate or prosecute any alcohol or drug abuse patient.[facility] HospitalIn the event this information is protected by the Federal Confidentiality of Alcohol and Drug Abuse Patient Records regulations: The Federal rules restrict any use of the information to criminally investigate or prosecute any alcohol or drug abuse patient.[facility] HospitalIn the event this information is protected by the Federal Confidentiality of Alcohol and Drug Abuse Patient Records regulations: The Federal rules restrict any use of the information to criminally investigate or prosecute any alcohol or drug abuse patient.[facility] HospitalIn the event this information is protected by the Federal Confidentiality of Alcohol and Drug Abuse Patient Records regulations: The Federal rules restrict any use of the information to criminally investigate or prosecute any alcohol or drug abuse patient.[facility] HospitalIn the event this information is protected by the Federal Confidentiality of Alcohol and Drug Abuse Patient Records regulations: The Federal rules restrict any use of the information to criminally investigate or prosecute any alcohol or drug abuse patient.[facility] HospitalIn the event this information is protected by the Federal Confidentiality of Alcohol and Drug Abuse Patient Records regulations: The Federal rules restrict any use of the information to criminally investigate or prosecute any alcohol or drug abuse patient.[facility] HospitalIn the event this information is protected by the Federal Confidentiality of Alcohol and Drug Abuse Patient Records regulations: The Federal rules restrict any use of the information to criminally investigate or prosecute any alcohol or drug abuse patient.[facility] HospitalIn the event this information is protected by the Federal Confidentiality of Alcohol and Drug Abuse Patient Records regulations: The Federal rules restrict any use of the information to criminally investigate or prosecute any alcohol or drug abuse patient.[facility] HospitalIn the event this information is protected by the Federal Confidentiality of Alcohol and Drug Abuse Patient Records regulations: The Federal rules restrict any use of the information to criminally investigate or prosecute any alcohol or drug abuse patient.[facility] HospitalIn the event this information is protected by the Federal Confidentiality of Alcohol and Drug Abuse Patient Records regulations: The Federal rules restrict any use of the information to criminally investigate or prosecute any alcohol or drug abuse patient.[facility] HospitalIn the event this information is protected by the Federal Confidentiality of Alcohol and Drug Abuse Patient Records regulations: The Federal rules restrict any use of the information to criminally investigate or prosecute any alcohol or drug abuse patient.[facility] HospitalIn the event this information is protected by the Federal Confidentiality of Alcohol and Drug Abuse Patient Records regulations: The Federal rules restrict any use of the information to criminally investigate or prosecute any alcohol or drug abuse patient.[facility] HospitalIn the event this information is protected by the Federal Confidentiality of Alcohol and Drug Abuse Patient Records regulations: The Federal rules restrict any use of the information to criminally investigate or prosecute any alcohol or drug abuse patient.[facility] HospitalIn the event this information is protected by the Federal Confidentiality of Alcohol and Drug Abuse Patient Records regulations: The Federal rules restrict any use of the information to criminally investigate or prosecute any alcohol or drug abuse patient.[facility] HospitalIn the event this information is protected by the Federal Confidentiality of Alcohol and Drug Abuse Patient Records regulations: The Federal rules restrict any use of the information to criminally investigate or prosecute any alcohol or drug abuse patient.[facility] HospitalIn the event this information is protected by the Federal Confidentiality of Alcohol and Drug Abuse Patient Records regulations: The Federal rules restrict any use of the information to criminally investigate or prosecute any alcohol or drug abuse patient.[facility] HospitalIn the event this information is protected by the Federal Confidentiality of Alcohol and Drug Abuse Patient Records regulations: The Federal rules restrict any use of the information to criminally investigate or prosecute any alcohol or drug abuse patient.[facility] HospitalIn the event this information is protected by the Federal Confidentiality of Alcohol and Drug Abuse Patient Records regulations: The Federal rules restrict any use of the information to criminally investigate or prosecute any alcohol or drug abuse patient.[facility] HospitalIn the event this information is protected by the Federal Confidentiality of Alcohol and Drug Abuse Patient Records regulations: The Federal rules restrict any use of the information to criminally investigate or prosecute any alcohol or drug abuse patient.[facility] HospitalIn the event this information is protected by the Federal Confidentiality of Alcohol and Drug Abuse Patient Records regulations: The Federal rules restrict any use of the information to criminally investigate or prosecute any alcohol or drug abuse patient.[facility] HospitalIn the event this information is protected by the Federal Confidentiality of Alcohol and Drug Abuse Patient Records regulations: The Federal rules restrict any use of the information to criminally investigate or prosecute any alcohol or drug abuse patient.[facility] HospitalIn the event this information is protected by the Federal Confidentiality of Alcohol and Drug Abuse Patient Records regulations: The Federal rules restrict any use of the information to criminally investigate or prosecute any alcohol or drug abuse patient.[facility] HospitalIn the event this information is protected by the Federal Confidentiality of Alcohol and Drug Abuse Patient Records regulations: The Federal rules restrict any use of the information to criminally investigate or prosecute any alcohol or drug abuse patient.[facility] HospitalIn the event this information is protected by the Federal Confidentiality of Alcohol and Drug Abuse Patient Records regulations: The Federal rules restrict any use of the information to criminally investigate or prosecute any alcohol or drug abuse patient.[facility] HospitalIn the event this information is protected by the Federal Confidentiality of Alcohol and Drug Abuse Patient Records regulations: The Federal rules restrict any use of the information to criminally investigate or prosecute any alcohol or drug abuse patient.[facility] HospitalIn the event this information is protected by the Federal Confidentiality of Alcohol and Drug Abuse Patient Records regulations: The Federal rules restrict any use of the information to criminally investigate or prosecute any alcohol or drug abuse patient.[facility] HospitalIn the event this information is protected by the Federal Confidentiality of Alcohol and Drug Abuse Patient Records regulations: The Federal rules restrict any use of the information to criminally investigate or prosecute any alcohol or drug abuse patient.[facility] HospitalIn the event this information is protected by the Federal Confidentiality of Alcohol and Drug Abuse Patient Records regulations: The Federal rules restrict any use of the information to criminally investigate or prosecute any alcohol or drug abuse patient.[facility] HospitalIn the event this information is protected by the Federal Confidentiality of Alcohol and Drug Abuse Patient Records regulations: The Federal rules restrict any use of the information to criminally investigate or prosecute any alcohol or drug abuse patient.[facility] HospitalIn the event this information is protected by the Federal Confidentiality of Alcohol and Drug Abuse Patient Records regulations: The Federal rules restrict any use of the information to criminally investigate or prosecute any alcohol or drug abuse patient.[facility] HospitalIn the event this information is protected by the Federal Confidentiality of Alcohol and Drug Abuse Patient Records regulations: The Federal rules restrict any use of the information to criminally investigate or prosecute any alcohol or drug abuse patient.[facility] HospitalIn the event this information is protected by the Federal Confidentiality of Alcohol and Drug Abuse Patient Records regulations: The Federal rules restrict any use of the information to criminally investigate or prosecute any alcohol or drug abuse patient.[facility] HospitalIn the event this information is protected by the Federal Confidentiality of Alcohol and Drug Abuse Patient Records regulations: The Federal rules restrict any use of the information to criminally investigate or prosecute any alcohol or drug abuse patient.[facility] HospitalIn the event this information is protected by the Federal Confidentiality of Alcohol and Drug Abuse Patient Records regulations: The Federal rules restrict any use of the information to criminally investigate or prosecute any alcohol or drug abuse patient.[facility] HospitalIn the event this information is protected by the Federal Confidentiality of Alcohol and Drug Abuse Patient Records regulations: The Federal rules restrict any use of the information to criminally investigate or prosecute any alcohol or drug abuse patient.[facility] HospitalIn the event this information is protected by the Federal Confidentiality of Alcohol and Drug Abuse Patient Records regulations: The Federal rules restrict any use of the information to criminally investigate or prosecute any alcohol or drug abuse patient.[facility] HospitalIn the event this information is protected by the Federal Confidentiality of Alcohol and Drug Abuse Patient Records regulations: The Federal rules restrict any use of the information to criminally investigate or prosecute any alcohol or drug abuse patient.[facility] HospitalIn the event this information is protected by the Federal Confidentiality of Alcohol and Drug Abuse Patient Records regulations: The Federal rules restrict any use of the information to criminally investigate or prosecute any alcohol or drug abuse patient.[facility] HospitalIn the event this information is protected by the Federal Confidentiality of Alcohol and Drug Abuse Patient Records regulations: The Federal rules restrict any use of the information to criminally investigate or prosecute any alcohol or drug abuse patient.[facility] HospitalIn the event this information is protected by the Federal Confidentiality of Alcohol and Drug Abuse Patient Records regulations: The Federal rules restrict any use of the information to criminally investigate or prosecute any alcohol or drug abuse patient.[facility] HospitalIn the event this information is protected by the Federal Confidentiality of Alcohol and Drug Abuse Patient Records regulations: The Federal rules restrict any use of the information to criminally investigate or prosecute any alcohol or drug abuse patient.[facility] HospitalIn the event this information is protected by the Federal Confidentiality of Alcohol and Drug Abuse Patient Records regulations: The Federal rules restrict any use of the information to criminally investigate or prosecute any alcohol or drug abuse patient.[facility] HospitalIn the event this information is protected by the Federal Confidentiality of Alcohol and Drug Abuse Patient Records regulations: The Federal rules restrict any use of the information to criminally investigate or prosecute any alcohol or drug abuse patient.[facility] HospitalIn the event this information is protected by the Federal Confidentiality of Alcohol and Drug Abuse Patient Records regulations: The Federal rules restrict any use of the information to criminally investigate or prosecute any alcohol or drug abuse patient.[facility] HospitalIn the event this information is protected by the Federal Confidentiality of Alcohol and Drug Abuse Patient Records regulations: The Federal rules restrict any use of the information to criminally investigate or prosecute any alcohol or drug abuse patient.[facility] HospitalIn the event this information is protected by the Federal Confidentiality of Alcohol and Drug Abuse Patient Records regulations: The Federal rules restrict any use of the information to criminally investigate or prosecute any alcohol or drug abuse patient.[facility] HospitalIn the event this information is protected by the Federal Confidentiality of Alcohol and Drug Abuse Patient Records regulations: The Federal rules restrict any use of the information to criminally investigate or prosecute any alcohol or drug abuse patient.[facility] HospitalIn the event this information is protected by the Federal Confidentiality of Alcohol and Drug Abuse Patient Records regulations: The Federal rules restrict any use of the information to criminally investigate or prosecute any alcohol or drug abuse patient.[facility] Reason for Visit (unrecogniz ed section and content) Reason Comments 6 Month Exam patient is here for medicare wellness Specialty Diagnoses / Procedures Referred By Emery gutierres Referred To Contact Family Practice / FAMILY MEDICINE Diagnoses medicare 6 months Procedures 4C [facility] Self Diego Patricio MD [address] [place] [address] Referral ID Status Reason Start Date Expiration Date V isits Requested Visits Authorized [id number] Closed Financial Clearance Required - [employer] Payor Patient Cleared INN/[facility] Payor Auth Obtained 02/07/2022 10/21/2022 1 1 Reason Onset Date Comments Refill Request 04/20/2022 Reason Comments Question Reason Comments F/U 6 months Reason Onset Date Comments Refill Request 08/28/2022 Reason Onset Date Comments Refill Request 09/04/2022 Reason Comments Chest Congestion Pt reported nasal co ngestion. Reason Comments Nasal Congestion drainage, cough, fev erish x 4 days Reason Comments Results Reason Comments Letter Reason Comments Orders Reason Onset Date Comments Refill Request 02/20/2023 Reason Comments Medicare Wellness Exam Reason Onset Date Comments Allied Health Visit 03/15/2023 Medication a dherence outreach Reason Comments Established Patient Nail Fungus Reason Comments outside pulm Reason Comments Outside ER Reason Onset Date Comments Refill Request 09/03/2023 Reason Comments Follow Up Reason Comments Outside Pulmonary Reason Onset Date Comments Population Health Navigation Outreach 01/08/2024 [employer] care gaps Reason Comments Wheezing X 1 week Reason Onset Date Comments Refill Request 02/18/2024 Reason Comments F/U 6 months Reason Comments Results Reason Comments Refill Request Reason Comments Recheck Blood pressure Reason Comments Radiology US Specialty Diagnoses / Procedures Referred By Emery gutierres Referred To Contact [facility] Diagnoses Microscopic hematuria Procedures US KIDNEY/BLADDER US RETROPERITONEAL REAL TIME W/IMAGE COMPLETE Diego Patricio MD [address] [place] [address] [place] [address] Referral ID Status Reason Start Date Expiration Date V isits Requested Visits Authorized [id number] Closed Auto-Generate d Referral 04/16/2024 05/16/2025 1 1 Reason Comments Derm Problem Reason Comments Follow Up Rash worsening Reason Comments Recheck Reason Comments New Patient Specialty Diagnoses / Procedures Referred By Contac t Referred To Contact Diagnoses Microscopic hematuria Procedures CONSULT TO UROLOGY OFFICE/OUTPATIENT NEW HIGH MDM 60 MINUTES Kelly Walton PA-C [address] [place] [address] Referral ID Status Reason Start Date Expiration Date V isits Requested Visits Authorized [id number] Closed PCP Requested Referral 06/27/2024 06/27/2025 1 1 Reason Comments Abscess left back of shoulde r x 2 days Reason Onset Date Comments Refill Request 03/31/2024 Reason Onset Date Comments Refill Request 09/22/2024 Reason Onset Date Comments Refill Request 10/17/2024 Reason Onset Date Comments Refill Request 11/06/2024 Reason Comments F/U 6 months Reason Comments Spirometry Specialty Diagnoses / Procedures Referred By Contac t Referred [facility] Contact [facility] Diagnoses Wheezing Ex-smoker Procedures SPIROMETRY - BASELINE AND POST DILATOR BRNCDILAT RSPSE SPMTRY PRE&POST-BRNCDILAT ADMN Diego Patricio MD [address] [place] [address] Respiratory [place] [address] [place] [address] Referral ID Status Reason Start Date Expiration Date V isits Requested Visits Authorized [id number] Closed Auto-Generate d Referral 11/11/2024 12/11/2025 1 1 Reason Comments Outside Ophthalmology Reason Comments Follow Up Reason Onset Date Comments Refill Request 02/04/2025 Reason Onset Date Comments Refill Request 02/05/2025 Reason Comments Numbness Referred by Kelly Walton Specialty Diagnoses / Procedures Referred By Contac t Referred To Contact Orthopedics Diagnoses Hand numbness Ulnar nerve compression, left Procedures CONSULT TO ORTHOPAEDICS OFFICE/OUTPATIENT [facility] 60 MINUTES Kelly Walton PA-C [address] [place] [address] Phone: tel: fax: Outpatient Referral [address] [place] [address] Referral ID Status Reason Start Date Expiration Date Visits Re quested Visits Authorized [id number] Closed 02/12/2025 10/21/2025 1 1 Reason Comments Recheck Continues with breat demetrio issues, wheezing. Not improving after tx. Reason Onset Date Comments Results 03/30/2025 Reason Comments Follow Up Breathing issues Reason Onset Date Comments Refill Request 05/05/2025 Reason Comments Abstract Cardiology OV note Care Teams (unrecognized sec tion and content) Health Information Managers Relationship Specialty Start Date End Date Diego Patricio MD [address] [place], [place] [id number] PCP - General Family Practice 02/03/21 , [facility] Clinical [facility] [address] [facility] [place] [address] Cardiology 11/06/12 Sukumar Miller, [facility] [address] [place] [address] Pharmacist Pharmacy 02/21/21 Health Information Managers Relationship Specialty Start Date End Date Diego Patricio MD [address] [place], [place] [id number] PCP - General Family Practice 02/03/21 , i Clinical Cardiology [address] [facility] [place] [address] Cardiology 11/06/12 Sukumar Miller, [facility] [address] [place] [address] Pharmacist Pharmacy 02/21/21 Health Information Managers Relationship Specialty Start Date End Date Diego Patricio MD [address] [place], [place] [address] [phone] PCP - General Family Practice 02/03/21 , [facility] Clinical Cardiology [address] [facility] [place] [address] Cardiology 11/06/12 [facility] [address] [place] [address] Pharmacist Pharmacy 02/21/21 Health Information Managers Relationship Specialty Start Date End Date Diego Patricio MD [address] [place] [address] PCP - General Family Medicine 02/03/21 A, i Clinical Cardiology [address] [place] [address] Cardiology 11/06/12 [facility] [address] [place] [address] Pharmacist Pharmacy 02/21/21 Health Information Managers Relationship Specialty Start Date End Date Diego Patricio MD [address] [place] [address] PCP - General Family Medicine 02/03/21 A, i Clinical Cardiology [address] [place] [address] Cardiology 11/06/12 [facility] [address] [place] [address] Pharmacist Pharmacy 02/21/21 Health Information Managers Relationship Specialty Start Date End Date Diego Patricio MD [address] [place] [address] PCP - General Family Medicine 02/03/21 A, i Clinical Cardiology [address] [place] [address] Cardiology 11/06/12 [facility] [address] [place] [address] Pharmacist Pharmacy 02/21/21 Health Information Managers Relationship Specialty Start Date End Date Diego Patricio MD [address] [place] [address] PCP - General Family Medicine 02/03/21 A, i Clinical Cardiology [address] [place] [address] Cardiology 11/06/12 Sukumar Miller, [facility] [address] [place] [address] Pharmacist Pharmacy 02/21/21 Health Information Managers Relationship Specialty Start Date End Date Diego Patricio MD [address] [place] [address] PCP - General Family Medicine 02/03/21 A, i Clinical Cardiology [address] [place] [address] Cardiology 11/06/12 Sukumar Miller, [facility] [address] [place] [address] Pharmacist Pharmacy 02/21/21 Health Information Managers Relationship Specialty Start Date End Date Diego Patricio MD [address] [place] [address] PCP - General Family Medicine 02/03/21 A, i Clinical Cardiology [address] [place] [address] Cardiology 11/06/12 Sukumar Miller, [facility] [address] [place] [address] Pharmacist Pharmacy 02/21/21 Health Information Managers Relationship Specialty Start Date End Date Diego Patricio MD [address] [place] [address] PCP - General Family Medicine 02/03/21 A, i Clinical Cardiology [address] [place] [address] Cardiology 11/06/12 Sukumar Miller, [facility] [address] [place] [address] Pharmacist Pharmacy 02/21/21 Health Information Managers Relationship Specialty Start Date End Date Diego Patricio MD [address] [place] [address] PCP - General Family Medicine 02/03/21 A, [facility] Clinical Cardiology [address] [place] [address] Cardiology 11/06/12 [facility] [address] [place] [address] Pharmacist Pharmacy 02/21/21 Health Information Managers Relationship Specialty [place] [address] [place] [address] PCP - General Family Medicine 02/03/21 A, [facility] Clinical Cardiology [address] [place] [address] Cardiology 11/06/12 [facility] [address] [place] [address] Pharmacist Pharmacy 02/21/21 Health Information Managers Relationship Specialty Start Date End Date Diego Patricio MD [address] [place] [address] PCP - General Family Medicine 02/03/21 , [facility] Clinical Cardiology [address] [place] [address] Cardiology 11/06/12 [facility] [address] [place] [address] Pharmacist Pharmacy 02/21/21 Team Status: Active Member Role Status Dates Dr. Khang Raymond MD Family Provider Active Dr. Diego Patricio MD Primary Care Provider Active Team Status: Inactive Member Role Status Dates Dr. Diego Patricio MD Primary Care Provider, Referri ng Provider Active Kerri Bains C++ PROFESSOR, C++ PROFESSOR-C Attending Provider Active Team Status: Inactive Member Role Status Dates Dr. Diego Patricio MD Primary Care Provider Active Bakari Carreon C++ PROFESSOR, C++ PROFESSOR-C Attending Provider, Referring Pro vider Active Team Status: Inactive Member Role Status Dates Dr. Diego Patricio MD Primary Care Provider Active Kerri Bains C++ PROFESSOR, C++ PROFESSOR-C Attending Provider, Referrin g Provider Active Team Status: Inactive Member Role Status Dates Dr. Diego Patricoi MD Primary Care Provider Active Kerri Bains C++ PROFESSOR, C++ PROFESSOR-C Attending Provider Active Health Information Managers Relationship Specialty Start Date End Date Diego Patricio MD [address] [place] [address] PCP - General Family Medicine 02/03/21 A, i Clinical Cardiology [address] [place] [address] Cardiology 11/06/12 [facility] [address] [place] [address] Pharmacist Pharmacy 02/21/21 Health Information Managers Relationship Specialty Start Date End Date Diego Patricio MD [address] [place] [address] PCP - General Family Medicine 02/03/21 A, i Clinical Cardiology [address] [place] [address] Cardiology 11/06/12 [facility] [address] [place] [address] Pharmacist Pharmacy 02/21/21 Health Information Managers Relationship Specialty Start Date End Date Diego Patricio MD [address] [place] [address] PCP - General Family Medicine 02/03/21 A, i Clinical Cardiology [address] [place] [address] Cardiology 11/06/12 [facility] [address] [place] [address] Pharmacist Pharmacy 02/21/21 Health Information Managers Relationship Specialty Start Date End Date Diego Patricio MD [address] [place] [address] PCP - General Family Medicine 02/03/21 A, i Clinical Cardiology [address] [facility] [place] [address] Cardiology 11/06/12 Dustinlarisa Barroncaro, [facility] [address] [place] [address] Pharmacist Pharmacy 02/21/21 Health Information Managers Relationship Specialty Start Date End Date Diego Patricio MD [address] [place] [address] PCP - General Family Medicine 02/03/21 A, i Clinical Cardiology [address] [place] [address] Cardiology 11/06/12 Health Information Managers Relationship Specialty Start Date End Date Diego Patricio MD [facility] [place] [address] PCP - General Family Medicine 02/03/21 A, i Clinical Cardiology [address] [place] [address] Cardiology 11/06/12 Health Information Managers Relationship Specialty Start Date End Date Diego Patricio MD [address] [place] [address] PCP - General Family Medicine 02/03/21 A, i Clinical Cardiology [address] [place] [address] Cardiology 11/06/12 Health Information Managers Relationship Specialty Start Date End Date Diego Patricio MD [address] [place] [address] PCP - General Family Medicine 02/03/21 A, i Clinical Cardiology [address] [place] [address] Cardiology 11/06/12 Health Information Managers Relationship Specialty Start Date End Date Diego Patricio MD [facility] [place] [address] PCP - General Family Medicine 02/03/21 A, [facility] Clinical Cardiology [address] [place] [address] Cardiology 11/06/12 Health Information Managers Relationship Specialty Start Date End Date Diego Patricio MD [address] [place] [address] PCP - General Family Medicine 02/03/21 A, [facility] Clinical Cardiology [address] [place] [address] Cardiology 11/06/12 Health Information Managers Relationship Specialty Start Date End Date Diego Patricio MD [address] [place] [address] PCP - General Family Medicine 02/03/21 A, [facility] Clinical Cardiology [address] [place] [address] Cardiology 11/06/12 Health Information Managers Relationship Specialty Start Date End Date Diego Patricio MD [address] [place] [address] PCP - General Family Medicine 02/03/21 A, i Clinical Cardiology [address] [place] [address] Cardiology 11/06/12 Health Information Managers Relationship Specialty Start Date End Date Diego Patricio MD [address] [place] [address] PCP - General Family Medicine 02/03/21 A, i Clinical Cardiology [address] [place] [address] Cardiology 11/06/12 Health Information Managers Relationship Specialty Start Date End Date Diego Patricio MD [address] [place] [address] PCP - General Family Medicine 02/03/21 A, i Clinical Cardiology [address] [place] [address] Cardiology 11/06/12 Health Information Managers Relationship Specialty Start Date End Date Diego Patricio MD [address] [place] [address] PCP - General Family Medicine 02/03/21 A, [facility] Clinical Cardiology [address] [place] [address] Cardiology 11/06/12 Health Information Managers Relationship Specialty Start Date End Date Diego Patricio MD [facility] [place] [address] PCP - General Family Medicine 02/03/21 A, [facility] Clinical Cardiology [address] [place] [address] Cardiology 11/06/12 Health Information Managers Relationship Specialty Start Date End Date Diego Patricio MD [facility] [place] [address] PCP - General Family Medicine 02/03/21 A, [facility] Clinical Cardiology [address] [place] [address] Cardiology 11/06/12 Health Information Managers Relationship Specialty Start Date End Date Diego Patricio MD [address] [place] [address] PCP - General Family Medicine 02/03/21 A, [facility] Clinical Cardiology [address] [place] [address] Cardiology 11/06/12 Health Information Managers Relationship Specialty Start Date End Date Diego Patricio MD [facility] [place] [address] PCP - General Family Medicine 02/03/21 A, [facility] Clinical Cardiology [address] [place] [address] Cardiology 11/06/12 Health Information Managers Relationship Specialty Start Date End Date Diego Patricio MD [facility] [place] [address] PCP - General Family Medicine 02/03/21 A, [facility] Clinical Cardiology [address] [place] [address] Cardiology 11/06/12 Health Information Managers Relationship Specialty Start Date End Date Diego Patricio MD [address] [place] [address] PCP - General Family Medicine 02/03/21 A, i Clinical Cardiology [address] [place] [address] Cardiology 11/06/12 Health Information Managers Relationship Specialty Start Date End Date Diego Patricio MD [address] [place] [address] PCP - General Family Medicine 02/03/21 A, i Clinical Cardiology [address] [place] [address] Cardiology 11/06/12 Sukumar Miller [address] [address] Pharmacist Pharmacy 02/21/21 11/20/23 Health Information Managers Relationship Specialty Start Date End Date Diego Patricio MD [address] [place] [address] PCP - General Family Medicine 02/03/21 A, [facility] Clinical Cardiology [address] [place] [address] Cardiology 11/06/12 Mary Littlejohn APRN.CNP [address] [place] [address] [facility] 09/27/24 Kelly Walton PA-C [address] [place] [address] [facility] 09/27/24 Health Information Managers Relationship Specialty Start Date End Date Diego Patricio MD [address] [place] [address] PCP - General Family Medicine 02/03/21 A, i Clinical Cardiology [address] [place] [address] Cardiology 11/06/12 Mary Littlejohn APRN.TYPING BOOKKEEPER [address] [place] [address] [facility] 09/27/24 Kelly Walton PA-C [address] [place] [address] [facility] 09/27/24 Health Information Managers Relationship Specialty Start Date End Date Diego Patricio MD [address] [place] [address] PCP - General Family Medicine 02/03/21 A, i Clinical Cardiology [address] [place] [address] Cardiology 11/06/12 Mary Littlejohn APRN.TYPING BOOKKEEPER [address] [place] [address] [facility] Medicine 09/27/24 Kelly Walton PA-C [address] [place] [address] [facility] 09/27/24 Health Information Managers Relationship Specialty Start Date End Date Diego Patricio MD [address] [place] [address] PCP - General Family Medicine 02/03/21 A, i Clinical Cardiology [address] [place] [address] Cardiology 11/06/12 Mary Littlejohn APRN.TYPING BOOKKEEPER [facility] [place] [address] [facility] 09/27/24 Kelly Walton PA-C [address] [place], [place] [phone] [facility] 09/27/24 Health Information Managers Relationship Specialty Start Date End Date Diego Patricio MD [address] [place] [address] PCP - General Family Medicine 02/03/21 A, i Clinical Cardiology [address] [place] [address] Cardiology 11/06/12 Mary Littlejohn, PROJECT DRILLING ENGINEER.TYPING BOOKKEEPER [address] [place] [address] [facility] 09/27/24 Kelly Walton PA-C [address] [place] [address] [facility] 09/27/24 Health Information Managers Relationship Specialty Start Date End Date Diego Patricio MD [address] [place] [address] PCP - General Family Medicine 02/03/21 A, i Clinical Cardiology [address] [place] [address] Cardiology 11/06/12 Mary Littlejohn, PROJECT DRILLING ENGINEER.TYPING BOOKKEEPER [address] [place] [address] [facility] 09/27/24 Kelly Walton PA-C [address] [place] [address] [facility] 09/27/24 Health Information Managers Relationship Specialty Start Date End Date Diego Patricio MD [address] [place] [address] PCP - General Family Medicine 02/03/21 A, i Clinical Cardiology [address] [place] [address] Cardiology 11/06/12 Mary Littlejohn APRN.TYPING BOOKKEEPER [address] [place] [address] [facility] 09/27/24 Kelly Walton PA-C [address] [place] [address] [facility] 09/27/24 Health Information Managers Relationship Specialty Start Date End Date Diego Patricio MD [address] [place] [address] PCP - General Family Medicine 02/03/21 A, i Clinical Cardiology [address] [place] [address] Cardiology 11/06/12 Mary Littlejohn APRN.TYPING BOOKKEEPER [address] [place] [address] [facility] 09/27/24 Kelly Walton PA-C [address] [place] [address] [facility] 09/27/24 Health Information Managers Relationship Specialty Start Date End Date Diego Patricio MD [address] [place] [address] PCP - General Family Medicine 02/03/21 A, i Clinical Cardiology [address] [place] [address] Cardiology 11/06/12 Mary Littlejohn APRN.TYPING BOOKKEEPER [address] [place] [address] [facility] 03/23/25 Kelly Walton PA-C [address] [place] [address] [facility] 03/23/25 Health Information Managers Relationship Specialty Start Date End Date Diego Patricio MD [address] [place] [address] PCP - General Family Medicine 02/03/21 A, i Clinical Cardiology [address] [place] [address] Cardiology 11/06/12 Mary Littlejohn, PROJECT DRILLING ENGINEER.TYPING BOOKKEEPER [address] [place] [address] [facility] 03/23/25 Kelly Walton PA-C [address] [place] [address] [facility] 03/23/25 Health Information Managers Relationship Specialty Start Date End Date Diego Patricio MD [address] [place] [address] PCP - General Family Medicine 02/03/21 A, i Clinical Cardiology [address] [place] [address] Cardiology 11/06/12 Mary Littlejohn, PROJECT DRILLING ENGINEER.TYPING BOOKKEEPER [address] [place] [address] [facility] 03/23/25 Kelly Walton PA-C [address] [place] [address] [facility] 03/23/25 Health Information Managers Relationship Specialty Start Date End Date Diego Patricio MD [address] [place] [address] PCP - General Family Medicine 02/03/21 A, i Clinical Cardiology [address] [place] [address] Cardiology 11/06/12 Mary Littlejohn APRN.TYPING BOOKKEEPER [address] [place] [address] [facility] 03/23/25 Kelly Walton PA-C [address] [place] [address] [facility] 03/23/25 Health Information Managers Relationship Specialty Start Date End Date Diego Patrciio MD [facility] [place] [address] PCP - General Family Medicine 02/03/21 A, i Clinical Cardiology [address] [place] [address] Cardiology 11/06/12 Mary Littlejohn, AAMIR.TYPING BOOKKEEPER [address] [place] [address] [facility] 03/23/25 Kelly Walton PA-C [address] [place] [address] [facility] 03/23/25 Health Information Managers Relationship Specialty Start Date End Date Diego Patricio MD [address] [place] [address] PCP - General Family Medicine 02/03/21 A, i Clinical Cardiology [address] [place] [address] Cardiology 11/06/12 Mary Littlejohn APRN.TYPING BOOKKEEPER [address] [place] [address] [facility] 03/23/25 Kelly Walton PA-C [address] [place] [address] [facility] 03/23/25 Team Status: Active Member Role/Relationship Status Dates Dr. iDego Patricio MD Primary Care Provider Active Team Status: Inactive Member Role/Relationship Status Dates Dr. Diego Patricio MD Primary Care Provider Active Start: June 03, 2025 End: June 03, 2025 Dr. Diego Patricio MD Referring Provider Active Start: June 03, 2025 End: June 03, 2025 Bakari Carreon C++ PROFESSOR, C++ PROFESSOR-C Attending Provider Active S tart: June 03, 2025 End: June 03, 2025 Health Information Managers Relationship Specialty Start Date End Date Diego Patricio MD [address] [place] [address] PCP - General Family Medicine 02/03/21 A, [facility] Clinical Cardiology [address] [place] [address] Cardiology 11/06/12 Mary Littlejohn APRN.TYPING BOOKKEEPER [address] [place] [address] [facility] 03/23/25 Kelly Walton PA-C [address] [place] [address] [facility] 03/23/25 Goals (unrecognized section and content) Goals may be documented in a n alternate sectionGoals may be documented in an alternate section FOR RECORDS PERTAINING TO PATIENTS WHO ARE OR HAVE BEEN ENROLLED IN A CHEMICAL DEPENDENCY/SUBSTANCEABUSE PROGRAM, SOME INFORMATION MAY BE OMITTED. This clinical summary was aggregated from multiple sources. Caution should be exercised in using it in the provision of clinical care. This summary normalizes information from multiple sources, and as a consequence, information in this document may materially change the coding, format and clinical context of patient data. In addition, data may be omitted in some cases. CLINICAL DECISIONS SHOULD BE BASED ON THE PRIMARY CLINICAL RECORDS. [facility] provides no warranty or guarantee of the accuracy or completeness of information in this document.
--- NOTE | 2025-07-08 17:35 | STRESSREP ---
Stress Test Report Pharmacologic myocardial perfusion stress test. 75-year-old man with a history of coronary artery disease. Resting EKG demonstrates sinus bradycardia with a rate of 52 bpm. Resting blood pressure is 132/82 mmHg. 0.4 mg of regadenoson was infused per usual protocol followed by rapid intravenous saline flush injection. Continuous EKG monitoring was performed. The maximum heart rate was 57 bpm which was 51% of max impacted heart rate the maximum workload was 1 metabolic equivalent. At rest there were no ST or T wave changes noted to suggest ischemia and at peak infusion nonspecific ST changes were noted which did not meet the criteria for ischemia. No clinical angina is noted. The final blood pressure was 108/60 mmHg. Myocardial perfusion protocol. 13.9 mCi of technetium 99m sestamibi was injected at rest. 0.4 mg of regadenoson was infused per usual protocol. At peak infusion 39 mCi of technetium 99m sestamibi was injected stress images were obtained stress and rest images were reconstructed and compared in the short axis vertical long and horizontal long axis. Gated images were also obtained. Perfusion SPECT analysis: Review of the stress images demonstrate normal uptake of tracer noted in all areas of the myocardium. Reduced perfusion noted in the anteroseptal wall. The resting images similar demonstrated normal uptake of tracer noted in all areas of the myocardium. Reduced perfusion noted in the anteroseptal wall present. Likely from pacemaker activity. No areas of reversibility are noted to suggest ischemia and no previous infarct is noted. Gated SPECT analysis: The gated ejection fraction is 51%. Conclusion: Normal pharmacologic myocardial perfusion stress test. Preserved ejection fraction.
== END | disposition home or self-care (01) ==
PROVIDERS: PCP Family Medicine; Referring Provider Nurse Practitioner Family; Visit Provider Nurse Practitioner Family
DX: I25.10 Atherosclerotic heart disease of native coronary artery without angina pectoris (principal)
CPT/HCPCS: 78452; 93017; A9500; A4216; J2785